=== PATIENT | female | born 1955 | race African-American/Black ===

== ENCOUNTER 2016-12-05 20:55 | Emergency (ER) | payer BC ==
--- NOTE | 2016-12-05 22:33 | RADIOLOGY REPORT (SQ) ---
EXAM DESCRIPTION: CHEST PA/LAT COMPLETED DATE/TIME: 12/05/2016 10:07 pm REASON FOR STUDY: sob COMPARISON: May 2012 EXAM PARAMETERS: NUMBER OF VIEWS: two views TECHNIQUE: Digital Frontal and Lateral radiographic views of the chest acquired. RADIATION DOSE: NA LIMITATIONS: none FINDINGS: LUNGS AND PLEURA: There are somewhat ill-defined patchy airspace densities predominately i n the right lung which could represent pulmonary edema or pneumonic infiltrates. There is some minim al blunting of the costophrenic angles which could represent tiny pleural effusions. MEDIASTINUM AND HILAR STRUCTURES: No masses or contour abnormalities. HEART AND VASCULAR STRUCTURES: Cardiac silhouette is mildly enlarged. There is pulmonary vascular co ngestion. BONES: No acute findings. HARDWARE: None in the chest. OTHER: No other significant finding. IMPRESSION: Cardiomegaly with pulmonary vascular congestion. There are somewhat ill-defined patchy airspace densities predominately in the right lung which could represent pneumonic infiltrates or pul monary edema. Other findings as noted above. TECHNICAL DOCUMENTATION: JOB ID: [id number] [employer]- All Rights Reserved
--- NOTE | 2016-12-05 23:50 | RADIOLOGY REPORT (SQ) ---
EXAM DESCRIPTION: NM LUNG VENT/PERF SCAN COMPLETED DATE/TIME: 12/05/2016 11:38 pm REASON FOR STUDY: SOB, elevated d-dimer, creatinine 3.5 COMPARISON: None. RADIONUCLIDE AND DOSE: 5.24 millicuries TC-99m MAA Intravenous 32.3 millicuries TC-99m DTPA Inhaled aerosol TECHNIQUE: Eight views of the lungs acquired post ventilation of DTPA aerosol. Eight matching views of the lungs acquired following injection of MAA. LIMITATIONS: None. FINDINGS: VENTILATION: Symmetric and homogeneous distribution of DTPA aerosol during ventilatory pha se. No significant areas of photopenia. PERFUSION: Perfusion images with normal homogenous activity and no wedge-shaped or segmental defects. No ventilation-perfusion mismatches. OTHER: No other significant finding. IMPRESSION: NORMAL VENTILATION-PERFUSION LUNG SCAN. NEGATIVE FOR PULMONARY EMBOLI. TECHNICAL DOCUMENTATION: JOB ID: [id number] [employer]- All Rights Reserved
[2016-12-05] MEDS ORDERED: FUROSEMIDE INJ/PF 40 MG/4 ML SDV IV ONE (23:59)
--- NOTE | 2016-12-06 00:37 | ER Document Report ---
ED Respiratory Problem - General Chief Complaint: Abnormal Lab Results Stated Complaint: WELL CHECK Time Seen by Provider: 12/05/16 21:53 Notes: The patient is a 61-year-old female, past medical history hypertension, CKD, CHF , presents after she had outpatient labs completed yesterday by her primary care physician, Dr. Nicholas De La Cruz, and her d-dimer was elevated. She was sent to the ER for further evaluation and treatment. Patient has had mild shortness of breath and chest congestion over the past 2-3 days with lower extremity swelling. She is taking her 20 mg Lasix as prescribed. She also tried an albuterol treatment with mild relief of her symptoms. She denies chest pain, cough, fevers, nausea, vomiting, back pain, abdominal pain or calf pain. TRAVEL OUTSIDE OF THE [place] IN LAST 30 DAYS: No - Related Data Allergies/Adverse Reactions: No Known Allergies Allergy (Verified 12/05/16 21:20) Past Medical History - General Information source: Patient - Social History Smoking Status: Never Smoker Family History: Reviewed & Not Pertinent - Past Medical History Cardiac Medical History: Reports: Hx Hypertension Pulmonary Medical History: Denies: Hx Tuberculosis Endocrine Medical History: Reports: Hx Diabetes Mellitus Type 2 Renal/ Medical History: Denies: Hx Peritoneal Dialysis Psychiatric Medical History: Denies: Hx Depression Past Surgical History: Reports: Hx Section - X3, Hx Cholecystectomy, Hx Orthopedic Surgery - Ankle surgery. Denies: Hx Pacemaker - Immunizations Hx Diphtheria, Pertussis, Tetanus Vaccination: No Review of Systems - Review of Systems Notes: REVIEW OF SYSTEMS: CONSTITUTIONAL: -fevers, -chills EENT: -eye pain, -difficulty swallowing, -nasal congestion CARDIOVASCULAR:-chest pain, -syncope, +peripheral edema RESPIRATORY: -cough, +SOB GASTROINTESTINAL: -abdominal pain, -nausea, -vomiting, -diarrhea GENITOURINARY: -dysuria, -hematuria MUSCULOSKELETAL: -back pain, -neck pain SKIN: -rash or skin lesions. HEMATOLOGIC: -easy bruising or bleeding. LYMPHATIC: -swollen, enlarged glands. NEUROLOGICAL: -altered mental status or loss of consciousness, -headache, - neurologic symptoms PSYCHIATRIC: -anxiety, -depression. ALL OTHER SYSTEMS REVIEWED AND NEGATIVE. Physical Exam - Notes Notes: PHYSICAL EXAMINATION: GENERAL: Well-appearing, well-nourished and in no acute distress. HEAD: Atraumatic, normocephalic. EYES: Pupils equal round and reactive to light, extraocular movements intact, sclera anicteric, conjunctiva are normal. ENT: nares patent, oropharynx clear without exudates. Moist mucous membranes. NECK: Normal range of motion, supple without lymphadenopathy LUNGS: Diffuse rales. No respiratory distress. HEART: Regular rate and rhythm without murmurs ABDOMEN: Soft, nontender, normoactive bowel sounds. No guarding, no rebound. No masses appreciated. EXTREMITIES: 2+ pitting edema in legs up to knees, normal range of motion. No cyanosis. NEUROLOGICAL: Cranial nerves grossly intact. Normal speech, normal gait. Normal sensory and motor exams. PSYCH: Normal mood, normal affect. SKIN: Warm, Dry, normal turgor, no rashes or lesions noted. Course - Re-evaluation Re-evalutation: Labs reviewed from earlier in the day. Unremarkable other than elevated d- dimer. No other acute abnormalities. Chest x-ray shows mild pulmonary edema. She is not in any respiratory distress. VQ scan does not show any evidence of PE. After IV Lasix, pt urinated a large amount. Offered patient admission, but she feels much better and would like to go home. She has an appointment with her PMD, Dr. De La Cruz, in 7 hours. Told her to discuss her elevated blood pressures in her PMD's office. Given strict return precautions and she understands. - Laboratory Laboratory results interpreted by me: 12/06/16 00:21 NT-Pro-B Natriuret Pep 9360 H - Diagnostic Test Radiology reviewed: Image reviewed, Reports reviewed Radiology results interpreted by me: CXR: pulmonary edema V/Q scan: No evidence of PE. Discharge - Discharge Clinical Impression: Pulmonary edema Qualifiers: Chronicity: acute Qualified Code(s): J81.0 - Acute pulmonary edema Condition: Good Disposition: HOME, SELF-CARE Additional Instructions: Your V/Q scan does not show any evidence of blood clots in your lungs. You have some fluid on your lungs and you were given IV Lasix. You did not want to be admitted tonight because you have an appointment with Dr. De La Cruz in 8 hours. Your blood pressure was also elevated in the emergency room, which improved after IV Lasix. Have this rechecked tomorrow to see if you need any adjustments of your blood pressure medications. SHORTNESS OF BREATH OR DYSPNEA: You were evaluated for shortness of breath, or dyspnea. Dyspnea has many causes, and some are more serious than others. Sometimes it's impossible to diagnose the cause of dyspnea with the tests that are available on an emergency basis. Based on our evaluation today, you do not need hospitalization now. We found no evidence of pneumonia, collapsed lung, blood clots in the lung, tumors , or heart failure. Causes of non-specific dyspnea can include asthma or bronchospasm, hyperventilation, emotional distress, heart disease, emphysema, fibrosis of the lung, and stiffness of the chest wall. In healthy individuals with a single episode, it's sometimes reasonable to do nothing but wait to see if the problem occurs again. Additional tests used to evaluate dyspnea can include cardiac stress testing, echocardiography, pulmonary function testing, CAT scan of the chest, bronchoscopy or pulmonary biopsy. Return if shortness of breath persists or worsens, or if you develop chest pain, fever, cough, confusion, or fainting. FOLLOW-UP CARE: If you have been referred to a physician for follow-up care, call the physician s office for an appointment as you were instructed or within the next two days. If you experience worsening or a significant change in your symptoms, notify the physician immediately or return to the Emergency Department at any time for re-evaluation. Referrals: NICHOLAS DE LA CRUZ MD [Primary Care Provider] - Follow up as needed
[2016-12-06 01:14] LABS: TROPONIN I < 0.012 ng/mL
[2016-12-06 06:58] VITALS: BP 174/90
--- NOTE | 2016-12-06 08:13 | EKG REPORT ---
SEVERITY:- ABNORMAL ECG - SINUS RHYTHM LVH WITH SECONDARY REPOLARIZATION ABNORMALITY : Confirmed by: Santosh Arredondo MD 06-Dec-2016 08:13:15
== END 2016-12-06 03:00 | disposition home or self-care (01) ==
LOC: ER 20:55
DX: J81.0 Acute pulmonary edema (principal); I13.0 Hypertensive heart and chronic kidney disease with heart failure and stage 1 through stage 4 chronic kidney disease, or unspecified chronic kidney disease; E11.22 Type 2 diabetes mellitus with diabetic chronic kidney disease; N18.9 Chronic kidney disease, unspecified; I50.9 Heart failure, unspecified; Z90.49 Acquired absence of other specified parts of digestive tract
CPT/HCPCS: 93005; 99284; 96374; 36415; 84484; 83880; 71020; 78582; 93010; A9540; A9567; J1940; Q9969; 80053; 85025; 85379

== ENCOUNTER → 2016-12-05 | Outpatient (CLI) | payer BC ==
[2016-12-05 13:36] LABS: HEMATOCRIT 36.6 % (36.0-47.0); HEMOGLOBIN 11.7 g/dL (12.0-15.5); HGB HCT DIFFERENCE -1.5; MEAN CORPUSCULAR HEMOGLOBIN 28.2 pg (27.0-33.4); MEAN CORPUSCULAR HGB CONC 31.9 g/dL (32.0-36.0); MEAN CORPUSCULAR VOLUME 88 fl (80-97); RED BLOOD COUNT 4.13 10^6/uL (3.72-5.28); RED CELL DISTRIBUTION WIDTH 15.5 % (11.5-14.0); WHITE BLOOD COUNT 12.4 10^3/uL (4.0-10.5)
--- NOTE | 2016-12-05 13:57 | RADIOLOGY REPORT (SQ) ---
EXAM DESCRIPTION: CHEST PA/LATERAL COMPLETED DATE/TIME: 12/05/2016 1:14 pm REASON FOR STUDY: WHEEZING COMPARISON: 06/19/2012 EXAM PARAMETERS: NUMBER OF VIEWS: two views TECHNIQUE: Digital Frontal and Lateral radiographic views of the chest acquired. RADIATION DOSE: NA LIMITATIONS: none FINDINGS: LUNGS AND PLEURA: There is no focal consolidation. Interstitial markings are mildly promi nent. MEDIASTINUM AND HILAR STRUCTURES: No masses or contour abnormalities. HEART AND VASCULAR STRUCTURES: Heart is enlarged with central vascular congestion. BONES: No acute findings. HARDWARE: None in the chest. OTHER: No other significant finding. IMPRESSION: Cardiomegaly mild vascular congestion. TECHNICAL DOCUMENTATION: JOB ID: [id number] [employer]- All Rights Reserved
[2016-12-05 13:58] LABS: ALANINE AMINOTRANSFERASE 33 U/L (9-52); ALBUMIN 3.2 g/dL (3.5-5.0); ALKALINE PHOSPHATASE 163 U/L (38-126); ANION GAP 15 (5-19); ASPARTATE AMINO TRANSFERASE 19 U/L (14-36); BILIRUBIN,DIRECT 0.5 mg/dL (0.0-0.4); BILIRUBIN,TOTAL 0.6 mg/dL (0.2-1.3); BLOOD UREA NITROGEN 40 mg/dL (7-20); CALCIUM 8.8 mg/dL (8.4-10.2); CARBON DIOXIDE 21 mmol/L (22-30); CHLORIDE 105 mmol/L (98-107); CREATININE RESULT 3.69 mg/dL (0.52-1.25); GLUCOSE 348 mg/dL (75-110); POTASSIUM 4.3 mmol/L (3.6-5.0); SODIUM 140.5 mmol/L (137-145); TOTAL PROTEIN 6.3 g/dL (6.3-8.2)
[2016-12-05 13:59] LABS: ANISOCYTOSIS 1+; BASOPHILS % (MANUAL) 0 % (0-2); EOSINOPHILS % (MANUAL) 0 % (0-6); LYMPHOCYTES % (MANUAL) 5 % (13-45); OVALOCYTES SLIGHT; POIKILOCYTOSIS SLIGHT; POLYCHROMASIA SLIGHT; TOTAL CELLS COUNTED 100
== END ==
LOC: OD 12:47
PROVIDERS: ATTEND Physician Assistant
DX: R06.2 Wheezing (principal); R05 Cough
CPT/HCPCS: 36415; 71020; 80053; 83880; 85025; 85379

== ENCOUNTER 2017-05-30 12:47 | Inpatient (IN) | payer BC ==
[2017-05-30] MEDS ORDERED: CLONIDINE HCL 0.2 MG TABLET PO ONE (13:57)
--- NOTE | 2017-05-30 13:58 | ER Document Report ---
ED Medical Screen (RME) - General Chief Complaint: High Blood Pressure Stated Complaint: SHORTNESS OF BREATH Time Seen by Provider: 05/30/17 13:56 Notes: Patient states that she has been out of her clonidine for over 1 week. She also states she has shortness of breath especially with exertion. She denies any chest pain. TRAVEL OUTSIDE OF THE [place] IN LAST 30 DAYS: No - Related Data Allergies/Adverse Reactions: No Known Allergies Allergy (Verified 05/30/17 12:48) Past Medical History - Past Medical History Cardiac Medical History: Reports: Hx Hypertension Pulmonary Medical History: Denies: Hx Tuberculosis Endocrine Medical History: Reports: Hx Diabetes Mellitus Type 2 Renal/ Medical History: Denies: Hx Peritoneal Dialysis Psychiatric Medical History: Denies: Hx Depression Past Surgical History: Reports: Hx Section - X3, Hx Cholecystectomy, Hx Orthopedic Surgery - Ankle surgery. Denies: Hx Pacemaker - Immunizations Hx Diphtheria, Pertussis, Tetanus Vaccination: No Physical Exam - Vital signs Vitals: Temp Pulse Resp BP Pulse Ox 97.9 F 102 H 19 243/132 H 95 05/30/17 12:59 05/30/17 12:59 05/30/17 12:59 05/30/17 12:59 05/30/17 12:59 Course - Vital Signs Vital signs: Temp Pulse Resp BP Pulse Ox 97.9 F 102 H 19 243/132 H 95 05/30/17 12:59 05/30/17 12:59 05/30/17 12:59 05/30/17 12:59 05/30/17 12:59
--- NOTE | 2017-05-30 14:42 | RADIOLOGY REPORT (SQ) ---
EXAM DESCRIPTION: CHEST PA/LAT COMPLETED DATE/TIME: 05/30/2017 2:20 pm REASON FOR STUDY: sob/cough COMPARISON: November 2010 EXAM PARAMETERS: NUMBER OF VIEWS: two views TECHNIQUE: Digital Frontal and Lateral radiographic views of the chest acquired. RADIATION DOSE: NA LIMITATIONS: none FINDINGS: LUNGS AND PLEURA: A moderate size left and small right pleural effusions are identified. There is some associated airspace consolidation in the left mid lung field most consistent with atele ctatic changes. Patchy airspace densities are identified especially in the right lung which could re present patchy pneumonic infiltrates or pulmonary edema. MEDIASTINUM AND HILAR STRUCTURES: No masses or contour abnormalities. HEART AND VASCULAR STRUCTURES: Cardiac silhouette remains enlarged. There is pulmonary vascular alysia estion. BONES: No acute findings. HARDWARE: None in the chest. OTHER: No other significant finding. IMPRESSION: Congestive failure pattern as noted above. I cannot exclude superimposed pneumonic infi ltrates. Other findings as noted above. TECHNICAL DOCUMENTATION: JOB ID: [id number] [employer]- All Rights Reserved
[2017-05-30] MEDS ORDERED: NITROGLYCERIN 2% OINTMENT 1 GM PACKET TP ONE (15:24)
[2017-05-30] MEDS ORDERED: ASPIRIN 325 MG TABLET PO ONE (15:24)
[2017-05-30 15:48] LABS: HEMOGLOBIN 11.1 g/dL (12.0-15.5); MEAN CORPUSCULAR HGB CONC 32.6 g/dL (32.0-36.0); MEAN CORPUSCULAR VOLUME 92 fl (80-97); PLATELET COUNT 219 10^3/uL (150-450); RED CELL DISTRIBUTION WIDTH 17.2 % (11.5-14.0); WHITE BLOOD COUNT 17.8 10^3/uL (4.0-10.5)
[2017-05-30 15:53] LABS: ALANINE AMINOTRANSFERASE 29 U/L (9-52); ALBUMIN 3.1 g/dL (3.5-5.0); ALKALINE PHOSPHATASE 285 U/L (38-126); ANION GAP 13 (5-19); ASPARTATE AMINO TRANSFERASE 17 U/L (14-36); BILIRUBIN,DIRECT 0.3 mg/dL (0.0-0.4); BILIRUBIN,TOTAL 0.4 mg/dL (0.2-1.3); BLOOD UREA NITROGEN 55 mg/dL (7-20); CALCIUM 7.9 mg/dL (8.4-10.2); CARBON DIOXIDE 22 mmol/L (22-30); CHLORIDE 106 mmol/L (98-107); GLUCOSE 201 mg/dL (75-110); POTASSIUM 3.2 mmol/L (3.6-5.0); SODIUM 141.4 mmol/L (137-145); TOTAL PROTEIN 5.6 g/dL (6.3-8.2)
--- NOTE | 2017-05-30 15:57 | ER Document Report ---
ED General - General Chief Complaint: High Blood Pressure Stated Complaint: SHORTNESS OF BREATH Time Seen by Provider: 05/30/17 13:56 Notes: 31-year-old lady with hypertension off her meds for a week presents with shortness of breath gradually increasing for a week, constant non-positional. She has no chest pain or pressure. She has no edema. She has no focal neurologic signs or symptoms. Noted to be quite hypertensive at triage. TRAVEL OUTSIDE OF THE [place] IN LAST 30 DAYS: No - Related Data Allergies/Adverse Reactions: No Known Allergies Allergy (Verified 05/30/17 12:48) Past Medical History - Social History Smoking Status: Never Smoker Chew tobacco use (# tins/day): No Frequency of alcohol use: None Drug Abuse: None Family History: Reviewed & Not Pertinent Patient has suicidal ideation: No Patient has homicidal ideation: No - Past Medical History Cardiac Medical History: Reports: Hx Hypertension Pulmonary Medical History: Denies: Hx Tuberculosis Endocrine Medical History: Reports: Hx Diabetes Mellitus Type 2 Renal/ Medical History: Denies: Hx Peritoneal Dialysis Psychiatric Medical History: Denies: Hx Depression Past Surgical History: Reports: Hx Section - X3, Hx Cholecystectomy, Hx Orthopedic Surgery - Ankle surgery. Denies: Hx Pacemaker - Immunizations Hx Diphtheria, Pertussis, Tetanus Vaccination: No Review of Systems - Review of Systems Notes: REVIEW OF SYSTEMS GEN: Denies fever, chills, weight loss ENT: Denies sore throat, nasal discharge, ear pain EYES: Denies blurry vision, eye pain, discharge CV: Denies chest pain, palpitations, edema RESP: D soreness of breath GI: Denies abdominal pain, nausea, vomiting, diarrhea MSK: Denies joint pain/swelling, edema, SKIN: Denies rash, skin lesions LYMPH: Denies swollen glands/lymph nodes NEURO: Denies headache, focal weakness or numbness, dizziness PSYCH: Denies depression, suicidal or homicidal ideation PHYSICAL EXAMINATION General: No acute distress, well-nourished Head: Atraumatic, normocephalic ENT: Mouth normal, oropharynx moist, no exudates or tonsillar enlargement Eyes: Conjunctiva normal, pupils equal, lids normal Neck: No JVD, supple, no guarding CVS: Normal rate, regular rhythm, no murmurs Resp: No resp distress, equal and normal breath sounds bilaterally GI: Nondistended, soft, no tenderness to palpation, no rebound or guarding Ext: No deformities, no edema, normal range of motion in upper and lower ext Back: No CVA or midline TTP Skin: No rash, warm Lymphatic: No lymphadeopathy noted Neuro: Awake, alert. Face symmetric. GCS 15. No pronator drift. Physical Exam - Vital signs Vitals: Temp Pulse Resp BP Pulse Ox 97.9 F 102 H 19 243/132 H 95 05/30/17 12:59 05/30/17 12:59 05/30/17 12:59 05/30/17 12:59 05/30/17 12:59 Course - Re-evaluation Re-evalutation: 05/30/17 16:06 61-year-old lady with hypertension and elevated creatinine presents with shortness of breath for a few weeks. She has pronounced leg edema and extremely high blood pressure. She has no chest pain at this time. Differential includes hypertensive emergency malignant hypertension, less likely stroke or dissection given lack of chest pain or neurologic symptoms. Will Place Nitropaste for now, check labs and an EKG and chest x-ray, and reassess. Patient was reassessed at 4 PM. Her pressure has only come down to 240 systolic on Nitropaste. Her creatinine has gone from 3-8. She is hypokalemic today. I will withhold on repleting that given her poor renal function. Her ECG shows heart failure. That said her respiratory status is stable. EKG has not been done so we will do this. I will start a nicardipine drip, contact Dr. Alfredo, and get the patient admitted. 05/30/17 19:07 His blood pressure is decreased on the nicardipine drip. I spent up to 30 minutes on the phone with the nursing supervisor machining, charge nurse, Dr. Alfredo, Dr. Wong, and the cloud systems administrator on-call working out a disposition for this patient. Initially she was accepted by Dr. Burden at [facility] but I was then notified that because of inclement weather all transfers out of the [place] emergency department had been canceled. Dr. Wong was reticent to accept this patient because he is not contingents supervisor because of hospital policy is not able to provide coverage. I then spoke with hospitalist Dr. Salter. I then spoke with the nursing supervisor machining. Dr. Wong agreed to accept the patient is a consult and provide coverage if the hospital administration would speak with him. I then spoke with Dr. Alfredo who agreed to admit the patient to the ICU. - Vital Signs Vital signs: Temp Pulse Resp BP Pulse Ox 97.9 F 102 H 21 H 167/79 H 92 05/30/17 12:59 05/30/17 12:59 05/30/17 19:01 05/30/17 19:01 05/30/17 19:01 - Laboratory Result Diagrams: 05/30/17 15:05 05/30/17 15:05 Laboratory results interpreted by me: 05/30/17 05/30/17 05/30/17 15:05 15:05 15:05 WBC 17.8 H RBC 3.70 L Hgb 11.1 L Hct 34.0 L RDW 17.2 H Seg Neuts % (Manual) 92 H Lymphocytes % (Manual) 5 L Monocytes % (Manual) 2 L Abs Neuts (Manual) 16.4 H Potassium 3.2 L BUN 55 H Creatinine 8.26 H Est GFR ( Amer) 6 L Est GFR (Non-Af Amer) 5 L Glucose 201 H Calcium 7.9 L Alkaline Phosphatase 285 H NT-Pro-B Natriuret Pep 16276 H Total Protein 5.6 L Albumin 3.1 L - EKG Interpretation by Me EKG shows normal: Sinus rhythm Rhythm: NSR When compared to previous EKG there are: No significant change - No ST or T- wave changes Critical Care Note - Critical Care Note Total time excluding time spent on procedures (mins): 75 Comments: The above patient is critically ill. Not including procedures, but including direct re-evaluations, speaking with patient and/or consultants, interpreting results, and documenting, I spent the total amount of minute listed listed above on critical care time Discharge - Discharge Clinical Impression: Malignant hypertension, Hypertensive emergency Condition: Critical Disposition: ADMITTED INPATIENT Admitting Provider: Juni Unit Admitted: ICU Referrals: DEVAN ALFREDO MD [Primary Care Provider] - Follow up as needed
[2017-05-30 16:04] LABS: TROPONIN I 0.025 ng/mL
[2017-05-30 16:06] LABS: ABSOLUTE LYMPHOCYTES# (MANUAL) 0.9 10^3/uL (0.5-4.7); ABSOLUTE MONOCYTES # (MANUAL) 0.4 10^3/uL (0.1-1.4); ABSOLUTE NEUTROPHILS# (MANUAL) 16.4 10^3/uL (1.7-8.2); BASOPHILS % (MANUAL) 1 % (0-2); EOSINOPHILS % (MANUAL) 0 % (0-6); LYMPHOCYTES % (MANUAL) 5 % (13-45); MONOCYTES % (MANUAL) 2 % (3-13); SEGMENTED NEUTROPHILS % (MAN) 92 % (42-78); TOTAL CELLS COUNTED 100
[2017-05-30 16:08] LABS: ANISOCYTOSIS 1+; POLYCHROMASIA SLIGHT
[2017-05-30 16:09] LABS: PLATELET COMMENT ADEQUATE; PLATELET LARGE PRESENT
[2017-05-30] MEDS: NICARDIPINE HCL RTU, ISO-OS 20 MG/200 ML RTUINJ IV PRN ×2 (16:44→19:18)
--- NOTE | 2017-05-30 19:09 | EKG REPORT ---
SEVERITY:- ABNORMAL ECG - SINUS RHYTHM ATRIAL PREMATURE COMPLEX LVH WITH SECONDARY REPOLARIZATION ABNORMALITY BORDERLINE PROLONGED QT INTERVAL : Confirmed by: Hui Castellano 30-May-2017 19:08:24
--- NOTE | 2017-05-30 19:09 | EKG REPORT ---
SEVERITY:- ABNORMAL ECG - SINUS TACHYCARDIA ATRIAL PREMATURE COMPLEX PROBABLE LVH WITH SECONDARY REPOL ABNRM BORDERLINE PROLONGED QT INTERVAL : Confirmed by: Hui Castellano 30-May-2017 19:08:52
[2017-05-30] MEDS ORDERED: DEXTROSE 40% GEL 15 GM TUBE PO PRN ×2 (19:37)
[2017-05-30] MEDS ORDERED: DEXTROSE 50%-WATER 25 GM/50 ML DISP.SYRIN IV PRN ×2 (19:37)
[2017-05-30] MEDS ORDERED: GLUCAGON,HUMAN RECOMB 1 MG INJ IM PRN (19:37)
--- NOTE | 2017-05-30 19:53 | PDOC H&P ---
History of Present Illness Admission Date/PCP: 05/30/17 18:57 DEVAN DE LA CRUZ MD Patient complains of: Shortness of the breathAnd uncontrolled hypertension's History of Present Illness: BEA QUINONES is a 61 year old female This is a 61-year-old females with the history of the chronic kidney disease stage III to stage IV history of the hypertension's history of the type 2 diabetes mellitus with very uncontrolledAnd a history of congestive heart failure with the very noncompliance for a long timeNot taking the medication as prescribed not following in the office in the subspecialty as directed and not watching the dietCame to the office today with the complaint of shortness of the breath and patient's blood pressure was 220/120 . Patient's denied any chest pain denied any headache denied any other symptoms except the mild short of breath Patient's last creatinine was 3.69 patient used to see a Dr. Wong in the past but very noncompliance patient was discharged by Dr. Wong and patient's referred to the nephrology but never went to see And today's at this point patient's directed to the emergency departments because possible heart failure with the renal failure and uncontrolled hypertension's In the emergency department patient's creatinine was 8.5 and patient's white count was 17 and patient's chest x-ray suggesting congestive heart failure with possible underlying consolidations Very extensive discussed with the ER physician initially tried to transfer the patient because no nephrologic or is available in patients probably need a potential dialysis very soon and here physicians tried to call the [facility] accepted the transfer but unable to transfer due to the weather conditions ER physicians call back and back and forth call from the nephrology Dr. Wong who is a not director cloud transformation officially for the ER but because of the best interest of the patient in hospital does not have any coverage agreed to see the patient and evaluate the patient and at this point admit the patient in the ICU as per discussed with him and start the drip and keep the blood pressures 160 range Patient otherwise currently stable denied any chest pain denied any headache denied any weakness Past Medical History Cardiac Medical History: Reports: Congestive Heart Failure, Hypertension Pulmonary Medical History: Denies: Tuberculosis Endocrine Medical History: Reports: Diabetes Mellitus Type 2 Renal/ Medical History: Reports: Chronic Kidney Disease Psychiatric Medical History: Denies: Depression Past Surgical History Past Surgical History: Reports: Section - X3, Cholecystectomy, Orthopedic Surgery - Ankle surgery Denies: Pacemaker Social History Smoking Status: Never Smoker Frequency of Alcohol Use: None Hx Recreational Drug Use: No Hx Prescription Drug Abuse: No Family History Family History: Reviewed & Not Pertinent Parental Family History Reviewed: Yes Children Family History Reviewed: Yes Sibling(s) Family History Reviewed.: Yes Medication/Allergy Allergies/Adverse Reactions: No Known Allergies Allergy (Verified 05/30/17 12:48) Review of Systems Constitutional: ABSENT: chills, fever(s), headache(s), weight gain, weight loss Eyes: ABSENT: visual disturbances Ears: ABSENT: hearing changes Cardiovascular: PRESENT: dyspnea on exertion. ABSENT: chest pain, edema, orthropnea, palpitations Respiratory: ABSENT: cough, hemoptysis Gastrointestinal: ABSENT: abdominal pain, constipation, diarrhea, hematemesis, hematochezia, nausea, vomiting Genitourinary: ABSENT: dysuria, hematuria Musculoskeletal: ABSENT: joint swelling Integumentary: ABSENT: rash, wounds Neurological: ABSENT: abnormal gait, abnormal speech, confusion, dizziness, focal weakness, syncope Psychiatric: ABSENT: anxiety, depression, homidical ideation, suicidal ideation Endocrine: ABSENT: cold intolerance, heat intolerance, menstrual abnormalities, polydipsia, polyuria Hematologic/Lymphatic: ABSENT: easy bleeding, easy bruising, lymphadenopathy Physical Exam Vital Signs: Temp Pulse Resp BP Pulse Ox 97.9 F 102 H 24 H 166/83 H 92 05/30/17 12:59 05/30/17 12:59 05/30/17 19:26 05/30/17 19:26 05/30/17 19:26 General appearance: PRESENT: no acute distress, well-developed, well-nourished Head exam: PRESENT: atraumatic, normocephalic Eye exam: PRESENT: conjunctiva pink, EOMI, PERRLA. ABSENT: scleral icterus Ear exam: PRESENT: normal external ear exam Mouth exam: PRESENT: moist, tongue midline Neck exam: PRESENT: full ROM. ABSENT: carotid bruit, JVD, lymphadenopathy, thyromegaly Respiratory exam: PRESENT: decreased breath sounds Cardiovascular exam: PRESENT: RRR. ABSENT: diastolic murmur, rubs, systolic murmur Pulses: PRESENT: normal dorsalis pedis pul, +2 pedal pulses bilateral Vascular exam: PRESENT: normal capillary refill GI/Abdominal exam: PRESENT: normal bowel sounds, soft. ABSENT: distended, guarding, mass, organolmegaly, rebound, tenderness Rectal exam: PRESENT: deferred Extremities exam: ABSENT: full ROM, left AKA, right AKA, left BKA, right BKA, calf tenderness, joint swelling, pedal edema, tenderness, other Musculoskeletal exam: PRESENT: ambulatory Neurological exam: PRESENT: alert, awake, oriented to person, oriented to place , oriented to time, oriented to situation, CN II-XII grossly intact. ABSENT: motor sensory deficit Psychiatric exam: PRESENT: appropriate affect, normal mood. ABSENT: homicidal ideation, suicidal ideation Skin exam: PRESENT: dry, intact, warm. ABSENT: cyanosis, rash Results Impressions: Chest X-Ray 05/30/17 13:57 IMPRESSION: Congestive failure pattern as noted above. I cannot exclude superimposed pneumonic infiltrates. Other findings as noted above. Assessment & Plan - Diagnosis (1) Hypertensive emergency Is this a current diagnosis for this admission?: Yes Plan: Admit the patient in ICU start the patient on a Cardene drip in the ER keep her systolic blood pressures 160 range and slowly restart the clonidine and then restart the other p.o. medications Patients out of the medications per week and most likely this is a rebound effect of the clonidine (2) Acute renal failure Qualifiers: Acute renal failure type: unspecified Qualified Code(s): N17.9 - Acute kidney failure, unspecified Is this a current diagnosis for this admission?: Yes Plan: Patient's last creatinine was 3.6 now 8.5 most likely due to the noncompliance with uncontrolled hypertension uncontrolled diabetes as per discussed with the Dr. Wong and he will see the patient in ICU and possible need of dialysisIs not getting improvement Replace the potassium (3) Acute congestive heart failure Qualifiers: Congestive heart failure type: combined Qualified Code(s): I50.41 - Acute combined systolic (congestive) and diastolic (congestive) heart failure Is this a current diagnosis for this admission?: Yes Plan: We will get the echocardiogram start the patient on IV Lasix and also concerned the cardiology (4) Type 2 diabetes mellitus Qualifiers: Diabetes mellitus complication status: with kidney complications Diabetes mellitus complication detail: with nephropathy Diabetes mellitus [facility] insulin use: with [facility] use Qualified Code(s): E11.21 - Type 2 diabetes mellitus with diabetic nephropathy; Z79.4 - longterm (current) use of insulin; Z79.4 - longterm (current) use of insulin; Z79.4 - longterm (current) use of insulin; Z79.4 - addresser (current) use of insulin Is this a current diagnosis for this admission?: Yes Plan: Will put on a sliding scale and continues to insulin (5) Leukocytosis Qualifiers: Leukocytosis type: unspecified Qualified Code(s): D72.829 - Elevated white blood cell count, unspecified Is this a current diagnosis for this admission?: Yes Plan: Will get the blood cultureAnd possible underlying pneumoniaAnd get the urine cultureAnd start the patient on empirical IV antibiotic (6) Pneumonia Qualifiers: Pneumonia type: due to unspecified organism Laterality: unspecified laterality Lung location: unspecified part of lung Qualified Code(s): J18.9 - Pneumonia, unspecified organism Is this a current diagnosis for this admission?: Yes Plan: Start the patient on IV antibiotic (7) Noncompliance Is this a current diagnosis for this admission?: Yes Plan: Very extensive discussions with the patient about the noncompliance of the medication the diet patient understand very well today and the patient's willing to try more aggressive follow-up in the medications Patient have a son who next with the patient to make her decisions about the patient's - Time Time Spent: 50 to 70 Minutes Critical Time spent with patient: 25-34 minutes Medications reviewed and adjusted accordingly: Yes Anticipated discharge: Home Within: Other - Inpatient Certification Medical Necessity: Significant Comorbidiites Make Outpatient Treatment Too Risky , Need For Continuous Telemetry Monitoring Post Hospital Care: D/C Banking Consultant Documentation - Plan Summary Plan Summary: Admit the patient in ICU start the patient on a Cardene drip and to keep her systolic blood pressure is 160 range and slowly bring it down consult the nephrology and cardiology Patient is in critical conditions with the uncontrolled blood pressures of the failures patient understand very well with this all complications with the noncompliance of the medication and the diet
[2017-05-30] MEDS ORDERED: POTASSIUM CHLORIDE 10 MEQ TABLET.SA PO ONE ×2 (19:54→23:14)
[2017-05-30] MEDS ORDERED: FUROSEMIDE INJ/PF 20 MG/2 ML SDV IV SCH (22:00)
[2017-05-30] MEDS ORDERED: INFLUENZA ADLT QUAD (36MOS+) 2017-18 VAC 0.5 ML SYR IM PRN (22:22)
[2017-05-30] MEDS ORDERED: CEFEPIME 1 GM/D5W RTU 1 GM/50 ML RTUPB IV ONE (23:19)
[2017-05-30] MEDS: FUROSEMIDE INJ/PF 20 MG/2 ML SDV IV SCH (23:21)
[2017-05-30] MEDS: CLONIDINE HCL 0.2 MG TABLET PO SCH (23:23)
[2017-05-30] MEDS: HEPARIN SOD (PORCINE) 5,000 UNIT/ML 1 ML SYRINGE SUBCUT SCH (23:24)
[2017-05-30] MEDS: INSULIN LISPRO 100 UNIT/ML 3 ML VIAL SUBCUT PRN (23:25)
[2017-05-30 23:26] LABS: CREATINE KINASE MB 7.41 ng/mL (<4.55); TROPONIN I 0.02 ng/mL
[2017-05-31] MEDS: CEFEPIME 1 GM/D5W RTU 1 GM/50 ML RTUPB IV SCH ×2 (00:38→22:18)
[2017-05-31 05:42] LABS: HEMATOCRIT 33.4 % (36.0-47.0); HEMOGLOBIN 10.8 g/dL (12.0-15.5); MEAN CORPUSCULAR HEMOGLOBIN 29.5 pg (27.0-33.4); MEAN CORPUSCULAR HGB CONC 32.3 g/dL (32.0-36.0); MEAN CORPUSCULAR VOLUME 91 fl (80-97); PLATELET COUNT 232 10^3/uL (150-450); RED BLOOD COUNT 3.66 10^6/uL (3.72-5.28); RED CELL DISTRIBUTION WIDTH 17.4 % (11.5-14.0); WHITE BLOOD COUNT 22.5 10^3/uL (4.0-10.5)
[2017-05-31] MEDS: HEPARIN SOD (PORCINE) 5,000 UNIT/ML 1 ML SYRINGE SUBCUT SCH ×3 (06:00→20:34)
[2017-05-31 06:02] LABS: ALANINE AMINOTRANSFERASE 29 U/L (9-52); ALBUMIN 2.7 g/dL (3.5-5.0); ALKALINE PHOSPHATASE 288 U/L (38-126); ANION GAP 11 (5-19); ASPARTATE AMINO TRANSFERASE 16 U/L (14-36); BILIRUBIN,DIRECT 0.3 mg/dL (0.0-0.4); BILIRUBIN,TOTAL 0.5 mg/dL (0.2-1.3); BLOOD UREA NITROGEN 53 mg/dL (7-20); CALCIUM 7.8 mg/dL (8.4-10.2); CARBON DIOXIDE 22 mmol/L (22-30); CHLORIDE 108 mmol/L (98-107); CREATINE KINASE 320 U/L (30-135); GLUCOSE 138 mg/dL (75-110); MAGNESIUM 2.1 mg/dL (1.6-2.3); POTASSIUM 3.4 mmol/L (3.6-5.0); SODIUM 141.2 mmol/L (137-145); TOTAL PROTEIN 5.3 g/dL (6.3-8.2)
[2017-05-31 06:05] LABS: ABSOLUTE LYMPHOCYTES# (MANUAL) 1.4 10^3/uL (0.5-4.7); ABSOLUTE MONOCYTES # (MANUAL) 0.2 10^3/uL (0.1-1.4); ABSOLUTE NEUTROPHILS# (MANUAL) 20.9 10^3/uL (1.7-8.2); BASOPHILS % (MANUAL) 0 % (0-2); EOSINOPHILS % (MANUAL) 0 % (0-6); LYMPHOCYTES % (MANUAL) 5 % (13-45); MONOCYTES % (MANUAL) 1 % (3-13); SEGMENTED NEUTROPHILS % (MAN) 93 % (42-78); TOTAL CELLS COUNTED 100
[2017-05-31 06:06] LABS: ANISOCYTOSIS 1+; PLATELET COMMENT ADEQUATE; TOXIC GRANULATION 1+; TOXIC VACUOLATION PRESENT
[2017-05-31] MEDS: LANSOPRAZOLE 15 MG TAB.RAP.DR PO SCH ×2 (06:07→16:15)
[2017-05-31] MEDS: CLONIDINE HCL 0.2 MG TABLET PO SCH ×3 (06:07→20:32)
[2017-05-31] MEDS: FUROSEMIDE INJ/PF 20 MG/2 ML SDV IV SCH ×3 (06:08→20:33)
[2017-05-31 06:12] LABS: CREATINE KINASE MB 7.47 ng/mL (<4.55); TROPONIN I 0.026 ng/mL
[2017-05-31] MEDS ORDERED: ALBUTEROL SULFATE HFA (90 MCG/PUFF) 8 GM MDI (1 MDI/ER DISP) IH PRN (07:43)
[2017-05-31] MEDS ORDERED: ALBUTEROL SULFATE 0.083% NEB 2.5 MG/3 ML AMPUL NEB PRN (07:43)
[2017-05-31] MEDS ORDERED: ALBUTEROL SULFATE HFA (90 MCG/PUFF) 200 PUFF/8.5 GM MDI IH PRN (07:53)
--- NOTE | 2017-05-31 09:21 | RADIOLOGY REPORT (SQ) ---
EXAM DESCRIPTION: CT CHEST WITHOUT COMPLETED DATE/TIME: 05/31/2017 9:03 am REASON FOR STUDY: renal faiulre sepsis/penmonia COMPARISON: Chest x-ray dated 05/30/2017 TECHNIQUE: CT scan performed of the chest without intravenous contrast. Images reviewed with lung, soft tissue and bone windows. Reconstructed coronal and sagittal MPR images reviewed. All images st ored on PACS. All CT scanners at this facility use dose modulation, iterative reconstruction, and/or weight based d osing when appropriate to reduce radiation dose to as low as reasonably achievable (ALARA). [facility]: Dose Right [facility]: CareDose [facility]: Dose Right [facility]: Teradose 4D [facility]: [employer] RADIATION DOSE: CT Rad equipment meets quality standard of care and radiation dose reduction techniq ues were employed. CTDIvol: 21.1 mGy. DLP: 1985 mGy-cm. mGy. LIMITATIONS: No technical limitations. FINDINGS: LUNGS AND PLEURA: Moderate size bilateral pleural effusions are identified with associated airspace consolidation in the lung bases most consistent with atelectatic changes although I cannot exclude pneumonic consolidations. HILAR AND MEDIASTINAL STRUCTURES: No identified masses or abnormal nodes. No obvious aneurysm. HEART AND VASCULAR STRUCTURES: No aneurysm. There is some mild thickening of the pericardium suggest ing a small pericardial effusion. UPPER ABDOMEN: See results under abdominal CT scan THYROID AND OTHER SOFT TISSUES: No masses. No adenopathy. BONES: A slightly exaggerated thoracic kyphosis is identified with degenerative changes in the thorac ic spine HARDWARE: None in the chest. OTHER: No other significant findings. IMPRESSION: Moderate size bilateral pleural effusions are identified with some associated airspace c onsolidation in the lung bases most consistent with atelectatic changes although I cannot exclude pne umonic consolidations. There is some mild thickening of the pericardium suggesting a small pericardi al effusion. Other findings as noted above TECHNICAL DOCUMENTATION: JOB ID: [id number] Quality ID # [id number]: Final reports with documentation of one or more dose reduction techniques (e.g., Au tomated exposure control, adjustment of the mA and/or kV according to patient size, use of iterative reconstruction technique) 2010 [employer]- All Rights Reserved
[2017-05-31] MEDS: CARVEDILOL 12.5 MG TABLET PO SCH ×2 (09:22→20:31)
[2017-05-31] MEDS: ATORVASTATIN CALCIUM 20 MG TABLET PO SCH (09:23)
[2017-05-31] MEDS: AMLODIPINE BESYLATE 5 MG TABLET PO SCH (09:23)
[2017-05-31] MEDS: NICARDIPINE HCL RTU, ISO-OS 20 MG/200 ML RTUINJ IV PRN ×2 (09:24→10:57)
--- NOTE | 2017-05-31 09:27 | RADIOLOGY REPORT (SQ) ---
EXAM DESCRIPTION: CT ABD/PELVIS NO ORAL OR IV COMPLETED DATE/TIME: 05/31/2017 9:00 am REASON FOR STUDY: renal faiulre sepsis COMPARISON: None. TECHNIQUE: CT scan of the abdomen and pelvis performed without intravenous or oral contrast. Images reviewed with lung, soft tissue, and bone windows. Reconstructed coronal and sagittal MPR images revi ewed. All images stored on PACS. All CT scanners at this facility use dose modulation, iterative reconstruction, and/or weight based d osing when appropriate to reduce radiation dose to as low as reasonably achievable (ALARA). [facility]: Dose Right [facility]: CareDose [facility]: Dose Right [facility]: Teradose 4D [facility]: [employer] RADIATION DOSE: mGy. LIMITATIONS: None. FINDINGS: LOWER CHEST: See results under chest CT scan NON-CONTRASTED LIVER, SPLEEN, ADRENALS: Evaluation limited by lack of IV contrast. No identified sign ificant masses. PANCREAS: No masses. No peripancreatic inflammatory changes. GALLBLADDER: Status post cholecystectomy RIGHT KIDNEY AND URETER: No suspicious masses. Assessment limited by lack of IV contrast. No signif icant calcifications. No hydronephrosis or hydroureter. LEFT KIDNEY AND URETER: No suspicious masses. Assessment limited by lack of IV contrast. No signifi cant calcifications. No hydronephrosis or hydroureter. AORTA AND RETROPERITONEUM: No aneurysm. No retroperitoneal masses or adenopathy. BOWEL AND PERITONEAL CAVITY: No obvious masses or inflammatory changes. No free fluid. APPENDIX: Normal. PELVIS, BLADDER, AND ABDOMINAL WALL:There is some prominence of the uterus suggesting uterine fibroid s. No free fluid. Solorzano catheter is identified in the bladder. BONES: No significant findings. OTHER: No other significant finding. IMPRESSION: NO SIGNIFICANT OR ACUTE PROCESS IN THE ABDOMEN OR PELVIS. COMMENT: Quality ID # [id number]: Final reports with documentation of one or more dose reduction techniques (e.g., Automated exposure control, adjustment of the mA and/or kV according to patient size, use of iterative reconstruction technique) TECHNICAL DOCUMENTATION: JOB ID: [id number] [employer]- All Rights Reserved
[2017-05-31] MEDS ORDERED: LEVOFLOXACIN 250 MG TABLET PO SCH (10:00)
[2017-05-31] MEDS: LEVOFLOXACIN 250 MG TABLET PO SCH (10:07)
--- NOTE | 2017-05-31 11:05 | PDOC PROGRESS REPORT ---
Subjective Progress Note for:: 05/31/17 Subjective:: pt is currently doing fair She is denied any chest pain denied any shortness of the breath Symptoms much better than compared to yesterday Still a Cardene drip 6 ptblood pressure is currently stable Patient's denied any headache Reason For Visit: HYPERTENSIVE URGENCY/ACUTE RENAL FAILURE Physical Exam Vital Signs: Temp Pulse Resp BP Pulse Ox 97.5 F 104 H 20 154/94 H 100 05/31/17 10:40 05/31/17 10:00 05/31/17 10:40 05/31/17 10:40 05/31/17 10:40 Intake & Output 05/30/17 05/31/17 06/01/17 06:59 06:59 06:59 Intake Total 2117 150 Output Total 400 200 Balance 1717 -50 Weight 110.6 kg General appearance: PRESENT: no acute distress, well-developed, well-nourished Head exam: PRESENT: atraumatic, normocephalic Eye exam: PRESENT: conjunctiva pink, EOMI, PERRLA. ABSENT: scleral icterus Ear exam: PRESENT: normal external ear exam Mouth exam: PRESENT: moist, tongue midline Neck exam: PRESENT: full ROM. ABSENT: carotid bruit, JVD, lymphadenopathy, thyromegaly Respiratory exam: PRESENT: clear to auscultation adamaris Cardiovascular exam: PRESENT: RRR. ABSENT: diastolic murmur, rubs, systolic murmur Pulses: PRESENT: normal dorsalis pedis pul, +2 pedal pulses bilateral Vascular exam: PRESENT: normal capillary refill GI/Abdominal exam: PRESENT: normal bowel sounds, soft. ABSENT: distended, guarding, mass, organolmegaly, rebound, tenderness Rectal exam: PRESENT: deferred Extremities exam: ABSENT: full ROM, left AKA, right AKA, left BKA, right BKA, calf tenderness, joint swelling, pedal edema, tenderness, other Neurological exam: PRESENT: alert, awake, oriented to person, oriented to place , oriented to time, oriented to situation, CN II-XII grossly intact. ABSENT: motor sensory deficit Psychiatric exam: PRESENT: appropriate affect, normal mood. ABSENT: homicidal ideation, suicidal ideation Skin exam: PRESENT: dry, intact, warm. ABSENT: cyanosis, rash Results Laboratory Results: 05/31/17 05:15 05/31/17 05:15 05/31/17 05/31/17 05/31/17 05:15 05:15 05:15 WBC 22.5 H RBC 3.66 L Hgb 10.8 L Hct 33.4 L MCV 91 MCH 29.5 MCHC 32.3 RDW 17.4 H Plt Count 232 Seg Neutrophils % Not Reportable Lymphocytes % Not Reportable Monocytes % Not Reportable Eosinophils % Not Reportable Basophils % Not Reportable Absolute Neutrophils Not Reportable Absolute Lymphocytes Not Reportable Absolute Monocytes Not Reportable Absolute Eosinophils Not Reportable Absolute Basophils Not Reportable Sodium 141.2 Potassium 3.4 L Chloride 108 H Carbon Dioxide 22 Anion Gap 11 BUN 53 H Creatinine 8.09 H Est GFR ( Amer) 6 L Est GFR (Non-Af Amer) 5 L Glucose 138 H Calcium 7.8 L Magnesium 2.1 Total Bilirubin 0.5 AST 16 ALT 29 Alkaline Phosphatase 288 H Total Protein 5.3 L Albumin 2.7 L PTH Intact 572.3 H 05/30/17 05/30/17 05/31/17 22:50 22:50 05:15 Creatine Kinase 370 H CK-MB (CK-2) 7.41 H 7.47 H Troponin I 0.020 0.026 NT-Pro-B Natriuret Pep 55457 H 05/31/17 05:15 Creatine Kinase 320 H CK-MB (CK-2) Troponin I NT-Pro-B Natriuret Pep Impressions: Chest X-Ray 05/30/17 13:57 IMPRESSION: Congestive failure pattern as noted above. I cannot exclude superimposed pneumonic infiltrates. Other findings as noted above. Abdomen/Pelvis CT 05/31/17 00:00 IMPRESSION: NO SIGNIFICANT OR ACUTE PROCESS IN THE ABDOMEN OR PELVIS. Chest CT 05/31/17 00:00 IMPRESSION: Moderate size bilateral pleural effusions are identified with some associated airspace consolidation in the lung bases most consistent with atelectatic changes although I cannot exclude pneumonic consolidations. There is some mild thickening of the pericardium suggesting a small pericardial effusion. Other findings as noted above Assessment & Plan - Diagnosis (1) Hypertensive emergency Is this a current diagnosis for this admission?: Yes Plan: Currently all improving (2) Acute renal failure Qualifiers: Acute renal failure type: unspecified Qualified Code(s): N17.9 - Acute kidney failure, unspecified Is this a current diagnosis for this admission?: Yes Plan: Follow with nephrology (3) Acute congestive heart failure Qualifiers: Congestive heart failure type: combined Qualified Code(s): I50.41 - Acute combined systolic (congestive) and diastolic (congestive) heart failure Is this a current diagnosis for this admission?: Yes Plan: schde echocardiogram continues IV Lasix (4) Type 2 diabetes mellitus Qualifiers: Diabetes mellitus complication status: with kidney complications Diabetes mellitus complication detail: with nephropathy Diabetes mellitus snf insulin use: with snf use Qualified Code(s): E11.21 - Type 2 diabetes mellitus with diabetic nephropathy; Z79.4 - prison (current) use of insulin; Z79.4 - moth exterminator (current) use of insulin; Z79.4 - moth exterminator (current) use of insulin; Z79.4 - moth exterminator (current) use of insulin Is this a current diagnosis for this admission?: Yes Plan: Will put on a sliding scale and continues to insulin (5) Leukocytosis Qualifiers: Leukocytosis type: unspecified Qualified Code(s): D72.829 - Elevated white blood cell count, unspecified Is this a current diagnosis for this admission?: Yes Plan: Possible pneumonia on the CT scan continues to IV Levaquin and cefepime (6) Pneumonia Qualifiers: Pneumonia type: due to unspecified organism Laterality: unspecified laterality Lung location: unspecified part of lung Qualified Code(s): J18.9 - Pneumonia, unspecified organism Is this a current diagnosis for this admission?: Yes Plan: current medication as above (7) Noncompliance Is this a current diagnosis for this admission?: Yes Plan: Very extensive discussions with the patient about the noncompliance of the medication the diet patient understand very well today and the patient's willing to try more aggressive follow-up in the medications Patient have a son who next with the patient to make her decisions about the patient's - Time Time Spent with patient: 15-24 minutes Medications reviewed and adjusted accordingly: Yes Anticipated discharge: Other Within: Other - Inpatient Certification Medical Necessity: Need Close Monitoring Due to Risk of Patient Decompensation, Need for IV Antibiotics Post Hospital Care: D/C Senior Network Administrator Documentation - Plan Summary Plan Summary: Very extensive discussions with the patient's current conditions with the patient and network security consultant continues to current medications some nebulizer treatments IV antibiotic
[2017-05-31] MEDS: INSULIN LISPRO 100 UNIT/ML 3 ML VIAL SUBCUT PRN ×2 (11:32→20:34)
[2017-05-31 11:43] LABS: PHOSPHORUS 6.7 mg/dL (2.5-4.5)
[2017-05-31 11:58] LABS: CREATINE KINASE MB 6.85 ng/mL (<4.55); TROPONIN I 0.026 ng/mL
[2017-05-31] MEDS ORDERED: ACETYLCYSTEINE 10% NEB 400 MG/4 ML VIAL NEB ONE (12:30)
--- NOTE | 2017-05-31 13:13 | PDOC CONSULTATION ---
Consultation Consult Date: 05/31/17 Consult reason:: Acute congestive heart failure in the setting of reaching ESRD and evaluation towards initiation of hemodialysis History of Present Illness Admission Date/PCP: 05/30/17 18:57 DEVAN DE LA CRUZ MD History of Present Illness: BEA QUINONES is a 61 year old female This is a 61-year-old females with the history of the chronic kidney disease stage IV, long-standing and poorly controlled hypertension , uncontrolled type 2 diabetes mellitus, history of congestive heart failure and noncompliance with diet, medications and physician visits was admitted with congestive heart failure and having attained ESRD with a creatinine of 8. She was seen 2 - 3 years early in my office and then stopped her visits at which point her creatinine was around 3-4. She has had a history of multiple admissions in the past for hypertensive urgency in the setting of noncompliance with her medications. This time again she says she has not been taking her medications for the last 1-2 weeks because she apparently ran out of it. She has noticed progressive edema of her legs along with progressive dyspnea on exertion culminating in shortness of breath on rest as well as orthopnea. Patient denied any chest pain, nausea vomiting, abdominal pains or leg pains. Evaluations in the ER revealed patient was in congestive heart failure with hypertensive urgency. She is now in the ICU on a Cardene drip with a blood pressure more stable. She feels better than when she came in yesterday. She is comfortable and she is having her lunch at the moment as I see her. Admits to the fact she has been very noncompliant with her diet and medications. Blood sugars also obviously not controlled. Diabetes is apparently 3-4 years old only and she has some mild neuropathy but no apparent evidences of retinopathy. Past Medical History Cardiac Medical History: Reports: Hypertension-primary Pulmonary Medical History: Denies: Tuberculosis Endocrine Medical History: Reports: Diabetes Mellitus Type 2 Renal/ Medical History: Reports: Chronic Kidney Disease Stage IV Psychiatric Medical History: Denies: Depression Past Surgical History Past Surgical History: Reports: Section - X3, Cholecystectomy, Orthopedic Surgery - Ankle surgery Denies: Pacemaker Social History Smoking Status: Never Smoker Frequency of Alcohol Use: None Hx Recreational Drug Use: No Hx Prescription Drug Abuse: No Family History Parental Family History Reviewed: Yes - Negative for ESRD Children Family History Reviewed: Yes - Three sons who apparently healthy. Sibling(s) Family History Reviewed.: Yes Medication/Allergy Home Medications: Albuterol Sulfate [Proair HFA] 2 puff IH Q4HP PRN 05/30/17 Albuterol Sulfate [Ventolin 0.083% Neb 2.5 mg/3 ml Ampul] 1 vial NEB TIDP PRN Atorvastatin Calcium [Lipitor 20 mg Tablet] 20 mg PO DAILY 05/30/17 Carvedilol [Coreg 25 mg Tablet] 25 mg PO Q12 05/30/17 Clonidine HCl [Catapres 0.3 mg Tablet] 0.3 mg PO Q8 05/30/17 Doxazosin Mesylate [Cardura 1 Mg Tablet] 1 mg PO Q12 05/30/17 Furosemide [Lasix 20 mg Tablet] 20 mg PO DAILY 05/30/17 Hydralazine HCl [Apresoline 50 mg Tablet] 100 mg PO Q8 05/30/17 Insulin Glargine,Hum.rec.anlog [Lantus] 15 unit SQ QHS 05/30/17 Insulin Lispro [Humalog Insulin 100 Unit/1 ml 3 ml Vial] 6 unit SUBCUT MEALS 08/12 Valsartan [Diovan 160 mg Tablet] 160 mg PO Q12 05/30/17 Allergies/Adverse Reactions: No Known Allergies Allergy (Verified 05/30/17 12:48) Review of Systems Constitutional: PRESENT: fatigue, weakness. ABSENT: fever(s), headache(s), night sweats Nose, Mouth, and Throat: ABSENT: mouth pain, sore throat Cardiovascular: PRESENT: dyspnea on exertion, edema, orthropnea. ABSENT: chest pain, palpitations Respiratory: PRESENT: dyspnea. ABSENT: cough, hemoptysis Gastrointestinal: ABSENT: abdominal pain, bloating, coffee ground emesis, constipation, diarrhea, heartburn, hematemesis, hematochezia, nausea, vomiting Integumentary: ABSENT: erythema, lesions, pruritus, rash Neurological: ABSENT: abnormal movements, abnormal speech, confusion, convulsions, focal weakness Endocrine: ABSENT: cold intolerance, polydipsia Hematologic/Lymphatic: ABSENT: easy bleeding, easy bruising, lymphadenopathy Physical Exam Vital Signs: Temp Pulse Resp BP Pulse Ox 97.9 F 79 21 H 129/72 H 100 05/31/17 12:10 05/31/17 12:00 05/31/17 12:10 05/31/17 12:10 05/31/17 12:10 Intake & Output 05/30/17 05/31/17 06/01/17 06:59 06:59 06:59 Intake Total 2117 150 Output Total 400 245 Balance 1717 -95 Weight 110.6 kg General appearance: PRESENT: mild distress Eye exam: PRESENT: conjunctiva pink, EOMI, PERRLA Ear exam: PRESENT: normal external ear exam Mouth exam: ABSENT: moist, neck supple Neck exam: ABSENT: lymphadenopathy, meningismus, tenderness, thyromegaly, tracheal deviation Respiratory exam: PRESENT: clear to auscultation adamaris, crackles, symmetrical, tachypnea Cardiovascular exam: PRESENT: +S1, +S2 GI/Abdominal exam: PRESENT: normal bowel sounds, soft. ABSENT: organomegaly, tenderness Extremities exam: PRESENT: pedal edema, +2 edema. ABSENT: calf tenderness, clubbing, full ROM Neurological exam: PRESENT: alert, awake, oriented to person, oriented to place , oriented to time Psychiatric exam: PRESENT: anxious Skin exam: ABSENT: cyanosis, erythema, mottled Results Laboratory Results: 05/31/17 05:15 05/31/17 05:15 05/31/17 05/31/17 05/31/17 05:15 05:15 05:15 WBC 22.5 H RBC 3.66 L Hgb 10.8 L Hct 33.4 L MCV 91 MCH 29.5 MCHC 32.3 RDW 17.4 H Plt Count 232 Seg Neutrophils % Not Reportable Lymphocytes % Not Reportable Monocytes % Not Reportable Eosinophils % Not Reportable Basophils % Not Reportable Absolute Neutrophils Not Reportable Absolute Lymphocytes Not Reportable Absolute Monocytes Not Reportable Absolute Eosinophils Not Reportable Absolute Basophils Not Reportable Sodium 141.2 Potassium 3.4 L Chloride 108 H Carbon Dioxide 22 Anion Gap 11 BUN 53 H Creatinine 8.09 H Est GFR ( Amer) 6 L Est GFR (Non-Af Amer) 5 L Glucose 138 H Calcium 7.8 L Phosphorus Magnesium 2.1 Total Bilirubin 0.5 AST 16 ALT 29 Alkaline Phosphatase 288 H Total Protein 5.3 L Albumin 2.7 L PTH Intact 572.3 H 05/31/17 11:11 WBC RBC Hgb Hct MCV MCH MCHC RDW Plt Count Seg Neutrophils % Lymphocytes % Monocytes % Eosinophils % Basophils % Absolute Neutrophils Absolute Lymphocytes Absolute Monocytes Absolute Eosinophils Absolute Basophils Sodium Potassium Chloride Carbon Dioxide Anion Gap BUN Creatinine Est GFR ( Amer) Est GFR (Non-Af Amer) Glucose Calcium Phosphorus 6.7 H Magnesium Total Bilirubin AST ALT Alkaline Phosphatase Total Protein Albumin PTH Intact 05/30/17 05/30/17 05/31/17 22:50 22:50 05:15 Creatine Kinase 370 H CK-MB (CK-2) 7.41 H 7.47 H Troponin I 0.020 0.026 NT-Pro-B Natriuret Pep 50706 H 05/31/17 05/31/17 05/31/17 05:15 11:11 11:11 Creatine Kinase 320 H 290 H CK-MB (CK-2) 6.85 H Troponin I 0.026 NT-Pro-B Natriuret Pep Impressions: Chest X-Ray 05/30/17 13:57 IMPRESSION: Congestive failure pattern as noted above. I cannot exclude superimposed pneumonic infiltrates. Other findings as noted above. Abdomen/Pelvis CT 05/31/17 00:00 IMPRESSION: NO SIGNIFICANT OR ACUTE PROCESS IN THE ABDOMEN OR PELVIS. Chest CT 05/31/17 00:00 IMPRESSION: Moderate size bilateral pleural effusions are identified with some associated airspace consolidation in the lung bases most consistent with atelectatic changes although I cannot exclude pneumonic consolidations. There is some mild thickening of the pericardium suggesting a small pericardial effusion. Other findings as noted above Assessment & Plan - Diagnosis (1) ESRD (end stage renal disease) Plan: Patient has features suggesting that she has reached end-stage renal disease manifesting now as heart failure. Electrolytes are stable and she is not acidotic. She seems to be responding some to IV Lasix and there is no acute indication for hemodialysis at this given moment but she needs to be started on it prior to her discharge. We discussed both kinds of modalities and has opted for starting peritoneal dialysis. I have gone through the procedure at length including complications, risks benefits and she is willing to proceed. I therefore discussed with Dr. Wan who will see if we can get a PD catheter in her tomorrow. case planner to please coordinate transfer to outpatient dialysis with [facility]. Has good family support as her son lives with her at home. (2) Renal osteodystrophy Plan: Start on appropriate medications and monitor. (3) Acute congestive heart failure Qualifiers: Congestive heart failure type: combined Qualified Code(s): I50.41 - Acute combined systolic (congestive) and diastolic (congestive) heart failure Is this a current diagnosis for this admission?: Yes Plan: She has responded to conservative management and will continue on the same lines including IV diuresis. Do not see the need to initiate urgent dialysis to extricate fluids at the given moment. However if I have a PD catheter that I can start on a fast start PD on the weekend and that makes me feel better as we do not have options to start urgent hemodialysis on the weekends here in this hospital. She will need cardiology to work her heart failure to rule out other etiologies as well (4) Acute renal failure Qualifiers: Acute renal failure type: unspecified Qualified Code(s): N17.9 - Acute kidney failure, unspecified Is this a current diagnosis for this admission?: Yes Plan: She has acute on chronic kidney disease. She is now manifesting with congestive heart failure. She has unfortunately been noncompliant with her medications and diet and physician follow-ups and therefore let her hypertension dictate her disease progression now involving multiple organs (5) Hypertensive emergency Is this a current diagnosis for this admission?: Yes Plan: Is responding to IV Cardene which can be converted to p.o. medications. Discussions were done with Dr. De La Cruz. (6) Leukocytosis Qualifiers: Leukocytosis type: unspecified Qualified Code(s): D72.829 - Elevated white blood cell count, unspecified Is this a current diagnosis for this admission?: Yes Plan: Unsure of any focus of infection. Query stress related. Monitor. Currently on antibiotics. Doses renally appropriate. (7) Noncompliance Is this a current diagnosis for this admission?: Yes Plan: Unfortunate. Went through this aspect for the future especially once she gets on dialysis and the consequences. (8) Type 2 diabetes mellitus Qualifiers: Diabetes mellitus complication status: with kidney complications Diabetes mellitus complication detail: with nephropathy Diabetes mellitus termite exterminator insulin use: with shelter use Qualified Code(s): E11.21 - Type 2 diabetes mellitus with diabetic nephropathy; Z79.4 - USP (current) use of insulin; Z79.4 - extermination inspector (current) use of insulin; Z79.4 - USP (current) use of insulin; Z79.4 - extermination inspector (current) use of insulin Is this a current diagnosis for this admission?: Yes Plan: Advised on the need for tight control.
[2017-05-31] MEDS: IPRATROPIUM/ALBUTEROL 0.5-2.5 MG/3 ML AMPUL NEB PRN ×2 (13:54→19:49)
[2017-05-31] MEDS: CALCIUM ACETATE 667 MG CAPSULE PO SCH (16:14)
--- NOTE | 2017-05-31 17:12 | PDOC CONSULTATION ---
Consultation Consult Date: 05/31/17 Attending physician:: ROSI ALCALA Consult reason:: For dialysis access, possibly peritoneal dialysis catheter insertion. History of Present Illness Admission Date/PCP: 05/30/17 18:57 DEVAN DE LA CRUZ MD Patient complains of: Shortness of breath. History of Present Illness: Admitted with shortness of breath and general decompensation as well as hypertension Past Medical History Cardiac Medical History: Reports: Congestive Heart Failure, Hypertension Pulmonary Medical History: Denies: Tuberculosis Endocrine Medical History: Reports: Diabetes Mellitus Type 2 Renal/ Medical History: Reports: Chronic Kidney Disease Psychiatric Medical History: Denies: Depression Past Surgical History Past Surgical History: Reports: Section - X3, Cholecystectomy, Orthopedic Surgery - Ankle surgery Denies: Pacemaker Social History Smoking Status: Never Smoker Frequency of Alcohol Use: None Hx Recreational Drug Use: No Hx Prescription Drug Abuse: No Family History Family History: Reviewed & Not Pertinent Parental Family History Reviewed: No Children Family History Reviewed: No Sibling(s) Family History Reviewed.: No Medication/Allergy Home Medications: Albuterol Sulfate [Proair HFA] 2 puff IH Q4HP PRN 05/30/17 Albuterol Sulfate [Ventolin 0.083% Neb 2.5 mg/3 ml Ampul] 1 vial NEB TIDP PRN Atorvastatin Calcium [Lipitor 20 mg Tablet] 20 mg PO DAILY 05/30/17 Carvedilol [Coreg 25 mg Tablet] 25 mg PO Q12 05/30/17 Clonidine HCl [Catapres 0.3 mg Tablet] 0.3 mg PO Q8 05/30/17 Doxazosin Mesylate [Cardura 1 Mg Tablet] 1 mg PO Q12 05/30/17 Furosemide [Lasix 20 mg Tablet] 20 mg PO DAILY 05/30/17 Hydralazine HCl [Apresoline 50 mg Tablet] 100 mg PO Q8 05/30/17 Insulin Glargine,Hum.rec.anlog [Lantus] 15 unit SQ QHS 05/30/17 Insulin Lispro [Humalog Insulin 100 Unit/1 ml 3 ml Vial] 6 unit SUBCUT MEALS 08/12 Valsartan [Diovan 160 mg Tablet] 160 mg PO Q12 05/30/17 Allergies/Adverse Reactions: No Known Allergies Allergy (Verified 05/30/17 12:48) Review of Systems Respiratory: PRESENT: dyspnea - Improved since admission. Physical Exam Vital Signs: Temp Pulse Resp BP Pulse Ox 97.7 F 75 27 H 138/79 H 97 05/31/17 14:10 05/31/17 14:00 05/31/17 14:10 05/31/17 14:10 05/31/17 14:10 Intake & Output 05/30/17 05/31/17 06/01/17 06:59 06:59 06:59 Intake Total 2117 150 Output Total 400 345 Balance 1717 -195 Weight 110.6 kg Additional comments: Constitutional: Well-developed well-nourished -Citizen Of [place] lady, morbidly obese body habitus. No apparent acute distress. Eyes: Mucous membranes pink and moist, pupils equal and reactive to light. Conjunctiva normal. Cornea normal. ENT: Hearing grossly normal. External pinna normal to inspection. Teeth intact. Tongue normal to inspection. Respiratory: Normal respiratory effort. Skin: Normal to inspection. No ulcers, normal turgor. Abdomen: Soft, nontender. Liver and spleen are not palpably enlarged. Large pannus noted, no intertriginous irritation noted. No hernia noted. Surgical scars present. Psychiatric: Judgment, memory, insight seem normal. Mood is pleasant and appropriate. Extremities: Upper extremities show normal range of movement. Pulses present noted to the radial arteries. Capillary refill normal. No cyanosis noted. No muscle wasting noted. . Results Laboratory Results: 05/31/17 05:15 05/31/17 05:15 05/31/17 05/31/17 05/31/17 05:15 05:15 05:15 WBC 22.5 H RBC 3.66 L Hgb 10.8 L Hct 33.4 L MCV 91 MCH 29.5 MCHC 32.3 RDW 17.4 H Plt Count 232 Seg Neutrophils % Not Reportable Lymphocytes % Not Reportable Monocytes % Not Reportable Eosinophils % Not Reportable Basophils % Not Reportable Absolute Neutrophils Not Reportable Absolute Lymphocytes Not Reportable Absolute Monocytes Not Reportable Absolute Eosinophils Not Reportable Absolute Basophils Not Reportable Sodium 141.2 Potassium 3.4 L Chloride 108 H Carbon Dioxide 22 Anion Gap 11 BUN 53 H Creatinine 8.09 H Est GFR ( Amer) 6 L Est GFR (Non-Af Amer) 5 L Glucose 138 H Calcium 7.8 L Phosphorus Magnesium 2.1 Total Bilirubin 0.5 AST 16 ALT 29 Alkaline Phosphatase 288 H Total Protein 5.3 L Albumin 2.7 L PTH Intact 572.3 H 05/31/17 11:11 WBC RBC Hgb Hct MCV MCH MCHC RDW Plt Count Seg Neutrophils % Lymphocytes % Monocytes % Eosinophils % Basophils % Absolute Neutrophils Absolute Lymphocytes Absolute Monocytes Absolute Eosinophils Absolute Basophils Sodium Potassium Chloride Carbon Dioxide Anion Gap BUN Creatinine Est GFR ( Amer) Est GFR (Non-Af Amer) Glucose Calcium Phosphorus 6.7 H Magnesium Total Bilirubin AST ALT Alkaline Phosphatase Total Protein Albumin PTH Intact 05/30/17 05/30/17 05/31/17 22:50 22:50 05:15 Creatine Kinase 370 H CK-MB (CK-2) 7.41 H 7.47 H Troponin I 0.020 0.026 NT-Pro-B Natriuret Pep 31689 H 05/31/17 05/31/17 05/31/17 05:15 11:11 11:11 Creatine Kinase 320 H 290 H CK-MB (CK-2) 6.85 H Troponin I 0.026 NT-Pro-B Natriuret Pep Impressions: Chest X-Ray 05/30/17 13:57 IMPRESSION: Congestive failure pattern as noted above. I cannot exclude superimposed pneumonic infiltrates. Other findings as noted above. Abdomen/Pelvis CT 05/31/17 00:00 IMPRESSION: NO SIGNIFICANT OR ACUTE PROCESS IN THE ABDOMEN OR PELVIS. Chest CT 05/31/17 00:00 IMPRESSION: Moderate size bilateral pleural effusions are identified with some associated airspace consolidation in the lung bases most consistent with atelectatic changes although I cannot exclude pneumonic consolidations. There is some mild thickening of the pericardium suggesting a small pericardial effusion. Other findings as noted above Assessment & Plan - Diagnosis (1) ESRD (end stage renal disease) Is this a current diagnosis for this admission?: Yes Plan: In this patient with renal failure who looks to be requiring dialysis in the very near future, access is well indicated. I have discussed with her the pros and cons of peritoneal dialysis versus versus a temporary hemodialysis catheter. Concerns centered around her leukocytosis, possible pneumonia. I will discuss this further with Dr. Wong. In the meanwhile we will go ahead and try to arrange for insertion of a peritoneal dialysis catheter on the laparoscopy tomorrow using general anesthesia, estimating about an hour. Procedure, its risks, benefits, expected outcome and alternatives were discussed with the patient. He is generally agreeable and has her questions answered. Alternative would be insertion of a temporary hemodialysis catheter at bedside, searching for a more elective time for PD insertion. (2) Hypertensive emergency Is this a current diagnosis for this admission?: Yes (3) Leukocytosis Qualifiers: Leukocytosis type: unspecified Qualified Code(s): D72.829 - Elevated white blood cell count, unspecified Is this a current diagnosis for this admission?: Yes (4) Type 2 diabetes mellitus Qualifiers: Diabetes mellitus complication status: with kidney complications Diabetes mellitus complication detail: with nephropathy Diabetes mellitus termite treater helper insulin use: with termite treater helper use Qualified Code(s): E11.21 - Type 2 diabetes mellitus with diabetic nephropathy; Z79.4 - extermination supervisor (current) use of insulin; Z79.4 - senior living (current) use of insulin; Z79.4 - senior living (current) use of insulin; Z79.4 - extermination supervisor (current) use of insulin Is this a current diagnosis for this admission?: Yes
[2017-05-31] MEDS: ACETYLCYSTEINE 10% NEB 400 MG/4 ML VIAL NEB SCH (19:49)
[2017-05-31] MEDS: HYDRALAZINE HCL INJ/PF 20 MG/1 ML SDV IV PRN (22:45)
[2017-05-31] MEDS ORDERED: HYDRALAZINE HCL INJ/PF 20 MG/1 ML SDV ONE (22:51)
[2017-06-01 04:31] LABS: HEMATOCRIT 30.7 % (36.0-47.0); HEMOGLOBIN 9.7 g/dL (12.0-15.5); MEAN CORPUSCULAR HEMOGLOBIN 28.7 pg (27.0-33.4); MEAN CORPUSCULAR HGB CONC 31.5 g/dL (32.0-36.0); MEAN CORPUSCULAR VOLUME 91 fl (80-97); PLATELET COUNT 225 10^3/uL (150-450); RED BLOOD COUNT 3.37 10^6/uL (3.72-5.28); RED CELL DISTRIBUTION WIDTH 17.4 % (11.5-14.0); WHITE BLOOD COUNT 22.8 10^3/uL (4.0-10.5)
[2017-06-01 04:51] LABS: ABSOLUTE LYMPHOCYTES# (MANUAL) 0.5 10^3/uL (0.5-4.7); ABSOLUTE MONOCYTES # (MANUAL) 0.9 10^3/uL (0.1-1.4); ABSOLUTE NEUTROPHILS# (MANUAL) 21.4 10^3/uL (1.7-8.2); BASOPHILS % (MANUAL) 0 % (0-2); EOSINOPHILS % (MANUAL) 0 % (0-6); LYMPHOCYTES % (MANUAL) 2 % (13-45); MONOCYTES % (MANUAL) 4 % (3-13); SEGMENTED NEUTROPHILS % (MAN) 94 % (42-78); TOTAL CELLS COUNTED 100
[2017-06-01 04:55] LABS: ANISOCYTOSIS 1+; OVALOCYTES SLIGHT; PLATELET COMMENT ADEQUATE; POIKILOCYTOSIS SLIGHT; POLYCHROMASIA SLIGHT; TOXIC GRANULATION 1+; TOXIC VACUOLATION PRESENT
[2017-06-01 05:02] LABS: ALANINE AMINOTRANSFERASE 24 U/L (9-52); ALBUMIN 2.7 g/dL (3.5-5.0); ALKALINE PHOSPHATASE 298 U/L (38-126); ANION GAP 12 (5-19); ASPARTATE AMINO TRANSFERASE 40 U/L (14-36); BILIRUBIN,DIRECT 0.4 mg/dL (0.0-0.4); BILIRUBIN,TOTAL 0.4 mg/dL (0.2-1.3); BLOOD UREA NITROGEN 58 mg/dL (7-20); CALCIUM 7.8 mg/dL (8.4-10.2); CARBON DIOXIDE 21 mmol/L (22-30); CHLORIDE 106 mmol/L (98-107); GLUCOSE 179 mg/dL (75-110); POTASSIUM 3.3 mmol/L (3.6-5.0); SODIUM 138.6 mmol/L (137-145); TOTAL PROTEIN 5.4 g/dL (6.3-8.2)
[2017-06-01] MEDS: LANSOPRAZOLE 15 MG TAB.RAP.DR PO SCH ×2 (06:26→17:29)
[2017-06-01] MEDS: CLONIDINE HCL 0.2 MG TABLET PO SCH ×3 (06:26→22:01)
[2017-06-01] MEDS: FUROSEMIDE INJ/PF 20 MG/2 ML SDV IV SCH ×3 (06:28→22:01)
[2017-06-01] MEDS: HEPARIN SOD (PORCINE) 5,000 UNIT/ML 1 ML SYRINGE SUBCUT SCH ×3 (06:29→22:03)
[2017-06-01] MEDS: ACETYLCYSTEINE 10% NEB 400 MG/4 ML VIAL NEB SCH ×2 (08:02→19:28)
[2017-06-01] MEDS ORDERED: LIDOCAINE 0.5% INJ-PF (5 MG/ML) 50 ML SDV ONE (08:19)
[2017-06-01 09:43] LABS: MAGNESIUM 2.1 mg/dL (1.6-2.3); PHOSPHORUS 6.1 mg/dL (2.5-4.5)
--- NOTE | 2017-06-01 10:33 | PDOC PROGRESS REPORT ---
Subjective Progress Note for:: 06/01/17 Subjective:: Patient is currently doing fair She has denied any chest pain denied any shortness of the breath No fever Patient is scheduled for femoral cath for the dialysis Patient's son was on the bedside discussed with the patient's son and the patient regarding the patient's current conditions Reason For Visit: HYPERTENSIVE URGENCY/ACUTE RENAL FAILURE Physical Exam Vital Signs: Temp Pulse Resp BP Pulse Ox 98.4 F 79 23 H 165/85 H 100 06/01/17 07:56 06/01/17 08:00 06/01/17 07:56 06/01/17 07:56 06/01/17 07:56 Intake & Output 05/31/17 06/01/17 06/02/17 06:59 06:59 06:59 Intake Total 2117 644 Output Total 400 1515 100 Balance 1717 -871 -100 Weight 110.6 kg 110.4 kg General appearance: PRESENT: no acute distress, well-developed, well-nourished Head exam: PRESENT: atraumatic, normocephalic Eye exam: PRESENT: conjunctiva pink, EOMI, PERRLA. ABSENT: scleral icterus Ear exam: PRESENT: normal external ear exam Mouth exam: PRESENT: moist, tongue midline Neck exam: PRESENT: full ROM. ABSENT: carotid bruit, JVD, lymphadenopathy, thyromegaly Respiratory exam: PRESENT: clear to auscultation adamaris Cardiovascular exam: PRESENT: RRR. ABSENT: diastolic murmur, rubs, systolic murmur Pulses: PRESENT: normal dorsalis pedis pul, +2 pedal pulses bilateral Vascular exam: PRESENT: normal capillary refill GI/Abdominal exam: PRESENT: normal bowel sounds, soft. ABSENT: distended, guarding, mass, organolmegaly, rebound, tenderness Rectal exam: PRESENT: deferred Extremities exam: ABSENT: pedal edema Neurological exam: PRESENT: alert, awake, oriented to person, oriented to place , oriented to time, oriented to situation, CN II-XII grossly intact. ABSENT: motor sensory deficit Psychiatric exam: PRESENT: appropriate affect, normal mood. ABSENT: homicidal ideation, suicidal ideation Skin exam: PRESENT: dry, intact, warm. ABSENT: cyanosis, rash Results Laboratory Results: 06/01/17 03:52 06/01/17 03:52 05/31/17 06/01/17 06/01/17 11:11 03:52 03:52 WBC 22.8 H RBC 3.37 L Hgb 9.7 L Hct 30.7 L MCV 91 MCH 28.7 MCHC 31.5 L RDW 17.4 H Plt Count 225 Seg Neutrophils % Not Reportable Lymphocytes % Not Reportable Monocytes % Not Reportable Eosinophils % Not Reportable Basophils % Not Reportable Absolute Neutrophils Not Reportable Absolute Lymphocytes Not Reportable Absolute Monocytes Not Reportable Absolute Eosinophils Not Reportable Absolute Basophils Not Reportable Sodium 138.6 Potassium 3.3 L Chloride 106 Carbon Dioxide 21 L Anion Gap 12 BUN 58 H Creatinine 8.42 H Est GFR ( Amer) 6 L Est GFR (Non-Af Amer) 5 L Glucose 179 H Calcium 7.8 L Phosphorus 6.7 H Magnesium Total Bilirubin 0.4 AST 40 H ALT 24 Alkaline Phosphatase 298 H Total Protein 5.4 L Albumin 2.7 L 06/01/17 03:52 WBC RBC Hgb Hct MCV MCH MCHC RDW Plt Count Seg Neutrophils % Lymphocytes % Monocytes % Eosinophils % Basophils % Absolute Neutrophils Absolute Lymphocytes Absolute Monocytes Absolute Eosinophils Absolute Basophils Sodium Potassium Chloride Carbon Dioxide Anion Gap BUN Creatinine Est GFR ( Amer) Est GFR (Non-Af Amer) Glucose Calcium Phosphorus 6.1 H Magnesium 2.1 Total Bilirubin AST ALT Alkaline Phosphatase Total Protein Albumin 05/30/17 22:47 Clean Catch Midstream Urine Culture - Final Viridans Streptococcus 05/30/17 05/30/17 05/31/17 22:50 22:50 05:15 Creatine Kinase 370 H CK-MB (CK-2) 7.41 H 7.47 H Troponin I 0.020 0.026 NT-Pro-B Natriuret Pep 13172 H 05/31/17 05/31/17 05/31/17 05:15 11:11 11:11 Creatine Kinase 320 H 290 H CK-MB (CK-2) 6.85 H Troponin I 0.026 NT-Pro-B Natriuret Pep 06/01/17 03:52 Creatine Kinase CK-MB (CK-2) Troponin I NT-Pro-B Natriuret Pep 95704 H Impressions: Chest X-Ray 05/30/17 13:57 IMPRESSION: Congestive failure pattern as noted above. I cannot exclude superimposed pneumonic infiltrates. Other findings as noted above. Abdomen/Pelvis CT 05/31/17 00:00 IMPRESSION: NO SIGNIFICANT OR ACUTE PROCESS IN THE ABDOMEN OR PELVIS. Chest CT 05/31/17 00:00 IMPRESSION: Moderate size bilateral pleural effusions are identified with some associated airspace consolidation in the lung bases most consistent with atelectatic changes although I cannot exclude pneumonic consolidations. There is some mild thickening of the pericardium suggesting a small pericardial effusion. Other findings as noted above Assessment & Plan - Diagnosis (1) Hypertensive emergency Is this a current diagnosis for this admission?: Yes Plan: Currently stable (2) Acute renal failure Qualifiers: Acute renal failure type: unspecified Qualified Code(s): N17.9 - Acute kidney failure, unspecified Is this a current diagnosis for this admission?: Yes Plan: Possible going for the dialysis per nephrology (3) Acute congestive heart failure Qualifiers: Congestive heart failure type: combined Qualified Code(s): I50.41 - Acute combined systolic (congestive) and diastolic (congestive) heart failure Is this a current diagnosis for this admission?: Yes Plan: Patient's already have echo done this morning we will repeat the magnesium's and replace the potassiums at the 12-lead EKG and waiting for the cardiology consult (4) Type 2 diabetes mellitus Qualifiers: Diabetes mellitus complication status: with kidney complications Diabetes mellitus complication detail: with nephropathy Diabetes mellitus penitentiary insulin use: with penitentiary use Qualified Code(s): E11.21 - Type 2 diabetes mellitus with diabetic nephropathy; Z79.4 - terminal manager (current) use of insulin; Z79.4 - terminal manager (current) use of insulin; Z79.4 - terminal manager (current) use of insulin; Z79.4 - terminal manager (current) use of insulin Is this a current diagnosis for this admission?: Yes Plan: Will put on a sliding scale and continues to insulin (5) Leukocytosis Qualifiers: Leukocytosis type: unspecified Qualified Code(s): D72.829 - Elevated white blood cell count, unspecified Is this a current diagnosis for this admission?: Yes Plan: Possible underlying pneumonia with the urine consistence with the some viridance streptococcus may be considered to start the vancomycin's were discussed with the nephrology (6) Pneumonia Qualifiers: Pneumonia type: due to unspecified organism Laterality: unspecified laterality Lung location: unspecified part of lung Qualified Code(s): J18.9 - Pneumonia, unspecified organism Is this a current diagnosis for this admission?: Yes Plan: current medication as above (7) Noncompliance Is this a current diagnosis for this admission?: Yes Plan: Very extensive discussions with the patient about the noncompliance of the medication the diet patient understand very well today and the patient's willing to try more aggressive follow-up in the medications Patient have a son who next with the patient to make her decisions about the patient's - Time Time Spent with patient: 15-24 minutes Medications reviewed and adjusted accordingly: Yes Anticipated discharge: Home Within: Other - Inpatient Certification Medical Necessity: Need Close Monitoring Due to Risk of Patient Decompensation, Need for IV Antibiotics Post Hospital Care: D/C Eyelet Row Marker Documentation - Plan Summary Plan Summary: Very extensive discussions with the patient's and her son on the bedside with the patient's multiple comorbidity due to the all this noncompliance for the long time with uncontrolled diabetes uncontrolled hypertension's
[2017-06-01] MEDS: CALCIUM ACETATE 667 MG CAPSULE PO SCH ×3 (11:15→17:29)
[2017-06-01] MEDS: CALCITRIOL 0.25 MCG CAPSULE PO SCH (11:15)
[2017-06-01] MEDS: ATORVASTATIN CALCIUM 20 MG TABLET PO SCH (11:16)
[2017-06-01] MEDS: CARVEDILOL 12.5 MG TABLET PO SCH ×2 (11:16→22:00)
[2017-06-01] MEDS: AMLODIPINE BESYLATE 5 MG TABLET PO SCH (11:17)
--- NOTE | 2017-06-01 11:18 | Operative Report ---
Operative Report DATE OF SURGERY: 06/01/17 PREOPERATIVE DIAGNOSIS: 1. End-stage renal disease requiring hemodialysis. 2. Hypertensive emergency. 3. Leukocytosis. 4. Morbid obesity. 5. Diabetes mellitus type 2. POSTOPERATIVE DIAGNOSIS: 1. End-stage renal disease requiring hemodialysis. Post insertion of temporary hemodialysis catheter. 2. Hypertensive emergency. 3. Leukocytosis. 4. Morbid obesity. 5. Diabetes mellitus type 2. OPERATION: 1. Ultrasound evaluation of the right femoral vein. 2. Insertion of temporary hemodialysis catheter via right femoral vein under ultrasound real- time guidance. SURGEON: ROSI MANRIQUEZ CONSTRUCTION FRAMER: None ANESTHESIA: Local TISSUE REMOVED OR ALTERED: Not applicable. COMPLICATIONS: None. ESTIMATED BLOOD LOSS: 5 mL. INTRAOPERATIVE FINDINGS: Of a deeply sided femoral system. Safe access into the right femoral vein was accomplished using ultrasound guidance. Satisfactory and safe access. Easy egress of blood and ingress of heparinized solution through all 3 ports. PROCEDURE: After obtaining informed consent, the patient was positioned supine at bedside. The[ left groin] and adjacent areas were prepared with chlorhexidine and draped out with sterile linen. After the universal timeout the procedure commenced. A steriley sheathed ultrasound probe was used to evaluate the [right femoral vein]. Local anesthesia was infiltrated adjacent to the probe. Access into the left femoral was accomplished using a micropuncture needle followed, by micropuncture wire and then with a micropuncture catheter. This was followed by introduction of a 0.035 guidewire, the skin opening was enlarged slightly, serially larger dilators were now placed followed by introduction of a triaysis catheter. All of these transitions were smooth. Each lumen was aspirated of blood and irrigated with heparinized solution. The catheter was now sutured to the skin using 3-0 nylon. A Bio A patch was now applied, followed by sterile dressings. Caps were placed on the end of the each of the lumens. The procedure concluded. Copies dictated operative report to Dr. Rosi Wan MD.
[2017-06-01] MEDS ORDERED: POTASSI CL 20 MEQ/50 ML RIDER 20 MEQ/50 ML RTUPB IV ONE (15:19)
[2017-06-01] MEDS ORDERED: NORMAL SALINE 1000 ML 1,000 ML IV PRN (15:23)
--- NOTE | 2017-06-01 15:30 | PDOC PROGRESS REPORT ---
Subjective Progress Note for:: 06/01/17 Reason For Visit: Patient seen on dialysis today. She did have a right femoral catheter temporary placed this morning by Dr. Wan. Plan is to place a PD catheter on Sunday. Meanwhile she is undergoing dialysis without any issues. Dialysis procedure was explained at length including complications. Breathing is some better but is still short of breath. She denies any history of chest pain, fever, chills or riders. Physical Exam Vital Signs: Temp Pulse Resp BP Pulse Ox 99.0 F 89 26 H 166/83 H 99 06/01/17 15:00 06/01/17 12:00 06/01/17 15:00 06/01/17 14:41 06/01/17 15:00 Intake & Output 05/31/17 06/01/17 06/02/17 06:59 06:59 06:59 Intake Total 2117 644 Output Total 400 1515 500 Balance 7887 -281 -500 Weight 110.6 kg 110.4 kg General appearance: PRESENT: mild distress Respiratory exam: PRESENT: clear to auscultation adamaris, crackles. ABSENT: rhonchi Cardiovascular exam: PRESENT: +S1, +S2 GI/Abdominal exam: PRESENT: normal bowel sounds, soft. ABSENT: organomegaly, tenderness Extremities exam: PRESENT: +1 edema Neurological exam: PRESENT: alert, awake, oriented to person, oriented to place Psychiatric exam: PRESENT: anxious Skin exam: ABSENT: cyanosis, mottled Results Laboratory Results: 06/01/17 03:52 06/01/17 03:52 06/01/17 06/01/17 06/01/17 03:52 03:52 03:52 WBC 22.8 H RBC 3.37 L Hgb 9.7 L Hct 30.7 L MCV 91 MCH 28.7 MCHC 31.5 L RDW 17.4 H Plt Count 225 Seg Neutrophils % Not Reportable Lymphocytes % Not Reportable Monocytes % Not Reportable Eosinophils % Not Reportable Basophils % Not Reportable Absolute Neutrophils Not Reportable Absolute Lymphocytes Not Reportable Absolute Monocytes Not Reportable Absolute Eosinophils Not Reportable Absolute Basophils Not Reportable Sodium 138.6 Potassium 3.3 L Chloride 106 Carbon Dioxide 21 L Anion Gap 12 BUN 58 H Creatinine 8.42 H Est GFR ( Amer) 6 L Est GFR (Non-Af Amer) 5 L Glucose 179 H Lactic Acid Calcium 7.8 L Phosphorus 6.1 H Magnesium 2.1 Total Bilirubin 0.4 AST 40 H ALT 24 Alkaline Phosphatase 298 H Total Protein 5.4 L Albumin 2.7 L 06/01/17 11:48 WBC RBC Hgb Hct MCV MCH MCHC RDW Plt Count Seg Neutrophils % Lymphocytes % Monocytes % Eosinophils % Basophils % Absolute Neutrophils Absolute Lymphocytes Absolute Monocytes Absolute Eosinophils Absolute Basophils Sodium Potassium Chloride Carbon Dioxide Anion Gap BUN Creatinine Est GFR ( Amer) Est GFR (Non-Af Amer) Glucose Lactic Acid 0.9 Calcium Phosphorus Magnesium Total Bilirubin AST ALT Alkaline Phosphatase Total Protein Albumin 05/30/17 22:47 Clean Catch Midstream Urine Culture - Final Viridans Streptococcus 05/30/17 05/30/17 05/31/17 22:50 22:50 05:15 Creatine Kinase 370 H CK-MB (CK-2) 7.41 H 7.47 H Troponin I 0.020 0.026 NT-Pro-B Natriuret Pep 02470 H 05/31/17 05/31/17 05/31/17 05:15 11:11 11:11 Creatine Kinase 320 H 290 H CK-MB (CK-2) 6.85 H Troponin I 0.026 NT-Pro-B Natriuret Pep 06/01/17 03:52 Creatine Kinase CK-MB (CK-2) Troponin I NT-Pro-B Natriuret Pep 43016 H Impressions: Chest X-Ray 05/30/17 13:57 IMPRESSION: Congestive failure pattern as noted above. I cannot exclude superimposed pneumonic infiltrates. Other findings as noted above. Abdomen/Pelvis CT 05/31/17 00:00 IMPRESSION: NO SIGNIFICANT OR ACUTE PROCESS IN THE ABDOMEN OR PELVIS. Chest CT 05/31/17 00:00 IMPRESSION: Moderate size bilateral pleural effusions are identified with some associated airspace consolidation in the lung bases most consistent with atelectatic changes although I cannot exclude pneumonic consolidations. There is some mild thickening of the pericardium suggesting a small pericardial effusion. Other findings as noted above Assessment & Plan - Diagnosis (1) ESRD (end stage renal disease) Is this a current diagnosis for this admission?: Yes Plan: She is undergoing dialysis currently which is being supervised to ensure safe and smooth procedure. Vital signs are stable. Antihypertensives have been held to help with extraction of fluid. We will put on a 3K bath 2.5 calcium. Plan to remove 1.5-2 L as tolerated. Post dialysis potassium to be checked and discussed with Marce the treating nurse. Replacements have been ordered for now as the potassium is 3.3. Get hepatitis labs done. Discussed about doing a PPD with the treating nurse and to be read in 48 hours. Plan is to convert her to peritoneal dialysis next week and discharge her. (2) Renal osteodystrophy Plan: She has been begun on appropriate medications. Monitor. (3) Acute congestive heart failure Qualifiers: Congestive heart failure type: combined Qualified Code(s): I50.41 - Acute combined systolic (congestive) and diastolic (congestive) heart failure Is this a current diagnosis for this admission?: Yes Plan: Still decompensated. See response to ultrafiltration on hemodialysis. (4) Acute renal failure Qualifiers: Acute renal failure type: unspecified Qualified Code(s): N17.9 - Acute kidney failure, unspecified Is this a current diagnosis for this admission?: Yes Plan: She has acute on chronic kidney disease. She is now manifesting with congestive heart failure. She has unfortunately been noncompliant with her medications and diet and physician follow-ups. She has no reach ESRD and is now being initiated on hemodialysis. (5) Hypertensive emergency Is this a current diagnosis for this admission?: Yes Plan: Currently under better control. She is off the Cardene drip. Discussed medications with Dr. Alfredo earlier today. (6) Leukocytosis Qualifiers: Leukocytosis type: unspecified Qualified Code(s): D72.829 - Elevated white blood cell count, unspecified Is this a current diagnosis for this admission?: Yes Plan: No obvious signs of infection. Monitor. Currently on antibiotics. Cultures negative so far. She has a non-significant strep viridans which is probably contaminant in the urine. (7) Noncompliance Is this a current diagnosis for this admission?: Yes (8) Type 2 diabetes mellitus Qualifiers: Diabetes mellitus complication status: with kidney complications Diabetes mellitus complication detail: with nephropathy Diabetes mellitus watermelon inspector insulin use: with watermelon inspector use Qualified Code(s): E11.21 - Type 2 diabetes mellitus with diabetic nephropathy; Z79.4 - termite technician (current) use of insulin; Z79.4 - termite technician (current) use of insulin; Z79.4 - skilled nursing (current) use of insulin; Z79.4 - skilled nursing (current) use of insulin Is this a current diagnosis for this admission?: Yes
[2017-06-01] MEDS ORDERED: TUBERCULIN,PURIF.PROT.DERIV. 5 TU/0.1 ML TEST 1 ML VIAL ID ONE (16:00)
--- NOTE | 2017-06-01 16:06 | XCELERA REPORT ---
[address] [address] Transthoracic Echocardiogram Report Name: BEA QUINONES Age: 61 yrs Gender: Female : 1955 Patient Status: Inpatient Patient Location: ICU^605^A Study Date: 06/01/2017 10:43 AM Height: 61 in Weight: 247 lb BSA: 2.1 m2 Procedure: A two-dimensional transthoracic echocardiogram with color flow and Doppler was performed. Study Quality: Fair. Reason For Study: CHF History: CHF. Ordering Physician: DEVAN DE LA CRUZ Performed By: Liya Teixeira Interpretation Summary The left ventricle is normal in size. There is moderate to severe concentric left ventricular hypertrophy. LV EF is > than 60% Left ventricular systolic function is normal. Doppler measurements suggest impaired left ventricular relaxation, which is associated with grade I/IV or mild diastolic dysfunction The left ventricular wall motion is normal. There is no thrombus. There is no ventricular septal defect visualized. The right ventricle is normal in size and function. The right atrium is normal. The left atrium is mildly dilated. The interatrial septum is intact with no evidence for an atrial septal defect. There is no evidence of mitral valve prolapse. There is no mitral valve stenosis. There is a mild amount of mitral regurgitation There is no aortic valve stenosis There is no LVOT obstruction. No aortic regurgitation is present. There is no tricuspid stenosis. There is a trace to mild amount of tricuspid regurgitation There is mild pulmonary hypertension by echo RVSP is 43 mm of Hg , with RA mean of 5. There is no pulmonic valvular stenosis. There is no pulmonic valvular regurgitation. The aortic root is normal size. Minimal pericardial effusion behind the RA. There are no echocardiographic or Doppler indications for cardiac tamponade Moderate size left pleural effusion. Small right pleural effusion. MMode/2D Measurements & Calculations RVDd: 2.8 cm LVIDd: 4.6 cm FS: 30.9 % Ao root diam: 3.0 cm IVSd: 1.8 cm LVIDs: 3.1 cm EDV(Teich): 95.0 ml LVPWd: 1.7 cm ESV(Teich): 39.4 ml Ao root area: 7.0 cm2 EF(Teich): 58.6 % LA dimension: 4.4 cm Doppler Measurements & Calculations MV E max ruby: MV P1/2t max ruby: Ao V2 max: LV V1 max P.7 cm/sec 98.2 cm/sec 155.4 cm/sec 7.5 mmHg MV A max ruby: MV P1/2t: 51.6 msec Ao max PG: LV V1 max: 114.5 cm/sec 9.7 mmHg 137.0 cm/sec MV E/A: 0.85 MVA(P1/2t): 4.3 cm2 MV dec slope: 557.9 cm/sec2 MV dec time: 0.18 sec PA V2 max: TR max ruby: 99.2 cm/sec 306.8 cm/sec PA max P.9 mmHgTR max P.6 mmHg Left Ventricle The left ventricle is normal in size. There is moderate to severe concentric left ventricular hypertrophy. LV EF is > than 60%. Left ventricular systolic function is normal. Doppler measurements suggest impaired left ventricular relaxation, which is associated with grade I/IV or mild diastolic dysfunction. The left ventricular wall motion is normal. There is no thrombus. There is no ventricular septal defect visualized. Right Ventricle The right ventricle is normal in size and function. Atria The right atrium is normal. The left atrium is mildly dilated. The interatrial septum is intact with no evidence for an atrial septal defect. Mitral Valve There is no evidence of mitral valve prolapse. There is no vegetation seen on the mitral valve. There is no mitral valve stenosis. There is a mild amount of mitral regurgitation. Aortic Valve There is no aortic valvular vegetation. There is no aortic valve stenosis. There is no LVOT obstruction. No aortic regurgitation is present. Tricuspid Valve There is no tricuspid stenosis. There is a trace to mild amount of tricuspid regurgitation. There is mild pulmonary hypertension by echo. RVSP is 43 mm of Hg , with RA mean of 5. Pulmonic Valve There is no pulmonic valvular stenosis. There is no pulmonic valvular regurgitation. Great Vessels The aortic root is normal size. Effusions Minimal pericardial effusion behind the RA. There are no echocardiographic or Doppler indications for cardiac tamponade. Moderate size left pleural effusion. Small right pleural effusion. : DEVAN DE LA CRUZ > Stephanie Art
[2017-06-01] MEDS ORDERED: HEPARIN SOD (PORCINE) 1,000 UNIT/ML 10 ML VIAL IV PRN ×2 (16:31→16:45)
[2017-06-01] MEDS: HYDRALAZINE HCL INJ/PF 20 MG/1 ML SDV IV PRN (20:55)
[2017-06-01 21:10] LABS: ANION GAP 9 (5-19); CALCIUM 8.1 mg/dL (8.4-10.2); CARBON DIOXIDE 25 mmol/L (22-30); CHLORIDE 104 mmol/L (98-107); GLUCOSE 134 mg/dL (75-110); POTASSIUM 3.3 mmol/L (3.6-5.0); SODIUM 138.2 mmol/L (137-145)
[2017-06-01 21:27] LABS: BLOOD UREA NITROGEN 34 mg/dL (7-20)
[2017-06-01] MEDS: CEFEPIME 1 GM/D5W RTU 1 GM/50 ML RTUPB IV SCH (22:06)
[2017-06-01] MEDS: POTASSIUM CHLORIDE 20 MEQ/50 ML RTU IV SCH ×2 (22:44→23:34)
[2017-06-02] MEDS: CLONIDINE HCL 0.2 MG TABLET PO SCH ×3 (05:30→22:54)
[2017-06-02] MEDS: FUROSEMIDE INJ/PF 20 MG/2 ML SDV IV SCH ×3 (05:31→22:55)
[2017-06-02] MEDS: LANSOPRAZOLE 15 MG TAB.RAP.DR PO SCH ×2 (05:31→18:17)
[2017-06-02] MEDS: HEPARIN SOD (PORCINE) 5,000 UNIT/ML 1 ML SYRINGE SUBCUT SCH ×3 (05:32→22:55)
[2017-06-02 05:44] LABS: HEMATOCRIT 29.2 % (36.0-47.0); HEMOGLOBIN 9.5 g/dL (12.0-15.5); MEAN CORPUSCULAR HEMOGLOBIN 29.7 pg (27.0-33.4); MEAN CORPUSCULAR HGB CONC 32.5 g/dL (32.0-36.0); MEAN CORPUSCULAR VOLUME 92 fl (80-97); RED BLOOD COUNT 3.19 10^6/uL (3.72-5.28); RED CELL DISTRIBUTION WIDTH 17.1 % (11.5-14.0); WHITE BLOOD COUNT 24.2 10^3/uL (4.0-10.5)
[2017-06-02 05:58] LABS: ALANINE AMINOTRANSFERASE 30 U/L (9-52); ALBUMIN 2.4 g/dL (3.5-5.0); ALKALINE PHOSPHATASE 290 U/L (38-126); ANION GAP 10 (5-19); ASPARTATE AMINO TRANSFERASE 15 U/L (14-36); BILIRUBIN,DIRECT 0.3 mg/dL (0.0-0.4); BILIRUBIN,TOTAL 0.5 mg/dL (0.2-1.3); BLOOD UREA NITROGEN 36 mg/dL (7-20); CALCIUM 8.2 mg/dL (8.4-10.2); CARBON DIOXIDE 24 mmol/L (22-30); CHLORIDE 105 mmol/L (98-107); GLUCOSE 170 mg/dL (75-110); POTASSIUM 3.8 mmol/L (3.6-5.0); SODIUM 138.8 mmol/L (137-145); TOTAL PROTEIN 4.7 g/dL (6.3-8.2)
[2017-06-02 05:59] LABS: PLATELET COUNT 228 10^3/uL (150-450)
[2017-06-02 06:01] LABS: ABSOLUTE MONOCYTES # (MANUAL) 1.2 10^3/uL (0.1-1.4); BASOPHILS % (MANUAL) 0 % (0-2); EOSINOPHILS % (MANUAL) 0 % (0-6); LYMPHOCYTES % (MANUAL) 3 % (13-45); MONOCYTES % (MANUAL) 5 % (3-13); SEGMENTED NEUTROPHILS % (MAN) 91 % (42-78); TOTAL CELLS COUNTED 100
[2017-06-02 06:02] LABS: ANISOCYTOSIS 1+; POIKILOCYTOSIS 1+
[2017-06-02 06:03] LABS: OVALOCYTES 1+; PLATELET CLUMPS PRESENT; PLATELET COMMENT ADEQUATE; POLYCHROMASIA SLIGHT; TEAR DROP CELLS 1+
[2017-06-02] MEDS: IPRATROPIUM/ALBUTEROL 0.5-2.5 MG/3 ML AMPUL NEB PRN (08:21)
[2017-06-02] MEDS: ACETYLCYSTEINE 10% NEB 400 MG/4 ML VIAL NEB SCH ×2 (08:24→20:03)
[2017-06-02] MEDS: CALCIUM ACETATE 667 MG CAPSULE PO SCH ×3 (08:45→18:18)
[2017-06-02] MEDS: INSULIN LISPRO 100 UNIT/ML 3 ML VIAL SUBCUT PRN (08:45)
[2017-06-02] MEDS: ATORVASTATIN CALCIUM 20 MG TABLET PO SCH (10:00)
[2017-06-02] MEDS: CALCITRIOL 0.25 MCG CAPSULE PO SCH (10:01)
[2017-06-02] MEDS: LEVOFLOXACIN 250 MG TABLET PO SCH (10:01)
[2017-06-02] MEDS: AMLODIPINE BESYLATE 5 MG TABLET PO SCH (10:01)
[2017-06-02] MEDS: CARVEDILOL 12.5 MG TABLET PO SCH ×2 (10:02→22:54)
--- NOTE | 2017-06-02 10:37 | PDOC PROGRESS REPORT ---
Subjective Progress Note for:: 06/02/17 Subjective:: Patient is currently doing fair underwent further dialysis Patient's denied any chest pain denied any shortness of the breath Since denied any fever Reason For Visit: HYPERTENSIVE URGENCY/ACUTE RENAL FAILURE Physical Exam Vital Signs: Temp Pulse Resp BP Pulse Ox 99.3 F 89 27 H 186/92 H 100 06/02/17 10:00 06/02/17 10:00 06/02/17 10:00 06/02/17 10:00 06/02/17 10:00 Intake & Output 06/01/17 06/02/17 06/03/17 06:59 06:59 06:59 Intake Total 644 543 Output Total 6655 2865 85 Balance -871 -2322 -85 Weight 110.4 kg 110.8 kg General appearance: PRESENT: no acute distress, well-developed, well-nourished Head exam: PRESENT: atraumatic, normocephalic Eye exam: PRESENT: conjunctiva pink, EOMI, PERRLA. ABSENT: scleral icterus Ear exam: PRESENT: normal external ear exam Mouth exam: PRESENT: moist, tongue midline Neck exam: PRESENT: full ROM. ABSENT: carotid bruit, JVD, lymphadenopathy, thyromegaly Respiratory exam: PRESENT: clear to auscultation adamaris Cardiovascular exam: PRESENT: RRR. ABSENT: diastolic murmur, rubs, systolic murmur Pulses: PRESENT: normal dorsalis pedis pul, +2 pedal pulses bilateral Vascular exam: PRESENT: normal capillary refill GI/Abdominal exam: PRESENT: normal bowel sounds, soft. ABSENT: distended, guarding, mass, organolmegaly, rebound, tenderness Rectal exam: PRESENT: deferred Extremities exam: ABSENT: pedal edema Neurological exam: PRESENT: alert, awake, oriented to person, oriented to place , oriented to time, oriented to situation, CN II-XII grossly intact. ABSENT: motor sensory deficit Psychiatric exam: PRESENT: appropriate affect, normal mood. ABSENT: homicidal ideation, suicidal ideation Skin exam: PRESENT: dry, intact, warm. ABSENT: cyanosis, rash Results Laboratory Results: 06/02/17 05:25 06/02/17 05:25 06/01/17 06/01/17 06/02/17 11:48 20:34 05:25 WBC 24.2 H RBC 3.19 L Hgb 9.5 L Hct 29.2 L MCV 92 MCH 29.7 MCHC 32.5 RDW 17.1 H Plt Count 228 Seg Neutrophils % Not Reportable Lymphocytes % Not Reportable Monocytes % Not Reportable Eosinophils % Not Reportable Basophils % Not Reportable Absolute Neutrophils Not Reportable Absolute Lymphocytes Not Reportable Absolute Monocytes Not Reportable Absolute Eosinophils Not Reportable Absolute Basophils Not Reportable Sodium 138.2 Potassium 3.3 L Chloride 104 Carbon Dioxide 25 Anion Gap 9 BUN 34 H D Creatinine 5.71 H Est GFR ( Amer) 9 L Est GFR (Non-Af Amer) 7 L Glucose 134 H Lactic Acid 0.9 Calcium 8.1 L Total Bilirubin AST ALT Alkaline Phosphatase Total Protein Albumin 06/02/17 05:25 WBC RBC Hgb Hct MCV MCH MCHC RDW Plt Count Seg Neutrophils % Lymphocytes % Monocytes % Eosinophils % Basophils % Absolute Neutrophils Absolute Lymphocytes Absolute Monocytes Absolute Eosinophils Absolute Basophils Sodium 138.8 Potassium 3.8 Chloride 105 Carbon Dioxide 24 Anion Gap 10 BUN 36 H Creatinine 6.04 H Est GFR ( Amer) 9 L Est GFR (Non-Af Amer) 7 L Glucose 170 H Lactic Acid Calcium 8.2 L Total Bilirubin 0.5 AST 15 ALT 30 Alkaline Phosphatase 290 H Total Protein 4.7 L Albumin 2.4 L 05/30/17 22:47 Clean Catch Midstream Urine Culture - Final Viridans Streptococcus 05/30/17 05/30/17 05/31/17 22:50 22:50 05:15 Creatine Kinase 370 H CK-MB (CK-2) 7.41 H 7.47 H Troponin I 0.020 0.026 NT-Pro-B Natriuret Pep 94751 H 05/31/17 05/31/17 05/31/17 05:15 11:11 11:11 Creatine Kinase 320 H 290 H CK-MB (CK-2) 6.85 H Troponin I 0.026 NT-Pro-B Natriuret Pep 06/01/17 06/02/17 03:52 05:25 Creatine Kinase CK-MB (CK-2) Troponin I NT-Pro-B Natriuret Pep 80010 H 96558 H Impressions: Chest X-Ray 05/30/17 13:57 IMPRESSION: Congestive failure pattern as noted above. I cannot exclude superimposed pneumonic infiltrates. Other findings as noted above. Abdomen/Pelvis CT 05/31/17 00:00 IMPRESSION: NO SIGNIFICANT OR ACUTE PROCESS IN THE ABDOMEN OR PELVIS. Chest CT 05/31/17 00:00 IMPRESSION: Moderate size bilateral pleural effusions are identified with some associated airspace consolidation in the lung bases most consistent with atelectatic changes although I cannot exclude pneumonic consolidations. There is some mild thickening of the pericardium suggesting a small pericardial effusion. Other findings as noted above Assessment & Plan - Diagnosis (1) Hypertensive emergency Is this a current diagnosis for this admission?: Yes Plan: Is the clonidine 0.3 mg p.o. q. 8 (2) Acute renal failure Qualifiers: Acute renal failure type: unspecified Qualified Code(s): N17.9 - Acute kidney failure, unspecified Is this a current diagnosis for this admission?: Yes Plan: On hemodialysis per nephrology (3) Acute congestive heart failure Qualifiers: Congestive heart failure type: combined Qualified Code(s): I50.41 - Acute combined systolic (congestive) and diastolic (congestive) heart failure Is this a current diagnosis for this admission?: Yes Plan: Patient's echocardiogram is currently stable (4) Type 2 diabetes mellitus Qualifiers: Diabetes mellitus complication status: with kidney complications Diabetes mellitus complication detail: with nephropathy Diabetes mellitus [facility] insulin use: with tank terminal gauger use Qualified Code(s): E11.21 - Type 2 diabetes mellitus with diabetic nephropathy; Z79.4 - [facility] (current) use of insulin; Z79.4 - intermediate project manager (current) use of insulin; Z79.4 - [facility] (current) use of insulin; Z79.4 - [facility] (current) use of insulin Is this a current diagnosis for this admission?: Yes Plan: Will put on a sliding scale and continues to insulin (5) Leukocytosis Qualifiers: Leukocytosis type: unspecified Qualified Code(s): D72.829 - Elevated white blood cell count, unspecified Is this a current diagnosis for this admission?: Yes Plan: Unclear etiology continues to IV antibiotic (6) Pneumonia Qualifiers: Pneumonia type: due to unspecified organism Laterality: unspecified laterality Lung location: unspecified part of lung Qualified Code(s): J18.9 - Pneumonia, unspecified organism Is this a current diagnosis for this admission?: Yes Plan: current medication as above (7) Noncompliance Is this a current diagnosis for this admission?: Yes Plan: Very extensive discussions with the patient about the noncompliance of the medication the diet patient understand very well today and the patient's willing to try more aggressive follow-up in the medications Patient have a son who next with the patient to make her decisions about the patient's - Time Time Spent with patient: 15-24 minutes Medications reviewed and adjusted accordingly: Yes Anticipated discharge: Other Within: Other - Inpatient Certification Medical Necessity: Need Close Monitoring Due to Risk of Patient Decompensation Post Hospital Care: D/C Income Tax Manager Documentation - Plan Summary Plan Summary: Continues to current medications discussed with the son on the bedside regarding the patient's current conditions
--- NOTE | 2017-06-02 11:33 | RADIOLOGY REPORT (SQ) ---
EXAM DESCRIPTION: CHEST SINGLE VIEW COMPLETED DATE/TIME: 06/02/2017 11:15 am REASON FOR STUDY: pnemonia COMPARISON: 05/30/2017 EXAM PARAMETERS: NUMBER OF VIEWS: One view. TECHNIQUE: Single frontal radiographic view of the chest acquired. RADIATION DOSE: NA LIMITATIONS: None. FINDINGS: LUNGS AND PLEURA: Stable left greater than right lower lobe airspace disease with pleural effusions. No new opacities. MEDIASTINUM AND HILAR STRUCTURES: No masses. Contour normal. HEART AND VASCULAR STRUCTURES: Stable. BONES: No acute findings. HARDWARE: None in the chest. OTHER: No other significant finding. IMPRESSION: STABLE APPEARANCE OF THE CHEST WITH LEFT GREATER THAN RIGHT AIRSPACE DISEASE AND PLEURAL EFFUSIONS. TECHNICAL DOCUMENTATION: JOB ID: [id number] [employer]- All Rights Reserved
[2017-06-02] MEDS: HYDRALAZINE HCL INJ/PF 20 MG/1 ML SDV IV PRN ×2 (14:24→18:23)
--- NOTE | 2017-06-02 14:38 | CONSULTATION REPORT E ---
Consultation Report NAME: BEA QUINONES : 1955 AGE: 61Y DATE: 05/31/2017 605 A TO: KENNETH QUEZADA M.D. FROM: DEVAN DE LA CRUZ M.D. Requesting Physician REASON FOR CONSULTATION: Acute congestive heart failure in the setting of reaching end stage renal disease. END OF DICTATION DICTATING PHYSICIAN: KENNETH QUEZADA M.D. [id number] Y#: [id number] ID: [id number] JOB#: [id number] ACCT: [id number] cc:KENNETH QUEZADA M.D. >
--- NOTE | 2017-06-02 14:47 | CONSULTATION REPORT E ---
Consultation Report NAME: BEA QUINONES : 1955 AGE: 61Y DATE: 05/31/2017 ROOM: 605 A TO: KENNETH QUEZADA M.D. FROM: DEVAN DE LA CRUZ M.D. Requesting Physician REASON FOR CONSULTATION: Patient with acute congestive heart failure in the setting of reaching end-stage renal disease. HISTORY OF PRESENT ILLNESS: The patient is a 61-year-old Afro-Maldivian female with a history of chronic disease which was stage 4, now has progressed to stage 5, which is end-stage renal disease with a creatinine of 8. She also has a history of poorly-controlled hypertension and uncontrolled type 2 diabetes mellitus. The patient informed me she has been having progressive increased dyspnea on exertion to rest dyspnea and also orthopnea but no PND. She also has been having leg edema. She denies any chest pain. She did have some palpitations but did not have any dizziness or syncopal episodes or near syncope. Evaluation in the ER revealed that the patient was in congestive heart failure. The reason the patient had this problem since the last one week was that she ran out of her medication. She has been very noncompliant with her medication, diet, and physician's office visits. She is now in the ICU. Her blood pressure was very high, and she was placed on a Cardene drip, which has been stopped now. The patient's diabetes is also not under good control, and she has mild neuropathy, but no apparent evidence of retinopathy. PAST MEDICAL HISTORY: 1. Positive for history of hypertension, which is poorly controlled. 2. Diabetes mellitus type 2, with poorly controlled blood sugars. 3. Chronic kidney disease, stage 4. She has no history of COPD or sleep apnea. She has no history of asthma. PAST SURGICAL HISTORY: 1. section x3. 2. Cholecystectomy. 3. Orthopedic surgery in the form of ankle surgery. SOCIAL HISTORY: She has never smoked. There is no history of ETOH abuse. She has no history of recreational drug use. She has no history of prescription drug abuse. FAMILY HISTORY: Negative for end-stage renal disease. Positive for hypertension. ADVANCED DIRECTIVES: SHE IS A FULL CODE. Her friend is her surrogate healthcare decision maker. ALLERGIES: She has no known allergies. MEDICATIONS: 1. Tylenol 650 mg p.o. q. 4 hours p.r.n. 2. Mucomyst 400 mg nebulizer respiratory therapy x1. 3. Acetylcysteine 40 mg nebulizer treatment b.i.d. 4. Albuterol sulfate / Ventolin 2.5 mg nebulizer treatment t.i.d. p.r.n. 5. She is also on albuterol sulfate (ProAir HFA) 2 puffs inhalation q. 4 hours p.r.n. 6. She is also on ipratropium / albuterol sulfate 3 mL nebulizer treatment q. 6 hours p.r.n. 7. Amlodipine 5 mg p.o. daily, which has been held on the basis of was on a Cardene drip, which has been stopped. 8. Calcitrol 0.25 mcg p.o. daily. 9. Phos-Lo 1334 mg p.o. meals. 10. Coreg 25 mg p.o. q. 12 hours. 11. Clonidine 0.2 mg p.o. q. 8 hours. 12. She is on hypoglycemic precautions with glucose 40% gel, 15 grams and 30 grams respectively p.o. p.r.n. 13. She is also on hypoglycemic precautions with dextrose 50%, 25 grams IV and 12.5 grams IV respectively p.r.n. hypoglycemia. 14. She will get Fluvax 0.5 mL intramuscularly on the day of discharge. 15. She is on furosemide injection 30 mg IV q. 8 hours. 16. Glucagon 1 mg IM p.r.n. 17. Heparin 5000 units subcutaneously q. 8 hours. 18. She is on hydralazine 20 mg IV x1, and she is also on hydralazine 10 mg IV q. 4 hours p.r.n. 19. She is on Accu-Chek's a.c. t.i.d. and at bedtime with sliding-scale regular insulin coverage. 20. She was on Cardene drip, which has been discontinued now. 21. Cefepime 1 gram 50 mL IV at bedtime. 22. Lansoprazole (Prevacid) 15 mg p.o. b.i.d. 23. Levaquin 25 mg p.o. every 48 hours. REVIEW OF SYSTEMS: CONSTITUTIONAL: She complains of fatigue and weakness but does not have any fevers, headaches, or night sweats. EYES: No history of amblyopia or diplopia. No history of amaurosis fugax. EARS: No history of hearing loss. No history of tinnitus. No history of recurrent ear infections. NOSE: No history of hay fever. No history of nosebleeds. No history of nasal polyps. MOUTH: No ulcers in the mouth. No bleeding from gums. THROAT: There is no recurrent sore throats. There is no odynophagia or dysphagia. SKIN: There are no skin rashes. No petechiae. No ecchymosis. There is no pruritus. There is no psoriasis. There is no skin cancer. No lesions of the skin. NECK: Denies any swelling in the neck. There is no goiter. No neck pain. RESPIRATORY: She has dyspnea. She denies any cough or hemoptysis. There is no history of pulmonary embolism. She has no history of asthma. No history of symptoms suggestive of sleep apnea. No pleuritic chest pain. CARDIAC: Dyspnea on exertion and most likely secondary to volume overload, chronic systolic heart failure, and also LV diastolic heart failure. She has edema and orthopnea. She has dyspnea on exertion, which progressed to rest shortness of breath. She denies any chest pain. She complained of palpitations. There is no history of syncope. GASTROINTESTINAL: She denies any abdominal pain. No fatty food intolerance. No history of jaundice. No history of cirrhosis. No history of GI bleed. MUSCULOSKELETAL: She denies any collagen vascular disease or arthritis. ENDOCRINE: She denies any cold intolerance or polydipsia or polyuria. She has poorly-controlled diabetes mellitus. NEUROLOGICAL: No history of TIA or CVA. No history of severe headaches or migraines. No history of gait imbalance. PSYCHIATRIC: No history of anxiety or depression. No history of suicidal or homicidal ideation. VASCULAR: No history of calf or buttock claudication. No history of DVT. HEMATOLOGIC: No history of anemia in spite of her chronic kidney disease. No bleeding dyscrasias. No clotting problems. PHYSICAL EXAMINATION: GENERAL: The patient is morbidly obese but at present, in some mild respiratory distress. VITAL SIGNS: She is afebrile with a temperature of 97.7 degrees Fahrenheit. Pulse is 81 beats per minute. Respiration is 24. O2 sat is 100% on 2 L nasal cannula. Her blood pressure is 173/86. On examination, the patient is afebrile with a temperature of 97.5. Pulse is 83 beats per minute. Blood pressure is 166/85. Respirations are 22. O2 sat is 100% on 2 L nasal cannula. HEAD: Atraumatic, normocephalic. EYES: Pupils are equal, round, and regular, reactive to light and accommodation. Extraocular movements are normal. There is no conjunctival pallor. There is no scleral icterus. EARS: Tympanic membranes are intact. External auditory canals are clear. NOSE: The nares are patent. There is no inflammation of the nasal mucous membrane. There are no polyps in the nose. MOUTH: The mucous membranes of the mouth and tongue are moist. There are no ulcers or mouth sores. THROAT: There is no redness of the oropharynx. There are no exudates. SKIN: There are no skin rashes. There are no petechiae or ecchymosis. There are no skin lesions. NECK: Supple. There is JVD present. Carotids are equal. There is no bruit. There is no lymphadenopathy. There is no goiter. LUNGS: Left more than right, absent breath sounds with dullness at the bases, and above that she has bibasilar rales of both CHF and dry crackles of pneumonia. EXTREMITIES: She has 2+ edema. Her peripheral pulses are diminished. Femorals are diminished with no bruits. There is no DVT or cellulitis. There is no cyanosis or clubbing. There is no calf tenderness. ABDOMEN: Soft, nontender. There is no hepatosplenomegaly. Bowel sounds are well heard. There are no tender areas or masses. CENTRAL NERVOUS SYSTEM: The patient is conscious, awake, alert, oriented x3, with no focal deficits. PSYCHIATRIC: The patient's judgement and insight are intact. Her affect is normal. DIAGNOSTIC STUDIES: A chest x-ray on 05/30/2017 showed congestive heart failure pattern , cannot exclude superimposed pneumonia infiltration. Abdomen/Pelvis CT: No significant or acute processes of the abdomen or pelvis. Chest CT without contrast: Moderate-sized bilateral pleural effusions are identified with some associated air-space consolidation in the lung basis, most consistent with atelectasis changes, though I cannot exclude pneumonic consolidations. There is mild pitting of the ____, suggesting small pericardial effusions. Other findings are as noted above. The patient's intake has been 2170 mL, output is 400 mL. The patient's white count is 22,500, hemoglobin is 10.8, hematocrit is 33.4, platelet count is 232,000. The patient's sodium is 141.2, potassium is 3.4, chloride is 108, CO2 is 22. The patient's BUN is 53, creatinine is 8.09, GFR is 6 mL/min, which is end-stage renal disease. Calcium is 7.8, magnesium is 2.1. Albumin is 2.7. Her total protein is 5.3. The patient's alk phos in the liver function tests is elevated at 288. The rest of the liver is normal. Her troponin-I are negative x2, but a CPK is elevated at 370 and 320, and her CPK-MB is 7.41 and 7.47. Her NT-ProBNP is 67,600. Note that the patient had an echo in 2013 which showed normal LV ejection fraction of 60% with no wall-motion abnormality, mild LV diastolic dysfunction, mild MR; no MS or MVP. Her LV ejection fraction was 60% with mild left ventricular diastolic dysfunction. She also had moderate LVH. Trace TR; unable to calculate right ventricular systolic pressure due to insufficient TR jet. No aortic stenosis or aortic regurgitation. IMPRESSION: 1. End-stage renal disease. The plan is as outlined by Dr. Amaury Wong. The patient will be given a trial of peritoneal dialysis to see if that improves her situation. 2. Renal osteodystrophy. 3. Acute congestive heart failure which is combined systolic heart failure due to volume overload and diastolic heart failure, but we need to get an echocardiogram to see if the patient's LV ejection fraction has decreased. 4. Acute on chronic kidney disease; now she has reached end-stage renal disease. This is most likely the effect of uncontrolled hypertension and poorly-controlled diabetes mellitus in a patient with chronic kidney disease. 5. Hypertensive emergency. Now the patient's blood pressure is still not well controlled, but systolic blood pressure is in the 170s. Need to increase her clonidine. 6. Leukocytosis. 7. Noncompliance. 8. Pneumonia with pleural effusions. 9. Type 2 diabetes mellitus with long-term use of insulin and diabetes mellitus with diabetic nephropathy. I agree with the present treatment. Once the patient gets a little more stable, we will get the patient to have an echocardiogram to see what the baseline LV ejection fraction is. Would recommend continuing IV Lasix and the cardiac medications. We need to increase her blood pressure medication, but I will leave that to the neurosurgical physician assistant. Continue Levaquin and continue on other current medications. Would later get an echocardiogram, as mentioned earlier. Note, 40 minutes spent on this patient. The patient was seen at 5:50 p.m., but more than 50% of the time spent on the patient, with more than 50% spent on direct care of the patient. Her medications have been reviewed and discussed with other caregiving providers on the case. Medical decision making is of high complexity. Will follow with you. DICTATING PHYSICIAN: KENNETH QUEZADA M.D. [id number] DEJAN#: [id number] ID: [id number] JOB#: [id number] ACCT: [id number] cc:KENNETH QUEZADA M.D. >
[2017-06-02] MEDS: CEFEPIME 1 GM/D5W RTU 1 GM/50 ML RTUPB IV SCH (22:57)
[2017-06-03] MEDS: ACETAMINOPHEN 325 MG TABLET PO PRN (00:06)
[2017-06-03] MEDS: HYDRALAZINE HCL INJ/PF 20 MG/1 ML SDV IV PRN ×2 (04:07→08:58)
[2017-06-03] MEDS: CLONIDINE HCL 0.2 MG TABLET PO SCH ×3 (06:10→23:00)
[2017-06-03] MEDS: FUROSEMIDE INJ/PF 20 MG/2 ML SDV IV SCH ×3 (06:10→23:00)
[2017-06-03] MEDS: HEPARIN SOD (PORCINE) 5,000 UNIT/ML 1 ML SYRINGE SUBCUT SCH ×3 (06:10→23:00)
[2017-06-03] MEDS: LANSOPRAZOLE 15 MG TAB.RAP.DR PO SCH ×2 (06:10→18:16)
[2017-06-03 06:55] LABS: HEMOGLOBIN 9.3 g/dL (12.0-15.5); MEAN CORPUSCULAR HEMOGLOBIN 29.6 pg (27.0-33.4); MEAN CORPUSCULAR HGB CONC 32.2 g/dL (32.0-36.0); MEAN CORPUSCULAR VOLUME 92 fl (80-97); PLATELET COUNT 246 10^3/uL (150-450); RED BLOOD COUNT 3.16 10^6/uL (3.72-5.28); RED CELL DISTRIBUTION WIDTH 17.5 % (11.5-14.0); WHITE BLOOD COUNT 23.7 10^3/uL (4.0-10.5)
[2017-06-03 07:14] LABS: ANION GAP 11 (5-19); BLOOD UREA NITROGEN 41 mg/dL (7-20); CALCIUM 8.8 mg/dL (8.4-10.2); CARBON DIOXIDE 23 mmol/L (22-30); CHLORIDE 103 mmol/L (98-107); GLUCOSE 149 mg/dL (75-110); POTASSIUM 3.6 mmol/L (3.6-5.0)
[2017-06-03 07:15] LABS: ABSOLUTE LYMPHOCYTES# (MANUAL) 0.7 10^3/uL (0.5-4.7); ABSOLUTE MONOCYTES # (MANUAL) 0.7 10^3/uL (0.1-1.4); ABSOLUTE NEUTROPHILS# (MANUAL) 22.3 10^3/uL (1.7-8.2); BAND NEUTROPHILS % (MANUAL) 1 % (3-5); BASOPHILS % (MANUAL) 0 % (0-2); EOSINOPHILS % (MANUAL) 0 % (0-6); LYMPHOCYTES % (MANUAL) 3 % (13-45); MONOCYTES % (MANUAL) 3 % (3-13); NUCLEATED RED BLOOD CELLS 1 /100 WBC (0); SEGMENTED NEUTROPHILS % (MAN) 93 % (42-78); TOTAL CELLS COUNTED 100
[2017-06-03 07:17] LABS: TOXIC GRANULATION 2+; TOXIC VACUOLATION PRESENT
[2017-06-03 07:18] LABS: ANISOCYTOSIS 1+; PLATELET COMMENT ADEQUATE; PLATELET LARGE PRESENT; SCHISTOCYTES 1+
[2017-06-03 07:38] LABS: HEPATITS B SURFACE ANTIGEN Negative (Negative)
[2017-06-03 08:15] LABS: HEPATITIS B CORE AB TOT Negative (Negative); HEPATITIS B SURFACE AB QUANT <3.1 mIU/mL (Immunity>9.9)
[2017-06-03] MEDS: CALCIUM ACETATE 667 MG CAPSULE PO SCH ×3 (08:58→16:08)
[2017-06-03] MEDS: ACETYLCYSTEINE 10% NEB 400 MG/4 ML VIAL NEB SCH ×2 (09:01→20:23)
[2017-06-03] MEDS: CARVEDILOL 12.5 MG TABLET PO SCH (10:51)
[2017-06-03] MEDS: ATORVASTATIN CALCIUM 20 MG TABLET PO SCH (10:52)
[2017-06-03] MEDS: AMLODIPINE BESYLATE 5 MG TABLET PO SCH (10:52)
[2017-06-03] MEDS: CALCITRIOL 0.25 MCG CAPSULE PO SCH (10:52)
[2017-06-03] MEDS ORDERED: HYDRALAZINE HCL 50 MG TABLET ONE ×2 (14:09→22:44)
[2017-06-03] MEDS ORDERED: METOPROLOL TARTRATE 25 MG TABLET ONE (18:14)
[2017-06-03] MEDS ORDERED: HYDRALAZINE HCL 50 MG TABLET PO ONE (22:45)
[2017-06-03] MEDS: CEFEPIME 1 GM/D5W RTU 1 GM/50 ML RTUPB IV SCH (23:01)
--- NOTE | 2017-06-03 23:58 | PROGRESS NOTE E ---
Progress Note NAME: BEA QUINONES : 1955 AGE: 61Y DATE: 06/03/2017 ROOM: 303 SUBJECTIVE: The patient states last night she had some difficulty. She was anxious and also had some breathing difficulties. Note that the patient has symptoms suggestive of obstructive sleep apnea which is confirmed by the son. The patient has not had a sleep study. Her blood pressure still is not well controlled. She still has orthopnea with no PND. Leg edema is much improved. She will be getting hemodialysis tomorrow and also peritoneal dialysis will be placed on her. At present, she denies any shortness of breath or wheezing. There is no PND. There are no anginal symptoms. There are no palpitations. There is no arrhythmia seen on the monitor. There is no dizziness, syncope or near syncope. There are no symptoms of TIA or CVA. OBJECTIVE: GENERAL: On examination, the patient is morbidly obese but well groomed, at present, in no acute respiratory distress or any other distress, looks slightly anxious. VITAL SIGNS: She is afebrile with a temperature of 98.2 degrees Fahrenheit, her pulse is 84 beats per minute, blood pressure still is not well controlled at 164/68, respirations are 20 per minute, O2 sats are 100% on 2 L nasal cannula. HEENT: Head is atraumatic, normocephalic. Eyes: Pupils are equal, round, regular, reactive to light and accommodation. There is no conjunctival pallor. There is no scleral icterus. External ocular movements are normal. Ears: Tympanic membranes are intact. Nose: Nares are patent. Throat: There is no exudate in the throat. There is no redness of the throat. SKIN: There is no petechiae or ecchymosis. There are no skin rashes or skin lesions. NECK: Supple. Still she has mild JVD present. Carotids are equal. There is no bruit. There is no goiter. There is no lymphadenopathy. Trachea central. LUNGS: There is left more than right absent breath sounds with dullness at the bases which is a little decreased compared to yesterday and she has basilar rales of both CHF and dry crackles of pneumonia. EXTREMITIES: She has 1+ edema bilaterally. Her peripheral pulses are diminished. Femorals are diminished without any bruits. There is no DVT or cellulitis. There is no cyanosis or clubbing. There is no calf tenderness. ABDOMEN: Soft, obese, nontender. There is no hepatosplenomegaly. Bowel sounds are well heard. There are no tender areas. There is a temporary dialysis catheter in the right groin. CENTRAL NERVOUS SYSTEM: The patient is conscious, awake, alert, oriented x3 with no focal deficit. PSYCHIATRIC: The patient's judgment and insight are intact. Her affect is slightly anxious. LABORATORY DATA: The patient's white count is still elevated at 23.7 thousand; her hemoglobin is 9.3; hematocrit is 29%; platelet count is 246,000. The patient's BUN is 41, creatinine is 6.61, GFR is 8 mL/min which is improved from 6. The patient's calcium is 8.8, potassium is 3.6, sodium is 137, CO2 is 3.3. IMPRESSION: 1. END STAGE RENAL DISEASE. The patient will be getting dialysis. She has a temporary dialysis catheter in the right groin from which she will receive her dialysis tomorrow and subsequently, a peritoneal dialysis catheter will be placed and the patient will be switched to dialysis. 2. RENAL OSTEODYSTROPHY. 3. ACUTE CONGESTIVE HEART FAILURE WHICH IS COMBINED SYSTOLIC HEART FAILURE DUE TO VOLUME OVERLOAD DUE TO HER END STAGE RENAL DISEASE AND DIASTOLIC HEART FAILURE. Patient's echocardiogram shows a normal left ventricular ejection fraction of 60% but there is mild LV diastolic dysfunction. There is no significant pulmonary hypertension. Hence, we will need to continue dialysis since most of this would be secondary to the patient's volume retention which can be alleviated by her continued dialysis and also compliance with medication. 4. ACUTE ON CHRONIC KIDNEY DISEASE. The patient now is end stage renal disease on dialysis. 5. HYPERTENSION. Although not an emergency, still not well controlled. Would recommend stopping the patient's Coreg and putting the patient on Toprol XL 25 mg p.o. q. 12 hours and hydralazine 50 mg p.o. q. 8 hours since she does receive hydralazine 10 mg IV every 4 hours. Will continue the patient's clonidine at present and increase it as needed. 6. PNEUMONIA WITH PLEURAL EFFUSIONS. 7. LEUKOCYTOSIS SECONDARY TO PNEUMONIA. 8. NONCOMPLIANCE. 9. TYPE 2 DIABETES MELLITUS WITH LONG-TERM USE OF INSULIN AND DIABETES MELLITUS WITH DIABETIC NEPHROPATHY. 10. PATIENT HAS OBESITY AND HAS SYMPTOMS OF SNORING AND ALSO STOPPING BREATHING IN HER SLEEP PER HER SON. Hence, although the patient has not had a sleep study, she does have symptoms highly suggestive of obstructive sleep apnea. Until the patient can have a sleep study as an outpatient, would recommend that the patient have an empirical CPAP placed on her during the night. RECOMMENDATION: Continue the patient's Lasix. Continue antibiotics and the medication changes as mentioned earlier. Later, would recommend that the patient have an IV Lexiscan Cardiolite stress test as an outpatient. Also, I would arrange for her to have an outpatient sleep study done. TIME SPENT: Forty minutes spent on this patient with more than 50% of the time spent on direct patient care. Her medications have been reviewed and medications changes. Discussed with Dr. Alfredo who is the attending physician on the patient. We will follow with you. Medical decision making is of high complexity. CODE STATUS: The patient is a FULL CODE. Her son is the surrogate healthcare decision maker. DICTATING PHYSICIAN: KENNETH QUEZADA M.D. [id number] DEJAN#: [id number] ID: [id number] JOB#: [id number] ACCT: [id number] cc: >
[2017-06-04] MEDS: CLONIDINE HCL 0.2 MG TABLET PO SCH ×3 (04:38→23:24)
[2017-06-04] MEDS: HYDRALAZINE HCL 50 MG TABLET PO SCH ×3 (04:38→23:24)
[2017-06-04] MEDS: LANSOPRAZOLE 15 MG TAB.RAP.DR PO SCH ×2 (04:38→17:17)
[2017-06-04 05:16] LABS: HEMATOCRIT 28.3 % (36.0-47.0); HEMOGLOBIN 9.1 g/dL (12.0-15.5); MEAN CORPUSCULAR HEMOGLOBIN 29.8 pg (27.0-33.4); MEAN CORPUSCULAR HGB CONC 32.1 g/dL (32.0-36.0); MEAN CORPUSCULAR VOLUME 93 fl (80-97); PLATELET COUNT 202 10^3/uL (150-450); RED BLOOD COUNT 3.05 10^6/uL (3.72-5.28); RED CELL DISTRIBUTION WIDTH 17.2 % (11.5-14.0); WHITE BLOOD COUNT 17.1 10^3/uL (4.0-10.5)
[2017-06-04] MEDS: HEPARIN SOD (PORCINE) 5,000 UNIT/ML 1 ML SYRINGE SUBCUT SCH ×3 (05:38→23:24)
[2017-06-04] MEDS: FUROSEMIDE INJ/PF 20 MG/2 ML SDV IV SCH ×3 (05:38→23:25)
[2017-06-04 05:42] LABS: ANION GAP 11 (5-19); BLOOD UREA NITROGEN 47 mg/dL (7-20); CALCIUM 8.1 mg/dL (8.4-10.2); CARBON DIOXIDE 25 mmol/L (22-30); CHLORIDE 100 mmol/L (98-107); GLUCOSE 147 mg/dL (75-110); POTASSIUM 3.6 mmol/L (3.6-5.0); SODIUM 136.3 mmol/L (137-145)
[2017-06-04] MEDS ORDERED: BUPIVACAINE HCL 0.25 % INJ/PF (2.5 MG/1 ML) 30 ML VIAL ONE (07:26)
[2017-06-04] MEDS ORDERED: LIDOCAINE 0.5% INJ-PF (5 MG/ML) 50 ML SDV ONE ×2 (07:27→14:22)
[2017-06-04] MEDS ORDERED: BACITRACIN INJ 50,000 UNIT VIAL ONE ×3 (07:27→14:22)
--- NOTE | 2017-06-04 07:54 | PROGRESS NOTE E ---
Progress Note NAME: BEA QUINONES : 1955 AGE: 61Y DATE: 06/03/2017 ROOM: 303 SUBJECTIVE: The patient is apparently doing fair. The patient is still a little bit short of breath but other than that, no chest pains, no fever. The patient otherwise denied any other symptoms. The patient is scheduled for dialysis tomorrow. The patient's blood pressure is still elevated. Discussed with Dr. Wong and Dr. Tate and started the patient on hydralazine. OBJECTIVE: VITAL SIGNS: Blood pressure 170-180 systolic and diastolic is 90-100, respirations were 18, O2 saturation is 95% on room air. GENERAL: The patient is alert, awake and oriented x3. HEENT: Head is normocephalic. PERRLA. LUNGS: No wheezes, no rales. HEART: S1,S2 present. ABDOMEN: Soft. Bowel sounds present. LOWER EXTREMITIES: No edema. NEUROLOGIC: No focal weakness seen. ASSESSMENT: 1. ACUTE RENAL FAILURE ON CHRONIC KIDNEY DISEASE. 2. SEVERE LEUKOCYTOSIS. 3. POSSIBLE PNEUMONIA. 4. CONGESTIVE HEART FAILURE. 5. HYPERTENSION, UNCONTROLLED. 6. TYPE-2 DIABETES MELLITUS. 7. HYPERLIPIDEMIA. 8. POSSIBLE SLEEP APNEA. PLAN: At this point will add the hydralazine [address] Tate discontinued the Coreg and started the patient on Lopressor. Discussed with Dr. Wong, to continue the clonidine 0.3 mg. The patient is scheduled for dialysis tomorrow. Reviewed the records in the past. There are always elevated blood pressures at night. The patient may have underlying sleep apnea. Will try empirically a CPAP machine and see if that maybe helps the patient. Otherwise, the patient is currently hemodynamically stable. Discussed with the son regarding the patient's current condition *------* consultants. DICTATING PHYSICIAN: DEVAN DE LA CRUZ M.D. [id number] PHY#: [id number] ID: [id number] JOB#: [id number] ACCT: [id number] cc: >
[2017-06-04] MEDS: ACETYLCYSTEINE 10% NEB 400 MG/4 ML VIAL NEB SCH ×2 (08:02→21:41)
[2017-06-04 09:37] LABS: HEPATITIS C QUANTITATION HCV Not Detected IU/mL (.)
[2017-06-04] MEDS: METOPROLOL TARTRATE 25 MG TABLET PO SCH ×2 (09:40→23:24)
[2017-06-04] MEDS: HYDRALAZINE HCL INJ/PF 20 MG/1 ML SDV IV PRN ×2 (09:41→16:08)
[2017-06-04] MEDS: AMLODIPINE BESYLATE 5 MG TABLET PO SCH (09:41)
[2017-06-04] MEDS: ATORVASTATIN CALCIUM 20 MG TABLET PO SCH (09:41)
[2017-06-04] MEDS: CALCITRIOL 0.25 MCG CAPSULE PO SCH (09:41)
[2017-06-04] MEDS: LEVOFLOXACIN 250 MG TABLET PO SCH (09:41)
--- NOTE | 2017-06-04 10:07 | PDOC PROGRESS REPORT ---
Subjective Progress Note for:: 06/04/17 Subjective:: Patient is currently doing fairDenied any chest pain denied any shortness of the breathPatient blood pressure is also coming down and patient started using the CPAP machine last night's which patients feel better Patient is scheduled for the PermCath and scheduled for the hemodialysis today Reason For Visit: HTN EMERGENCY Patient is currently doing well Physical Exam Vital Signs: Temp Pulse Resp BP Pulse Ox 98.5 F 81 25 H 172/83 H 100 06/04/17 07:46 06/04/17 07:46 06/04/17 08:19 06/04/17 07:46 06/04/17 08:19 Intake & Output 06/03/17 06/04/17 06/05/17 06:59 06:59 06:59 Intake Total 120 594 Output Total 435 120 Balance -315 474 Weight 109.6 kg 105.8 kg General appearance: PRESENT: no acute distress, well-developed, well-nourished Head exam: PRESENT: atraumatic, normocephalic Eye exam: PRESENT: conjunctiva pink, EOMI, PERRLA. ABSENT: scleral icterus Ear exam: PRESENT: normal external ear exam Mouth exam: PRESENT: moist, tongue midline Neck exam: PRESENT: full ROM. ABSENT: carotid bruit, JVD, lymphadenopathy, thyromegaly Respiratory exam: PRESENT: clear to auscultation adamaris Cardiovascular exam: PRESENT: RRR. ABSENT: diastolic murmur, rubs, systolic murmur Pulses: PRESENT: normal dorsalis pedis pul, +2 pedal pulses bilateral Vascular exam: PRESENT: normal capillary refill GI/Abdominal exam: PRESENT: normal bowel sounds, soft. ABSENT: distended, guarding, mass, organolmegaly, rebound, tenderness Rectal exam: PRESENT: deferred Neurological exam: PRESENT: alert, awake, oriented to person, oriented to place , oriented to time, oriented to situation, CN II-XII grossly intact. ABSENT: motor sensory deficit Psychiatric exam: PRESENT: appropriate affect, normal mood. ABSENT: homicidal ideation, suicidal ideation Skin exam: PRESENT: dry, intact, warm. ABSENT: cyanosis, rash Results Laboratory Results: 06/04/17 04:14 06/04/17 04:14 06/04/17 06/04/17 04:14 04:14 WBC 17.1 H RBC 3.05 L Hgb 9.1 L Hct 28.3 L MCV 93 MCH 29.8 MCHC 32.1 RDW 17.2 H Plt Count 202 Sodium 136.3 L Potassium 3.6 Chloride 100 Carbon Dioxide 25 Anion Gap 11 BUN 47 H Creatinine 7.24 H Est GFR ( Amer) 7 L Est GFR (Non-Af Amer) 6 L Glucose 147 H Calcium 8.1 L 05/30/17 05/30/17 05/31/17 22:50 22:50 05:15 Creatine Kinase 370 H CK-MB (CK-2) 7.41 H 7.47 H Troponin I 0.020 0.026 NT-Pro-B Natriuret Pep 27927 H 05/31/17 05/31/17 05/31/17 05:15 11:11 11:11 Creatine Kinase 320 H 290 H CK-MB (CK-2) 6.85 H Troponin I 0.026 NT-Pro-B Natriuret Pep 06/01/17 06/02/17 03:52 05:25 Creatine Kinase CK-MB (CK-2) Troponin I NT-Pro-B Natriuret Pep 85070 H 77949 H Impressions: Abdomen/Pelvis CT 05/31/17 00:00 IMPRESSION: NO SIGNIFICANT OR ACUTE PROCESS IN THE ABDOMEN OR PELVIS. Chest CT 05/31/17 00:00 IMPRESSION: Moderate size bilateral pleural effusions are identified with some associated airspace consolidation in the lung bases most consistent with atelectatic changes although I cannot exclude pneumonic consolidations. There is some mild thickening of the pericardium suggesting a small pericardial effusion. Other findings as noted above Chest X-Ray 06/02/17 00:00 IMPRESSION: STABLE APPEARANCE OF THE CHEST WITH LEFT GREATER THAN RIGHT AIRSPACE DISEASE AND PLEURAL EFFUSIONS. Assessment & Plan - Diagnosis (1) Hypertensive emergency Is this a current diagnosis for this admission?: Yes Plan: Patient's blood pressure is coming downThis the current medications and I think is a sleep apnea patients need a sleep study as outpatient which also fluctuate the blood pressure at nighttime (2) Acute renal failure Qualifiers: Acute renal failure type: unspecified Qualified Code(s): N17.9 - Acute kidney failure, unspecified Is this a current diagnosis for this admission?: Yes Plan: Patient is currently on hemodialysis (3) Acute congestive heart failure Qualifiers: Congestive heart failure type: combined Qualified Code(s): I50.41 - Acute combined systolic (congestive) and diastolic (congestive) heart failure Is this a current diagnosis for this admission?: Yes Plan: Patient's echocardiogram is currently stable (4) Type 2 diabetes mellitus Qualifiers: Diabetes mellitus complication status: with kidney complications Diabetes mellitus complication detail: with nephropathy Diabetes mellitus moth exterminator insulin use: with moth exterminator use Qualified Code(s): E11.21 - Type 2 diabetes mellitus with diabetic nephropathy; Z79.4 - buttermaker helper (current) use of insulin; Z79.4 - buttermaker helper (current) use of insulin; Z79.4 - buttermaker helper (current) use of insulin; Z79.4 - nursing home (current) use of insulin Is this a current diagnosis for this admission?: Yes Plan: Will put on a sliding scale and continues to insulin (5) Leukocytosis Qualifiers: Leukocytosis type: unspecified Qualified Code(s): D72.829 - Elevated white blood cell count, unspecified Is this a current diagnosis for this admission?: Yes Plan: Unclear etiology continues to IV antibiotic (6) Pneumonia Qualifiers: Pneumonia type: due to unspecified organism Laterality: unspecified laterality Lung location: unspecified part of lung Qualified Code(s): J18.9 - Pneumonia, unspecified organism Is this a current diagnosis for this admission?: Yes Plan: current medication as above (7) Noncompliance Is this a current diagnosis for this admission?: Yes Plan: Very extensive discussions with the patient about the noncompliance of the medication the diet patient understand very well today and the patient's willing to try more aggressive follow-up in the medications Patient have a son who next with the patient to make her decisions about the patient's - Time Time Spent with patient: 15-24 minutes Medications reviewed and adjusted accordingly: Yes Anticipated discharge: Home Within: Other - Inpatient Certification Medical Necessity: Need Close Monitoring Due to Risk of Patient Decompensation, Need for IV Antibiotics Post Hospital Care: D/C Steam Shovel Runner Documentation - Plan Summary Plan Summary: Continues to hemodialysis discussed with the patient and the family in the room and discussed with the retail sales consultant
[2017-06-04] MEDS ORDERED: FENTANYL CITRATE INJ/PF 100 MCG/2 ML AMPUL ONE (13:46)
[2017-06-04] MEDS ORDERED: MIDAZOLAM 2 MG/2 ML INJ ONE (13:46)
--- NOTE | 2017-06-04 16:04 | Operative Report ---
Operative Report DATE OF SURGERY: 06/04/17 PREOPERATIVE DIAGNOSIS: 1. End-stage renal disease requiring hemodialysis. 2. Hypertensive emergency. 3. Leukocytosis. 4. Morbid obesity. 5. Diabetes mellitus type 2. POSTOPERATIVE DIAGNOSIS: 1. End-stage renal disease requiring hemodialysis. Post insertion of temporary hemodialysis catheter. 2. Hypertensive emergency. 3. Leukocytosis. 4. Morbid obesity. 5. Diabetes mellitus type 2. OPERATION: 1. Ultrasound evaluation of the right internal jugular vein. 2. Insertion of permanent hemodialysis catheter via right internal jugular vein under ultrasound real-time guidance. 3. Angiogram and interpretation. SURGEON: ROSI MANRIQUEZ NON LICENSED OPERATOR: None ANESTHESIA: Moderate Sedation TISSUE REMOVED OR ALTERED: Not applicable. COMPLICATIONS: None. ESTIMATED BLOOD LOSS: 5 mL. INTRAOPERATIVE FINDINGS: Of a satisfactory right internal jugular system. Safe access into the right internal jugular vein was accomplished using ultrasound guidance. Satisfactory and safe access. Easy egress of blood and ingress of heparinized solution through both ports. Satisfactory flow of contrast through the right atrium, ventricle and pulmonary outflow tract. Hard copy documentation done. PROCEDURE: After obtaining informed consent, the patient was taken to the [Weft Straightener] and positioned supine. The [right neck] and chest were prepared with chlorhexidine and draped out with sterile linen. After the " universal timeout", in which it was verified that the patient continued to receive antibiotic, the procedure commenced. A steriley sheathed ultrasound probe was used to evaluate the [ right internal jugular] vein. Local anesthesia was infiltrated adjacent to the probe. Access into the [right internal jugular] vein was obtained using a micropuncture needle, followed by micropuncture wire and then a micropuncture catheter. This was followed by introduction of a 0.035 guidewire the tip of which was placed down into the inferior vena cava . A 23 cm long permacatheter was now positioned over the chest and an exit site marked and locally anesthetized ,the catheter was placed between the 2 incisions. Proximally, the catheter was now positioned using a peel-away sheath, after dilation. Easy ingress of heparinized solution and egress of blood obtained through both ports. A completion angiogram was done by injecting contrast. The findings were as dictated. The neck incision was now closed using interrupted 3-0 PDS to the subcutaneous tissues, the catheter was anchored at the exit site using 3- 0 PDS. A Biopatch device was now placed adjacent to the catheter. Dressings were applied and the procedure concluded. Copies of the dictated operative report for Dr. Rosi Wan MD.concluded. Copies of the dictated operative report for Dr. Rosi Wan MD.
[2017-06-04] MEDS ORDERED: HEPARIN SOD (PORCINE) 1,000 UNIT/ML 10 ML VIAL IV ONE (22:00)
[2017-06-04] MEDS: ACETAMINOPHEN 325 MG TABLET PO PRN (23:23)
[2017-06-04] MEDS: CEFEPIME 1 GM/D5W RTU 1 GM/50 ML RTUPB IV SCH (23:24)
[2017-06-05] MEDS: CLONIDINE HCL 0.2 MG TABLET PO SCH ×3 (05:03→21:28)
[2017-06-05] MEDS: FUROSEMIDE INJ/PF 20 MG/2 ML SDV IV SCH (05:03)
[2017-06-05] MEDS: HYDRALAZINE HCL 50 MG TABLET PO SCH ×3 (05:03→21:28)
[2017-06-05] MEDS: HEPARIN SOD (PORCINE) 5,000 UNIT/ML 1 ML SYRINGE SUBCUT SCH ×3 (05:03→21:28)
[2017-06-05] MEDS: LANSOPRAZOLE 15 MG TAB.RAP.DR PO SCH ×2 (05:03→16:34)
[2017-06-05 05:11] LABS: ABSOLUTE LYMPHOCYTES (AUTO) 0.8 10^3/uL (0.5-4.7); ABSOLUTE MONOCYTES (AUTO) 1.2 10^3/uL (0.1-1.4); ABSOLUTE NEUT (AUTO) 11.8 10^3/uL (1.7-8.2); BASOPHILS % (AUTO) 0.2 % (0-2); EOSINOPHILS % (AUTO) 0.4 % (0-6); HEMATOCRIT 28.4 % (36.0-47.0); HEMOGLOBIN 9.3 g/dL (12.0-15.5); LYMPHOCYTES % (AUTO) 6.1 % (13-45); MEAN CORPUSCULAR HEMOGLOBIN 30.1 pg (27.0-33.4); MEAN CORPUSCULAR HGB CONC 32.6 g/dL (32.0-36.0); MEAN CORPUSCULAR VOLUME 92 fl (80-97); MONOCYTES % (AUTO) 8.6 % (3-13); PLATELET COUNT 225 10^3/uL (150-450); RED BLOOD COUNT 3.08 10^6/uL (3.72-5.28); RED CELL DISTRIBUTION WIDTH 16.6 % (11.5-14.0); SEGMENTED NEUTROPHILS % (AUTO) 84.7 % (42-78); TOTAL CELLS COUNTED % (AUTO) 100 %
[2017-06-05 05:36] LABS: ANION GAP 9 (5-19); BLOOD UREA NITROGEN 33 mg/dL (7-20); CARBON DIOXIDE 28 mmol/L (22-30); CHLORIDE 100 mmol/L (98-107); GLUCOSE 143 mg/dL (75-110); PHOSPHORUS 4.3 mg/dL (2.5-4.5); POTASSIUM 3.4 mmol/L (3.6-5.0); SODIUM 136.7 mmol/L (137-145)
[2017-06-05] MEDS: ACETYLCYSTEINE 10% NEB 400 MG/4 ML VIAL NEB SCH (08:10)
[2017-06-05] MEDS ORDERED: FUROSEMIDE 20 MG TABLET PO SCH (08:30)
--- NOTE | 2017-06-05 08:52 | RADIOLOGY REPORT (SQ) ---
EXAM DESCRIPTION: TUNNELED CENTRAL LINE COMPLETED DATE/TIME: 06/04/2017 4:37 pm REASON FOR STUDY: NEED FOR VASCULAR ACCESS COMPARISON: AP chest 06/02/2017 FLUOROSCOPY TIME: 0.4 minutes 9 series of digital images saved to PACS. TECHNIQUE: Intra-operative images acquired during surgical procedure to evaluate progress. NUMBER OF IMAGES: 9 series of digital images LIMITATIONS: None. FINDINGS: Intra procedural imaging and fluoro during placement of a right-sided central venous dialy sis catheter with the tip in the right atrium IMPRESSION: Intra procedural imaging and fluoro COMMENT: Quality ID [id number]: Final reports for procedures using fluoroscopy that document radiation exp osure indices, or exposure time and number of fluorographic images (if radiation exposure indices are not available) Please consult full operative report of the attending physician for description of the procedure. TECHNICAL DOCUMENTATION: JOB ID: [id number] [employer]- All Rights Reserved
[2017-06-05] MEDS: INSULIN LISPRO 100 UNIT/ML 3 ML VIAL SUBCUT PRN ×3 (09:06→18:42)
[2017-06-05] MEDS: AMLODIPINE BESYLATE 5 MG TABLET PO SCH (09:08)
[2017-06-05] MEDS: METOPROLOL TARTRATE 25 MG TABLET PO SCH ×2 (09:10→21:28)
[2017-06-05] MEDS: ATORVASTATIN CALCIUM 20 MG TABLET PO SCH (09:10)
[2017-06-05] MEDS: CALCITRIOL 0.25 MCG CAPSULE PO SCH (09:10)
[2017-06-05] MEDS: FUROSEMIDE 20 MG TABLET PO SCH ×2 (09:29→17:14)
[2017-06-05] MEDS ORDERED: POTASSIUM CHLORIDE 20 MEQ/15 ML UDCUP PO ONE (09:30)
[2017-06-05] MEDS ORDERED: POTASSIUM CHLORIDE 10 MEQ TABLET.SA PO ONE (10:00)
--- NOTE | 2017-06-05 10:37 | RADIOLOGY REPORT (SQ) ---
EXAM DESCRIPTION: CHEST PA/LAT COMPLETED DATE/TIME: 06/05/2017 9:35 am REASON FOR STUDY: sob/chf COMPARISON: CT chest 05/31/2017 Chest films 05/30/2017, 06/02/2017 EXAM PARAMETERS: NUMBER OF VIEWS: two views TECHNIQUE: Digital Frontal and Lateral radiographic views of the chest acquired. RADIATION DOSE: NA LIMITATIONS: none FINDINGS: LUNGS AND PLEURA: There is trace right pleural fluid stable compared to previous studies. Minimal right basilar airspace disease likely atelectasis. No right-sided pneumothorax. On the left side, a small stable pleural effusion is present with left lower lobe collapse and consol idation with air bronchograms, pneumonia versus atelectasis. No left-sided pneumothorax. MEDIASTINUM AND HILAR STRUCTURES: No masses or contour abnormalities. HEART AND VASCULAR STRUCTURES: Moderate cardiomegaly. BONES: No acute findings. HARDWARE: Right jugular central venous dialysis catheter tip in the right atrium OTHER: No other significant finding. IMPRESSION: No change in bilateral pleural effusions and bilateral lower lobe airspace disease left greater than right Right jugular central venous dialysis catheter tip in the right atrium. No pneumothorax TECHNICAL DOCUMENTATION: JOB ID: [id number] [employer]- All Rights Reserved
--- NOTE | 2017-06-05 11:17 | PDOC PROGRESS REPORT ---
Subjective Progress Note for:: 06/05/17 Subjective:: Patient seems to be doing better with gradual improvement. Pt is denying any chest arm or neck discomfort. Patient denying any PND, orthopnea. Patient denied any sustained palpitations, dizziness, syncope, near syncope. Patient denying any fever chills. Patient denying any other significant discomfort. Patient is maintaining sinus rhythm. Review of systems: Rest review of systems negative. Medications: Medications have been reviewed. Reason For Visit: HTN EMERGENCY Physical Exam Vital Signs: Temp Pulse Resp BP Pulse Ox 99.0 F 82 18 168/83 H 91 L 06/05/17 08:07 06/05/17 08:07 06/05/17 08:07 06/05/17 08:07 06/05/17 08:07 Intake & Output 06/04/17 06/05/17 06/06/17 06:59 06:59 06:59 Intake Total 594 103 Output Total 120 5120 Balance 474 -5017 Weight 105.8 kg 103.3 kg Exam: GENERAL: well-nourished and in no acute distress. Alert and oriented x3 HEAD: Atraumatic, normocephalic. EYES: Pupils equal round and reactive to light, extraocular movements intact, sclera anicteric, conjunctiva are normal. ENT: TMs normal, nares patent, oropharynx clear without exudates. Moist mucous membranes. No oral ulcerations or bleeding gums noted NECK: supple without lymphadenopathy. Trachea is central. No cervical or axillary lymphadenopathy noted. Carotids are 2+, JVD WNL LUNGS: Respiration seems nonlabored, no significant accessory muscle action noted. Breath sounds clear to auscultation bilaterally and equal noted. No wheezes rales or rhonchi noted. No significant dullness noted on percussion. CHEST: Palpation of the chest wall shows no significant chest wall tenderness. No other significant abnormalities noted. 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 ABDOMEN: Soft, no significant tenderness appreciated, normoactive bowel sounds. No guarding, no rebound. No rigidity noted . No masses appreciated. EXTREMITIES: Pedal pulses are 1-2+, no calf tenderness noted. No clubbing or cyanosis.trace to 1+ pedal edema noted NEUROLOGICAL: Focused neurological exam showed no significant neurologic deficit. Normal speech, no focal weakness appreciated. PSYCH: Normal mood, normal affect. Judgment and insight within normal limits. SKIN: No significant ecchymosis, rash, ulcerations or signs of pruritus noted. MUSCULOSKELETAL EXAM: No significant joint swelling noted. Results Laboratory Results: 06/05/17 04:00 06/05/17 04:00 06/05/17 06/05/17 04:00 04:00 WBC 14.0 H RBC 3.08 L Hgb 9.3 L Hct 28.4 L MCV 92 MCH 30.1 MCHC 32.6 RDW 16.6 H Plt Count 225 Seg Neutrophils % 84.7 H Lymphocytes % 6.1 L Monocytes % 8.6 Eosinophils % 0.4 Basophils % 0.2 Absolute Neutrophils 11.8 H Absolute Lymphocytes 0.8 Absolute Monocytes 1.2 Absolute Eosinophils 0.0 Absolute Basophils 0.0 Sodium 136.7 L Potassium 3.4 L Chloride 100 Carbon Dioxide 28 Anion Gap 9 BUN 33 H Creatinine 5.81 H Est GFR ( Amer) 9 L Est GFR (Non-Af Amer) 7 L Glucose 143 H Calcium 8.0 L Phosphorus 4.3 05/30/17 22:50 Blood Blood Culture - Final NO GROWTH IN 5 DAYS 05/30/17 20:40 Blood Blood Culture - Final NO GROWTH IN 5 DAYS 05/30/17 05/30/17 05/31/17 22:50 22:50 05:15 Creatine Kinase 370 H CK-MB (CK-2) 7.41 H 7.47 H Troponin I 0.020 0.026 NT-Pro-B Natriuret Pep 26709 H 05/31/17 05/31/17 05/31/17 05:15 11:11 11:11 Creatine Kinase 320 H 290 H CK-MB (CK-2) 6.85 H Troponin I 0.026 NT-Pro-B Natriuret Pep 06/01/17 06/02/17 03:52 05:25 Creatine Kinase CK-MB (CK-2) Troponin I NT-Pro-B Natriuret Pep 12847 H 80876 H EKG Comments: Showed sinus rhythm without any sustained tacky or bradycardia arrhythmias. Impressions: Abdomen/Pelvis CT 05/31/17 00:00 IMPRESSION: NO SIGNIFICANT OR ACUTE PROCESS IN THE ABDOMEN OR PELVIS. Chest CT 05/31/17 00:00 IMPRESSION: Moderate size bilateral pleural effusions are identified with some associated airspace consolidation in the lung bases most consistent with atelectatic changes although I cannot exclude pneumonic consolidations. There is some mild thickening of the pericardium suggesting a small pericardial effusion. Other findings as noted above Central Venous Line 06/04/17 00:00 IMPRESSION: Intra procedural imaging and fluoro Chest X-Ray 06/05/17 00:00 IMPRESSION: No change in bilateral pleural effusions and bilateral lower lobe airspace disease left greater than right Right jugular central venous dialysis catheter tip in the right atrium. No pneumothorax Assessment & Plan - Diagnosis (1) Hypertensive emergency Is this a current diagnosis for this admission?: Yes (2) Acute congestive heart failure Qualifiers: Congestive heart failure type: combined Qualified Code(s): I50.41 - Acute combined systolic (congestive) and diastolic (congestive) heart failure Is this a current diagnosis for this admission?: Yes (3) Sleep apnea syndrome Qualifiers: Sleep apnea type: unspecified type Qualified Code(s): G47.30 - Sleep apnea , unspecified Is this a current diagnosis for this admission?: Yes (4) ESRD (end stage renal disease) Is this a current diagnosis for this admission?: Yes (5) Type 2 diabetes mellitus Qualifiers: Diabetes mellitus complication status: with kidney complications Diabetes mellitus complication detail: with nephropathy Diabetes mellitus keno terminal operator insulin use: with keno terminal operator use Qualified Code(s): E11.21 - Type 2 diabetes mellitus with diabetic nephropathy; Z79.4 - keno terminal operator (current) use of insulin; Z79.4 - keno terminal operator (current) use of insulin; Z79.4 - keno terminal operator (current) use of insulin; Z79.4 - skilled nursing (current) use of insulin Is this a current diagnosis for this admission?: Yes (6) Obesity Qualifiers: Obesity type: unspecified obesity type Obesity classification: unspecified obesity classification Serious obesity comorbidity presence: with serious comorbidity Qualified Code(s): E66.9 - Obesity, unspecified Is this a current diagnosis for this admission?: Yes - Notes Notes: Patient will benefit from good control of blood pressure. Patient advised in weight loss. Patient will be scheduled for a sleep study JOLANTA. Discussed association of sleep apnea with chronic kidney disease, hypertension, congestive heart failure and improvement in such conditions with proper treatment of sleep apnea. Hypertensive emergency: Patient blood pressure coming under better control but still has intermittent high blood pressure reading. Patient is having fluid removed on dialysis. Hopefully this will bring her blood pressure under better control. Will leave management of hypertension to nephrology in setting of end- stage renal disease and patient being on dialysis. Acute congestive heart failure: Most likely precipitated by volume overload in setting of diastolic dysfunction and severe hypertension and also chronic kidney disease. Sleep apnea syndrome: This is strongly suspected. Patient will benefit from expeditious scheduling of sleep study and treatment with positive pressure ventilation. End-stage renal disease: Patient being actively managed by food service clerk and did already supposed to undergo dialysis with some fluid removal. Patient claims that she might go for chronic peritoneal dialysis. Diabetes: Patient being expertly managed by epic analyst and blood pressure under reasonable control. Obesity patient has been advised in weight loss. - Time Time with patient: Greater than 35 minutes Medications reviewed and adjusted accordingly: Yes
[2017-06-05] MEDS: ACETAMINOPHEN 325 MG TABLET PO PRN (12:15)
--- NOTE | 2017-06-05 12:46 | PDOC PROGRESS REPORT ---
Subjective Progress Note for:: 06/05/17 Subjective:: Patient is currently doing well She underwent further dialysis and remove the more than 4.5 L Patient's denied any chest pain denied any shortness of the breath No fever Nurses noted that patient have a some menstrual. Which patient is currently postmenopausal Reason For Visit: HTN EMERGENCY Physical Exam Vital Signs: Temp Pulse Resp BP Pulse Ox 98.2 F 79 18 163/88 H 95 06/05/17 11:30 06/05/17 11:30 06/05/17 11:30 06/05/17 11:30 06/05/17 11:30 Intake & Output 06/04/17 06/05/17 06/06/17 06:59 06:59 06:59 Intake Total 594 103 Output Total 120 5120 Balance 474 -5017 Weight 105.8 kg 103.3 kg General appearance: PRESENT: no acute distress, well-developed, well-nourished Head exam: PRESENT: atraumatic, normocephalic Eye exam: PRESENT: conjunctiva pink, EOMI, PERRLA. ABSENT: scleral icterus Ear exam: PRESENT: normal external ear exam Mouth exam: PRESENT: moist, tongue midline Neck exam: PRESENT: full ROM. ABSENT: carotid bruit, JVD, lymphadenopathy, thyromegaly Respiratory exam: PRESENT: clear to auscultation adamaris Cardiovascular exam: PRESENT: RRR. ABSENT: diastolic murmur, rubs, systolic murmur Pulses: PRESENT: normal dorsalis pedis pul, +2 pedal pulses bilateral Vascular exam: PRESENT: normal capillary refill GI/Abdominal exam: PRESENT: normal bowel sounds, soft. ABSENT: distended, guarding, mass, organolmegaly, rebound, tenderness Rectal exam: PRESENT: deferred Extremities exam: ABSENT: pedal edema Neurological exam: PRESENT: alert, awake, oriented to person, oriented to place , oriented to time, oriented to situation, CN II-XII grossly intact. ABSENT: motor sensory deficit Psychiatric exam: PRESENT: appropriate affect, normal mood. ABSENT: homicidal ideation, suicidal ideation Skin exam: PRESENT: dry, intact, warm. ABSENT: cyanosis, rash Results Laboratory Results: 06/05/17 04:00 06/05/17 04:00 06/05/17 06/05/17 04:00 04:00 WBC 14.0 H RBC 3.08 L Hgb 9.3 L Hct 28.4 L MCV 92 MCH 30.1 MCHC 32.6 RDW 16.6 H Plt Count 225 Seg Neutrophils % 84.7 H Lymphocytes % 6.1 L Monocytes % 8.6 Eosinophils % 0.4 Basophils % 0.2 Absolute Neutrophils 11.8 H Absolute Lymphocytes 0.8 Absolute Monocytes 1.2 Absolute Eosinophils 0.0 Absolute Basophils 0.0 Sodium 136.7 L Potassium 3.4 L Chloride 100 Carbon Dioxide 28 Anion Gap 9 BUN 33 H Creatinine 5.81 H Est GFR ( Amer) 9 L Est GFR (Non-Af Amer) 7 L Glucose 143 H Calcium 8.0 L Phosphorus 4.3 05/30/17 22:50 Blood Blood Culture - Final NO GROWTH IN 5 DAYS 05/30/17 20:40 Blood Blood Culture - Final NO GROWTH IN 5 DAYS 05/30/17 05/30/17 05/31/17 22:50 22:50 05:15 Creatine Kinase 370 H CK-MB (CK-2) 7.41 H 7.47 H Troponin I 0.020 0.026 NT-Pro-B Natriuret Pep 69911 H 05/31/17 05/31/17 05/31/17 05:15 11:11 11:11 Creatine Kinase 320 H 290 H CK-MB (CK-2) 6.85 H Troponin I 0.026 NT-Pro-B Natriuret Pep 06/01/17 06/02/17 03:52 05:25 Creatine Kinase CK-MB (CK-2) Troponin I NT-Pro-B Natriuret Pep 14478 H 60810 H Impressions: Abdomen/Pelvis CT 05/31/17 00:00 IMPRESSION: NO SIGNIFICANT OR ACUTE PROCESS IN THE ABDOMEN OR PELVIS. Chest CT 05/31/17 00:00 IMPRESSION: Moderate size bilateral pleural effusions are identified with some associated airspace consolidation in the lung bases most consistent with atelectatic changes although I cannot exclude pneumonic consolidations. There is some mild thickening of the pericardium suggesting a small pericardial effusion. Other findings as noted above Central Venous Line 06/04/17 00:00 IMPRESSION: Intra procedural imaging and fluoro Chest X-Ray 06/05/17 00:00 IMPRESSION: No change in bilateral pleural effusions and bilateral lower lobe airspace disease left greater than right Right jugular central venous dialysis catheter tip in the right atrium. No pneumothorax Assessment & Plan - Diagnosis (1) Hypertensive emergency Is this a current diagnosis for this admission?: Yes Plan: Currently all resolving increase the hydralazine 75 mg p.o. q. 8 (2) Acute renal failure Qualifiers: Acute renal failure type: unspecified Qualified Code(s): N17.9 - Acute kidney failure, unspecified Is this a current diagnosis for this admission?: Yes Plan: Currently on hemodialysis (3) Acute congestive heart failure Qualifiers: Congestive heart failure type: combined Qualified Code(s): I50.41 - Acute combined systolic (congestive) and diastolic (congestive) heart failure Is this a current diagnosis for this admission?: Yes Plan: Patient's echocardiogram is currently stable (4) Type 2 diabetes mellitus Qualifiers: Diabetes mellitus complication status: with kidney complications Diabetes mellitus complication detail: with nephropathy Diabetes mellitus half-way insulin use: with fuel verification technician use Qualified Code(s): E11.21 - Type 2 diabetes mellitus with diabetic nephropathy; Z79.4 - handbag designer (current) use of insulin; Z79.4 - handbag designer (current) use of insulin; Z79.4 - intermediate (current) use of insulin; Z79.4 - handbag designer (current) use of insulin Is this a current diagnosis for this admission?: Yes Plan: Start the patient on Lantus 6-8 units (5) Leukocytosis Qualifiers: Leukocytosis type: unspecified Qualified Code(s): D72.829 - Elevated white blood cell count, unspecified Is this a current diagnosis for this admission?: Yes Plan: Currently all resolving (6) Pneumonia Qualifiers: Pneumonia type: due to unspecified organism Laterality: unspecified laterality Lung location: unspecified part of lung Qualified Code(s): J18.9 - Pneumonia, unspecified organism Is this a current diagnosis for this admission?: Yes Plan: Continues to Levaquin 250 mg daily for 10 days on the discharge (7) Noncompliance Is this a current diagnosis for this admission?: Yes Plan: Very extensive discussions with the patient about the noncompliance of the medication the diet patient understand very well today and the patient's willing to try more aggressive follow-up in the medications Patient have a son who next with the patient to make her decisions about the patient's (8) Postmenopausal vaginal bleeding Is this a current diagnosis for this admission?: Yes Plan: Consult the [facility] for further evaluations - Time Time Spent with patient: 15-24 minutes Medications reviewed and adjusted accordingly: Yes Anticipated discharge: Home Within: Other - Inpatient Certification Medical Necessity: Need Close Monitoring Due to Risk of Patient Decompensation, Need for IV Antibiotics Post Hospital Care: D/C Records Supervisor Documentation - Plan Summary Plan Summary: Continues to current medications
--- NOTE | 2017-06-05 15:37 | PDOC PROGRESS REPORT ---
Subjective Progress Note for:: 06/05/17 Subjective:: Patient was laying comfortably in the chair next to her bed. She denied shortness of breath or chest pain. Her only concern was how dialysis was going to work at the outpatient facility. Reason For Visit: HTN EMERGENCY Physical Exam Vital Signs: Temp Pulse Resp BP Pulse Ox 98.2 F 83 18 163/88 H 95 06/05/17 11:30 06/05/17 14:00 06/05/17 11:30 06/05/17 11:30 06/05/17 11:30 Intake & Output 06/04/17 06/05/17 06/06/17 06:59 06:59 06:59 Intake Total 594 103 Output Total 120 5120 Balance 474 -7267 Weight 105.8 kg 103.3 kg General appearance: PRESENT: no acute distress, well-developed, well-nourished Mouth exam: PRESENT: moist, tongue midline Neck exam: PRESENT: full ROM. ABSENT: JVD Respiratory exam: PRESENT: clear to auscultation adamaris. ABSENT: accessory muscle use, chest wall tenderness, crackles, rales, rhonchi Cardiovascular exam: PRESENT: RRR, +S1, +S2 GI/Abdominal exam: PRESENT: normal bowel sounds, soft. ABSENT: organomegaly, tenderness Extremities exam: PRESENT: +1 edema. ABSENT: tenderness Musculoskeletal exam: PRESENT: normal inspection. ABSENT: tenderness Neurological exam: PRESENT: alert, awake, oriented to person, oriented to place , oriented to time, oriented to situation Psychiatric exam: PRESENT: appropriate affect, normal mood Skin exam: PRESENT: dry, intact, warm Results Laboratory Results: 06/05/17 04:00 06/05/17 04:00 06/05/17 06/05/17 04:00 04:00 WBC 14.0 H RBC 3.08 L Hgb 9.3 L Hct 28.4 L MCV 92 MCH 30.1 MCHC 32.6 RDW 16.6 H Plt Count 225 Seg Neutrophils % 84.7 H Lymphocytes % 6.1 L Monocytes % 8.6 Eosinophils % 0.4 Basophils % 0.2 Absolute Neutrophils 11.8 H Absolute Lymphocytes 0.8 Absolute Monocytes 1.2 Absolute Eosinophils 0.0 Absolute Basophils 0.0 Sodium 136.7 L Potassium 3.4 L Chloride 100 Carbon Dioxide 28 Anion Gap 9 BUN 33 H Creatinine 5.81 H Est GFR ( Amer) 9 L Est GFR (Non-Af Amer) 7 L Glucose 143 H Calcium 8.0 L Phosphorus 4.3 05/30/17 22:50 Blood Blood Culture - Final NO GROWTH IN 5 DAYS 05/30/17 20:40 Blood Blood Culture - Final NO GROWTH IN 5 DAYS 05/30/17 05/30/17 05/31/17 22:50 22:50 05:15 Creatine Kinase 370 H CK-MB (CK-2) 7.41 H 7.47 H Troponin I 0.020 0.026 NT-Pro-B Natriuret Pep 65452 H 05/31/17 05/31/17 05/31/17 05:15 11:11 11:11 Creatine Kinase 320 H 290 H CK-MB (CK-2) 6.85 H Troponin I 0.026 NT-Pro-B Natriuret Pep 06/01/17 06/02/17 03:52 05:25 Creatine Kinase CK-MB (CK-2) Troponin I NT-Pro-B Natriuret Pep 31742 H 51405 H Impressions: Abdomen/Pelvis CT 05/31/17 00:00 IMPRESSION: NO SIGNIFICANT OR ACUTE PROCESS IN THE ABDOMEN OR PELVIS. Chest CT 05/31/17 00:00 IMPRESSION: Moderate size bilateral pleural effusions are identified with some associated airspace consolidation in the lung bases most consistent with atelectatic changes although I cannot exclude pneumonic consolidations. There is some mild thickening of the pericardium suggesting a small pericardial effusion. Other findings as noted above Central Venous Line 06/04/17 00:00 IMPRESSION: Intra procedural imaging and fluoro Chest X-Ray 06/05/17 00:00 IMPRESSION: No change in bilateral pleural effusions and bilateral lower lobe airspace disease left greater than right Right jugular central venous dialysis catheter tip in the right atrium. No pneumothorax Assessment & Plan - Diagnosis (1) Hypokalemia Plan: Received potassium supplements today, will look to run her on a 3k bath and will adjust diet accordingly as outpatient. (2) ESRD (end stage renal disease) Is this a current diagnosis for this admission?: Yes Plan: Patient is ready for discharge from nephrologies stand point. She will continue dialysis as outpatient. (3) Acute congestive heart failure Qualifiers: Congestive heart failure type: combined Qualified Code(s): I50.41 - Acute combined systolic (congestive) and diastolic (congestive) heart failure Is this a current diagnosis for this admission?: Yes Plan: improved, will need more dialysis to help pull the rest of the fluid off. Currently stable for discharge and to continue dialysis outpatient. (4) Hypertension Plan: slightly elevated will adjust accordingly as outpatient. Blood pressure should keep coming down as fluid is removed. (5) Acute renal failure Qualifiers: Acute renal failure type: unspecified Qualified Code(s): N17.9 - Acute kidney failure, unspecified Is this a current diagnosis for this admission?: Yes Plan: on dialysis (6) Renal osteodystrophy Plan: on calcitriol, will draw new PTH at outpatient dialysis (7) Type 2 diabetes mellitus Qualifiers: Diabetes mellitus complication status: with kidney complications Diabetes mellitus complication detail: with nephropathy Diabetes mellitus long term care pharmacist insulin use: with long term care pharmacist use Qualified Code(s): E11.21 - Type 2 diabetes mellitus with diabetic nephropathy; Z79.4 - shelter (current) use of insulin; Z79.4 - shelter (current) use of insulin; Z79.4 - ferry terminal agent (current) use of insulin; Z79.4 - ferry terminal agent (current) use of insulin Is this a current diagnosis for this admission?: Yes Plan: varying, discussed proper diet (8) Obesity Qualifiers: Obesity type: unspecified obesity type Obesity classification: unspecified obesity classification Serious obesity comorbidity presence: with serious comorbidity Qualified Code(s): E66.9 - Obesity, unspecified Is this a current diagnosis for this admission?: Yes
[2017-06-05] MEDS ORDERED: INSULIN LISPRO 100 UNIT/ML 3 ML VIAL SUBCUT SCH (16:00)
[2017-06-05] MEDS: CEFEPIME 1 GM/D5W RTU 1 GM/50 ML RTUPB IV SCH (21:28)
[2017-06-05] MEDS ORDERED: INSULIN GLARGINE,HUM.REC.ANLOG 300 UNIT/3 ML INSULN.PEN SUBCUT SCH (22:00)
[2017-06-06 05:08] LABS: ABSOLUTE BASOPHILS # (AUTO) 0.1 10^3/uL (0.0-0.2); ABSOLUTE EOSINOPHILS # (AUTO) 0.2 10^3/uL (0.0-0.6); ABSOLUTE LYMPHOCYTES (AUTO) 1.3 10^3/uL (0.5-4.7); ABSOLUTE MONOCYTES (AUTO) 1.2 10^3/uL (0.1-1.4); ABSOLUTE NEUT (AUTO) 12.7 10^3/uL (1.7-8.2); BASOPHILS % (AUTO) 0.5 % (0-2); EOSINOPHILS % (AUTO) 1.1 % (0-6); HEMATOCRIT 32.2 % (36.0-47.0); HEMOGLOBIN 10.4 g/dL (12.0-15.5); LYMPHOCYTES % (AUTO) 8.7 % (13-45); MEAN CORPUSCULAR HEMOGLOBIN 29.8 pg (27.0-33.4); MEAN CORPUSCULAR HGB CONC 32.2 g/dL (32.0-36.0); MEAN CORPUSCULAR VOLUME 93 fl (80-97); PLATELET COUNT 257 10^3/uL (150-450); RED BLOOD COUNT 3.48 10^6/uL (3.72-5.28); RED CELL DISTRIBUTION WIDTH 16.4 % (11.5-14.0); SEGMENTED NEUTROPHILS % (AUTO) 81.7 % (42-78); TOTAL CELLS COUNTED % (AUTO) 100 %; WHITE BLOOD COUNT 15.5 10^3/uL (4.0-10.5)
[2017-06-06] MEDS: LANSOPRAZOLE 15 MG TAB.RAP.DR PO SCH ×2 (05:23→18:14)
[2017-06-06] MEDS: CLONIDINE HCL 0.2 MG TABLET PO SCH ×2 (05:23→18:12)
[2017-06-06] MEDS: HYDRALAZINE HCL 50 MG TABLET PO SCH ×2 (05:23→18:13)
[2017-06-06] MEDS: HEPARIN SOD (PORCINE) 5,000 UNIT/ML 1 ML SYRINGE SUBCUT SCH ×2 (05:23→18:14)
[2017-06-06 05:24] LABS: ANION GAP 8 (5-19); BLOOD UREA NITROGEN 39 mg/dL (7-20); CALCIUM 8.9 mg/dL (8.4-10.2); CARBON DIOXIDE 29 mmol/L (22-30); CHLORIDE 100 mmol/L (98-107); GLUCOSE 130 mg/dL (75-110); POTASSIUM 3.9 mmol/L (3.6-5.0); SODIUM 136.7 mmol/L (137-145)
[2017-06-06] MEDS: FUROSEMIDE 20 MG TABLET PO SCH ×2 (09:03→18:14)
[2017-06-06] MEDS: CALCITRIOL 0.25 MCG CAPSULE PO SCH (09:03)
[2017-06-06] MEDS: LEVOFLOXACIN 250 MG TABLET PO SCH (09:03)
[2017-06-06] MEDS: ATORVASTATIN CALCIUM 20 MG TABLET PO SCH (09:03)
[2017-06-06] MEDS: AMLODIPINE BESYLATE 5 MG TABLET PO SCH (09:03)
[2017-06-06] MEDS: METOPROLOL TARTRATE 25 MG TABLET PO SCH (09:03)
--- NOTE | 2017-06-06 09:21 | PDOC DISCHARGE SUMMARY ---
General - Admit/Disc Date/PCP Admission Date/Primary Care Provider: 05/30/17 18:57 DEVAN DE LA CRUZ MD Discharge Date: 06/06/17 - Discharge Diagnosis (1) Hypertensive emergency Is this a current diagnosis for this admission?: Yes Summary: Currently all improving and resolved (2) Acute renal failure Is this a current diagnosis for this admission?: Yes Summary: Currently on hemodialysis (3) Acute congestive heart failure Is this a current diagnosis for this admission?: Yes Summary: Continues on hemodialysis on the Lasix and follow-up outpatients cardiology for a stress test (4) Type 2 diabetes mellitus Is this a current diagnosis for this admission?: Yes Summary: Hu the Lantus and sliding scale and readjust the medications on an outpatient (5) Leukocytosis Is this a current diagnosis for this admission?: Yes Summary: Unclear etiology continues to Levaquin's to 50 mg daily for 10 days with a questionable pneumonia in the lung versus any current upper mouth infections Dr. Wong is going to repeat the CBC in the dialysis and if is a persistent elevated need of further evaluations (6) Pneumonia Is this a current diagnosis for this admission?: Yes Summary: Medically patient does not have any symptoms of the chest x-ray consistent with the some infiltrate versus atelectasis will continues the Levaquin Repeat the chest x-ray in 10 days after the finished antibiotic (7) Noncompliance Is this a current diagnosis for this admission?: Yes Summary: Very extensive discussions with the patient and the family about patient's noncompliance myself and Dr. Wong in the room and the patient's try to become more compliance now (8) Postmenopausal vaginal bleeding Is this a current diagnosis for this admission?: Yes Summary: Patient have an outpatient appointment to see the DESIZING MACHINE OPERATOR HEAD END - Additional Information Resuscitation Status: Full Code Discharge Diet: Cardiac, Diabetic Discharge Activity: Activity As Tolerated, Balance Activity w/Rest, Weigh Daily Prescriptions: Amlodipine Besylate [Norvasc 5 mg Tablet] 5 mg PO DAILY #30 tablet Calcitriol [Rocaltrol 0.25 mcg Capsule] 0.25 mcg PO DAILY #30 capsule Clonidine HCl [Catapres 0.2 mg Tablet] 0.3 mg PO Q8 #90 tablet Furosemide [Lasix 20 mg Tablet] 20 mg PO TID #90 tablet Hydralazine HCl [Apresoline 50 mg Tablet] 75 mg PO Q8 #90 tablet Ipratropium/Albuterol Sulfate [Duoneb 3 ml Ampul] 3 ml NEB [id number] PRN #120 vial.neb PRN Reason: Levofloxacin [Levaquin 250 mg Tablet] 250 mg PO Q2DAYS #10 tablet Metoprolol Tartrate [Lopressor 25 mg Tablet] 25 mg PO Q12 #60 tablet Home Medications: Albuterol Sulfate [Proair HFA] 2 puff IH Q4HP PRN 05/30/17 Albuterol Sulfate [Ventolin 0.083% Neb 2.5 mg/3 ml Ampul] 1 vial NEB TIDP PRN Atorvastatin Calcium [Lipitor 20 mg Tablet] 20 mg PO DAILY 05/30/17 Insulin Lispro [Humalog Insulin (Lispro) 100 unit/mL] 6 unit SUBCUT MEALS Amlodipine Besylate [Norvasc 5 mg Tablet] 5 mg PO DAILY #30 tablet 06/05/17 Calcitriol [Rocaltrol 0.25 mcg Capsule] 0.25 mcg PO DAILY #30 capsule 06/05/17 Clonidine HCl [Catapres 0.2 mg Tablet] 0.3 mg PO Q8 #90 tablet 06/05/17 Furosemide [Lasix 20 mg Tablet] 20 mg PO TID #90 tablet 06/05/17 Hydralazine HCl [Apresoline 50 mg Tablet] 75 mg PO Q8 #90 tablet 06/05/17 Insulin Glargine,Hum.rec.anlog [Lantus] 12 unit SQ QHS #0 06/05/17 Ipratropium/Albuterol Sulfate [Duoneb 3 ml Ampul] 3 ml NEB RTQ6HP PRN #120 vial.neb 06/05/17 Levofloxacin [Levaquin 250 mg Tablet] 250 mg PO Q2DAYS #10 tablet 06/05/17 Metoprolol Tartrate [Lopressor 25 mg Tablet] 25 mg PO Q12 #60 tablet 06/05/17 History of Present Illness History of Present Illness: BEA QUINONES is a 61 year old female This is a 61-year-old females with the history of the chronic kidney disease stage III to stage IV history of the hypertension's history of the type 2 diabetes mellitus with very uncontrolledAnd a history of congestive heart failure with the very noncompliance for a long timeNot taking the medication as prescribed not following in the office in the subspecialty as directed and not watching the dietCame to the office today with the complaint of shortness of the breath and patient's blood pressure was 220/120 . Patient's denied any chest pain denied any headache denied any other symptoms except the mild short of breath Patient's last creatinine was 3.69 patient used to see a Dr. Wong in the past but very noncompliance patient was discharged by Dr. Wong and patient's referred to the nephrology but never went to see And today's at this point patient's directed to the emergency departments because possible heart failure with the renal failure and uncontrolled hypertension's In the emergency department patient's creatinine was 8.5 and patient's white count was 17 and patient's chest x-ray suggesting congestive heart failure with possible underlying consolidations Very extensive discussed with the ER physician initially tried to transfer the patient because no nephrologic or is available in patients probably need a potential dialysis very soon and here physicians tried to call the [facility] accepted the transfer but unable to transfer due to the weather conditions ER physicians call back and back and forth call from the nephrology Dr. Wong who is a not personal computer network engineer officially for the ER but because of the best interest of the patient in hospital does not have any coverage agreed to see the patient and evaluate the patient and at this point admit the patient in the ICU as per discussed with him and start the drip and keep the blood pressures 160 range Patient otherwise currently stable denied any chest pain denied any headache denied any weakness Hospital Course Hospital Course: This is a 61-year-old females with a super noncompliance came to the office with a blood pressure was 220/110 with the some shortness of the breath and patient send to the emergency departmentsWith the patient's found acute renal failure and chronic kidney disease due to the uncontrolled hypertension uncontrolled diabetes to the noncompliance Patient and admitting in the ICU start the patient on a Cardene drip Patient seen by Dr. Wong and the patient underwent for the hemodialysis Patient also seen by cardiology and suggest the follow outpatient stress test and a sleep study Recent echocardiogram suggested diastolic dysfunctions and mild systolic dysfunction's due to the most likely overload due to the acute renal failure Patient have persistent leukocytosis with questionable pneumonia with all the other cultures negative patient was treated with IV antibiotics Patients remain afebrile Patients walk with the physical therapy and patient's other medical problem was all stable Patient's very express to go homes and that patients evaluated by me and Dr. Wong in the room and patients pretty much all stable Since going to hemodialysis today and going to hemodialysis tomorrow and outpatient This also have a some vaginal bleeding was seen by the DESIZING MACHINE OPERATOR HEAD END suggest a follow outpatients for further evaluation and possible biopsy Patient's outpatient sleep study and stress test Physical Exam Vital Signs: Temp Pulse Resp BP Pulse Ox 98.7 F 81 16 171/83 H 96 06/06/17 08:16 06/06/17 08:16 06/06/17 08:16 06/06/17 08:16 06/06/17 08:16 Intake & Output 06/05/17 06/06/17 06/07/17 06:59 06:59 06:59 Intake Total 103 1862 Output Total 5120 525 Balance -5017 1337 Weight 103.3 kg 229.4 kg General appearance: PRESENT: no acute distress, well-developed, well-nourished Head exam: PRESENT: atraumatic, normocephalic Eye exam: PRESENT: conjunctiva pink, EOMI, PERRLA. ABSENT: scleral icterus Ear exam: PRESENT: normal external ear exam Mouth exam: PRESENT: moist, tongue midline Neck exam: PRESENT: full ROM. ABSENT: carotid bruit, JVD, lymphadenopathy, thyromegaly Respiratory exam: PRESENT: clear to auscultation adamaris Cardiovascular exam: PRESENT: RRR. ABSENT: diastolic murmur, rubs, systolic murmur Pulses: PRESENT: normal dorsalis pedis pul, +2 pedal pulses bilateral Vascular exam: PRESENT: normal capillary refill GI/Abdominal exam: PRESENT: normal bowel sounds, soft. ABSENT: distended, guarding, mass, organolmegaly, rebound, tenderness Rectal exam: PRESENT: deferred Extremities exam: PRESENT: pedal edema Musculoskeletal exam: PRESENT: ambulatory Neurological exam: PRESENT: alert, awake, oriented to person, oriented to place , oriented to time, oriented to situation, CN II-XII grossly intact. ABSENT: motor sensory deficit Psychiatric exam: PRESENT: appropriate affect, normal mood. ABSENT: homicidal ideation, suicidal ideation Skin exam: PRESENT: dry, intact, warm. ABSENT: cyanosis, rash Results Laboratory Results: 06/06/17 04:12 06/06/17 04:12 06/06/17 06/06/17 04:12 04:12 WBC 15.5 H RBC 3.48 L Hgb 10.4 L Hct 32.2 L MCV 93 MCH 29.8 MCHC 32.2 RDW 16.4 H Plt Count 257 Seg Neutrophils % 81.7 H Lymphocytes % 8.7 L Monocytes % 8.0 Eosinophils % 1.1 Basophils % 0.5 Absolute Neutrophils 12.7 H Absolute Lymphocytes 1.3 Absolute Monocytes 1.2 Absolute Eosinophils 0.2 Absolute Basophils 0.1 Sodium 136.7 L Potassium 3.9 Chloride 100 Carbon Dioxide 29 Anion Gap 8 BUN 39 H Creatinine 6.52 H Est GFR ( Amer) 8 L Est GFR (Non-Af Amer) 6 L Glucose 130 H Calcium 8.9 05/30/17 05/30/17 05/31/17 22:50 22:50 05:15 Creatine Kinase 370 H CK-MB (CK-2) 7.41 H 7.47 H Troponin I 0.020 0.026 NT-Pro-B Natriuret Pep [id number] H 05/31/17 05/31/17 05/31/17 05:15 11:11 11:11 Creatine Kinase 320 H 290 H CK-MB (CK-2) 6.85 H Troponin I 0.026 NT-Pro-B Natriuret Pep 06/01/17 06/02/17 03:52 05:25 Creatine Kinase CK-MB (CK-2) Troponin I NT-Pro-B Natriuret Pep 72814 H 53690 H Impressions: Abdomen/Pelvis CT 05/31/17 00:00 IMPRESSION: NO SIGNIFICANT OR ACUTE PROCESS IN THE ABDOMEN OR PELVIS. Chest CT 05/31/17 00:00 IMPRESSION: Moderate size bilateral pleural effusions are identified with some associated airspace consolidation in the lung bases most consistent with atelectatic changes although I cannot exclude pneumonic consolidations. There is some mild thickening of the pericardium suggesting a small pericardial effusion. Other findings as noted above Central Venous Line 06/04/17 00:00 IMPRESSION: Intra procedural imaging and fluoro Chest X-Ray 06/05/17 00:00 IMPRESSION: No change in bilateral pleural effusions and bilateral lower lobe airspace disease left greater than right Right jugular central venous dialysis catheter tip in the right atrium. No pneumothorax Plan Time Spent: Greater than 30 Minutes - Patient's discharge home with the stable conditions Follow-up outpatient sleep study and a stress test Follow-up outpatients hemodialysis Patients have persistent leukocytosis currently put on the Levaquin 250 daily for 10 days repeat the chest x-ray in 1 week and if his persistent elevated leukocytosis need to further evaluations for the retoucher photoengraving Patients arrange the home health and physical therapy at home Discussed with the patient and the son regarding the patient's current conditions and discussed with the all the solution consultant
[2017-06-06] MEDS: INSULIN LISPRO 100 UNIT/ML 3 ML VIAL SUBCUT PRN (12:29)
[2017-06-06] MEDS ORDERED: HEPARIN SOD (PORCINE) 1,000 UNIT/ML 10 ML VIAL IV PRN (16:07)
--- NOTE | 2017-06-06 16:19 | PDOC PROGRESS REPORT ---
Subjective Progress Note for:: 06/06/17 Reason For Visit: Patient seen on Dialysis today. She is feeling better. Denies any dyspnea with minimal exertion, chest pains, fever or chills.No issues with her IJ permacath. No issues on Dialysis . Has plenty edema. She mentions of bad tooth but no obvious pains. No more vaginal bleeding. Physical Exam Vital Signs: Temp Pulse Resp BP Pulse Ox 98.1 F 70 18 171/80 H 98 06/06/17 11:27 06/06/17 14:00 06/06/17 11:27 06/06/17 11:27 06/06/17 11:27 Intake & Output 06/05/17 06/06/17 06/07/17 06:59 06:59 06:59 Intake Total 103 1862 600 Output Total 5120 525 Balance -5017 1337 600 Weight 103.3 kg 229.4 kg 104.2 kg General appearance: PRESENT: no acute distress Respiratory exam: PRESENT: clear to auscultation adamaris, decreased breath sounds, symmetrical. ABSENT: crackles Cardiovascular exam: PRESENT: RRR, +S1, +S2 GI/Abdominal exam: PRESENT: normal bowel sounds, soft. ABSENT: organomegaly, tenderness Extremities exam: PRESENT: +2 edema Neurological exam: PRESENT: alert, awake, oriented to person, oriented to place Psychiatric exam: PRESENT: anxious Skin exam: ABSENT: erythema, mottled, petechiae, rash Results Laboratory Results: 06/06/17 04:12 06/06/17 04:12 06/06/17 06/06/17 04:12 04:12 WBC 15.5 H RBC 3.48 L Hgb 10.4 L Hct 32.2 L MCV 93 MCH 29.8 MCHC 32.2 RDW 16.4 H Plt Count 257 Seg Neutrophils % 81.7 H Lymphocytes % 8.7 L Monocytes % 8.0 Eosinophils % 1.1 Basophils % 0.5 Absolute Neutrophils 12.7 H Absolute Lymphocytes 1.3 Absolute Monocytes 1.2 Absolute Eosinophils 0.2 Absolute Basophils 0.1 Sodium 136.7 L Potassium 3.9 Chloride 100 Carbon Dioxide 29 Anion Gap 8 BUN 39 H Creatinine 6.52 H Est GFR ( Amer) 8 L Est GFR (Non-Af Amer) 6 L Glucose 130 H Calcium 8.9 05/30/17 05/30/17 05/31/17 22:50 22:50 05:15 Creatine Kinase 370 H CK-MB (CK-2) 7.41 H 7.47 H Troponin I 0.020 0.026 NT-Pro-B Natriuret Pep 15893 H 05/31/17 05/31/17 05/31/17 05:15 11:11 11:11 Creatine Kinase 320 H 290 H CK-MB (CK-2) 6.85 H Troponin I 0.026 NT-Pro-B Natriuret Pep 06/01/17 06/02/17 03:52 05:25 Creatine Kinase CK-MB (CK-2) Troponin I NT-Pro-B Natriuret Pep 45335 H 94993 H Impressions: Abdomen/Pelvis CT 05/31/17 00:00 IMPRESSION: NO SIGNIFICANT OR ACUTE PROCESS IN THE ABDOMEN OR PELVIS. Chest CT 05/31/17 00:00 IMPRESSION: Moderate size bilateral pleural effusions are identified with some associated airspace consolidation in the lung bases most consistent with atelectatic changes although I cannot exclude pneumonic consolidations. There is some mild thickening of the pericardium suggesting a small pericardial effusion. Other findings as noted above Central Venous Line 06/04/17 00:00 IMPRESSION: Intra procedural imaging and fluoro Chest X-Ray 06/05/17 00:00 IMPRESSION: No change in bilateral pleural effusions and bilateral lower lobe airspace disease left greater than right Right jugular central venous dialysis catheter tip in the right atrium. No pneumothorax Assessment & Plan - Diagnosis (1) ESRD (end stage renal disease) Is this a current diagnosis for this admission?: Yes Plan: She is undergoing dialysis currently which is being supervised to ensure safe and smooth procedure. Vital signs are stable. Antihypertensives have been held to help with extraction of fluid. We will put on a 3K bath 2.5 calcium. Plan to remove 5 L as tolerated. Id discharged today then next Dialysis will be tomorrow givne her large edema. Plan is to convert her to peritoneal dialysis post discharge . (2) Renal osteodystrophy Plan: She has been begun on appropriate medications. Monitor. (3) Acute congestive heart failure Qualifiers: Congestive heart failure type: combined Qualified Code(s): I50.41 - Acute combined systolic (congestive) and diastolic (congestive) heart failure Is this a current diagnosis for this admission?: Yes Plan: Presently compensated. See response to ultrafiltration on hemodialysis. (4) Acute renal failure Qualifiers: Acute renal failure type: unspecified Qualified Code(s): N17.9 - Acute kidney failure, unspecified Is this a current diagnosis for this admission?: Yes Plan: She has acute on chronic kidney disease. She is now manifesting with congestive heart failure. She has unfortunately been noncompliant with her medications and diet and physician follow-ups. She has no reach ESRD and is now on hemodialysis. (5) Hypertensive emergency Is this a current diagnosis for this admission?: Yes Plan: Currently under better control. Continue on current po medications and see response to HD. Later needs Sleep study. (6) Leukocytosis Qualifiers: Leukocytosis type: unspecified Qualified Code(s): D72.829 - Elevated white blood cell count, unspecified Is this a current diagnosis for this admission?: Yes Plan: Unknown etiology. Improving slowly. No obvious signs of infection. Monitor. Currently on antibiotics. Cultures negative so far. D/w Dr Mariano of having her send to Dentist to look at teeth. I will order CBC on HD as DR mariano is out of country for 2 weeks. Also discussed with patient if any new symptoms or change in her present condition, she should report to the ER. (7) Noncompliance Is this a current diagnosis for this admission?: Yes Plan: Unfortunate. Went through this aspect for the future especially now on dialysis and the consequences. (8) Type 2 diabetes mellitus Qualifiers: Diabetes mellitus complication status: with kidney complications Diabetes mellitus complication detail: with nephropathy Diabetes mellitus long term care social worker insulin use: with [facility] use Qualified Code(s): E11.21 - Type 2 diabetes mellitus with diabetic nephropathy; Z79.4 - long term care social worker (current) use of insulin; Z79.4 - penitentiary (current) use of insulin; Z79.4 - long term care social worker (current) use of insulin; Z79.4 - penitentiary (current) use of insulin Is this a current diagnosis for this admission?: Yes
[2017-06-06 19:31] VITALS: BP 174/92
--- NOTE | 2017-06-06 19:51 | PDOC PROGRESS REPORT ---
Subjective Progress Note for:: 06/06/17 Subjective:: Patient seems to be doing better with gradual improvement. Pt is denying any chest arm or neck discomfort. Patient denying any PND, orthopnea. Patient denied any sustained palpitations, dizziness, syncope, near syncope. Patient denying any fever chills. Patient denying any other significant discomfort. Patient is maintaining sinus rhythm. Review of systems: Rest review of systems negative. Medications: Medications have been reviewed. Reason For Visit: HTN EMERGENCY Physical Exam Vital Signs: Temp Pulse Resp BP Pulse Ox 98.1 F 70 18 139/82 H 98 06/06/17 18:07 06/06/17 18:07 06/06/17 18:07 06/06/17 18:07 06/06/17 18:07 Intake & Output 06/05/17 06/06/17 06/07/17 06:59 06:59 06:59 Intake Total 103 1862 850 Output Total 5120 525 Balance -5017 1337 850 Weight 103.3 kg 229.4 kg 104.2 kg Exam: GENERAL: well-nourished and in no acute distress. Alert and oriented x3 HEAD: Atraumatic, normocephalic. EYES: Pupils equal round and reactive to light, extraocular movements intact, sclera anicteric, conjunctiva are normal. ENT: TMs normal, nares patent, oropharynx clear without exudates. Moist mucous membranes. No oral ulcerations or bleeding gums noted NECK: supple without lymphadenopathy. Trachea is central. No cervical or axillary lymphadenopathy noted. Carotids are 2+, JVD WNL LUNGS: Respiration seems nonlabored, no significant accessory muscle action noted. Breath sounds clear to auscultation bilaterally and equal noted. No wheezes rales or rhonchi noted. No significant dullness noted on percussion. CHEST: Palpation of the chest wall shows no significant chest wall tenderness. No other significant abnormalities noted. Hemodialysis catheter noted on right side chest. HEART: [place] TRANSVERSE ABDOMINAL MUSCLE NURSE, No PSH, 1/6 DONYA aortic area, 1/6 conde systolic murmur mitral area, no rubs, no gallops. ABDOMEN: Soft, no significant tenderness appreciated, normoactive bowel sounds. No guarding, no rebound. No rigidity noted . No masses appreciated. EXTREMITIES: Pedal pulses are 1-2+, no calf tenderness noted. No clubbing or cyanosis.1+ pedal edema noted NEUROLOGICAL: Focused neurological exam showed no significant neurologic deficit. Normal speech, no focal weakness appreciated. PSYCH: Normal mood, normal affect. Judgment and insight within normal limits. SKIN: No significant ecchymosis, rash, ulcerations or signs of pruritus noted. MUSCULOSKELETAL EXAM: No significant joint swelling noted. Results Laboratory Results: 06/06/17 04:12 06/06/17 04:12 06/06/17 06/06/17 04:12 04:12 WBC 15.5 H RBC 3.48 L Hgb 10.4 L Hct 32.2 L MCV 93 MCH 29.8 MCHC 32.2 RDW 16.4 H Plt Count 257 Seg Neutrophils % 81.7 H Lymphocytes % 8.7 L Monocytes % 8.0 Eosinophils % 1.1 Basophils % 0.5 Absolute Neutrophils 12.7 H Absolute Lymphocytes 1.3 Absolute Monocytes 1.2 Absolute Eosinophils 0.2 Absolute Basophils 0.1 Sodium 136.7 L Potassium 3.9 Chloride 100 Carbon Dioxide 29 Anion Gap 8 BUN 39 H Creatinine 6.52 H Est GFR ( Amer) 8 L Est GFR (Non-Af Amer) 6 L Glucose 130 H Calcium 8.9 05/30/17 05/30/17 05/31/17 22:50 22:50 05:15 Creatine Kinase 370 H CK-MB (CK-2) 7.41 H 7.47 H Troponin I 0.020 0.026 NT-Pro-B Natriuret Pep 81608 H 05/31/17 05/31/17 05/31/17 05:15 11:11 11:11 Creatine Kinase 320 H 290 H CK-MB (CK-2) 6.85 H Troponin I 0.026 NT-Pro-B Natriuret Pep 06/01/17 06/02/17 03:52 05:25 Creatine Kinase CK-MB (CK-2) Troponin I NT-Pro-B Natriuret Pep 02244 H 58299 H Impressions: Abdomen/Pelvis CT 05/31/17 00:00 IMPRESSION: NO SIGNIFICANT OR ACUTE PROCESS IN THE ABDOMEN OR PELVIS. Chest CT 05/31/17 00:00 IMPRESSION: Moderate size bilateral pleural effusions are identified with some associated airspace consolidation in the lung bases most consistent with atelectatic changes although I cannot exclude pneumonic consolidations. There is some mild thickening of the pericardium suggesting a small pericardial effusion. Other findings as noted above Central Venous Line 06/04/17 00:00 IMPRESSION: Intra procedural imaging and fluoro Chest X-Ray 06/05/17 00:00 IMPRESSION: No change in bilateral pleural effusions and bilateral lower lobe airspace disease left greater than right Right jugular central venous dialysis catheter tip in the right atrium. No pneumothorax Assessment & Plan - Diagnosis (1) Hypertensive emergency Is this a current diagnosis for this admission?: Yes (2) Acute congestive heart failure Qualifiers: Congestive heart failure type: combined Qualified Code(s): I50.41 - Acute combined systolic (congestive) and diastolic (congestive) heart failure Is this a current diagnosis for this admission?: Yes (3) Sleep apnea syndrome Qualifiers: Sleep apnea type: unspecified type Qualified Code(s): G47.30 - Sleep apnea , unspecified Is this a current diagnosis for this admission?: Yes (4) ESRD (end stage renal disease) Is this a current diagnosis for this admission?: Yes (5) Type 2 diabetes mellitus Qualifiers: Diabetes mellitus complication status: with kidney complications Diabetes mellitus complication detail: with nephropathy Diabetes mellitus longterm insulin use: with longterm use Qualified Code(s): E11.21 - Type 2 diabetes mellitus with diabetic nephropathy; Z79.4 - halfway (current) use of insulin; Z79.4 - halfway (current) use of insulin; Z79.4 - halfway (current) use of insulin; Z79.4 - watermaster (current) use of insulin Is this a current diagnosis for this admission?: Yes (6) Obesity Qualifiers: Obesity type: unspecified obesity type Obesity classification: unspecified obesity classification Serious obesity comorbidity presence: with serious comorbidity Qualified Code(s): E66.9 - Obesity, unspecified Is this a current diagnosis for this admission?: Yes - Notes Notes: Hypertensive emergency: Patient blood pressure coming under better control but still has intermittent high blood pressure reading. Patient to have some more fluid removed on dialysis. Hopefully this will bring her blood pressure under better control. Will leave management of hypertension to nephrology in setting of end-stage renal disease and patient being on dialysis. Acute congestive heart failure: Most likely precipitated by volume overload in setting of diastolic dysfunction and severe hypertension and also chronic kidney disease. Sleep apnea syndrome: This is strongly suspected. Patient will benefit from expeditious scheduling of sleep study and treatment with positive pressure ventilation. End-stage renal disease: Patient being actively managed by project lead and did already supposed to undergo dialysis with some fluid removal. Diabetes: Patient being expertly managed by floor waxer and blood pressure under reasonable control. Obesity patient has been advised in weight loss. - Time Time with patient: Greater than 35 minutes Medications reviewed and adjusted accordingly: Yes
--- NOTE | 2017-06-09 20:59 | PROGRESS NOTE E ---
Progress Note NAME: BEA QUINONES : 1955 AGE: 61Y DATE: 06/01/2017 ROOM: 303 SUBJECTIVE: The patient states that she feels slightly better. She had a temporary dialysis catheter placed in her right femoral vein by Dr. Wan. She underwent hemodialysis. She is off the Cardene drip, she is feeling better, but her blood pressure is still slightly up. Her shortness of breath is much improved, but still continues to have some degree of shortness of breath. There is no chest pain or discomfort. There is no PND. Her leg edema is slightly better, but still there is 1+ edema bilaterally. She does have orthopnea. There are no palpitations or arrhythmia seen. There are no anginal symptoms. There are no TIA or CVA symptoms. Note that the patient is off the Cardene drip, and she has been started on p.o. medications for her blood pressure, but still her blood pressure is not very well controlled. Need to increase the medications as tolerated. The plan is that on Sunday she will get a peritoneal dialysis catheter and will have peritoneal dialysis. OBJECTIVE: GENERAL: On examination, the patient is morbidly obese, at present in some mild respiratory distress without any auxiliary muscles of respiration use. She is well groomed. VITAL SIGNS: Her temperature is 99 degrees Fahrenheit. Pulse is 84 beats per minute. Blood pressure 166/83. Her respirations are 24/min. O2 sats are 100% on 2 L nasal cannula. HEAD: Atraumatic, normocephalic. EYES: Pupils are equal, round, regular, reactive to light and accommodation. There is no conjunctival pallor. There is no scleral icterus. Extraocular movements are normal. ENT: Tympanic membranes are intact. Nares are patent. There is no exudates of the throat. There is no redness of the oropharynx. Mucous membranes of the mouth are moist. Tongue is moist. There are no ulcers. SKIN: There are no petechiae or ecchymosis. There are no skin rashes or skin lesions. NECK: Supple. There is still some mild JVD present. Carotids are equal. There is no bruit. There is no lymphadenopathy. There is no goiter. Trachea is central. LUNGS: There are left more than right absent breath sounds, which is slightly less than yesterday, and these areas have dullness. There are a few dry crackles of pneumonia and a few fine bibasilar rales of CHF just about the area of dullness. ABDOMEN: Soft, obese, nontender. There is no hepatosplenomegaly. Bowel sounds are well heard. There are no tender areas or masses. EXTREMITIES: She has 1+ edema bilaterally still. Her peripheral pulses are diminished. Femorals are diminished without any bruits. There is no DVT or cellulitis. There is no cyanosis or clubbing. Leg pulses are diminished. There is no calf tenderness. CENTRAL NERVOUS SYSTEM: The patient is conscious, awake, alert, oriented x3, with no focal deficits. PSYCHIATRIC: The patient's judgement and insight are intact. Her affect is slightly anxious, but the patient does not appear to be agitated. INTAKE/OUTPUT: Note that the patient's 24-hour intake 644 mL, output is 1015 mL. RECOMMENDATIONS: Continue diuretics. Continue amlodipine at 5 mg p.o. daily, increase as tolerated. Also, the patient is on clonidine 0.2 mg p.o. q. 8 hours. Also, the patient is on hydralazine 50 mg p.o. q. 8 hours, increase as tolerated. CARDIAC STUDIES: Note that the patient had an echocardiogram which showed that the left ventricle is of normal size. There is moderate to severe left ventricular hypertrophy with LV ejection fraction of greater than 60%. Left ventricular systolic function is normal. Doppler measurements suggested *------* which is associated with grade 1/4 or mild diastolic dysfunction. The left ventricular wall motion is normal. There is no thrombus. There is no ventricular septal defect *------*. The right ventricle is normal in size and function. The right atrium is normal. The left atrium is mildly dilated. The interatrial septum is intact. There is no evidence of mitral valve prolapse. There is no mitral valve stenosis. There is a mild amount of mitral regurgitation. There is no aortic valve stenosis. There is no aortic regurgitation. There is no tricuspid stenosis. There is a trace to mild amount of tricuspid regurgitation. There is mild pulmonary hypertension by echo. The right ventricular systolic pressure is 43 mmHg with a right atrial mean of 5. There is minimal pericardial effusion behind the right atrium. There is a moderate-sized left pleural effusion and a small right pleural effusion. There is no Doppler evidence or echo evidence of tamponade of the pericardial effusion, which is very minimal. LABORATORY STUDIES: The patient's white count is 22,800, hemoglobin is 9.7, hematocrit is 30.7, platelet count is 245,000. The patient's sodium is 138.2, potassium is 3.3, chloride is 104, CO2 is 25. The patient's BUN is 34, creatinine is 5.71, GFR is reduced at 9 mL, which has come up from 8. The glucose is 134. Calcium is 8.1. IMPRESSION: 1. END-STAGE RENAL DISEASE. The patient did have a temporarily hemodialysis today. She will be transitioned to peritoneal dialysis later on. 2. RENAL OSTEODYSTROPHY. 3. ACUTE CONGESTIVE HEART FAILURE WHICH IS SECONDARY TO VOLUME OVERLOAD, SINCE THE PATIENT'S LV SYSTOLIC FUNCTION IS NORMAL. ALSO, THERE IS AN ELEMENT OF ACUTE ON CHRONIC DIASTOLIC HEART FAILURE, AND SECONDARY TO PATIENT'S MODERATE TO SEVERE LVH. The echo findings have been discussed with the patient. Will talk to the son tomorrow about the echo findings. 4. ACUTE ON CHRONIC KIDNEY DISEASE. PATIENT NOW WITH END-STAGE RENAL DISEASE, ON DIALYSIS. 5. HYPERTENSION, STILL NOT WELL CONTROLLED. 6. PNEUMONIA WITH PLEURAL EFFUSIONS. 7. LEUKOCYTOSIS SECONDARY TO PNEUMONIA. 8. HYPOKALEMIA. Will recommend replacing the patient's potassium. 9. NONCOMPLIANCE. 10. DIABETES MELLITUS TYPE 2 WITH LONG-TERM USE OF INSULIN AND DIABETES MELLITUS WITH DIABETIC NEPHROPATHY / RENAL DISEASE. 11. MODERATE OBESITY. Will ask the patient if she has symptoms suggestive of sleep apnea. The patient is not very sure. Will discuss with her son. DISPOSITION: NOTE THAT THE PATIENT IS A FULL CODE. Her son is the surrogate healthcare decision maker. Note, 35 minutes spent on the patient, more than 50% of time spent in direct patient care. Her medications have been reviewed, and discussed with other physicians the plan of care. Medical decision making is of high complexity. Later, once the patient's renal and heart failure and blood pressure are controlled, would recommend that the patient as an outpatient have a sleep study to assess for obstructive sleep apnea and also IV Lexiscan Cardiolite stress test to make sure that the patient does not have any underlying coronary artery disease, since the patient has multiple risk factors for coronary artery disease, namely patient's age, hypertension, and diabetes mellitus, question lipid status. Will follow with you. DICTATING PHYSICIAN: KENNETH QUEZADA M.D. [id number] PHY#: [id number] ID: [id number] JOB#: [id number] ACCT: [id number] cc: >
--- NOTE | 2017-06-09 21:23 | PROGRESS NOTE E ---
Progress Note NAME: BEA QUINONES : 1955 AGE: 61Y DATE: 06/02/2017 ROOM: 303 SUBJECTIVE: The patient feels much better. She is less short of breath but still does have some orthopnea. She has chronic orthopnea. Her leg edema is much better, and there is only mild leg edema. She denies any chest pain or discomfort. There is no auxiliary muscle of respiration use. There is no PND. There is no arrhythmia seen on the monitor. There are no palpitations. The shortness of breath is much improved, but still has minimal shortness of breath on moving in the bed. There is no dizziness, syncope, or near syncope. There are no symptoms of TIA or CVA. The patient will be getting dialysis on Sunday. On Sunday she will also be getting a peritoneal dialysis catheter placed. OBJECTIVE: GENERAL: On examination, the patient is morbidly obese but well groomed, at present in no acute respiratory distress. There is no auxiliary muscle of respiration use. VITAL SIGNS: Temperature is 99 degrees Fahrenheit. Pulse is 90 beats per minute. Blood pressure is still not well controlled at 185/92. Respirations are 25 per min. O2 sats are 100% on 2 L nasal cannula. HEAD: Atraumatic, normocephalic. EYES: Pupils are equal, round, regular, reactive to light and accommodation. Extraocular movements are normal. There is no conjunctival pallor. There is no scleral icterus. ENT: Negative. NECK: Supple. There is no JVD. Carotids are equal. There is no bruit. There is no lymphadenopathy. There is no goiter. SKIN: There are no petechiae or ecchymosis. There are no skin rashes or skin lesions. LUNGS: There is a small area of dullness in the right base which is much more decreased compared to yesterday, and the left lung shows a few dry crackles of pneumonia, and she has basilar rales of mild CHF. HEART: S1 and S2 are heard. There is no S3 gallop. There is no S4 gallop. There is a systolic murmur at the left sternal border and apex. There is no rub. ABDOMEN: Soft, obese, nontender. There is no hepatosplenomegaly. Bowel sounds are well heard. There are no tender areas or masses. EXTREMITIES: Femorals are diminished. There are no femoral bruits. Leg pulses are diminished. She has mild pedal edema bilaterally. There is no cyanosis or clubbing. There is no DVT or cellulitis. CENTRAL NERVOUS SYSTEM: The patient is conscious, awake, alert, oriented x3, with no focal deficits. PSYCHIATRIC: The patient's judgement and insight are intact. Her affect is slightly anxious. INTAKE/OUTPUT: The patient's 24-hour intake has been 543 mL, output is 2865 mL. LABORATORY DATA: The patient's sodium is 138.8, potassium 3.8, chloride is 105, CO2 is 24. The patient's BUN is 36, creatinine is 6.04, GFR is 9 mL/min, which is stage 5, end-stage renal disease. Blood sugar is 170. LFTs are normal, except for her elevated alk phos of 290. The patient's white count is 24,200, hemoglobin is 9.5, hematocrit is 29.2, platelet count is 228,000. IMPRESSION: 1. END-STAGE RENAL DISEASE. The patient is on dialysis. Will get a peritoneal dialysis catheter on Sunday. She has a temporary dialysis catheter in her right groin. 2. RENAL OSTEODYSTROPHY. 3. ACUTE CONGESTIVE HEART FAILURE, IMPROVING. THIS IS SECONDARY TO VOLUME OVERLOAD DUE TO HER END-STAGE RENAL DISEASE, AND ALSO DIASTOLIC DYSFUNCTION, WHICH IS ACUTE ON CHRONIC DIASTOLIC HEART FAILURE, AND ALSO SECONDARY TO LEFT VENTRICULAR HYPERTROPHY. NOTE THAT THE PATIENT'S SYSTOLIC FUNCTION IS NORMAL. 4. ACUTE ON CHRONIC KIDNEY DISEASE. AT PRESENT, THE PATIENT HAS REACHED END-STAGE RENAL DISEASE. 5. HYPERTENSION, STILL NOT VERY WELL CONTROLLED. Will recommend stopping patient's Coreg and placing the patient on Toprol XL 25 mg p.o. q. 12 hours and increase as tolerated. Will also increase the patient's hydralazine to 50 mg q. 6 hours. Continue the patient's Lasix 20 mg IV push q. 8 hours. Once the patient with dialysis gets to an optimum dry weight, I am sure that the patient's blood pressure will come down. But I am also recommending increasing the patient's amlodipine to 5 mg p.o. q. 12 hours. 6. PNEUMONIA. NOTE, THE PNEUMONIA HAS PLEURAL EFFUSIONS WHICH ARE GETTING MUCH LESS. Continue antibiotics for her pneumonia. 7. LEUKOCYTOSIS SECONDARY TO PNEUMONIA. 8. HISTORY OF NONCOMPLIANCE. 9. DIABETES MELLITUS TYPE 2 WITH LONG-TERM INSULIN USE AND DIABETES MELLITUS WITH END-STAGE RENAL DISEASE / DIABETIC RENAL DISEASE. 10. MORBID OBESITY. Would recommend that the patient had an outpatient sleep study done. RECOMMENDATIONS: As mentioned earlier, continue Lasix, continue antibiotics, continue other medications as mentioned earlier. Note, 30 minutes spent on this patient, more than 50% of the time spent on direct patient care. Discussed the case with the other providers on the case, including the attending physician, Dr. Alfredo. Her medications have been reviewed, and medication adjustment suggestions are being made. Note, medical decision making is still of high complexity. Will follow with you. DICTATING PHYSICIAN: KENNETH QUEZADA M.D. [id number] DEJAN#: [id number] ID: [id number] JOB#: [id number] ACCT: [id number] cc: >
--- NOTE | 2017-06-09 21:48 | PROGRESS NOTE E ---
Progress Note NAME: BEA QUINONES : 1955 AGE: 61Y DATE: 06/04/2017 ROOM: 303 SUBJECTIVE: Note that the patient states that she wore a CPAP last night and feels much refreshed this morning. She denies any chest pain or discomfort. She still has some orthopnea but no PND. There is no leg edema. The patient denies any shortness of breath. There is no auxiliary muscles of respiration use. There is no arrhythmia seen on the monitor. Her pedal edema is much improved. There are no anginal symptoms. There are no TIA or CVA symptoms. OBJECTIVE: GENERAL: On examination, the patient is morbidly obese, in no acute distress. In fact, she is cheerful. There are no auxiliary muscles of respiration in use. VITAL SIGNS: The patient's temperature is 98.8 degrees Fahrenheit. Pulse is 83 beats per minute. Blood pressure is much improved at 156/72. Her respirations are 18/min. O2 sats are 100% on 2 L nasal cannula. HEAD: Atraumatic, normocephalic. EYES: Pupils are equal, round, regular, reactive to light and accommodation. Extraocular movements are normal. There is no conjunctival pallor. There is no scleral icterus. EARS: Tympanic membranes are intact. NOSE: Nares are patent. THROAT: There are no exudates of the throat. There is no redness of the throat. MOUTH: Mucous membranes of the mouth are moist. Tongue is moist. There are no ulcers. SKIN: There are no petechiae or ecchymosis. There are no skin rashes or skin lesions. NECK: Supple. There is no JVD. Carotids are equal. There is no bruit. There is no goiter. There is no lymphadenopathy. Trachea is central. LUNGS: There is left more than right absent breath sounds, which is a small area, with a few dry crackles. There is also dullness at the bases, left more than right. There are also some dry crackles of pneumonia, which is much improved compared to yesterday. HEART: S1 and S2 are heard. There is no S4 gallop. There is no S3 gallop. There is a systolic murmur in the left sternal border and the apex. There is no rub. ABDOMEN: Soft, nontender, obese. There is no hepatosplenomegaly. Bowel sounds are well heard. There are no tender areas or masses. EXTREMITIES: Femorals are diminished. There are no femoral bruits. Leg pulses are diminished. There is trace to mild pedal edema bilaterally. There is no DVT or cellulitis. There is no cyanosis or clubbing. There is no calf tenderness. CENTRAL NERVOUS SYSTEM: The patient is conscious, awake, alert, oriented x3, with no focal deficit. PSYCHIATRIC: The patient's judgement and insight are intact and affect is normal. INTAKE/OUTPUT: The patient's 24-hour intake has been 594 mL, output is 120 mL. LABORATORY DATA: The patient's white count is 17,000, hemoglobin is 9.1, hematocrit is 20.2, the patient's platelet count is 202,000. The patient's sodium is 136.3, potassium is 3.6, chloride is 100, CO2 is 25. The patient's BUN is 47, creatinine is 7.24, GFR is reduced at 7. Blood sugar is 147. Calcium is 8.1. IMPRESSION: 1. END-STAGE RENAL DISEASE. NOTE, THE RENAL FUNCTION SEEMS TO BE WORSENING. THE PATIENT WILL BE HAVING A PERITONEAL DIALYSIS PLACED TODAY AND SUBSEQUENTLY WILL HAVE PERITONEAL DIALYSIS. 2. RENAL OSTEODYSTROPHY. 3. ACUTE CONGESTIVE HEART FAILURE, WHICH IS COMBINED SYSTOLIC AND DIASTOLIC HEART FAILURE. STILL PATIENT IS IN VOLUME OVERLOAD AND NEEDS SOME MORE DIALYSIS. THE PATIENT'S HEART FAILURE IS SECONDARY TO ACUTE ON CHRONIC DIASTOLIC HEART FAILURE, MODERATE TO SEVERE LEFT VENTRICULAR HYPERTROPHY, AND ALSO VOLUME OVERLOAD SECONDARY TO RENAL FAILURE. 4. ACUTE ON CHRONIC KIDNEY DISEASE, PATIENT END-STAGE RENAL DISEASE ON DIALYSIS. NOTE THAT THE GFR IS FURTHER REDUCED. 5. HYPERTENSION. BLOOD PRESSURE NOT OPTIMALLY CONTROLLED BUT MUCH IMPROVED. 6. PNEUMONIA WITH PLEURAL EFFUSION. Patient on antibiotics. Patient denies any cough or sputum production. 7. LEUKOCYTOSIS SECONDARY TO PNEUMONIA. THIS IS COMING DOWN, ALTHOUGH IT IS STILL ABOVE NORMAL LIMITS. 8. NONCOMPLIANCE. 9. DIABETES MELLITUS TYPE 2 WITH LONG-TERM INSULIN USE AND CHRONIC KIDNEY DISEASE WHICH IS END-STAGE RENAL DISEASE. 10. MORBID OBESITY. 11. SYMPTOMS SUGGESTIVE OF SLEEP APNEA, IMPROVED. PATIENT'S SYMPTOMS IMPROVED WITH EMPIRIC CPAP THERAPY. RECOMMENDATIONS: Continue the patient on Lasix. Continue antibiotics. Continue dialysis. The patient will be getting a peritoneal dialysis catheter today. As mentioned earlier, later as an outpatient the patient should have an IV Lexiscan Cardiolite stress test, once the blood pressure is controlled and the heart failure is controlled. Also would recommend that the patient have a sleep study as an outpatient for exact CPAP settings. *------* will follow the patient in the morning. DICTATING PHYSICIAN: KENNETH QUEZADA M.D. [id number] PHY#: [id number] ID: [id number] JOB#: [id number] ACCT: [id number] cc: >
== END 2017-06-06 20:50 | disposition home or self-care (01) | DRG 673 ==
LOC: ER 12:47 → EH 18:57 → ICU 21:49 → 3N 06-02 20:10
PROVIDERS: ADMIT Family Medicine; ATTEND Family Medicine
PROC: 06HM33Z Insertion of Infusion Device into Right Femoral Vein, Percutaneous Approach (ICD-10-PCS; 2017-06-01)
PROC: B54BZZA Ultrasonography of Right Lower Extremity Veins, Guidance (ICD-10-PCS; 2017-06-01)
PROC: 5A1D70Z Performance of Urinary Filtration, Intermittent, Less than 6 Hours Per Day (ICD-10-PCS; 2017-06-01)
PROC: 0JH63WZ Insertion of Totally Implantable Vascular Access Device into Chest Subcutaneous Tissue and Fascia, Percutaneous Approach (ICD-10-PCS; principal; 2017-06-04)
PROC: 06H033Z Insertion of Infusion Device into Inferior Vena Cava, Percutaneous Approach (ICD-10-PCS; 2017-06-04)
PROC: B549ZZA Ultrasonography of Inferior Vena Cava, Guidance (ICD-10-PCS; 2017-06-04)
PROC: 5A1D70Z Performance of Urinary Filtration, Intermittent, Less than 6 Hours Per Day (ICD-10-PCS; 2017-06-04)
PROC: 5A1D70Z Performance of Urinary Filtration, Intermittent, Less than 6 Hours Per Day (ICD-10-PCS; 2017-06-06)
DX: N17.9 Acute kidney failure, unspecified (principal); I50.41 Acute combined systolic (congestive) and diastolic (congestive) heart failure; J18.9 Pneumonia, unspecified organism; I13.2 Hypertensive heart and chronic kidney disease with heart failure and with stage 5 chronic kidney disease, or end stage renal disease; I16.1 Hypertensive emergency; Z68.41 Body mass index [BMI] 40.0-44.9, adult; N18.6 End stage renal disease; N18.4 Chronic kidney disease, stage 4 (severe); Z99.2 Dependence on renal dialysis; E66.01 Morbid (severe) obesity due to excess calories; E11.65 Type 2 diabetes mellitus with hyperglycemia; N25.0 Renal osteodystrophy; D72.829 Elevated white blood cell count, unspecified; E11.22 Type 2 diabetes mellitus with diabetic chronic kidney disease; E11.21 Type 2 diabetes mellitus with diabetic nephropathy; G47.30 Sleep apnea, unspecified; N95.0 Postmenopausal bleeding; Z91.19 Patient's noncompliance with other medical treatment and regimen; Z79.4 Long term (current) use of insulin; Z90.49 Acquired absence of other specified parts of digestive tract; E87.6 Hypokalemia
CPT/HCPCS: 36415; 36558; 71045; 71046; 71250; 74176; 76937; 77001; 80048; 80053; 82550; 82553; 82962; 83036; 83605; 83735; 83880; 83970; 84100; 84484; 85025; 85027; 86317; 86704; 87040; 87086; 87340; 87522; 93005; 93010; 93306; 94640; 94660; 96365; 96366; 99291; 99292; C1713; C1752; C1769; J0360; J0692; J1642; J1644; J1815; J1940; J2250; J3010; J3480; J3490; J7620; Q9967

== ENCOUNTER → 2018-07-25 | Outpatient (CLI) | payer BC, MEDICARE ==
--- NOTE | 2018-07-26 08:23 | XCELERA REPORT ---
[address] [address] Lower Extremity Arterial Evaluation Name: BEA QUINONES Age: 62 yrs Gender: Female : 1955 Patient Status: Outpatient Patient Location: [facility] Study Date: 07/25/2018 10:18 AM Procedure: A color flow and duplex scan of the lower extremity arteries was performed bilaterally with velocity and waveform anaylsis. Reason For Study: ULCER Ordering Physician: ROSI WAN Performed By: Hector Freire Measurements and Calculations Right Left EMERGENCY RESPONSE COORDINATOR PSV 119.4 129.6 cm/sec Prox PFA PSV -91.5 -75.5 cm/sec Prox SFA PSV 106.9 111.9 cm/sec Mid SFA PSV -96.2 -90.8 cm/sec Dist SFA PSV -68.4 -111.4cm/sec Prox Pop A PSV 64.0 68.0 cm/sec Prox MAMIE PSV 51.3 cm/sec Dist MAMIE PSV 83.0 58.5 cm/sec Dist CUSTOMER ADVOCACY MANAGER PSV 62.1 76.8 cm/sec Vicente Pedis PSV 24.6 -30.1 cm/sec Right Side Arterial Evaluation Normal velocity and triphasic waveforms noted from the Common Femoral artery to the Popliteal artery . Biphasic with normal velocity in the infrageniculate vessels. Monophasic with low velocity in the Dorsalis Pedis. Ankle Brachial index not obtained. Left Side Arterial Evaluation Normal velocity and triphasic waveforms noted from the Common Femoral artery to the Popliteal artery . Biphasic with normal velocity in the infrageniculate vessels. Monophasic with low velocity in the Dorsalis Pedis. Ankle Brachial index not obtained. Interpretation Summary Moderate hemodynamically significant lesions in the bilateral lower extremities, on duplex imaging, at rest. Disease evident at the infrageniculate level. : ROSI WAN > Rosi Wan
== END ==
LOC: SP 09:56
PROVIDERS: ATTEND Surgery
DX: L97.523 Non-pressure chronic ulcer of other part of left foot with necrosis of muscle (principal)
CPT/HCPCS: 93925

== ENCOUNTER → 2018-09-27 | Outpatient (CLI) | payer BC, MEDICARE ==
--- NOTE | 2018-09-27 10:15 | RADIOLOGY REPORT (SQ) ---
EXAM DESCRIPTION: CHEST PA/LATERAL COMPLETED DATE/TIME: 09/27/2018 10:04 am REASON FOR STUDY: PNEUMOTHORAX, UNSPECIFIED COMPARISON: 06/05/2017 EXAM PARAMETERS: NUMBER OF VIEWS: two views TECHNIQUE: Digital Frontal and Lateral radiographic views of the chest acquired. RADIATION DOSE: NA LIMITATIONS: none FINDINGS: LUNGS AND PLEURA: No opacities, masses or pneumothorax. No pleural effusion. MEDIASTINUM AND HILAR STRUCTURES: No masses or contour abnormalities. HEART AND VASCULAR STRUCTURES: Heart normal size. No evidence for failure. BONES: No acute findings. HARDWARE: None in the chest. OTHER: No other significant finding. IMPRESSION: NO SIGNIFICANT RADIOGRAPHIC FINDING IN THE CHEST. TECHNICAL DOCUMENTATION: JOB ID: [id number] [employer]- All Rights Reserved Reading location - IP/workstation name: [email or web address]
--- NOTE | 2018-09-27 10:17 | RADIOLOGY REPORT (SQ) ---
EXAM DESCRIPTION: FOOT LEFT COMPLETE COMPLETED DATE/TIME: 09/27/2018 10:04 am REASON FOR STUDY: NON-PRS CHRONIC ULCER OTH PRT LEFT FOOT W FAT LAYER EXPOSED L97.522 NON-PRS CHRON IC ULCER OTH PRT LEFT FOOT W FAT LAYER E11.621 TYPE 2 DIABETES MELLITUS WITH FOOT ULCER J93.9 PNEU MOTHORAX, UNSPECIFIED COMPARISON: None. NUMBER OF VIEWS: Three views. TECHNIQUE: AP, lateral and oblique radiographic images acquired of the left foot. LIMITATIONS: None. FINDINGS: MINERALIZATION: Osteopenia. BONES: No acute fracture or dislocation. No worrisome bone lesions. No conventional radiographic ev idence of osteomyelitis. JOINTS: No effusions. SOFT TISSUES: No soft tissue swelling. No foreign body. OTHER: No other significant finding. IMPRESSION: Osteopenia. Degenerative changes. No conventional radiographic evidence of osteomyelit is. TECHNICAL DOCUMENTATION: JOB ID: [id number] [employer]- All Rights Reserved Reading location - IP/workstation name: [email or web address]
[2018-09-27 10:32] LABS: ABSOLUTE EOSINOPHILS # (AUTO) 0.2 10^3/uL (0.0-0.6); ABSOLUTE LYMPHOCYTES (AUTO) 1.3 10^3/uL (0.5-4.7); ABSOLUTE MONOCYTES (AUTO) 0.6 10^3/uL (0.1-1.4); ABSOLUTE NEUT (AUTO) 8.3 10^3/uL (1.7-8.2); BASOPHILS % (AUTO) 0.3 % (0-2); EOSINOPHILS % (AUTO) 1.6 % (0-6); HEMATOCRIT 36.2 % (36.0-47.0); LYMPHOCYTES % (AUTO) 12.4 % (13-45); MEAN CORPUSCULAR HEMOGLOBIN 33.2 pg (27.0-33.4); MEAN CORPUSCULAR VOLUME 101 fl (80-97); MONOCYTES % (AUTO) 5.9 % (3-13); PLATELET COUNT 271 10^3/uL (150-450); RED CELL DISTRIBUTION WIDTH 14.3 % (11.5-14.0); SEGMENTED NEUTROPHILS % (AUTO) 79.8 % (42-78); TOTAL CELLS COUNTED % (AUTO) 100 %; WHITE BLOOD COUNT 10.3 10^3/uL (4.0-10.5)
[2018-09-27 10:50] LABS: ALANINE AMINOTRANSFERASE 21 U/L (9-52); ALBUMIN 3.8 g/dL (3.5-5.0); ALKALINE PHOSPHATASE 161 U/L (38-126); ASPARTATE AMINO TRANSFERASE 16 U/L (14-36); BILIRUBIN,DIRECT 0.4 mg/dL (0.0-0.4); BILIRUBIN,TOTAL 0.4 mg/dL (0.2-1.3); BLOOD UREA NITROGEN 52 mg/dL (7-20); C-REACTIVE PROTEIN 32.2 mg/L (<10.0); CALCIUM 8.7 mg/dL (8.4-10.2); GLUCOSE 239 mg/dL (75-110); POTASSIUM 5.1 mmol/L (3.6-5.0); TOTAL PROTEIN 6.8 g/dL (6.3-8.2)
[2018-09-27 10:53] LABS: CARBON DIOXIDE 26 mmol/L (22-30); CHLORIDE 93 mmol/L (98-107)
[2018-09-27 11:09] LABS: ANION GAP 21 (5-19)
[2018-09-27 11:15] LABS: ERYTHROCYTE SEDIMENTATION RATE 61 mm/hr (0-30)
== END ==
LOC: WC 09:12
PROVIDERS: ATTEND Nurse Practitioner Family
DX: E11.621 Type 2 diabetes mellitus with foot ulcer (principal); L97.522 Non-pressure chronic ulcer of other part of left foot with fat layer exposed; J93.9 Pneumothorax, unspecified
CPT/HCPCS: 36415; 71046; 80053; 83036; 85025; 85652; 86140

== ENCOUNTER 2018-10-29 13:17 | Day surgery (SDC) | payer BC, MEDICARE ==
[2018-10-29] MEDS ORDERED: FENTANYL CITRATE INJ/PF 100 MCG/2 ML AMPUL ONE (13:50)
[2018-10-29] MEDS ORDERED: BUPIVACAINE HCL 0.25 % INJ/PF (2.5 MG/1 ML) 30 ML VIAL ONE (13:51)
[2018-10-29] MEDS ORDERED: ONDANSETRON HCL INJ/PF 4 MG/2 ML SDV ONE (13:51)
[2018-10-29] MEDS ORDERED: MIDAZOLAM 2 MG/2 ML INJ ONE (13:51)
[2018-10-29] MEDS ORDERED: PROPOFOL INJ 200 MG/20 ML VIAL IV ONE (13:51)
[2018-10-29] MEDS ORDERED: LIDOCAINE 0.5% INJ-PF (5 MG/ML) 50 ML SDV ONE (13:51)
[2018-10-29 13:56] LABS: HEMATOCRIT 31.3 % (36.0-47.0); HEMOGLOBIN 10.6 g/dL (12.0-15.5); MEAN CORPUSCULAR HGB CONC 33.9 g/dL (32.0-36.0); MEAN CORPUSCULAR VOLUME 97 fl (80-97); PLATELET COUNT 300 10^3/uL (150-450); RED BLOOD COUNT 3.22 10^6/uL (3.72-5.28); WHITE BLOOD COUNT 9.9 10^3/uL (4.0-10.5)
--- NOTE | 2018-10-29 14:14 | PDOC H&P ---
General Chief Complaint: Necrosis and gangrene left great toe. - Diagnosis (2) ESRD (end stage renal disease) Is this a Current Diagnosis?: Yes (3) Hypertension Is this a Current Diagnosis?: Yes (4) Obesity Is this a Current Diagnosis?: Yes (5) Sleep apnea syndrome Is this a Current Diagnosis?: Yes (6) Type 2 diabetes mellitus Is this a Current Diagnosis?: Yes - Current Medications/Allergies Home Medications: Insulin Lispro [Humalog Insulin (Lispro) 100 unit/mL] 6 unit SUBCUT MEALS 05/30/17 Allergies/Adverse Reactions: No Known Allergies Allergy (Verified 05/30/17 12:48) Past Medical History Cardiac Medical History: Reports: Congestive Heart Failure, Hypertension Pulmonary Medical History: Denies: Tuberculosis Endocrine Medical History: Reports: Diabetes Mellitus Type 2 Psychiatric Medical History: Denies: Depression Past Surgical History Past Surgical History: Reports: Section - X3, Cholecystectomy, Orthopedic Surgery - Ankle surgery Denies: Pacemaker Family History Family History: Reviewed & Not Pertinent Parental Family History Reviewed: No Children Family History Reviewed: No Sibling(s) Family History Reviewed.: No Social History Smoking Status: Unknown if Ever Smoked Frequency of Alcohol Use: None Hx Recreational Drug Use: No Hx Prescription Drug Abuse: No Physical Exam Additional comments: Constitutional: Well-developed well-nourished -Cymro lady, obese body habitus. No apparent acute distress. Eyes: Mucous membranes pink and moist, pupils equal and reactive to light. Conjunctiva normal. Cornea normal. ENT: Hearing grossly normal. External pinna normal to inspection. Teeth mostly a 26 intact. Tongue normal to inspection. Cardiac: Heart sounds normal. Respiratory: Normal respiratory effort. Psychiatric: Judgment, memory, insight seem normal. Mood is pleasant and appropriate. Extremities: Upper extremities show normal range of movement. Pulses present noted to the radial arteries. Capillary refill normal. No cyanosis noted. No muscle wasting noted. AV fistula in place. Lower extremities show normal range of movement, except for left great toe and adjacent area.. Pulses not noted at the dorsalis pedis artery. Capillary refill normal. No cyanosis noted. No muscle wasting noted. Dry necrosis and gangrene of the left great toe. Adjacent forefoot seems grossly. . 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 Pia has had arteriogram and angioplasty with Dr. Jose Antonio Eaton, the necrotic left toe is now optimal for removal. I have explained and discussed this at length with the patient and her sons who are very concerned about her care. They understand that amputation is likely to succeed but is not a guarantee. That if the toe amputation feels that she may end up losing the entire leg. I have explained this in terms of her vascularity and showed them diagrams. I feel they have a good understanding and the wish to proceed. They understand that optimal healing will require continuing HBO during the healing process without missing days if at all possible. It may require additional angiogram if healing is not a problem. The questions and concerns addressed and I believe they have a good understanding of what lies ahead.
[2018-10-29 14:23] LABS: BLOOD UREA NITROGEN 67 mg/dL (7-20); CALCIUM 8.2 mg/dL (8.4-10.2); GLUCOSE 195 mg/dL (75-110); POTASSIUM 5.5 mmol/L (3.6-5.0)
[2018-10-29 14:29] LABS: CARBON DIOXIDE 20 mmol/L (22-30); CHLORIDE 97 mmol/L (98-107); SODIUM 138.7 mmol/L (137-145)
[2018-10-29] MEDS ORDERED: AMPICILLIN SODIUM/SULBACTAM NA 3 GM in NORMAL SALINE 100 ML IV ONE (14:30)
[2018-10-29 14:31] LABS: ANION GAP 22 (5-19)
[2018-10-29] MEDS ORDERED: ONDANSETRON HCL INJ/PF 4 MG/2 ML SDV IV PRN (15:34)
[2018-10-29] MEDS ORDERED: FENTANYL CITRATE INJ/PF 100 MCG/2 ML AMPUL IV PRN (15:34)
[2018-10-29] MEDS ORDERED: EPHEDRINE SULFATE INJ 50 MG/1 ML AMPULE ONE (15:47)
--- NOTE | 2018-10-29 16:18 | Operative Report ---
Operative Report DATE OF SURGERY: 10/29/18 PREOPERATIVE DIAGNOSIS: #1 Necrosis and gangrene left great toe. #2 peripheral arterial disease. 3. Diabetes mellitus type 2. 4. Obesity. 5. End-stage renal disease on hemodialysis. #6 sleep apnea. 7. Hypertension. POSTOPERATIVE DIAGNOSIS: #1 Necrosis and gangrene left great toe. #2 peripheral arterial disease. 3. Diabetes mellitus type 2. 4. Obesity. 5. End-stage renal disease on hemodialysis. #6 sleep apnea. 7. Hypertension. OPERATION: Amputation of left great toe. SURGEON: ROSI MANRIQUEZ QUALITY LIAISON: None. ANESTHESIA: Spinal TISSUE REMOVED OR ALTERED: Left great toe and adjacent tissues. COMPLICATIONS: None. ESTIMATED BLOOD LOSS: 10 mL. INTRAOPERATIVE FINDINGS: Of dry necrosis in the left great toe. Amputation done at the high metatarsal level for bone. Tissue with any questionable viability included in the specimen. The bone was extremely soft and spongy and a portion sent for culture. This is worrisome for severe osteoporosis or possibly even osteomyelitis. The tissues remaining seem viable with blood flow noted in the lateral digital great toe artery. The amputation was done so as to excise any nonviable tissue. This included the sesamoid bone, cartilage and the relevant tendons. PROCEDURE: The left lower extremity was prepared with Betadine from the leg down to and including the foot, draped out with sterile linen. After the universal timeout, in which it was verified that the patient continued to get IV antibiotic and it was the left great toe that was to be removed, the procedure commenced. A marking pen was used to sketch a relatively short anterior and a long posterior flap. The incision was now made circumferentially at the base of the left great toe. Sharp, scalpel dissection proceeded right down to the base of the proximal phalanx. This was now transected with a bone cutter and the necrotic toe passed off the field. Immediate instruments and gloves were changed. The incision was not extended medially for about 2 cm and the edges trimmed. D issection proceeded right down to the metatarsal. Periosteal elevators were now used to elevate periosteum circumferentially on the first metatarsal for several centimeters. The bone at this level was not transected using a soft. It was appreciated that even at this level the bone was unusually soft although it does not seem infected. The sesamoid bone and overlying cartilage was now excised sharply. The tendons were put on tension and excise so that only viable tissue appeared in the wound. The edges were inspected inspected and trimmed accordingly. The wound was not closed with a few approximating sutures of vertical mattress sutures of 3-0 PDS. Precise skin edges closure was now done using interrupted 4-0 Monocryl. A portion of Acticoat was now placed on the wound and held in place with Steri- Strips over benzoin. Sterile gauze was placed between the remaining toes and the foot wrapped in 2 layers of Kerlix. The procedure was now concluded. Copies dictated operative report to Dr. Rosi Wan MD.
[2018-10-29] MEDS ORDERED: MORPHINE SULFATE 10 MG/ML INJ IV PRN (16:40)
--- NOTE | 2018-10-29 19:00 | EKG REPORT ---
SEVERITY:- ABNORMAL ECG - SINUS RHYTHM PROBABLE LEFT VENTRICULAR HYPERTROPHY : Confirmed by: Santosh Arredondo MD 29-Oct-2018 18:59:59
[2018-10-29] MEDS: OXYCODONE-ACETAMINOPHEN 5-325 MG TABLET PO PRN (20:40)
[2018-10-29] MEDS: CLONIDINE HCL 0.2 MG TABLET PO SCH (21:23)
[2018-10-29] MEDS: HYDRALAZINE HCL 50 MG TABLET PO SCH (21:23)
[2018-10-29] MEDS ORDERED: INSULIN GLARGINE,HUM.REC.ANLOG 1,000 UNIT/10 ML VIAL SUBCUT SCH (22:00)
[2018-10-29] MEDS ORDERED: METOPROLOL TARTRATE 25 MG TABLET PO SCH (22:00)
[2018-10-30] MEDS: OXYCODONE-ACETAMINOPHEN 5-325 MG TABLET PO PRN (01:23)
[2018-10-30] MEDS: HYDRALAZINE HCL 50 MG TABLET PO SCH (05:20)
[2018-10-30] MEDS: CLONIDINE HCL 0.2 MG TABLET PO SCH (05:20)
[2018-10-30] MEDS ORDERED: INSULIN LISPRO 100 UNIT/ML 3 ML VIAL SUBCUT SCH (08:00)
[2018-10-30 09:32] VITALS: BP 120/61
[2018-10-30] MEDS ORDERED: FUROSEMIDE 20 MG TABLET PO SCH (10:00)
--- NOTE | 2018-10-30 13:58 | Discharge Summary ---
Discharge Summary (SDC) - Discharge Final Diagnosis: #1 necrosis and gangrene of the left great toe. 2. Peripheral arterial disease. 3. End-stage renal disease on hemodialysis #4 obesity. 5. Sleep apnea syndrome. 6. Diabetes mellitus type 2. 7. Hypertension Date of Surgery: 10/29/18 Discharge Date: 10/30/18 Condition: Fair Forms: Discharge POC-Adult Treatment or Instructions: Discharge home [after recovery per ASU criteria]. Diet , [renal],as tolerated, when fully awake advance as tolerated. Activities within moderation encouraged. Ambulation in surgical shoes using a walker. Follow up in wound clinic, daily starting today for hyperbaric oxygen and for wound care Sunday of this week. Call for appointment. Leave wounds [covered], [keep clean and dry, until office visit in 1 week]. Meds per med rec. Percocet. Augmentin. Hold of on school/work [until evaluation in office]. May shower [in 48 hrs], [try to keep operated area as dry as possible]. Referrals: WOUND CARE [Outside] - 10/31/18 (wound care follow up appt. already scheduled and wound care clinic has spoken to patient.) Discharge Diet: Other (Comments) - Diabetic, renal. Respiratory Treatments at Home: Deep Breathing/Coughing Discharge Activity: Activity As Tolerated, Balance Activity w/Rest, No tub bath Report the Following to Your Physician Immediately: Shortness of Breath, Fever over 101 Degrees, Unusual Bleeding, Increased Soreness, Drainage-Yellow, Drainage-Sharma, Drainage-Green, Drainage-Foul Smelling
== END 2018-10-30 09:28 | disposition home or self-care (01) ==
LOC: OROUT 13:17 → 5 17:47 → OROUT 10-30 09:28
PROVIDERS: ATTEND Surgery
DX: M86.172 Other acute osteomyelitis, left ankle and foot (principal); E11.22 Type 2 diabetes mellitus with diabetic chronic kidney disease; I50.9 Heart failure, unspecified; I13.2 Hypertensive heart and chronic kidney disease with heart failure and with stage 5 chronic kidney disease, or end stage renal disease; N18.6 End stage renal disease; I73.9 Peripheral vascular disease, unspecified; E66.9 Obesity, unspecified; G47.30 Sleep apnea, unspecified; Z68.41 Body mass index [BMI] 40.0-44.9, adult; Z99.2 Dependence on renal dialysis; Z79.4 Long term (current) use of insulin
CPT/HCPCS: 36415; 87070; 87205; 82962; 85027; 87075; 87077; 80048; 87186; 88304 ×2; 88311; 93005; 93010; 01480; 28810; J2250; J1815; J3490 ×2; J3010; J0295; J2270; J2405; J7050; J2704; 1480

== ENCOUNTER → 2018-11-21 | Outpatient (CLI) | payer BC, MEDICARE ==
[2018-11-21 13:22] LABS: HEMATOCRIT 30.9 % (36.0-47.0); MEAN CORPUSCULAR HEMOGLOBIN 31.9 pg (27.0-33.4); MEAN CORPUSCULAR HGB CONC 32.4 g/dL (32.0-36.0); MEAN CORPUSCULAR VOLUME 98 fl (80-97); PLATELET COUNT 293 10^3/uL (150-450); RED BLOOD COUNT 3.14 10^6/uL (3.72-5.28); RED CELL DISTRIBUTION WIDTH 14.2 % (11.5-14.0); WHITE BLOOD COUNT 12.4 10^3/uL (4.0-10.5)
[2018-11-21 13:44] LABS: ALANINE AMINOTRANSFERASE 24 U/L (9-52); ALBUMIN 3.7 g/dL (3.5-5.0); ALKALINE PHOSPHATASE 135 U/L (38-126); ASPARTATE AMINO TRANSFERASE 14 U/L (14-36); BILIRUBIN,DIRECT 0.4 mg/dL (0.0-0.4); BILIRUBIN,TOTAL 0.4 mg/dL (0.2-1.3); BLOOD UREA NITROGEN 67 mg/dL (7-20); C-REACTIVE PROTEIN 32.2 mg/L (<10.0); GLUCOSE 204 mg/dL (75-110); POTASSIUM 5.3 mmol/L (3.6-5.0); TOTAL PROTEIN 6.6 g/dL (6.3-8.2)
[2018-11-21 13:47] LABS: CARBON DIOXIDE 22 mmol/L (22-30); CHLORIDE 96 mmol/L (98-107); SODIUM 137.7 mmol/L (137-145)
[2018-11-21 13:49] LABS: ANION GAP 20 (5-19)
[2018-11-21 13:56] LABS: ABSOLUTE MONOCYTES # (MANUAL) 0.4 10^3/uL (0.1-1.4); BASOPHILS % (MANUAL) 0 % (0-2); EOSINOPHILS % (MANUAL) 0 % (0-6); LYMPHOCYTES % (MANUAL) 8 % (13-45); MONOCYTES % (MANUAL) 3 % (3-13); SEGMENTED NEUTROPHILS % (MAN) 89 % (42-78); TOTAL CELLS COUNTED 100
[2018-11-21 13:58] LABS: ANISOCYTOSIS SLIGHT; PLATELET COMMENT ADEQUATE; POLYCHROMASIA SLIGHT
[2018-11-21 14:00] LABS: ERYTHROCYTE SEDIMENTATION RATE 72 mm/hr (0-30)
--- NOTE | 2018-11-21 15:26 | RADIOLOGY REPORT (SQ) ---
EXAM DESCRIPTION: FOOT BILATERAL 3 VIEWS COMPLETED DATE/TIME: 11/21/2018 1:22 pm REASON FOR STUDY: BILATERAL ULCERS L97.519 NON-PRS CHRONIC ULCER OTH PRT RIGHT FOOT W UNSP AZIZA E11 .621 TYPE 2 DIABETES MELLITUS WITH FOOT ULCER L97.529 NON-PRESSURE CHRONIC ULCER OTH PRT LEFT FOOT W UNSP COMPARISON: 09/27/2018 left foot three views Bilateral lower extremity arterial Doppler 07/25/2018 NUMBER OF VIEWS: Three views. TECHNIQUE: AP, lateral and oblique radiographic images acquired of the right and left foot. LIMITATIONS: None. FINDINGS: RIGHT FOOT MINERALIZATION: Osteopenic BONES: No acute fracture or dislocation. No worrisome bone lesions. JOINTS: No effusions. SOFT TISSUES: No soft tissue swelling. No foreign body. There is radiopaque ointment ulcer over the distal tip right great toe. No adjacent demineralization of the distal phalanx right great toe worrisome for osteomyelitis. OTHER: Prominent dorsal and plantar calcaneal spurs LEFT FOOT: MINERALIZATION: Osteopenic BONES: Post amputation of the left great toe at the mid 3rd left 1st metatarsal. Periosteal new bone at the osteotomy site likely from healing JOINTS: No effusions. SOFT TISSUES: No soft tissue swelling. No foreign body. OTHER: Prominent dorsal and plantar calcaneal spurs IMPRESSION: Right great toe soft tissue ulcer over the distal tip of the toe. No underlying distal phalanx bony changes to suggest osteomyelitis Post left great toe transmetatarsal amputation with evidence of healing at the osteotomy site. TECHNICAL DOCUMENTATION: JOB ID: [id number] [email or web address] All Rights Reserved Reading location - IP/workstation name: [email or web address]
== END ==
LOC: OD 12:47
PROVIDERS: ATTEND Preventive Medicine Undersea and Hyperbaric Medicine
DX: L97.519 Non-pressure chronic ulcer of other part of right foot with unspecified severity (principal); E11.621 Type 2 diabetes mellitus with foot ulcer; L97.529 Non-pressure chronic ulcer of other part of left foot with unspecified severity
CPT/HCPCS: 36415; 80053; 83036; 85025; 85652; 86140

== ENCOUNTER → 2019-01-02 | Outpatient (CLI) | payer BC, MEDICARE ==
--- NOTE | 2019-01-02 17:20 | RADIOLOGY REPORT (SQ) ---
EXAM DESCRIPTION: FOOT RIGHT COMPLETE COMPLETED DATE/TIME: 01/02/2019 5:09 pm REASON FOR STUDY: CHRONIC ULCER ON RIGHT FOOT L97.519 NON-PRS CHRONIC ULCER OTH PRT RIGHT FOOT W UN SP AZIZA E11.621 TYPE 2 DIABETES MELLITUS WITH FOOT ULCER COMPARISON: Right foot films 11/21/2018 NUMBER OF VIEWS: Three views. TECHNIQUE: AP, lateral and oblique radiographic images acquired of the right foot. LIMITATIONS: None. FINDINGS: MINERALIZATION: Osteopenic BONES: Probable osteomyelitis 4th toe distal phalanx. Overlying skin ulcer is present with radiopaqu e ointment. Ulcer appears to extend down to the bone. JOINTS: No malalignment SOFT TISSUES: Diffuse forefoot soft tissue swelling. Arterial vascular calcifications OTHER: Prominent plantar and dorsal calcaneal spurs IMPRESSION: Probable osteomyelitis 4th toe distal phalanx TECHNICAL DOCUMENTATION: JOB ID: [id number] [email or web address]- All Rights Reserved Reading location - IP/workstation name: [email or web address]
[2019-01-02 17:36] LABS: ABSOLUTE EOSINOPHILS # (AUTO) 0.2 10^3/uL (0.0-0.6); ABSOLUTE LYMPHOCYTES (AUTO) 1.3 10^3/uL (0.5-4.7); ABSOLUTE MONOCYTES (AUTO) 0.8 10^3/uL (0.1-1.4); ABSOLUTE NEUT (AUTO) 7.4 10^3/uL (1.7-8.2); BASOPHILS % (AUTO) 0.5 % (0-2); HEMATOCRIT 33.1 % (36.0-47.0); HEMOGLOBIN 10.8 g/dL (12.0-15.5); LYMPHOCYTES % (AUTO) 13.7 % (13-45); MEAN CORPUSCULAR HEMOGLOBIN 32.6 pg (27.0-33.4); MEAN CORPUSCULAR HGB CONC 32.8 g/dL (32.0-36.0); MEAN CORPUSCULAR VOLUME 100 fl (80-97); MONOCYTES % (AUTO) 7.9 % (3-13); PLATELET COUNT 283 10^3/uL (150-450); RED BLOOD COUNT 3.32 10^6/uL (3.72-5.28); SEGMENTED NEUTROPHILS % (AUTO) 75.9 % (42-78); TOTAL CELLS COUNTED % (AUTO) 100 %; WHITE BLOOD COUNT 9.7 10^3/uL (4.0-10.5)
[2019-01-02 18:02] LABS: ALBUMIN 3.9 g/dL (3.5-5.0); ALKALINE PHOSPHATASE 147 U/L (38-126); ANION GAP 14 (5-19); ASPARTATE AMINO TRANSFERASE 18 U/L (14-36); BILIRUBIN,DIRECT 0.4 mg/dL (0.0-0.4); BILIRUBIN,TOTAL 0.4 mg/dL (0.2-1.3); BLOOD UREA NITROGEN 26 mg/dL (7-20); C-REACTIVE PROTEIN 21.3 mg/L (<10.0); CALCIUM 9.3 mg/dL (8.4-10.2); CARBON DIOXIDE 29 mmol/L (22-30); CHLORIDE 93 mmol/L (98-107); GLUCOSE 133 mg/dL (75-110); POTASSIUM 4.6 mmol/L (3.6-5.0); TOTAL PROTEIN 6.8 g/dL (6.3-8.2)
[2019-01-02 18:08] LABS: ERYTHROCYTE SEDIMENTATION RATE 59 mm/hr (0-30)
== END ==
LOC: WC 16:46
PROVIDERS: ATTEND Preventive Medicine Undersea and Hyperbaric Medicine
DX: L97.519 Non-pressure chronic ulcer of other part of right foot with unspecified severity (principal); E11.621 Type 2 diabetes mellitus with foot ulcer
CPT/HCPCS: 36415; 80053; 83036; 85025; 85652; 86140

== ENCOUNTER 2019-01-13 20:29 | Inpatient (IN) | payer BC, MEDICARE ==
[2019-01-13] MEDS ORDERED: OXYCODONE-ACETAMINOPHEN 5-325 MG TABLET PO ONE (22:00)
--- NOTE | 2019-01-13 22:03 | ER Document Report ---
ED Medical Screen (RME) - General Chief Complaint: Wound Infection Stated Complaint: RIGHT FOOT SWELLING Time Seen by Provider: 01/13/19 22:00 Primary Care Provider: DAVE OSBORN DPM [Primary Care Provider] - Follow up as needed Notes: 63-year-old female with chief complaint of worsening swelling, pain, discharge, and bleeding from the fourth toe on the right foot. She states she has been seen by wound care clinic here and Dr. Osborn podiatry, she states that they removed a piece of the toe within the past week (could not give me the day), however over the past 2 days it has significantly worsened. She denies fever. She does have diabetes and she has had bypass graft for peripheral vascular disease in both legs reportedly. TRAVEL OUTSIDE OF THE [place] IN LAST 30 DAYS: No - Related Data Allergies/Adverse Reactions: gabapentin Allergy (Verified 10/29/18 18:58) Past Medical History - Past Medical History Cardiac Medical History: Reports: Hx Congestive Heart Failure, Hx Hypertension Denies: Hx Coronary Artery Disease, Hx Heart Attack Pulmonary Medical History: Denies: Hx Asthma, Hx Bronchitis, Hx COPD, Hx Pneumonia, Hx Tuberculosis Neurological Medical History: Denies: Hx Cerebrovascular Accident, Hx Seizures Endocrine Medical History: Reports: Hx Diabetes Mellitus Type 2 Renal/ Medical History: Denies: Hx Peritoneal Dialysis Musculoskeltal Medical History: Denies Hx Arthritis Psychiatric Medical History: Denies: Hx Depression Past Surgical History: Reports: Hx Section - X3, Hx Cholecystectomy, Hx Orthopedic Surgery - Ankle surgery. Denies: Hx Pacemaker - Immunizations Hx Diphtheria, Pertussis, Tetanus Vaccination: No History of Influenza Vaccine for 02/2017 - 07/2017 Season: No Physical Exam - Vital signs Vitals: Temp Pulse Resp BP Pulse Ox 98.9 F 63 24 H 161/87 H 100 01/13/19 21:12 01/13/19 21:12 01/13/19 21:12 01/13/19 21:12 01/13/19 21:12 - Extremities General lower extremity: Other - Right foot with discolored discharge from the remaining piece of the right fourth toe, there is some bleeding as well, there is some surrounding soft tissue swelling. Course - Re-evaluation Re-evalutation: I have greeted and performed a rapid initial assessment of this patient. A comprehensive ED assessment and evaluation of the patient, analysis of test results and completion of the medical decision making process will be conducted by additional ED providers. - Vital Signs Vital signs: Temp Pulse Resp BP Pulse Ox 98.9 F 63 24 H 161/87 H 100 01/13/19 21:12 01/13/19 21:12 01/13/19 21:12 01/13/19 21:12 01/13/19 21:12 Doctor's Discharge - Discharge Referrals: DAVE OSBORN DPM [Primary Care Provider] - Follow up as needed
--- NOTE | 2019-01-13 23:05 | RADIOLOGY REPORT (SQ) ---
EXAM DESCRIPTION: Right foot RadLex: XR FOOT 3 OR MORE VIEWS Views: 3 CLINICAL HISTORY: 63 years Female, ? gas in the foot, infection COMPARISON: 11/21/2018. Report from 01/02/2019 was reviewed, although the images are not available for direct comparison. FINDINGS: Extensive vascular calcifications are again noted. There is an ulcerated wound of the 4th digit, with absence of the distal phalanx of the majority of the middle phalanx. Nonspecific soft tissue edema is noted, especially over the dorsum of the foot. However, there are no foci of soft tissue air. No hyperdense foreign bodies. No lytic bone changes or acute periosteal reaction. IMPRESSION: 1. Nonspecific diffuse soft tissue edema. No soft tissue air 2. Partial amputation of 4th toe. 3. No radiographic evidence for osteomyelitis.
[2019-01-14 00:13] LABS: HEMATOCRIT 32.4 % (36.0-47.0); HEMOGLOBIN 10.6 g/dL (12.0-15.5); MEAN CORPUSCULAR HEMOGLOBIN 31.9 pg (27.0-33.4); MEAN CORPUSCULAR HGB CONC 32.7 g/dL (32.0-36.0); MEAN CORPUSCULAR VOLUME 98 fl (80-97); PLATELET COUNT 405 10^3/uL (150-450); RED BLOOD COUNT 3.32 10^6/uL (3.72-5.28); RED CELL DISTRIBUTION WIDTH 14.8 % (11.5-14.0); WHITE BLOOD COUNT 21.9 10^3/uL (4.0-10.5)
[2019-01-14 00:29] LABS: BLOOD UREA NITROGEN 53 mg/dL (7-20); CALCIUM 9.5 mg/dL (8.4-10.2); CARBON DIOXIDE 25 mmol/L (22-30); GLUCOSE 148 mg/dL (75-110); POTASSIUM 4.5 mmol/L (3.6-5.0)
[2019-01-14 00:35] LABS: CHLORIDE 91 mmol/L (98-107)
[2019-01-14 00:36] LABS: ANION GAP 22 (5-19)
[2019-01-14 00:49] LABS: ABSOLUTE LYMPHOCYTES# (MANUAL) 0.9 10^3/uL (0.5-4.7); ABSOLUTE MONOCYTES # (MANUAL) 1.3 10^3/uL (0.1-1.4); BASOPHILS % (MANUAL) 0 % (0-2); EOSINOPHILS % (MANUAL) 0 % (0-6); LYMPHOCYTES % (MANUAL) 3 % (13-45); MONOCYTES % (MANUAL) 6 % (3-13); SEGMENTED NEUTROPHILS % (MAN) 90 % (42-78); TOTAL CELLS COUNTED 100
[2019-01-14 00:52] LABS: ANISOCYTOSIS SLIGHT; OVALOCYTES SLIGHT; PLATELET COMMENT ADEQUATE; POIKILOCYTOSIS 1+; SCHISTOCYTES SLIGHT; TEAR DROP CELLS 1+; TOXIC GRANULATION SLIGHT; TOXIC VACUOLATION PRESENT
[2019-01-14] MEDS ORDERED: PIPERACILLIN/TAZOBACTAM 3.375 GM VIAL IV ONE (02:51)
--- NOTE | 2019-01-14 03:13 | ER Document Report ---
ED General - General Chief Complaint: Wound Infection Stated Complaint: RIGHT FOOT SWELLING Time Seen by Provider: 01/13/19 22:00 Primary Care Provider: DAVE TILLMAN DPM [Primary Care Provider] - Follow up as needed TRAVEL OUTSIDE OF THE [place] IN LAST 30 DAYS: No - HPI Notes: Patient is a 63-year-old female that presents to the emergency department for chief complaint of right foot infection. Patient reports chronic right foot infection that she has been seeing wound management for. She states that dialysis on Sunday she did receive 2 doses of IV antibiotic but does not know what they were. She is not currently on oral antibiotics. She denies any associated fevers. She states the foot has become more painful and red over the last day. She states the pain is worse with any movement or ambulation. She denies relieving factors. Patient did not receive dialysis today as scheduled but did have her last treatment Sunday and denies missing prior to that. Past Medical History: Hypertension, CKD on dialysis, diabetes, CHF, DACIA Past Surgical History: Reviewed in chart Social History: Lives at home. Denies drug alcohol and tobacco use Family History: Reviewed and noncontributory for presenting illness Allergies: Reviewed, see documented allergy list. REVIEW OF SYSTEMS: CONSTITUTIONAL : No fever No chills No diaphoresis No recent illness EENT: No vision changes No congestion No sore throat CARDIOVASCULAR: No chest pain No palpitations RESPIRATORY: No shortness of breath No cough No difficulty breathing GASTROINTESTINAL: No abdominal pain No nausea No vomiting No diarrhea GENITOURINARY: No dysuria No hematuria No difficulty urinating MUSCULOSKELETAL: No back pain Foot pain No arm pain SKIN: Right foot rashes Right foot lesions LYMPHATIC: No swollen, enlarged glands. NEUROLOGICAL: No lightheadedness No headache No weakness No paresthesias PSYCHIATRIC: No anxiety No depression PHYSICAL EXAMINATION: Vital signs reviewed, nursing noted reviewed. GENERAL: Well-appearing, obese and in no acute distress. HEAD: Atraumatic, normocephalic. EYES: Eyes appear normal, extraocular movements intact, sclera anicteric, conjunctiva are normal. ENT: nares patent, oropharynx clear without exudates. Moist mucous membranes. NECK: Normal range of motion, supple without lymphadenopathy LUNGS: Breath sounds clear to auscultation bilaterally and equal. No wheezes rales or rhonchi. HEART: Regular rate and rhythm without murmurs ABDOMEN: Soft, nontender, normoactive bowel sounds. No rebound, guarding, or rigidity. No masses appreciated. EXTREMITIES: +2 bilateral pitting edema. Right second and fourth toe gangrene. The fourth toe is partially degraded with open drainage. Second toe is intact. NEUROLOGICAL: No focal neurological deficits. Moves all extremities spontaneously Motor and sensory grossly intact on exam. PSYCH: Normal mood, normal affect. SKIN: Warm, Dry, normal turgor, right dorsal foot erythema - Related Data Allergies/Adverse Reactions: gabapentin Allergy (Verified 10/29/18 18:58) Past Medical History - Social History Smoking Status: Never Smoker Family History: Reviewed & Not Pertinent Patient has suicidal ideation: No Patient has homicidal ideation: No - Past Medical History Cardiac Medical History: Reports: Hx Congestive Heart Failure, Hx Hypertension Denies: Hx Coronary Artery Disease, Hx Heart Attack Pulmonary Medical History: Denies: Hx Asthma, Hx Bronchitis, Hx COPD, Hx Pneumonia, Hx Tuberculosis Neurological Medical History: Denies: Hx Cerebrovascular Accident, Hx Seizures Endocrine Medical History: Reports: Hx Diabetes Mellitus Type 2 Renal/ Medical History: Denies: Hx Peritoneal Dialysis Musculoskeletal Medical History: Denies Hx Arthritis Psychiatric Medical History: Denies: Hx Depression Past Surgical History: Reports: Hx Section - X3, Hx Cholecystectomy, Hx Orthopedic Surgery - Ankle surgery. Denies: Hx Pacemaker - Immunizations Hx Diphtheria, Pertussis, Tetanus Vaccination: No Physical Exam - Vital signs Vitals: Temp Pulse Resp BP Pulse Ox 98.9 F 65 24 H 161/87 H 100 01/13/19 21:12 01/13/19 21:12 01/13/19 21:12 01/13/19 21:12 01/13/19 21:12 Course - Re-evaluation Re-evalutation: 01/14/19 03:18 Vitals reviewed. Nursing notes reviewed. Patient is alert and mentating appropriately. Her blood pressure is stable. She has a white count of 21.9 and is tachypneic with a respiratory rate of 24 therefore meeting sepsis criteria. Blood cultures and lactic acid have been ordered. Patient has gangrene of her right foot and a dorsal right foot cellulitis which is the source of her infection. X-ray shows no obvious osteomyelitis however her fourth digit is auto-amputating. Patient will be started on IV antibiotics and admitted to the hospital for further wound management. Her care was discussed with Dr. Leon Laboratory 01/14/19 01/14/19 00:00 00:00 WBC 21.9 H RBC 3.32 L Hgb 10.6 L Hct 32.4 L MCV 98 H MCH 31.9 MCHC 32.7 RDW 14.8 H Plt Count 405 Total Counted 100 Seg Neutrophils % Not Reportable Seg Neuts % (Manual) 90 H Lymphocytes % Not Reportable Lymphocytes % (Manual) 3 L Atypical Lymphs % 1 Monocytes % Not Reportable Monocytes % (Manual) 6 Eosinophils % Not Reportable Eosinophils % (Manual) 0 Basophils % Not Reportable Basophils % (Manual) 0 Absolute Neutrophils Not Reportable Abs Neuts (Manual) 19.7 H Absolute Lymphocytes Not Reportable Abs Lymphs (Manual) 0.9 Absolute Monocytes Not Reportable Abs Monocytes (Manual) 1.3 Absolute Eosinophils Not Reportable Absolute Eos (Manual) 0.0 Absolute Basophils Not Reportable Abs Basophils (Manual) 0.0 Toxic Granulation SLIGHT Toxic Vacuolation PRESENT Platelet Comment ADEQUATE Poikilocytosis 1+ Anisocytosis SLIGHT Tear Drop Cells 1+ Ovalocytes SLIGHT Schistocytes SLIGHT Sodium 138.2 Potassium 4.5 Chloride 91 L Carbon Dioxide 25 Anion Gap 22 H BUN 53 H Creatinine 9.98 H Est GFR ( Amer) 5 L Est GFR (Non-Af Amer) 4 L Glucose 148 H Calcium 9.5 Foot X-Ray 01/13/19 22:00 IMPRESSION: 1. Nonspecific diffuse soft tissue edema. No soft tissue air 2. Partial amputation of 4th toe. 3. No radiographic evidence for osteomyelitis. who accepts admission. - Vital Signs Vital signs: Temp Pulse Resp BP Pulse Ox 98.2 F 58 L 24 H 162/71 H 97 01/14/19 00:45 01/14/19 00:45 01/13/19 21:12 01/14/19 00:45 01/14/19 00:45 - Laboratory Result Diagrams: 01/14/19 00:00 01/14/19 00:00 Laboratory results interpreted by me: 01/14/19 01/14/19 00:00 00:00 WBC 21.9 H RBC 3.32 L Hgb 10.6 L Hct 32.4 L MCV 98 H RDW 14.8 H Seg Neuts % (Manual) 90 H Lymphocytes % (Manual) 3 L Abs Neuts (Manual) 19.7 H Chloride 91 L Anion Gap 22 H BUN 53 H Creatinine 9.98 H Est GFR ( Amer) 5 L Est GFR (Non-Af Amer) 4 L Glucose 148 H Discharge - Discharge Clinical Impression: Cellulitis of right foot, Gangrene Sepsis Qualifiers: Sepsis type: sepsis due to unspecified organism Sepsis acute organ dysfunction status: without acute organ dysfunction Qualified Code(s): A41.9 - Sepsis, unspecified organism Condition: Stable Disposition: ADMITTED INPATIENT Admitting Provider: Edward (Hospitalist) Unit Admitted: Telemetry
[2019-01-14] MEDS ORDERED: MORPHINE SULFATE 10 MG/ML INJ IV ONE (04:10)
[2019-01-14] MEDS: VANCOMYCIN HCL INJ 1000 MG VIAL IV ONE ×2 (04:17→04:21)
--- NOTE | 2019-01-14 04:19 | RADIOLOGY REPORT (SQ) ---
EXAM DESCRIPTION: XR CHEST 1 VIEW COMPLETED DATE/TME: 01/14/2019 03:21 CLINICAL HISTORY: 63 years, Female, sepsis COMPARISON: 09/27/2018 chest NUMBER OF VIEWS: 1 TECHNIQUE: Portable chest LIMITATIONS: None. FINDINGS: Cardiomegaly. Osteopenia. Lungs clear. No pneumothorax IMPRESSION: Cardiomegaly. Lungs are clear copyright 2011 [employer]- All Rights Reserved
[2019-01-14] MEDS ORDERED: ONDANSETRON 4 MG TAB.RAPDIS PO PRN (05:13)
[2019-01-14] MEDS ORDERED: ONDANSETRON HCL INJ/PF 4 MG/2 ML SDV IV PRN ×2 (05:13→15:25)
[2019-01-14] MEDS ORDERED: MAG HYDROX/AL HYDROX/SIMETH SUSP 30 ML UDCUP PO PRN (05:13)
[2019-01-14] MEDS ORDERED: GLUCAGON,HUMAN RECOMB 1 MG INJ SUBCUT PRN (05:13)
[2019-01-14] MEDS ORDERED: DEXTROSE 50%-WATER 25 GM/50 ML DISP.SYRIN IV PRN ×4 (05:13→05:22)
[2019-01-14] MEDS ORDERED: DEXTROSE 40% GEL 15 GM TUBE PO PRN ×4 (05:13→05:22)
[2019-01-14] MEDS ORDERED: MAGNESIUM HYDROXIDE SUSP 30 ML UDCUP PO PRN (05:13)
[2019-01-14] MEDS ORDERED: ACETAMINOPHEN 325 MG TABLET PO PRN (05:13)
[2019-01-14] MEDS ORDERED: NORMAL SALINE 1000 ML 1,000 ML IV PRN (05:13)
[2019-01-14] MEDS ORDERED: GLUCAGON,HUMAN RECOMB 1 MG INJ IM PRN (05:22)
[2019-01-14] MEDS ORDERED: VANCOMYCIN HCL 0 MG in DEXTROSE 5%-WATER 250 ML IV NR (05:30)
[2019-01-14] MEDS ORDERED: PIPERACILLIN/TAZOBACTAM 3.375 GM VIAL IV SCH (05:30)
[2019-01-14] MEDS ORDERED: VANCOMYCIN HCL INJ 1000 MG VIAL IV PRN (05:59)
[2019-01-14] MEDS ORDERED: VANCOMYCIN HCL 2,000 MG in DEXTROSE 5%-WATER 500 ML IV ONE (06:00)
--- NOTE | 2019-01-14 07:02 | PDOC H&P ---
History of Present Illness Admission Date/PCP: 01/14/19 03:41 DEVAN DE LA CRUZ MD Patient complains of: Right foot pain and swelling History of Present Illness: BEA QUINONES is a 63 year old -Italian female who presented to the emergency room with acute onset of worsening right foot pain and swelling with blackened discoloration of her second and fourth toes. She denies any fever or chills, nausea or vomiting or abdominal pain. No chest pain with this investigations. No headache or dizziness or blurred vision. Upon presentation to the emergency room, blood pressure was elevated 161/87 with a pulse of 65 respiratory to 24 temperature 98.9 pulse 70% on room air. Labs revealed anemia with hemoglobin of 10.6 hematocrit 32.4 and chloride of 91 with -22 with BUN of 53 and creatinine 9.98 with end-stage renal disease on hemodialysis. She was status post hemodialysis on Sunday. C-reactive protein was 586.6. She had for which x-ray showed no acute cardia pulmonary disease. Her right foot x-ray revealed non-specific diffuse soft tissue edema with no soft tissue air. It showed partial amputation of the right fourth toe with no radiographic evidence for osteomyelitis. The patient was given IV Zosyn and vancomycin as well as IV morphine sulfate and 2 p.o. Percocet. She will be admitted to a medically monitored bed for further evaluation and management. Past Medical History Cardiac Medical History: Reports: Congestive Heart Failure, Hypertension Denies: Coronary Artery Disease, Myocardial Infarction Pulmonary Medical History: Denies: Asthma, Bronchitis, Chronic Obstructive Pulmonary Disease (COPD), Pneumonia, Tuberculosis Neurological Medical History: Denies: Seizures Endocrine Medical History: Reports: Diabetes Mellitus Type 2 Musculoskeltal Medical History: Denies: Arthritis Psychiatric Medical History: Denies: Depression Hematology: Denies: Anemia Past Surgical History Past Surgical History: Reports: Section - X3, Cholecystectomy, Orthopedic Surgery - Ankle surgery Denies: Pacemaker Social History Smoking Status: Never Smoker Frequency of Alcohol Use: None Hx Recreational Drug Use: No Hx Prescription Drug Abuse: No Family History Family History: Reviewed & Not Pertinent Parental Family History Reviewed: Yes Children Family History Reviewed: Yes Sibling(s) Family History Reviewed.: Yes Medication/Allergy Home Medications: Insulin Lispro [Humalog Insulin (Lispro) 100 unit/mL] 6 unit SUBCUT MEALS 05/30/17 Clonidine HCl [Catapres 0.2 mg Tablet] 0.3 mg PO Q8 #90 tablet 06/05/17 Furosemide [Lasix 20 mg Tablet] 20 mg PO TID #90 tablet 06/05/17 Hydralazine HCl [Apresoline 50 mg Tablet] 75 mg PO Q8 #90 tablet 06/05/17 Insulin Glargine,Hum.rec.anlog [Lantus] 12 unit SQ QHS #0 06/05/17 Metoprolol Tartrate [Lopressor 25 mg Tablet] 25 mg PO Q12 #60 tablet 06/05/17 Allergies/Adverse Reactions: gabapentin Allergy (Verified 10/29/18 18:58) Review of Systems Review of Systems: As per history of present illness. All pertinent systems were reviewed above. Constitutional, HEENT, cardiovascular, respiratory, GI, , musculoskeletal, neuro, psychiatric, endocrine, integumentary and hematologic systems were reviewed and are otherwise negative/unremarkable except for positive findings mentioned above in the HPI. Physical Exam Vital Signs: Temp Pulse Resp BP Pulse Ox 98.2 F 58 L 24 H 162/71 H 97 01/14/19 00:45 01/14/19 00:45 01/13/19 21:12 01/14/19 00:45 01/14/19 00:45 Intake & Output 01/12/19 01/13/19 01/14/19 06:59 06:59 06:59 Weight 99.79 kg Exam: Generally: Pleasant elderly -Italian female in no acute distress Vital signs-as listed Head - atraumatic, normocephalic. Pupils - equal, round and reactive to light and accommodation. Extraocular movements are intact. No scleral icterus. Oropharynx - moist mucous membranes and tongue. No pharyngeal erythema or exudate. Neck - supple. No JVD. Carotid pulses 2+ bilaterally. No carotid bruits. No palpable thyromegaly or lymphadenopathy. Cardiovascular - regular rate and rhythm. Normal S1 and S2. No murmurs, gallops or rubs. Lungs - clear to auscultation bilaterally. Abdomen - soft and nontender. Positive bowel sounds. No palpable organomegaly or masses. Extremities/skin- no leg pitting edema. She status post 2 left midfoot amputation with intact stump. Her right foot showed black discoloration of the second and fourth toes with swelling of the third and fifth 2 with purplish discoloration and partial amputation of the fourth toe. Neuro - grossly non-focal. Skin -as above Breast, pelvic and rectal - deferred Results Laboratory Results: 01/14/19 00:00 01/14/19 00:00 01/14/19 01/14/19 01/14/19 00:00 00:00 03:00 WBC 21.9 H RBC 3.32 L Hgb 10.6 L Hct 32.4 L MCV 98 H MCH 31.9 MCHC 32.7 RDW 14.8 H Plt Count 405 Seg Neutrophils % Not Reportable Lymphocytes % Not Reportable Monocytes % Not Reportable Eosinophils % Not Reportable Basophils % Not Reportable Absolute Neutrophils Not Reportable Absolute Lymphocytes Not Reportable Absolute Monocytes Not Reportable Absolute Eosinophils Not Reportable Absolute Basophils Not Reportable Sodium 138.2 Potassium 4.5 Chloride 91 L Carbon Dioxide 25 Anion Gap 22 H BUN 53 H Creatinine 9.98 H Est GFR ( Amer) 5 L Est GFR (Non-Af Amer) 4 L Glucose 148 H Lactic Acid Calcium 9.5 C-Reactive Protein 586.6 H 01/14/19 03:00 WBC RBC Hgb Hct MCV MCH MCHC RDW Plt Count Seg Neutrophils % Lymphocytes % Monocytes % Eosinophils % Basophils % Absolute Neutrophils Absolute Lymphocytes Absolute Monocytes Absolute Eosinophils Absolute Basophils Sodium Potassium Chloride Carbon Dioxide Anion Gap BUN Creatinine Est GFR ( Amer) Est GFR (Non-Af Amer) Glucose Lactic Acid 1.0 Calcium C-Reactive Protein Impressions: Foot X-Ray 01/13/19 22:00 IMPRESSION: 1. Nonspecific diffuse soft tissue edema. No soft tissue air 2. Partial amputation of 4th toe. 3. No radiographic evidence for osteomyelitis. Chest X-Ray 01/14/19 03:21 IMPRESSION: Cardiomegaly. Lungs are clear copyright 2010 [employer]- All Rights Reserved Assessment and Plan - Diagnosis (1) Gangrene of toe of right foot Is this a current diagnosis for this admission?: Yes Plan: Patient will be admitted to a medical monitor bed. She was placed on IV vancomycin and Zosyn. Surgery consultation will be obtained by Dr. Bonilla. MRI of the right foot will be obtained. She will likely need a rotation of the second and fourth toes due to gangrene and sepsis. (2) Cellulitis in diabetic foot Is this a current diagnosis for this admission?: Yes Plan: Management as above. (3) Sepsis Qualifiers: Sepsis type: sepsis due to unspecified organism Sepsis acute organ dysfunction status: without acute organ dysfunction Qualified Code(s): A41.9 - Sepsis, unspecified organism Is this a current diagnosis for this admission?: Yes Plan: Blood cultures will be obtained in follow-up. We will follow her CBC. Antibiotics will be continued with IV vancomycin and Zosyn. This likely secondary to her diabetic foot cellulitis and gangrene. (4) ESRD (end stage renal disease) Is this a current diagnosis for this admission?: Yes Plan: Nephrology consultation will be obtained for follow-up on hemodialysis (5) Hypertension Is this a current diagnosis for this admission?: Yes Plan: We will continue clonidine and hydralazine and placed patient on as needed IV hydralazine (6) DVT prophylaxis Is this a current diagnosis for this admission?: Yes Plan: SCDs. Medical prophylaxis currently held off for potential surgical intervention - Time Time Spent with patient: 35 or more minutes Medications reviewed and adjusted accordingly: Yes Anticipated discharge: Home Within: within 72 hours - Inpatient Certification Based on my medical assessment, after consideration of the patient's comorbidities, presenting symptoms, or acuity I expect that the services needed warrant INPATIENT care.: Yes I certify that my determination is in accordance with my understanding of Medicare's requirements for reasonable and necessary INPATIENT services [42 CFR 412.3e].: Yes Medical Necessity: Need For IV Fluids, Need for Pain Control, Need for IV Antibiotics Post Hospital Care: D/C or Transfer Summary - Plan Summary Plan Summary: The plan of care was discussed in details with the patient. I answered all questions. The patient agreed to proceed with the above-mentioned plan. The patient is presumably full code. This note was created by [employer] software and may contain typo errors that may have not been proofread.
[2019-01-14] MEDS ORDERED: PIPERACILLIN SODIUM/TAZOBACTAM 2.25 GM in NORMAL SALINE 50 ML IV SCH ×2 (08:00→10:00)
[2019-01-14] MEDS: INSULIN LISPRO 100 UNIT/ML 3 ML VIAL SUBCUT SCH ×3 (08:13→17:27)
[2019-01-14] MEDS ORDERED: VANCOMYCIN HCL 1,500 MG in DEXTROSE 5%-WATER 250 ML IV ONE (09:00)
[2019-01-14] MEDS ORDERED: PIPERACILLIN SODIUM/TAZOBACTAM 3.375 GM in NORMAL SALINE 100 ML IV SCH (09:00)
--- NOTE | 2019-01-14 10:33 | PDOC CONSULTATION ---
Consultation Consult Date: 01/14/19 Provider Consulted: ROBERT RUSSELL History of Present Illness Admission Date/PCP: 01/14/19 03:41 DEVAN DE LA CRUZ MD History of Present Illness: BEA QUINONES is a 63-year-old -[place] Citizen lady with history of end-stage renal disease on maintenance hemodialysis on MWF, hypertension, congestive heart failure, and diabetes mellitus type 2 who was admitted because of right foot pain and swelling. She presented in the emergency room with right foot pain, swelling and black discoloration of her second and fourth toes. Patient said that this is been going on for a while. She has had this toe ulcers for months being followed at the wound care clinic. She currently follows up with Dr. Osborn at least once a week. She went to see Dr. Eaton, vascular surgeon in [place] yesterday and she was advised to be admitted to the hospital. Since she was with her son and they only have one car they had to come back here in [place]. About a week ago at the wound clinic she said Dr. Osborn clean her wound and he needed to take part of the bone and was sent for cultures on January 02. Her cultures came out to be positive for heavy dose of staph aureus and so 1 dose of IV antibiotics was given at [facility] last Sunday when she went for dialysis. Currently the patient is crying because of frustration and the fact that Dr. Boone discussed with her about amputation of the toes. She also continues to be in pain. She denies any fever nor chills nor any other complaints. Patient has been on hemodialysis for about a year now. Her last dialysis was Sunday because she missed the Sunday before that. She also missed her appointment for dialysis yesterday because she went to [place] to see Dr. Eaton for the above. Her potassium is 4.5, BUN of 53 and creatinine of 9.98. She is not having shortness of breath and is not clinically fluid overloaded. Her chest x-ray shows clear lungs. In the emergency room the patient was started on IV Zosyn and IV vancomycin. She is also being given pain medication with IV morphine and Percocet. Dr. Boone has evaluated her and the plan today is for her to be brought to the operating room for amputation of the toes. Past Medical History Cardiac Medical History: Reports: Hypertension-primary Endocrine Medical History: Reports: Diabetes Mellitus Type 2 Renal/ Medical History: Reports: End Stage Renal Disease Hematology Medical History: Reports Anemia of Chronic Kidney Disease Past Surgical History Past Surgical History: Reports: Section - X3, Cholecystectomy, Orthopedic Surgery - Ankle surgery; left big toe amputation Social History Information Source: Patient, [facility] Records Smoking Status: Former Smoker Frequency of Alcohol Use: None Hx Recreational Drug Use: No Hx Prescription Drug Abuse: No Family History Family History: No history of any kidney disease. Parental Family History Reviewed: Yes Children Family History Reviewed: Yes Sibling(s) Family History Reviewed.: Yes Medication/Allergy Home Medications: Atorvastatin Calcium [Lipitor 20 mg Tablet] 20 mg PO QHS 01/14/19 Calcium Acetate [Phoslo 667 Mg Capsule] 2,001 mg PO MEALS 01/14/19 Clonidine HCl [Catapres 0.3 mg Tablet] 0.3 mg PO Q8 01/14/19 Clopidogrel Bisulfate [Plavix 75 mg Tablet] 75 mg PO DAILY 01/14/19 Furosemide [Lasix 20 mg Tablet] 20 mg PO TID 01/14/19 Hydralazine HCl [Apresoline 50 mg Tablet] 75 mg PO Q8 01/14/19 Insulin Glargine,Hum.rec.anlog [Lantus Insulin 100 Unit/1 ml 10 ml] 15 unit SUBCUT QHS 01/14/19 Insulin Lispro [Humalog Insulin 100 Unit/1 ml 3 ml Vial] 6 unit SUBCUT PC 01/14/19 Lidocaine/Prilocaine [Emla Cream] 1 applic TP .DIALYSIS 01/14/19 Metoprolol Tartrate [Lopressor 25 mg Tablet] 25 mg PO Q12 01/14/19 Oxycodone HCl/Acetaminophen [Percocet 5-325 mg Tablet] 1 tab PO Q6HP PRN 01/14/19 Allergies/Adverse Reactions: gabapentin Allergy (Verified 10/29/18 18:58) Review of Systems All systems: reviewed and no additional remarkable complaints except as stated Review of Systems: Constitutional: ABSENT: chills, fatigue, fever(s), headache(s), weight gain, weight loss Eyes: ABSENT: visual disturbances Ears: ABSENT: hearing changes Cardiovascular: ABSENT: chest pain, dyspnea on exertion, edema, orthropnea, palpitations Respiratory: ABSENT: cough, dyspnea, hemoptysis Gastrointestinal: ABSENT: abdominal pain, constipation, diarrhea, hematemesis, hematochezia, nausea, vomiting Genitourinary: ABSENT: dysuria, hematuria Musculoskeletal: ABSENT: joint swelling; right foot swelling, pain and black discoloration of her toes Integumentary: ABSENT: rash, wounds Neurological: ABSENT: abnormal gait, abnormal speech, confusion, dizziness, focal weakness, numbness, syncope Psychiatric: ABSENT: anxiety, depression Endocrine: ABSENT: cold intolerance, heat intolerance, polydipsia, polyuria Hematologic/Lymphatic: ABSENT: easy bleeding, easy bruising, lymphadenopathy Physical Exam Vital Signs: Temp Pulse Resp BP Pulse Ox 98.1 F 72 16 126/62 H 99 01/14/19 07:52 01/14/19 07:52 01/14/19 07:52 01/14/19 07:52 01/14/19 07:52 Intake & Output 01/13/19 01/14/19 01/15/19 06:59 06:59 06:59 Weight 105.7 kg 105.7 kg Exam: General appearance: No acute distress, cooperative, well-developed, well- nourished Head exam: PRESENT: atraumatic, normocephalic Eye exam: PRESENT: [employer], EOMI, PERRLA. ABSENT: conjunctival injection, scleral icterus Mouth exam: PRESENT: moist, neck supple, tongue midline Neck exam: PRESENT: full ROM. ABSENT: carotid bruit, JVD, lymphadenopathy, thyromegaly Respiratory exam: PRESENT: clear to auscultation bilaterally. ABSENT: rales, rhonchi, stridor, wheezes Cardiovascular exam: PRESENT: RRR, +S1, +S2. ABSENT: systolic murmur Pulses: PRESENT: normal radial pulses, normal dorsalis pedis pulses GI/Abdominal exam: PRESENT: normal bowel sounds, soft. ABSENT: guarding, mass, tenderness Rectal exam: Deferred Extremities exam: PRESENT: full ROM. Right foot edema with erythema and warmth to touch. The toes have dressing over it. ABSENT: calf tenderness Musculoskeletal: PRESENT: full ROM. ABSENT: deformity Neurological exam: PRESENT: alert, Awake, Oriented to person, Oriented to place, Oriented to time, reflexes normal, CN II-XII grossly intact. ABSENT: motor s ensory deficit Psychiatric exam: PRESENT: Patient is tearful and sad. ABSENT: homicidal ideation, suicidal ideation Skin exam: PRESENT: intact, dry, warm. ABSENT: rash Results Laboratory Results: 01/14/19 00:00 01/14/19 00:00 01/14/19 01/14/19 01/14/19 00:00 00:00 03:00 WBC 21.9 H RBC 3.32 L Hgb 10.6 L Hct 32.4 L MCV 98 H MCH 31.9 MCHC 32.7 RDW 14.8 H Plt Count 405 Seg Neutrophils % Not Reportable Lymphocytes % Not Reportable Monocytes % Not Reportable Eosinophils % Not Reportable Basophils % Not Reportable Absolute Neutrophils Not Reportable Absolute Lymphocytes Not Reportable Absolute Monocytes Not Reportable Absolute Eosinophils Not Reportable Absolute Basophils Not Reportable Sodium 138.2 Potassium 4.5 Chloride 91 L Carbon Dioxide 25 Anion Gap 22 H BUN 53 H Creatinine 9.98 H Est GFR ( Amer) 5 L Est GFR (Non-Af Amer) 4 L Glucose 148 H Lactic Acid Calcium 9.5 C-Reactive Protein 586.6 H 01/14/19 03:00 WBC RBC Hgb Hct MCV MCH MCHC RDW Plt Count Seg Neutrophils % Lymphocytes % Monocytes % Eosinophils % Basophils % Absolute Neutrophils Absolute Lymphocytes Absolute Monocytes Absolute Eosinophils Absolute Basophils Sodium Potassium Chloride Carbon Dioxide Anion Gap BUN Creatinine Est GFR ( Amer) Est GFR (Non-Af Amer) Glucose Lactic Acid 1.0 Calcium C-Reactive Protein Impressions: Foot X-Ray 01/13/19 22:00 IMPRESSION: 1. Nonspecific diffuse soft tissue edema. No soft tissue air 2. Partial amputation of 4th toe. 3. No radiographic evidence for osteomyelitis. Chest X-Ray 01/14/19 03:21 IMPRESSION: Cardiomegaly. Lungs are clear copyright 2011 [employer]- All Rights Reserved Assessment & Plan - Diagnosis (1) Gangrene of toe of right foot Is this a current diagnosis for this admission?: Yes Plan: Plan is for toe amputation by Dr. Boone this afternoon. (2) Cellulitis of right foot Is this a current diagnosis for this admission?: Yes Plan: Patient on IV Zosyn and IV vancomycin per hospitalist service. (3) ESRD (end stage renal disease) Is this a current diagnosis for this admission?: Yes Plan: Patient does not need any urgent hemodialysis treatment today. We will plan for hemodialysis treatment tomorrow. (4) Anemia in chronic kidney disease (CKD) Is this a current diagnosis for this admission?: Yes (5) Hypertension Is this a current diagnosis for this admission?: Yes Plan: Resume all home blood pressure medications. (6) Type 2 diabetes mellitus Qualifiers: Diabetes mellitus long term acute care registered nurse insulin use: with long term acute care registered nurse use Diabetes mellitus complication status: with kidney complications Diabetes mellitus complication detail: with nephropathy Qualified Code(s): E11.21 - Type 2 diabetes mellitus with diabetic nephropathy; Z79.4 - long term acute care registered nurse (current) use of insulin; Z79.4 - long term acute care registered nurse (current) use of insulin; Z79.4 - long term acute care registered nurse (current) use of insulin; Z79.4 - halfway (current) use of insulin Is this a current diagnosis for this admission?: Yes - Notes Notes: Thank you very much for this consultation. We will supervise dialysis while here in the hospital. - Time Time Spent: 50 to 70 Minutes
[2019-01-14] MEDS: OXYCODONE-ACETAMINOPHEN 5-325 MG TABLET PO PRN ×2 (11:05→23:25)
[2019-01-14] MEDS: PIPERACILLIN SODIUM/TAZOBACTAM 2.25 GM in NORMAL SALINE 50 ML IV SCH ×2 (12:27→18:35)
--- NOTE | 2019-01-14 12:34 | PDOC CONSULTATION ---
Consultation Consult Date: 01/14/19 Provider Consulted: SURGICAL SURGICALIST Consult reason:: wet gangrene right foot History of Present Illness Admission Date/PCP: 01/14/19 03:41 DEVAN DE LA CRUZ MD Patient complains of: right foot pain, fevers, chills. History of Present Illness: BEA QUINONES is a 63 year old female seen at the request of the hospitalist service. She has a long history of diabetes and foot wounds. She reports a several day history of increasing amounts of pain, drainage, and dark discoloration of the right foot. The patient reports that her pain has worsened, and she can no longer take it. Patient sees a vascular surgeon in [place], but requests to be treated here. The patient is a diabetic and is status post amputation of the left great toe. She reports foul-smelling drainage from the right foot. She denies chest pain, shortness of breath, headache, nausea, vomiting, abdominal pain, melena, hematochezia, hematemesis, blurry vision, hearing difficulty, orthostasis. She does report fatigue, malaise, fevers, chills, and right foot pain. Past Medical History Cardiac Medical History: Reports: Congestive Heart Failure, Hypertension Denies: Coronary Artery Disease, Myocardial Infarction Pulmonary Medical History: Denies: Asthma, Bronchitis, Chronic Obstructive Pulmonary Disease (COPD), Pneumonia, Tuberculosis Neurological Medical History: Denies: Seizures Endocrine Medical History: Reports: Diabetes Mellitus Type 2 Renal/ Medical History: Reports: End Stage Renal Disease Musculoskeltal Medical History: Denies: Arthritis Psychiatric Medical History: Denies: Depression Hematology: Denies: Anemia Past Surgical History Past Surgical History: Reports: Section - X3, Cholecystectomy, Orthopedic Surgery - Ankle surgery; left big toe amputation Denies: Pacemaker Social History Smoking Status: Former Smoker Frequency of Alcohol Use: None Hx Recreational Drug Use: No Hx Prescription Drug Abuse: No Family History Family History: Reviewed & Not Pertinent Parental Family History Reviewed: Yes Children Family History Reviewed: Yes Sibling(s) Family History Reviewed.: Yes Medication/Allergy Home Medications: Atorvastatin Calcium [Lipitor 20 mg Tablet] 20 mg PO QHS 01/14/19 Calcium Acetate [Phoslo 667 Mg Capsule] 2,001 mg PO MEALS 01/14/19 Clonidine HCl [Catapres 0.3 mg Tablet] 0.3 mg PO Q8 01/14/19 Clopidogrel Bisulfate [Plavix 75 mg Tablet] 75 mg PO DAILY 01/14/19 Furosemide [Lasix 20 mg Tablet] 20 mg PO TID 01/14/19 Hydralazine HCl [Apresoline 50 mg Tablet] 75 mg PO Q8 01/14/19 Insulin Glargine,Hum.rec.anlog [Lantus Insulin 100 Unit/1 ml 10 ml] 15 unit SUBCUT QHS 01/14/19 Insulin Lispro [Humalog Insulin 100 Unit/1 ml 3 ml Vial] 6 unit SUBCUT PC 01/14/19 Lidocaine/Prilocaine [Emla Cream] 1 applic TP .DIALYSIS 01/14/19 Metoprolol Tartrate [Lopressor 25 mg Tablet] 25 mg PO Q12 01/14/19 Oxycodone HCl/Acetaminophen [Percocet 5-325 mg Tablet] 1 tab PO Q6HP PRN 01/14/19 Allergies/Adverse Reactions: gabapentin Allergy (Verified 10/29/18 18:58) Review of Systems Constitutional: PRESENT: chills, fatigue, fever(s). ABSENT: anorexia Eyes: ABSENT: visual disturbances Ears: ABSENT: hearing changes Nose, Mouth, and Throat: ABSENT: sore throat Cardiovascular: ABSENT: chest pain, dyspnea on exertion Respiratory: ABSENT: cough, dyspnea Gastrointestinal: ABSENT: abdominal pain, bloating, heartburn, hematemesis, hematochezia, melena, nausea, vomiting Genitourinary: PRESENT: other - hemodialysis Integumentary: PRESENT: wounds, other - black discoloration of right 2nd, 3rd, 4th, 5th toes. Prurlent drainage. Foul odor. Pain. Neurological: ABSENT: confusion, convulsions, dizziness Psychiatric: PRESENT: anxiety. ABSENT: depression Endocrine: ABSENT: cold intolerance, heat intolerance Hematologic/Lymphatic: ABSENT: easy bleeding, easy bruising Physical Exam Vital Signs: Temp Pulse Resp BP Pulse Ox 98.1 F 72 16 126/62 H 99 01/14/19 07:52 01/14/19 07:52 01/14/19 07:52 01/14/19 07:52 01/14/19 07:52 Intake & Output 01/13/19 01/14/19 01/15/19 06:59 06:59 06:59 Weight 105.7 kg 105.7 kg General appearance: PRESENT: no acute distress, cooperative Head exam: PRESENT: atraumatic, normocephalic Eye exam: PRESENT: EOMI, PERRLA. ABSENT: scleral icterus Mouth exam: PRESENT: moist, neck supple Neck exam: ABSENT: meningismus, tenderness, thyromegaly, tracheal deviation Respiratory exam: PRESENT: clear to auscultation adamaris, unlabored. ABSENT: chest wall tenderness, tachypnea, wheezes Cardiovascular exam: PRESENT: RRR Pulses: PRESENT: normal radial pulses, other - no palpable DP or PT pulses bilaterally. Vascular exam: PRESENT: other - bilateral LE edema present GI/Abdominal exam: PRESENT: soft. ABSENT: distended, guarding, rigid, tenderness Rectal exam: PRESENT: deferred Extremities exam: PRESENT: other - wet gangrene of the right foot involving 2nd, 3rd, 4th, and 5th toes. Neurological exam: PRESENT: alert, awake, oriented to person, oriented to place, oriented to time, oriented to situation, CN II-XII grossly intact Psychiatric exam: PRESENT: anxious. ABSENT: agitated, depressed Focused psych exam: ABSENT: catatonic, delusional Skin exam: PRESENT: erythema - right foot. ABSENT: cyanosis, jaundice Results Laboratory Results: 01/14/19 00:00 01/14/19 00:00 01/14/19 01/14/19 01/14/19 00:00 00:00 03:00 WBC 21.9 H RBC 3.32 L Hgb 10.6 L Hct 32.4 L MCV 98 H MCH 31.9 MCHC 32.7 RDW 14.8 H Plt Count 405 Seg Neutrophils % Not Reportable Lymphocytes % Not Reportable Monocytes % Not Reportable Eosinophils % Not Reportable Basophils % Not Reportable Absolute Neutrophils Not Reportable Absolute Lymphocytes Not Reportable Absolute Monocytes Not Reportable Absolute Eosinophils Not Reportable Absolute Basophils Not Reportable Sodium 138.2 Potassium 4.5 Chloride 91 L Carbon Dioxide 25 Anion Gap 22 H BUN 53 H Creatinine 9.98 H Est GFR ( Amer) 5 L Est GFR (Non-Af Amer) 4 L Glucose 148 H Lactic Acid Calcium 9.5 C-Reactive Protein 586.6 H 01/14/19 03:00 WBC RBC Hgb Hct MCV MCH MCHC RDW Plt Count Seg Neutrophils % Lymphocytes % Monocytes % Eosinophils % Basophils % Absolute Neutrophils Absolute Lymphocytes Absolute Monocytes Absolute Eosinophils Absolute Basophils Sodium Potassium Chloride Carbon Dioxide Anion Gap BUN Creatinine Est GFR ( Amer) Est GFR (Non-Af Amer) Glucose Lactic Acid 1.0 Calcium C-Reactive Protein Impressions: Foot X-Ray 01/13/19 22:00 IMPRESSION: 1. Nonspecific diffuse soft tissue edema. No soft tissue air 2. Partial amputation of 4th toe. 3. No radiographic evidence for osteomyelitis. Chest X-Ray 01/14/19 03:21 IMPRESSION: Cardiomegaly. Lungs are clear copyright 2011 [employer]- All Rights Reserved Assessment & Plan - Diagnosis (1) Diabetic wet gangrene of the foot Is this a current diagnosis for this admission?: Yes (2) Sepsis Qualifiers: Sepsis type: sepsis due to unspecified organism Sepsis acute organ dysfunction status: without acute organ dysfunction Qualified Code(s): A41.9 - Sepsis, unspecified organism Is this a current diagnosis for this admission?: Yes - Plan Summary Plan Summary: This is a 63-year-old diabetic female with wet gangrene of the right foot. She has black discoloration of the second, third, fourth, and fifth toes. She has a large amount of ulceration and purulent drainage of the second and third toes. There is a foul odor emanating from the foot. She has erythema extending up the foot, to the level of the ankle. The patient is exhibiting wet gangrene of the right foot. I have discussed options with the patient. I believe she will require a transmetatarsal amputation. She is excessively nervous about this. She is requesting amputation of only the toes that are absolutely necessary. I have discussed attempting to amputate the second, third, fourth, and fifth toes while leaving the first toe intact. I am unsure if this will be possible. The patient has expressed understanding. Risks/benefits discussed, informed consent obtained, and all questions answered. Plan for operative intervention today.
--- NOTE | 2019-01-14 12:58 | PDOC PROGRESS REPORT ---
Subjective Progress Note for:: 01/14/19 Subjective:: 63 year old -[place] female who presented to the emergency room with acute onset of worsening right foot pain and swelling with blackened discoloration of her second and fourth toes. She denies any fever or chills, nausea or vomiting or abdominal pain. No chest pain with this investigations. No headache or dizziness or blurred vision. Upon presentation to the emergency room, blood pressure was elevated 161/87 with a pulse of 65 respiratory to 24 temperature 98.9 pulse 70% on room air. Labs revealed anemia with hemoglobin of 10.6 hematocrit 32.4 and chloride of 91 with -22 with BUN of 53 and creatinine 9.98 with end-stage renal disease on hemodialy sis. She was status post hemodialysis on Sunday. C-reactive protein was 586.6. She had for which x-ray showed no acute cardia pulmonary disease. Her right foot x-ray revealed non-specific diffuse soft tissue edema with no soft tissue air. It showed partial amputation of the right fourth toe with no radiographic evidence for osteomyelitis. The patient was given IV Zosyn and vancomycin as well as IV morphine sulfate and 2 p.o. Percocet. She will be admitted to a medically monitored bed for further evaluation and management. [id number]-old female with history of end-stage renal disease, diabetes mellitus, hypertension admitted with right foot gangrene. She is going for surgery today. Presently on IV vancomycin and Zosyn and also receiving IV morphine and Percocets. Still complaining of pain. Reason For Visit: RIGHT FOOT DIABETIC CELLULITIS WITH SECOND AND Physical Exam Vital Signs: Temp Pulse Resp BP Pulse Ox 98.1 F 72 16 126/62 H 99 01/14/19 07:52 01/14/19 07:52 01/14/19 07:52 01/14/19 07:52 01/14/19 07:52 Intake & Output 01/13/19 01/14/19 01/15/19 06:59 06:59 06:59 Weight 105.7 kg 105.7 kg General appearance: PRESENT: no acute distress Head exam: PRESENT: atraumatic Eye exam: PRESENT: PERRLA Mouth exam: PRESENT: moist, tongue midline Teeth exam: PRESENT: poor dentation Neck exam: ABSENT: carotid bruit, JVD, lymphadenopathy, thyromegaly Respiratory exam: PRESENT: clear to auscultation adamaris. ABSENT: rales, rhonchi, wheezes Cardiovascular exam: PRESENT: RRR. ABSENT: diastolic murmur, rubs, systolic murmur GI/Abdominal exam: PRESENT: normal bowel sounds, soft. ABSENT: distended, guarding, mass, organolmegaly, rebound, tenderness Rectal exam: PRESENT: deferred Extremities exam: PRESENT: other - Black is discoloration of the toes in the right foot. Neurological exam: PRESENT: alert Psychiatric exam: PRESENT: anxious Skin exam: PRESENT: dry, intact, warm. ABSENT: cyanosis, rash Results Laboratory Results: 01/14/19 00:00 01/14/19 00:00 01/14/19 01/14/19 01/14/19 00:00 00:00 03:00 WBC 21.9 H RBC 3.32 L Hgb 10.6 L Hct 32.4 L MCV 98 H MCH 31.9 MCHC 32.7 RDW 14.8 H Plt Count 405 Seg Neutrophils % Not Reportable Lymphocytes % Not Reportable Monocytes % Not Reportable Eosinophils % Not Reportable Basophils % Not Reportable Absolute Neutrophils Not Reportable Absolute Lymphocytes Not Reportable Absolute Monocytes Not Reportable Absolute Eosinophils Not Reportable Absolute Basophils Not Reportable Sodium 138.2 Potassium 4.5 Chloride 91 L Carbon Dioxide 25 Anion Gap 22 H BUN 53 H Creatinine 9.98 H Est GFR ( Amer) 5 L Est GFR (Non-Af Amer) 4 L Glucose 148 H Lactic Acid Calcium 9.5 C-Reactive Protein 586.6 H 01/14/19 03:00 WBC RBC Hgb Hct MCV MCH MCHC RDW Plt Count Seg Neutrophils % Lymphocytes % Monocytes % Eosinophils % Basophils % Absolute Neutrophils Absolute Lymphocytes Absolute Monocytes Absolute Eosinophils Absolute Basophils Sodium Potassium Chloride Carbon Dioxide Anion Gap BUN Creatinine Est GFR ( Amer) Est GFR (Non-Af Amer) Glucose Lactic Acid 1.0 Calcium C-Reactive Protein Impressions: Foot X-Ray 01/13/19 22:00 IMPRESSION: 1. Nonspecific diffuse soft tissue edema. No soft tissue air 2. Partial amputation of 4th toe. 3. No radiographic evidence for osteomyelitis. Chest X-Ray 01/14/19 03:21 IMPRESSION: Cardiomegaly. Lungs are clear copyright 2011 [employer]- All Rights Reserved Assessment and Plan - Diagnosis (1) Gangrene of toe of right foot Is this a current diagnosis for this admission?: Yes Plan: Patient will be admitted to a medical monitor bed. She was placed on IV vancomycin and Zosyn. Surgery consultation will be obtained by Dr. Bonilla. MRI of the right foot will be obtained. She will likely need a rotation of the second and fourth toes due to gangrene and sepsis. 01/14/2019-patient admitted with gangrene of the right foot. On IV vancomycin and Zosyn surgical consult was done patient is going for possible transmetatarsal amputation of the right foot. PT consult OT consult was requested. Patient is requesting to go to a rehab facility. (2) Sepsis Qualifiers: Sepsis type: sepsis due to unspecified organism Sepsis acute organ dysfunction status: without acute organ dysfunction Qualified Code(s): A41.9 - Sepsis, unspecified organism Is this a current diagnosis for this admission?: Yes Plan: Blood cultures will be obtained in follow-up. We will follow her CBC. Antibiotics will be continued with IV vancomycin and Zosyn. This likely secondary to her diabetic foot cellulitis and gangrene. 01/14/2019-patient admitted with sepsis source is right foot gangrene present and IV vancomycin and IV Zosyn. Cultures are pending. (3) ESRD (end stage renal disease) Is this a current diagnosis for this admission?: Yes Plan: Nephrology consultation will be obtained for follow-up on hemodialysis 01/14/2019-patient has end-stage renal disease goes for dialysis Sunday she missed her dialysis yesterday. Consultation with Dr. Stoll was done. (4) Hypertension Is this a current diagnosis for this admission?: Yes Plan: We will continue clonidine and hydralazine and placed patient on as needed IV hydralazine 01/14/2019-patient blood pressure today is 126/62. With pulse rate of 72. Plan is to continue the present medications. 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 Patient is n.p.o. Latest blood sugar is 181. Plan is to continue the present management. (6) Morbid obesity with BMI of 40.0-44.9, adult Is this a current diagnosis for this admission?: No Plan: 01/14/2019-patient BMI is more than 44 diet exercise weight loss lifestyle modifications are discussed with the patient. Dietary consult was requested. - Time Time Spent with patient: 25-34 minutes Anticipated discharge: Home
[2019-01-14] MEDS ORDERED: BUPIVACAINE HCL 0.25 % INJ/PF (2.5 MG/1 ML) 30 ML VIAL ONE (14:11)
[2019-01-14] MEDS ORDERED: LIDOCAINE 2% INJ-PF (100 MG/5 ML) SYRINGE ONE (14:11)
[2019-01-14] MEDS ORDERED: ONDANSETRON HCL INJ/PF 4 MG/2 ML SDV ONE (14:12)
[2019-01-14] MEDS ORDERED: PROPOFOL INJ 200 MG/20 ML VIAL IV ONE (14:12)
[2019-01-14] MEDS ORDERED: MIDAZOLAM 2 MG/2 ML INJ ONE (14:12)
[2019-01-14] MEDS ORDERED: FENTANYL CITRATE INJ/PF 100 MCG/2 ML AMPUL ONE ×2 (14:12→15:58)
[2019-01-14] MEDS: CLONIDINE HCL 0.2 MG TABLET PO SCH ×2 (14:33→21:28)
[2019-01-14] MEDS: LIDOCAINE 1% INJ-PF (10 MG/ML) 30 ML SDV ONE ×2 (15:17→15:24)
[2019-01-14] MEDS ORDERED: DIPHENHYDRAMINE HCL 50 MG/ML VIAL IV PRN (15:25)
[2019-01-14] MEDS ORDERED: FENTANYL CITRATE INJ/PF 100 MCG/2 ML AMPUL IV PRN ×3 (15:25)
[2019-01-14] MEDS ORDERED: PROMETHAZINE HCL INJ 25 MG/1 ML VIAL IV PRN ×2 (15:25)
[2019-01-14] MEDS ORDERED: MEPERIDINE HCL/PF INJ 25 MG/1 ML DISP.SYRIN IV PRN (15:25)
[2019-01-14] MEDS ORDERED: HYDROMORPHONE HCL INJ/PF 2 MG/ML AMPULE ONE (15:54)
--- NOTE | 2019-01-14 16:07 | Operative Report ---
Nonrecallable Operative Report DATE OF SURGERY: 01/14/19 PREOPERATIVE DIAGNOSIS: Wet gangrene of the right foot POSTOPERATIVE DIAGNOSIS: 1. Wet gangrene of the right foot. 2. Necrotic second, third, fourth, and fifth toes of the right foot. 3. Large abscess extending approximately, to the level of the midfoot. OPERATION: 1. Amputation of the right second, third, fourth, and fifth toes (resected proximal to the metatarsal head). 2. Drainage of large midfoot abs cess. 3. Sharp, excisional debridement of necrotic skin and fatty tissue of the dorsum of the midfoot. SURGEON: BUSTER MO ANESTHESIA: LMAC TISSUE REMOVED OR ALTERED: Second, third, fourth, and fifth toes of the right foot COMPLICATIONS: None apparent ESTIMATED BLOOD LOSS: 20 cc PROCEDURE: Implants: 4 x 4 gauze soaked in Betadine. Procedure in detail: After informed consent was obtained, the patient was brought into the operating room and laid in the supine position. The right foot and ankle were prepped and draped in a normal sterile fashion. 1% lidocaine mixed with quarter percent Marcaine was injected into the foot for local anesthesia. An elliptical incision was created around the base of the toes of the right foot (second, third, fourth, and fifth). Dissection was carried through the subcutaneous tissue using sharp dissection. The toes were then disarticulated from the MTP joint. There was necrotic appearing tissue both dorsally and on the plantar surface. There is a large amount of purulent material emanating from the midfoot. Next, the skin of the midfoot was debrided away, until healthy bleeding edges were identified. The abscess cavity was irrigated and washed. Next, the metatarsal heads were divided using large bone cutters. This was done for the second, third, fourth, and fifth metatarsal heads. Again, all necrotic tissue was debrided away sharply. Once this was completed, hemostasis was achieved using electrocautery. 4 x 4 gauze soaked in Betadine were placed over the open area, and a dressing was fashioned. The procedure was then concluded. All sponge, instrument, and needle counts were correct. Condition: Fair. Please note that this is a threatened foot. The large abscess cavity found in the midfoot is very concerning for continued infection. I am unsure that the foot can be salvaged. We will continue with intravenous antibiotics and reevaluate the foot tomorrow. The patient may ultimately require a below-knee amputation.
[2019-01-15] MEDS: PIPERACILLIN SODIUM/TAZOBACTAM 2.25 GM in NORMAL SALINE 50 ML IV SCH ×3 (02:19→17:23)
[2019-01-15] MEDS: OXYCODONE-ACETAMINOPHEN 5-325 MG TABLET PO PRN ×2 (03:40→18:04)
[2019-01-15] MEDS ORDERED: NORMAL SALINE 1000 ML 1,000 ML IV PRN (05:00)
[2019-01-15 05:51] LABS: BLOOD UREA NITROGEN 62 mg/dL (7-20); CALCIUM 8.4 mg/dL (8.4-10.2); CARBON DIOXIDE 19 mmol/L (22-30); CHLORIDE 97 mmol/L (98-107); GLUCOSE 150 mg/dL (75-110); PHOSPHORUS 6.3 mg/dL (2.5-4.5); POTASSIUM 5.5 mmol/L (3.6-5.0)
[2019-01-15] MEDS: CLONIDINE HCL 0.2 MG TABLET PO SCH ×3 (05:53→21:45)
[2019-01-15 05:54] LABS: HEMATOCRIT 28.7 % (36.0-47.0); HEMOGLOBIN 9.3 g/dL (12.0-15.5); MEAN CORPUSCULAR HEMOGLOBIN 31.7 pg (27.0-33.4); MEAN CORPUSCULAR HGB CONC 32.5 g/dL (32.0-36.0); MEAN CORPUSCULAR VOLUME 97 fl (80-97); PLATELET COUNT 342 10^3/uL (150-450); RED BLOOD COUNT 2.94 10^6/uL (3.72-5.28); RED CELL DISTRIBUTION WIDTH 14.9 % (11.5-14.0); WHITE BLOOD COUNT 18.3 10^3/uL (4.0-10.5)
[2019-01-15 06:01] LABS: ABSOLUTE LYMPHOCYTES# (MANUAL) 0.9 10^3/uL (0.5-4.7); ABSOLUTE MONOCYTES # (MANUAL) 0.9 10^3/uL (0.1-1.4); ANISOCYTOSIS SLIGHT; BASOPHILS % (MANUAL) 0 % (0-2); EOSINOPHILS % (MANUAL) 0 % (0-6); LYMPHOCYTES % (MANUAL) 5 % (13-45); MONOCYTES % (MANUAL) 5 % (3-13); PLATELET COMMENT ADEQUATE; SEGMENTED NEUTROPHILS % (MAN) 90 % (42-78); TOTAL CELLS COUNTED 100
[2019-01-15 06:10] LABS: ANION GAP 20 (5-19)
--- NOTE | 2019-01-15 08:16 | PDOC PROGRESS REPORT ---
Subjective Progress Note for:: 01/15/19 Subjective:: no c/o Reason For Visit: RIGHT FOOT DIABETIC CELLULITIS WITH SECOND AND Physical Exam Vital Signs: Temp Pulse Resp BP Pulse Ox 98.6 F 84 20 162/97 H 92 01/15/19 00:58 01/15/19 00:58 01/15/19 00:58 01/15/19 00:58 01/15/19 00:58 Intake & Output 01/14/19 01/15/19 01/16/19 06:59 06:59 06:59 Intake Total 1330 Output Total 0 Balance 1330 Weight 105.7 kg 108.1 kg General appearance: PRESENT: no acute distress Extremities exam: PRESENT: other - Right foot= surgical wound clean, exposed metatarsal bones, no odor or drainage, no erythema Results Laboratory Results: 01/15/19 04:45 01/15/19 04:45 01/15/19 01/15/19 01/15/19 04:45 04:45 04:45 WBC 18.3 H RBC 2.94 L Hgb 9.3 L Hct 28.7 L MCV 97 MCH 31.7 MCHC 32.5 RDW 14.9 H Plt Count 342 Seg Neutrophils % Not Reportable Lymphocytes % Not Reportable Monocytes % Not Reportable Eosinophils % Not Reportable Basophils % Not Reportable Absolute Neutrophils Not Reportable Absolute Lymphocytes Not Reportable Absolute Monocytes Not Reportable Absolute Eosinophils Not Reportable Absolute Basophils Not Reportable Sodium 135.8 L Potassium 5.5 H Chloride 97 L Carbon Dioxide 19 L Anion Gap 20 H BUN 62 H Creatinine 10.68 H Est GFR ( Amer) 4 L Est GFR (Non-Af Amer) 4 L Glucose 150 H Calcium 8.4 Phosphorus 6.3 H PTH Intact 599.4 H Impressions: Foot X-Ray 01/13/19 22:00 IMPRESSION: 1. Nonspecific diffuse soft tissue edema. No soft tissue air 2. Partial amputation of 4th toe. 3. No radiographic evidence for osteomyelitis. Chest X-Ray 01/14/19 03:21 IMPRESSION: Cardiomegaly. Lungs are clear copyright 2010 [employer]- All Rights Reserved Assessment & Plan - Diagnosis (1) Gangrene of toe of right foot Is this a current diagnosis for this admission?: Yes - Plan Summary Plan Summary: A/ POD#1 after 2 through 5 toes and forefoot amputation VSS WBC 18.5 K= 5.5 P/ Continue IV ABx Continue RLE elevation and strict bedrest BID NS wet-to-dry dressing changes Will examine wound daily possible wound closure in OR in a few days once the local infection is under control and cx results are back
[2019-01-15] MEDS ORDERED: EPOETIN ALFA-EPBX 10,000 UNIT/ML VIAL (RENAL) IV PRN (09:00)
--- NOTE | 2019-01-15 09:05 | PDOC PROGRESS REPORT ---
Subjective Progress Note for:: 01/15/19 Subjective:: I am seeing the patient during dialysis this morning. She underwent a successful amputation of her right second third fourth and fifth toes with drainage of the midfoot abscess and debridement by Dr. Boone yesterday afternoon. Today she did not complain of much pain. She is lying comfortably in bed while on dialysis. So far she is tolerating dialysis without any problems. Reason For Visit: RIGHT FOOT DIABETIC CELLULITIS WITH SECOND AND Physical Exam Vital Signs: Temp Pulse Resp BP Pulse Ox 98.6 F 84 20 162/97 H 92 01/15/19 00:58 01/15/19 00:58 01/15/19 00:58 01/15/19 00:58 01/15/19 00:58 Intake & Output 01/14/19 01/15/19 01/16/19 06:59 06:59 06:59 Intake Total 1330 Output Total 0 Balance 1330 Weight 105.7 kg 108.1 kg Vitals during dialysis: Blood pressure 123/60, heart rate of 69, blood flow rate of 400 mL/min and dialysate flow rate of 800 mL/min. Exam: General appearance: PRESENT: no acute distress, cooperative, well-developed, well-nourished Head exam: PRESENT: atraumatic, normocephalic Eye exam: PRESENT: conjunctiva slightly pale, PERRLA. ABSENT: scleral icterus Neck exam: ABSENT: JVD Respiratory exam: PRESENT: Normal breath sounds. ABSENT: crackles, rales, rhonchi, unlabored, wheezes Cardiovascular exam: PRESENT: Regular rate rhythm -+S1, +S2. ABSENT: diastolic murmur, systolic murmur GI/Abdominal exam: PRESENT: normal bowel sounds, soft. ABSENT: guarding, mass, tenderness Extremities exam: ABSENT: No edema Neurological exam: PRESENT: alert, awake, oriented to person, place and time. Skin exam: PRESENT: dry, warm, Results Laboratory Results: 01/15/19 04:45 01/15/19 04:45 01/15/19 01/15/19 01/15/19 04:45 04:45 04:45 WBC 18.3 H RBC 2.94 L Hgb 9.3 L Hct 28.7 L MCV 97 MCH 31.7 MCHC 32.5 RDW 14.9 H Plt Count 342 Seg Neutrophils % Not Reportable Lymphocytes % Not Reportable Monocytes % Not Reportable Eosinophils % Not Reportable Basophils % Not Reportable Absolute Neutrophils Not Reportable Absolute Lymphocytes Not Reportable Absolute Monocytes Not Reportable Absolute Eosinophils Not Reportable Absolute Basophils Not Reportable Sodium 135.8 L Potassium 5.5 H Chloride 97 L Carbon Dioxide 19 L Anion Gap 20 H BUN 62 H Creatinine 10.68 H Est GFR ( Amer) 4 L Est GFR (Non-Af Amer) 4 L Glucose 150 H Calcium 8.4 Phosphorus 6.3 H PTH Intact 599.4 H Impressions: Foot X-Ray 01/13/19 22:00 IMPRESSION: 1. Nonspecific diffuse soft tissue edema. No soft tissue air 2. Partial amputation of 4th toe. 3. No radiographic evidence for osteomyelitis. Chest X-Ray 01/14/19 03:21 IMPRESSION: Cardiomegaly. Lungs are clear copyright 2011 [employer]- All Rights Reserved Assessment & Plan - Diagnosis (1) Gangrene of toe of right foot Is this a current diagnosis for this admission?: Yes Plan: Status post amputation of the right second, third, fourth and fifth toes, 01/14/[address] Boone. (2) Cellulitis of right foot Is this a current diagnosis for this admission?: Yes Plan: On IV Zosyn and vancomycin. (3) ESRD (end stage renal disease) Is this a current diagnosis for this admission?: Yes Plan: We will do dialysis today for 3 hours, using the patient's AV fistula, with 2 potassium bath, blood flow rate of 400 mL per minute, dialysate flow rate of 800 mL per minute, ultrafiltration 3 L as tolerated, no heparin and Procrit with 10,000 units during dialysis intravenously. Discussed dialysis prescription with her dialysis nurse. Patient will be monitored throughout dialysis treatment. (4) Anemia in chronic kidney disease (CKD) Is this a current diagnosis for this admission?: Yes Plan: Procrit will be given during dialysis as needed. (5) Hyperphosphatemia Is this a current diagnosis for this admission?: Yes Plan: Start calcium acetate. (6) Hypertension Is this a current diagnosis for this admission?: Yes Plan: Well-controlled without medications at this time. (7) Type 2 diabetes mellitus Qualifiers: Diabetes mellitus fci insulin use: with fci use Diabetes mellitus complication status: with kidney complications Diabetes mellitus complication detail: with nephropathy Qualified Code(s): E11.21 - Type 2 diabetes mellitus with diabetic nephropathy; Z79.4 - retirement (current) use of insulin; Z79.4 - moth exterminator (current) use of insulin; Z79.4 - retirement (current) use of insulin; Z79.4 - moth exterminator (current) use of insulin Is this a current diagnosis for this admission?: Yes - Time Time with patient: 15-25 minutes
--- NOTE | 2019-01-15 12:49 | PDOC PROGRESS REPORT ---
Subjective Progress Note for:: 01/15/19 Subjective:: 63 year old -[place] female who presented to the emergency room with acute onset of worsening right foot pain and swelling with blackened discoloration of her second and fourth toes. She denies any fever or chills, nausea or vomiting or abdominal pain. No chest pain with this investigations. No headache or dizziness or blurred vision. Upon presentation to the emergency room, blood pressure was elevated 161/87 with a pulse of 65 respiratory to 24 temperature 98.9 pulse 70% on room air. Labs revealed anemia with hemoglobin of 10.6 hematocrit 32.4 and chloride of 91 with -22 with BUN of 53 and creatinine 9.98 with end-stage renal disease on hemodialy sis. She was status post hemodialysis on Sunday. C-reactive protein was 586.6. She had for which x-ray showed no acute cardia pulmonary disease. Her right foot x-ray revealed non-specific diffuse soft tissue edema with no soft tissue air. It showed partial amputation of the right fourth toe with no radiographic evidence for osteomyelitis. The patient was given IV Zosyn and vancomycin as well as IV morphine sulfate and 2 p.o. Percocet. She will be admitted to a medically monitored bed for further evaluation and management. 01/14/[id number]-gvas-old female with history of end-stage renal disease, diabetes mellitus, hypertension admitted with right foot gangrene. She is going for surgery today. Presently on IV vancomycin and Zosyn and also receiving IV morphine and Percocets. Still complaining of pain. 01/15/2019-patient is admitted with right foot gangrene status post amputation of 2nd-5th toes and a forefoot amputation. I saw her in the dialysis unit this morning she is more comfortable happy smiling. denies Any pain. Reason For Visit: RIGHT FOOT DIABETIC CELLULITIS WITH SECOND AND Physical Exam Vital Signs: Temp Pulse Resp BP Pulse Ox 98.4 F 84 17 143/51 H 94 01/15/19 12:12 01/15/19 12:12 01/15/19 12:12 01/15/19 12:12 01/15/19 12:12 Intake & Output 01/14/19 01/15/19 01/16/19 06:59 06:59 06:59 Intake Total 1330 Output Total 0 Balance 1330 Weight 105.7 kg 108.1 kg General appearance: PRESENT: no acute distress Head exam: PRESENT: atraumatic Eye exam: PRESENT: PERRLA Mouth exam: PRESENT: moist, tongue midline Teeth exam: PRESENT: poor dentation Neck exam: ABSENT: carotid bruit, JVD, lymphadenopathy, thyromegaly Respiratory exam: PRESENT: decreased breath sounds Cardiovascular exam: PRESENT: RRR. ABSENT: diastolic murmur, rubs, systolic murmur GI/Abdominal exam: PRESENT: normal bowel sounds, soft. ABSENT: distended, guarding, mass, organolmegaly, rebound, tenderness Rectal exam: PRESENT: deferred Extremities exam: PRESENT: full ROM, other - Partially amputated right foot.. ABSENT: calf tenderness, clubbing, pedal edema Neurological exam: PRESENT: alert, awake, oriented to person, oriented to place, oriented to time, oriented to situation, CN II-XII grossly intact. ABSENT: motor sensory deficit Psychiatric exam: PRESENT: appropriate affect, normal mood. ABSENT: homicidal ideation, suicidal ideation Results Laboratory Results: 01/15/19 04:45 01/15/19 04:45 01/15/19 01/15/19 01/15/19 04:45 04:45 04:45 WBC 18.3 H RBC 2.94 L Hgb 9.3 L Hct 28.7 L MCV 97 MCH 31.7 MCHC 32.5 RDW 14.9 H Plt Count 342 Seg Neutrophils % Not Reportable Lymphocytes % Not Reportable Monocytes % Not Reportable Eosinophils % Not Reportable Basophils % Not Reportable Absolute Neutrophils Not Reportable Absolute Lymphocytes Not Reportable Absolute Monocytes Not Reportable Absolute Eosinophils Not Reportable Absolute Basophils Not Reportable Sodium 135.8 L Potassium 5.5 H Chloride 97 L Carbon Dioxide 19 L Anion Gap 20 H BUN 62 H Creatinine 10.68 H Est GFR ( Amer) 4 L Est GFR (Non-Af Amer) 4 L Glucose 150 H Calcium 8.4 Phosphorus 6.3 H PTH Intact 599.4 H Impressions: Foot X-Ray 01/13/19 22:00 IMPRESSION: 1. Nonspecific diffuse soft tissue edema. No soft tissue air 2. Partial amputation of 4th toe. 3. No radiographic evidence for osteomyelitis. Chest X-Ray 01/14/19 03:21 IMPRESSION: Cardiomegaly. Lungs are clear copyright 2011 [employer]- All Rights Reserved Assessment and Plan - Diagnosis (1) Gangrene of toe of right foot Is this a current diagnosis for this admission?: Yes Plan: Patient will be admitted to a medical monitor bed. She was placed on IV vanco mycin and Zosyn. Surgery consultation will be obtained by Dr. Bonilla. MRI of the right foot will be obtained. She will likely need a rotation of the second and fourth toes due to gangrene and sepsis. 01/14/2019-patient admitted with gangrene of the right foot. On IV vancomycin and Zosyn surgical consult was done patient is going for possible transmetatarsal amputation of the right foot. PT consult OT consult was requested. Patient is requesting to go to a rehab facility. 01/15/2019-status post surgery postop day 1. Amputation of right foot 2nd-5th toes and forefoot amputation. Patient is doing much better today. wBC count came down. aFebrile. (2) Sepsis Qualifiers: Sepsis type: sepsis due to unspecified organism Sepsis acute organ dysfunction status: without acute organ dysfunction Qualified Code(s): A41.9 - Sepsis, unspecified organism Is this a current diagnosis for this admission?: Yes Plan: Blood cultures will be obtained in follow-up. We will follow her CBC. Antibiotics will be continued with IV vancomycin and Zosyn. This likely secondary to her diabetic foot cellulitis and gangrene. 01/14/2019-patient admitted with sepsis source is right foot gangrene present and IV vancomycin and IV Zosyn. Cultures are pending. 01/15/2019-patient was admitted with sepsis source is the right foot gangrene status post surgery WBC is coming down patient is on vancomycin and Zosyn afebrile. Sepsis is resolving. (3) ESRD (end stage renal disease) Is this a current diagnosis for this admission?: Yes Plan: Nephrology consultation will be obtained for follow-up on hemodialysis 01/14/2019-patient has end-stage renal disease goes for dialysis Sunday she missed her dialysis yesterday. Consultation with Dr. Stoll was done. 01/15/2019-patient has history of end-stage renal disease outpatient schedule is Sunday she had dialysis this morning. Nephrology on board. (4) Hypertension Is this a current diagnosis for this admission?: Yes Plan: We will continue clonidine and hydralazine and placed patient on as needed IV hydralazine 01/14/2019-patient blood pressure today is 126/62. With pulse rate of 72. Plan is to continue the present medications. 01/15/2019-patient blood pressure today is 162/97. With the dialysis and fluid removal hopefully blood pressure will come back to normal range. (5) Type 2 diabetes mellitus Qualifiers: Diabetes mellitus shelter insulin use: with shelter use Diabetes mellitus complication status: with kidney complications Diabetes mellitus complication detail: with nephropathy Qualified Code(s): E11.21 - Type 2 diabetes mellitus with diabetic nephropathy; Z79.4 - snf (current) use of insulin; Z79.4 - terminal superintendent (current) use of insulin; Z79.4 - snf (current) use of insulin; Z79.4 - terminal superintendent (current) use of insulin Is this a current diagnosis for this admission?: Yes Plan: 01/14/2019-patient has history of type 2 diabetes mellitus on insulin sliding every 6 hours. Patient is n.p.o. Latest blood sugar is 181. Plan is to continue the present management. 01/15/2019-patient has history of type 2 diabetes mellitus on insulin sliding scale plan to switch the sliding scale to before meals and at bedtime. Latest blood sugar is 152 stable. (6) Morbid obesity with BMI of 40.0-44.9, adult Is this a current diagnosis for this admission?: No - Time Time Spent with patient: 25-34 minutes Smoking Cessation Education: over 10 minutes - Body Medications reviewed and adjusted accordingly: Yes Anticipated discharge: Home
[2019-01-15] MEDS: INSULIN LISPRO 100 UNIT/ML 3 ML VIAL SUBCUT SCH ×3 (13:29→17:16)
[2019-01-15] MEDS: CALCIUM ACETATE 667 MG CAPSULE PO SCH ×2 (13:36→17:23)
[2019-01-15] MEDS ORDERED: VANCOMYCIN HCL 750 MG in DEXTROSE 5%-WATER 250 ML IV SCH (18:00)
[2019-01-16] MEDS: INSULIN LISPRO 100 UNIT/ML 3 ML VIAL SUBCUT SCH ×5 (01:11→18:11)
[2019-01-16] MEDS: PIPERACILLIN SODIUM/TAZOBACTAM 2.25 GM in NORMAL SALINE 50 ML IV SCH ×3 (01:14→17:39)
[2019-01-16] MEDS: OXYCODONE-ACETAMINOPHEN 5-325 MG TABLET PO PRN ×3 (03:13→17:46)
[2019-01-16 05:59] LABS: ABSOLUTE BASOPHILS # (AUTO) 0.1 10^3/uL (0.0-0.2); ABSOLUTE EOSINOPHILS # (AUTO) 0.2 10^3/uL (0.0-0.6); ABSOLUTE MONOCYTES (AUTO) 0.9 10^3/uL (0.1-1.4); ABSOLUTE NEUT (AUTO) 13.3 10^3/uL (1.7-8.2); BASOPHILS % (AUTO) 0.4 % (0-2); EOSINOPHILS % (AUTO) 1.1 % (0-6); HEMOGLOBIN 9.2 g/dL (12.0-15.5); LYMPHOCYTES % (AUTO) 6.3 % (13-45); MEAN CORPUSCULAR VOLUME 97 fl (80-97); MONOCYTES % (AUTO) 6.1 % (3-13); PLATELET COUNT 339 10^3/uL (150-450); RED BLOOD COUNT 2.89 10^6/uL (3.72-5.28); RED CELL DISTRIBUTION WIDTH 14.9 % (11.5-14.0); SEGMENTED NEUTROPHILS % (AUTO) 86.1 % (42-78); TOTAL CELLS COUNTED % (AUTO) 100 %; WHITE BLOOD COUNT 15.4 10^3/uL (4.0-10.5)
[2019-01-16 06:16] LABS: ANION GAP 14 (5-19); BLOOD UREA NITROGEN 38 mg/dL (7-20); CALCIUM 8.8 mg/dL (8.4-10.2); CARBON DIOXIDE 27 mmol/L (22-30); CHLORIDE 96 mmol/L (98-107); GLUCOSE 191 mg/dL (75-110); POTASSIUM 4.3 mmol/L (3.6-5.0)
[2019-01-16] MEDS: CLONIDINE HCL 0.2 MG TABLET PO SCH ×3 (06:27→22:04)
[2019-01-16] MEDS ORDERED: GLUCAGON,HUMAN RECOMB 1 MG INJ SUBCUT PRN (09:00)
[2019-01-16] MEDS ORDERED: DEXTROSE 50%-WATER 25 GM/50 ML DISP.SYRIN IV PRN ×2 (09:00)
[2019-01-16] MEDS ORDERED: DEXTROSE 40% GEL 15 GM TUBE PO PRN ×2 (09:00)
--- NOTE | 2019-01-16 09:00 | PDOC PROGRESS REPORT ---
Subjective Progress Note for:: 01/16/19 Subjective:: patient tearful and depressed about her right foot Reason For Visit: RIGHT FOOT DIABETIC CELLULITIS WITH SECOND AND Physical Exam Vital Signs: Temp Pulse Resp BP Pulse Ox 98.7 F 70 16 139/54 H 91 L 01/15/19 22:56 01/15/19 22:56 01/15/19 22:56 01/15/19 22:56 01/15/19 22:56 Intake & Output 01/15/19 01/16/19 01/17/19 06:59 06:59 06:59 Intake Total 1330 1075 Output Total 0 2200 Balance 1330 -1125 Weight 108.1 kg 110.1 kg Extremities exam: PRESENT: other - Right foot= exposed mputated metatarsal bone 2-5; granulation present, necrotic dorsal forefoot skin Results Laboratory Results: 01/16/19 05:41 01/16/19 05:41 01/16/19 01/16/19 05:41 05:41 WBC 15.4 H RBC 2.89 L Hgb 9.2 L Hct 28.0 L MCV 97 MCH 32.0 MCHC 33.0 RDW 14.9 H Plt Count 339 Seg Neutrophils % 86.1 H Sodium 137.3 Potassium 4.3 Chloride 96 L Carbon Dioxide 27 Anion Gap 14 BUN 38 H Creatinine 6.95 H Est GFR ( Amer) 7 L Glucose 191 H Calcium 8.8 Impressions: Foot X-Ray 01/13/19 22:00 IMPRESSION: 1. Nonspecific diffuse soft tissue edema. No soft tissue air 2. Partial amputation of 4th toe. 3. No radiographic evidence for osteomyelitis. Chest X-Ray 01/14/19 03:21 IMPRESSION: Cardiomegaly. Lungs are clear copyright 2011 [employer]- All Rights Reserved Assessment & Plan - Diagnosis (1) Gangrene of toe of right foot Is this a current diagnosis for this admission?: Yes - Plan Summary Plan Summary: A/ POD#2 after amputation right 2-5 toes and right forefoot Presence of granulation tissue Exposed bone ends Necrotic right forefoot dorsal skin P/ Debridment right foot today the possibility that the patient might need a BKA has been entertained briefly; however, the patient does not seem to be receptive at this time and wishes to try alternate surgical options before considering the BKA
[2019-01-16] MEDS: CALCIUM ACETATE 667 MG CAPSULE PO SCH ×3 (09:10→17:39)
--- NOTE | 2019-01-16 12:22 | PDOC PROGRESS REPORT ---
Subjective Progress Note for:: 01/16/19 Subjective:: 63 year old -[place] female who presented to the emergency room with acute onset of worsening right foot pain and swelling with blackened discoloration of her second and fourth toes. She denies any fever or chills, nausea or vomiting or abdominal pain. No chest pain with this investigations. No headache or dizziness or blurred vision. Upon presentation to the emergency room, blood pressure was elevated 161/87 with a pulse of 65 respiratory to 24 temperature 98.9 pulse 70% on room air. Labs revealed anemia with hemoglobin of 10.6 hematocrit 32.4 and chloride of 91 with -22 with BUN of 53 and creatinine 9.98 with end-stage renal disease on hemodialy sis. She was status post hemodialysis on Sunday. C-reactive protein was 586.6. She had for which x-ray showed no acute cardia pulmonary disease. Her right foot x-ray revealed non-specific diffuse soft tissue edema with no soft tissue air. It showed partial amputation of the right fourth toe with no radiographic evidence for osteomyelitis. The patient was given IV Zosyn and vancomycin as well as IV morphine sulfate and 2 p.o. Percocet. She will be admitted to a medically monitored bed for further evaluation and management. 01/14/[id number]-jqfm-old female with history of end-stage renal disease, diabetes mellitus, hypertension admitted with right foot gangrene. She is going for surgery today. Presently on IV vancomycin and Zosyn and also receiving IV morphine and Percocets. Still complaining of pain. 01/15/2019-patient is admitted with right foot gangrene status post amputation of 2nd-5th toes and a forefoot amputation. I saw her in the dialysis unit this morning she is more comfortable happy smiling. denies Any pain. 01/16/[id number]-hwml-old female with history of type 2 diabetes mellitus ESRD on hemodialysis admitted with right foot gangrene status post removal of the 2nd-5 th toes and partial amputation of the right foot she is going back for the debridement procedure again today. Reason For Visit: RIGHT FOOT DIABETIC CELLULITIS WITH SECOND AND Physical Exam Vital Signs: Temp Pulse Resp BP Pulse Ox 99.0 F 78 18 156/62 H 92 01/16/19 08:12 01/16/19 08:12 01/16/19 08:12 01/16/19 08:12 01/16/19 08:12 Intake & Output 01/15/19 01/16/19 01/17/19 06:59 06:59 06:59 Intake Total 1330 1075 50 Output Total 0 2200 Balance 1330 -1125 50 Weight 108.1 kg 110.1 kg General appearance: PRESENT: no acute distress Head exam: PRESENT: atraumatic Eye exam: PRESENT: PERRLA Mouth exam: PRESENT: dry mucosa Neck exam: ABSENT: carotid bruit, JVD, lymphadenopathy, thyromegaly Respiratory exam: PRESENT: clear to auscultation adamaris. ABSENT: rales, rhonchi, wheezes Cardiovascular exam: PRESENT: RRR. ABSENT: diastolic murmur, rubs, systolic murmur GI/Abdominal exam: PRESENT: normal bowel sounds, soft. ABSENT: distended, guarding, mass, organolmegaly, rebound, tenderness Rectal exam: PRESENT: deferred Extremities exam: PRESENT: full ROM. ABSENT: calf tenderness, clubbing, pedal edema Neurological exam: PRESENT: alert, awake, oriented to person, oriented to place, oriented to time, oriented to situation, CN II-XII grossly intact. ABSENT: motor sensory deficit Skin exam: PRESENT: dry, intact, warm. ABSENT: cyanosis, rash Results Laboratory Results: 01/16/19 05:41 01/16/19 05:41 01/16/19 01/16/19 05:41 05:41 WBC 15.4 H RBC 2.89 L Hgb 9.2 L Hct 28.0 L MCV 97 MCH 32.0 MCHC 33.0 RDW 14.9 H Plt Count 339 Seg Neutrophils % 86.1 H Sodium 137.3 Potassium 4.3 Chloride 96 L Carbon Dioxide 27 Anion Gap 14 BUN 38 H Creatinine 6.95 H Est GFR ( Amer) 7 L Glucose 191 H Calcium 8.8 01/14/19 05:35 Toe - Right Fourth Gram Stain - Final Impressions: Foot X-Ray 01/13/19 22:00 IMPRESSION: 1. Nonspecific diffuse soft tissue edema. No soft tissue air 2. Partial amputation of 4th toe. 3. No radiographic evidence for osteomyelitis. Chest X-Ray 01/14/19 03:21 IMPRESSION: Cardiomegaly. Lungs are clear copyright 2011 [employer]- All Rights Reserved Assessment and Plan - Diagnosis (1) Gangrene of toe of right foot Is this a current diagnosis for this admission?: Yes Plan: Patient will be admitted to a medical monitor bed. She was placed on IV vancomycin and Zosyn. Surgery consultation will be obtained by Dr. Bonilla. MRI of the right foot will be obtained. She will likely need a rotation of the second and fourth toes due to gangrene and sepsis. 01/14/2019-patient admitted with gangrene of the right foot. On IV vancomycin and Zosyn surgical consult was done patient is going for possible transmetatarsal amputation of the right foot. PT consult OT consult was requested. Patient is requesting to go to a rehab facility. 01/15/2019-status post surgery postop day 1. Amputation of right foot 2nd-5th toes and forefoot amputation. Patient is doing much better today. wBC count came down. aFebrile. 01/16 2019-patient has partial limitation of the right foot with removal of 2nd- 5th toes she is going back to surgery today for debridement. Presently on IV vancomycin and Zosyn plan is to continue the antibiotics. (2) Sepsis Qualifiers: Sepsis type: sepsis due to unspecified organism Sepsis acute organ dysfunction status: without acute organ dysfunction Qualified Code(s): A41.9 - Sepsis, unspecified organism Is this a current diagnosis for this admission?: Yes Plan: Blood cultures will be obtained in follow-up. We will follow her CBC. Antibiotics will be continued with IV vancomycin and Zosyn. This likely s econdary to her diabetic foot cellulitis and gangrene. 01/14/2019-patient admitted with sepsis source is right foot gangrene present and IV vancomycin and IV Zosyn. Cultures are pending. 01/15/2019-patient was admitted with sepsis source is the right foot gangrene status post surgery WBC is coming down patient is on vancomycin and Zosyn afebrile. Sepsis is resolving. 01/16/2019-patient admitted with sepsis most likely secondary to right foot gangrene. Cultures came back positive for staph aureus and gram-negative rods. (3) ESRD (end stage renal disease) Is this a current diagnosis for this admission?: Yes Plan: Nephrology consultation will be obtained for follow-up on hemodialysis 01/14/2019-patient has end-stage renal disease goes for dialysis Sunday she missed her dialysis yesterday. Consultation with Dr. Stoll was done. 01/15/2019-patient has history of end-stage renal disease outpatient schedule is Sunday she had dialysis this morning. Nephrology on board. 01/16/2019-patient has history of end-stage renal disease and she has dialysis yesterday. Most likely she will go for dialysis tomorrow. (4) Hypertension Is this a current diagnosis for this admission?: Yes Plan: We will continue clonidine and hydralazine and placed patient on as needed IV hydralazine 01/14/2019-patient blood pressure today is 126/62. With pulse rate of 72. Plan is to continue the present medications. 01/15/2019-patient blood pressure today is 162/97. With the dialysis and fluid removal hopefully blood pressure will come back to normal range. 01/16/2019-patient blood pressure today is 130/90 stable. Plan is to continue the present management. (5) Type 2 diabetes mellitus Qualifiers: Diabetes mellitus alf insulin use: with alf use Diabetes beulah itus complication status: with kidney complications Diabetes mellitus com plication detail: with nephropathy Qualified Code(s): E11.21 - Type 2 diabetes mellitus with diabetic nephropathy; Z79.4 - correction (current) use of insulin; Z79.4 - correction (current) use of insulin; Z79.4 - correction (current) use of insulin; Z79.4 - terminal system operator (current) use of insulin Is this a current diagnosis for this admission?: Yes Plan: 01/14/2019-patient has history of type 2 diabetes mellitus on insulin sliding every 6 hours. Patient is n.p.o. Latest blood sugar is 181. Plan is to cont inue the present management. 01/15/2019-patient has history of type 2 diabetes mellitus on insulin sliding scale plan to switch the sliding scale to before meals and at bedtime. Latest blood sugar is 152 stable. 01/16/2019-patient has history of type 2 diabetes mellitus on insulin sliding scale latest blood sugar is an 181. on Insulin sliding scale. Plan is to continue the present management. (6) Morbid obesity with BMI of 40.0-44.9, adult Is this a current diagnosis for this admission?: No - Time Time Spent with patient: 25-34 minutes Medications reviewed and adjusted accordingly: Yes Anticipated discharge: SNF
[2019-01-16] MEDS ORDERED: PROPOFOL INJ 200 MG/20 ML VIAL IV ONE (12:34)
[2019-01-16] MEDS ORDERED: MIDAZOLAM 2 MG/2 ML INJ ONE (12:34)
[2019-01-16] MEDS ORDERED: FENTANYL CITRATE INJ/PF 100 MCG/2 ML AMPUL ONE (12:34)
[2019-01-16] MEDS ORDERED: OXYCODONE-ACETAMINOPHEN 5-325 MG TABLET PO PRN ×2 (14:23)
[2019-01-16] MEDS ORDERED: DIPHENHYDRAMINE HCL 50 MG/ML VIAL IV PRN (14:23)
[2019-01-16] MEDS ORDERED: FENTANYL CITRATE INJ/PF 100 MCG/2 ML AMPUL IV PRN ×3 (14:23)
[2019-01-16] MEDS ORDERED: MEPERIDINE HCL/PF INJ 25 MG/1 ML DISP.SYRIN IV PRN (14:23)
[2019-01-16] MEDS ORDERED: ONDANSETRON HCL INJ/PF 4 MG/2 ML SDV IV PRN (14:23)
[2019-01-16] MEDS ORDERED: MORPHINE SULFATE 10 MG/ML INJ IV PRN (14:23)
[2019-01-16] MEDS: FENTANYL CITRATE INJ/PF 100 MCG/2 ML AMPUL ONE ×2 (14:44→14:49)
--- NOTE | 2019-01-16 14:48 | Operative Report ---
Nonrecallable Operative Report DATE OF SURGERY: 01/16/19 PREOPERATIVE DIAGNOSIS: necrosis right foot dorsal skin 8 x 3 cm; s/p transmetatarsal amputaion 2-5 digits POSTOPERATIVE DIAGNOSIS: same OPERATION: full thicknes debridment rigth foot dorsal skin down to fasca approx. 8x3 cm ANESTHESIA: Moderate Sedation TISSUE REMOVED OR ALTERED: necrotic skin COMPLICATIONS: none ESTIMATED BLOOD LOSS: < 5 mL INTRAOPERATIVE FINDINGS: necrotic dorsal foot skin PROCEDURE: see dictation
[2019-01-16] MEDS: HYDROMORPHONE HCL INJ/PF 2 MG/ML AMPULE ONE ×2 (14:51→15:03)
--- NOTE | 2019-01-16 15:45 | OPERATIVE REPORT E ---
Operative Report NAME: BEA QUINONES : 1955 AGE: 63Y DATE OF SURGERY: 01/16/2019 ROOM: [facility] PREOPERATIVE DIAGNOSES: 1. Necrosis of right foot skin. 2. Status post transmetatarsal amputation, second through fifth toes, right foot. POSTOPERATIVE DIAGNOSES: 1. Necrosis of right foot skin. 2. Status post transmetatarsal amputation, second through fifth toes, right foot. OPERATION: Full-thickness debridement down to fascia of skin of the right foot measuring 8 x 3 cm. SURGEON: HILL ELIAS M.D. AUTOMOTIVE METALSMITH: None. ANESTHESIA: IV sedation. ESTIMATED BLOOD LOSS: Minimal. COMPLICATIONS: None. FLUIDS: 100 mL of crystalloid. INDICATION AND FINDINGS: This is a 63-year-old female with diabetes and end-stage renal disease who underwent a transmetatarsal amputation because of infection of right forefoot about 4 days ago with removal of the second through fifth toes and heads of the metatarsal toes second through five. The patient was examined today on rounds and necrosis of the dorsal aspect of the right foot skin was identified. The decision was made to take her to surgery to undergo full-thickness debridement of the necrotic right foot skin. DESCRIPTION OF PROCEDURE: The procedure was done in the operating room. The patient was placed in the supine position. Sedation was provided by the anesthesiologist. The right leg and foot were prepped and draped in the usual fashion. The area of necrosis of the dorsal skin was marked with a surgical marker and sharply excised. The tissue underneath was found to be ischemic and debrided down to fascia using a curette until good bleeding tissue was obtained. Additional edges of necrotic subcutaneous fat were then identified, and they were sharply removed. The area was then irrigated and dried and packed with Betadine-soaked 4 x 4s, dry 4 x 4s, ABDs, Kerlix, and Noel bandages. The patient tolerated the procedure well and was transferred to the recovery room in satisfactory condition. DICTATING PHYSICIAN: HILL ELIAS M.D. [id number] PHY#: [id number] ID: [id number] JOB#: [id number] ACCT: [id number] cc:HILL ELIAS M.D. > [facility]
[2019-01-17] MEDS: INSULIN LISPRO 100 UNIT/ML 3 ML VIAL SUBCUT SCH ×4 (03:27→18:12)
[2019-01-17] MEDS: PIPERACILLIN SODIUM/TAZOBACTAM 2.25 GM in NORMAL SALINE 50 ML IV SCH ×3 (03:31→17:13)
[2019-01-17 04:24] LABS: ANION GAP 14 (5-19); BLOOD UREA NITROGEN 46 mg/dL (7-20); CALCIUM 9.1 mg/dL (8.4-10.2); CARBON DIOXIDE 27 mmol/L (22-30); CHLORIDE 97 mmol/L (98-107); GLUCOSE 161 mg/dL (75-110); POTASSIUM 5.1 mmol/L (3.6-5.0)
[2019-01-17] MEDS ORDERED: EPOETIN ALFA INJ 20000 UNIT/1 ML VIAL (RENAL) IV PRN (05:00)
[2019-01-17] MEDS ORDERED: EPOETIN ALFA-EPBX 10,000 UNIT/ML VIAL (RENAL) IV PRN (05:00)
[2019-01-17] MEDS ORDERED: NORMAL SALINE 1000 ML 1,000 ML IV PRN (05:00)
[2019-01-17] MEDS: OXYCODONE-ACETAMINOPHEN 5-325 MG TABLET PO PRN ×3 (05:28→18:56)
[2019-01-17] MEDS: CLONIDINE HCL 0.2 MG TABLET PO SCH ×3 (05:29→21:31)
[2019-01-17 06:36] LABS: ABSOLUTE BASOPHILS # (AUTO) 0.1 10^3/uL (0.0-0.2); ABSOLUTE EOSINOPHILS # (AUTO) 0.2 10^3/uL (0.0-0.6); ABSOLUTE LYMPHOCYTES (AUTO) 1.1 10^3/uL (0.5-4.7); ABSOLUTE MONOCYTES (AUTO) 1.1 10^3/uL (0.1-1.4); ABSOLUTE NEUT (AUTO) 15.6 10^3/uL (1.7-8.2); BASOPHILS % (AUTO) 0.4 % (0-2); EOSINOPHILS % (AUTO) 1.1 % (0-6); HEMATOCRIT 27.2 % (36.0-47.0); HEMOGLOBIN 8.8 g/dL (12.0-15.5); LYMPHOCYTES % (AUTO) 5.9 % (13-45); MEAN CORPUSCULAR HEMOGLOBIN 31.6 pg (27.0-33.4); MEAN CORPUSCULAR HGB CONC 32.3 g/dL (32.0-36.0); MEAN CORPUSCULAR VOLUME 98 fl (80-97); MONOCYTES % (AUTO) 6.2 % (3-13); PLATELET COUNT 357 10^3/uL (150-450); RED BLOOD COUNT 2.78 10^6/uL (3.72-5.28); RED CELL DISTRIBUTION WIDTH 14.7 % (11.5-14.0); SEGMENTED NEUTROPHILS % (AUTO) 86.4 % (42-78); TOTAL CELLS COUNTED % (AUTO) 100 %
[2019-01-17 06:55] LABS: VANCOMYCIN,TROUGH 30.1 ug/mL (5.0-20.0)
[2019-01-17] MEDS: CALCIUM ACETATE 667 MG CAPSULE PO SCH ×3 (08:24→17:13)
--- NOTE | 2019-01-17 09:14 | PDOC PROGRESS REPORT ---
Subjective Progress Note for:: 01/17/19 Subjective:: I am seeing the patient during dialysis this morning. She is a little bit sleepy due to the pain medication she received. She is tolerating dialysis so far. She does not have any complaints and states that she only has very minimal pain on her right foot when she does not have the pain medication. She underwent another right foot debridement by Dr. Bonilla yesterday. Reason For Visit: RIGHT FOOT DIABETIC CELLULITIS WITH SECOND AND Physical Exam Vital Signs: Temp Pulse Resp BP Pulse Ox 99.0 F 85 18 161/61 H 92 01/16/19 23:18 01/16/19 23:18 01/16/19 23:18 01/16/19 23:18 01/16/19 23:18 Intake & Output 01/16/19 01/17/19 01/18/19 06:59 06:59 06:59 Intake Total 1075 1202 50 Output Total 2200 5 Balance -1125 1197 50 Weight 110.1 kg 106.5 kg Vitals during dialysis: Blood pressure 125/47, heart rate of 68, blood flow rate of 450 mL/min and dialysate flow rate of 800 mL/min. Exam: General appearance: PRESENT: no acute distress, cooperative, well-developed, well-nourished Head exam: PRESENT: atraumatic, normocephalic Eye exam: PRESENT: conjunctiva slightly pale, PERRLA. ABSENT: scleral icterus Neck exam: ABSENT: JVD Respiratory exam: PRESENT: Diminished breath sounds. ABSENT: crackles, rales, rhonchi, unlabored, wheezes Cardiovascular exam: PRESENT: Regular rate rhythm -+S1, +S2. ABSENT: diastolic murmur, systolic murmur GI/Abdominal exam: PRESENT: normal bowel sounds, soft. ABSENT: guarding, mass, tenderness Extremities exam: ABSENT: No edema on lower extremities but she has right arm edema; right foot covered with dressing Neurological exam: PRESENT: alert, awake, oriented to person, place and time. Skin exam: PRESENT: dry, warm, Results Laboratory Results: 01/17/19 06:12 01/17/19 03:19 01/17/19 01/17/19 03:19 06:12 WBC 18.0 H RBC 2.78 L Hgb 8.8 L Hct 27.2 L MCV 98 H MCH 31.6 MCHC 32.3 RDW 14.7 H Plt Count 357 Seg Neutrophils % 86.4 H Sodium 138.1 Potassium 5.1 H Chloride 97 L Carbon Dioxide 27 Anion Gap 14 BUN 46 H Creatinine 8.83 H Est GFR ( Amer) 5 L Glucose 161 H Calcium 9.1 01/14/19 05:35 Toe - Right Fourth Gram Stain - Final 01/14/19 05:35 Toe - Right Fourth Wound Culture - Final Staphylococcus Aureus Enterobacter Cloacae Impressions: Foot X-Ray 01/13/19 22:00 IMPRESSION: 1. Nonspecific diffuse soft tissue edema. No soft tissue air 2. Partial amputation of 4th toe. 3. No radiographic evidence for osteomyelitis. Chest X-Ray 01/14/19 03:21 IMPRESSION: Cardiomegaly. Lungs are clear copyright 2011 [employer] All Rights Reserved Assessment & Plan - Diagnosis (1) Gangrene of toe of right foot Is this a current diagnosis for this admission?: Yes Plan: Status post amputation of the right second, third, fourth and fifth toes, 01/14/[address] Boone. Status post right foot debridement, 01/14/[address] Bonilla. (2) Cellulitis of right foot Is this a current diagnosis for this admission?: Yes Plan: On IV Zosyn and vancomycin. Vancomycin trough is elevated today so the dose should be held today. Pharmacy adjusting the dose. (3) ESRD (end stage renal disease) Is this a current diagnosis for this admission?: Yes Plan: We will do dialysis today for 3 hours, using the patient's AV fistula, with 2 potassium bath, blood flow rate of 450 mL per minute, dialysate flow rate of 800 mL per minute, ultrafiltration 2 to 3 L, no heparin and Procrit with 10,000 units during dialysis intravenously. Dialysis prescription discussed with her dialysis nurse. Patient will be monitored throughout dialysis treatment. (4) Anemia in chronic kidney disease (CKD) Is this a current diagnosis for this admission?: Yes Plan: Procrit will be given during dialysis as needed. (5) Hyperphosphatemia Is this a current diagnosis for this admission?: Yes Plan: On calcium acetate. (6) Hypertension Is this a current diagnosis for this admission?: Yes Plan: Resume home blood pressure medications. (7) Type 2 diabetes mellitus Qualifiers: Diabetes mellitus skilled nursing insulin use: with watermelon inspector use Diabetes mellitus complication status: with kidney complications Diabetes mellitus complication detail: with nephropathy Qualified Code(s): E11.21 - Type 2 diabetes mellitus with diabetic nephropathy; Z79.4 - exterminator helper (current) use of insulin; Z79.4 - [facility] (current) use of insulin; Z79.4 - [facility] (current) use of insulin; Z79.4 - exterminator helper (current) use of insulin Is this a current diagnosis for this admission?: Yes - Time Time with patient: 15-25 minutes
[2019-01-17] MEDS ORDERED: (PENDING PHARMACY ID) (Lidocaine/Prilocaine [Emla Cream] 1 APPLIC) TP SCH (13:00)
--- NOTE | 2019-01-17 13:58 | PDOC PROGRESS REPORT ---
Subjective Progress Note for:: 01/17/19 Subjective:: min pain Reason For Visit: RIGHT FOOT DIABETIC CELLULITIS WITH SECOND AND Physical Exam Vital Signs: Temp Pulse Resp BP Pulse Ox 99.0 F 85 18 161/61 H 92 01/16/19 23:18 01/16/19 23:18 01/16/19 23:18 01/16/19 23:18 01/16/19 23:18 Intake & Output 01/16/19 01/17/19 01/18/19 06:59 06:59 06:59 Intake Total 1075 1202 50 Output Total 2200 5 3600 Balance -1125 1197 -3550 Weight 110.1 kg 106.5 kg General appearance: PRESENT: no acute distress Head exam: PRESENT: normocephalic Eye exam: PRESENT: EOMI Ear exam: PRESENT: normal external ear exam Mouth exam: PRESENT: moist Neck exam: PRESENT: full ROM Respiratory exam: PRESENT: clear to auscultation adamaris Cardiovascular exam: PRESENT: RRR Pulses: PRESENT: normal radial pulses, normal femoral pulses Vascular exam: PRESENT: other - rt popliteal pulse weakly palpable GI/Abdominal exam: PRESENT: firm Rectal exam: PRESENT: deferred Extremities exam: PRESENT: other - right transmetatarsal amputation site, with min bleeding still some plantar flap necrosis dorsum with tendons exposed up to midfoot minimal bleeding Neurological exam: PRESENT: alert Psychiatric exam: PRESENT: appropriate affect Results Laboratory Results: 01/17/19 06:12 01/17/19 03:19 01/17/19 01/17/19 03:19 06:12 WBC 18.0 H RBC 2.78 L Hgb 8.8 L Hct 27.2 L MCV 98 H MCH 31.6 MCHC 32.3 RDW 14.7 H Plt Count 357 Seg Neutrophils % 86.4 H Sodium 138.1 Potassium 5.1 H Chloride 97 L Carbon Dioxide 27 Anion Gap 14 BUN 46 H Creatinine 8.83 H Est GFR ( Amer) 5 L Glucose 161 H Calcium 9.1 01/14/19 05:35 Toe - Right Fourth Gram Stain - Final 01/14/19 05:35 Toe - Right Fourth Wound Culture - Final Staphylococcus Aureus Enterobacter Cloacae Impressions: Foot X-Ray 01/13/19 22:00 IMPRESSION: 1. Nonspecific diffuse soft tissue edema. No soft tissue air 2. Partial amputation of 4th toe. 3. No radiographic evidence for osteomyelitis. Chest X-Ray 01/14/19 03:21 IMPRESSION: Cardiomegaly. Lungs are clear copyright 2011 [employer]- All Rights Reserved Assessment & Plan - Diagnosis (1) Diabetic wet gangrene of the foot Is this a current diagnosis for this admission?: Yes - Plan Summary Plan Summary: long discussion [facility] pt and son have tentatively agreed to rt bka however have questions about a prosthesis and help at home regarding wheelchair and negotiating stairs at home plan I will have nurse arrange prosthesis provider to speak [facility] pt and have asked her to have occupational med and social service to speak with pt
[2019-01-17] MEDS ORDERED: (PENDING PHARMACY ID) (Clonidine Hcl [Catapres 0.3 Mg Tablet] 0.3 MG) PO SCH (14:00)
[2019-01-17] MEDS: FUROSEMIDE 20 MG TABLET PO SCH ×2 (14:14→17:13)
[2019-01-17] MEDS: CLOPIDOGREL BISULFATE 75 MG TABLET PO SCH (14:14)
[2019-01-17] MEDS: HYDRALAZINE HCL 50 MG TABLET PO SCH ×2 (14:14→21:32)
--- NOTE | 2019-01-17 14:29 | PDOC PROGRESS REPORT ---
Subjective Progress Note for:: 01/17/19 Subjective:: 63 year old -[place] female who presented to the emergency room with acute onset of worsening right foot pain and swelling with blackened discoloration of her second and fourth toes. She denies any fever or chills, nausea or vomiting or abdominal pain. No chest pain with this investigations. No headache or dizziness or blurred vision. Upon presentation to the emergency room, blood pressure was elevated 161/87 with a pulse of 65 respiratory to 24 temperature 98.9 pulse 70% on room air. Labs revealed anemia with hemoglobin of 10.6 hematocrit 32.4 and chloride of 91 with -22 with BUN of 53 and creatinine 9.98 with end-stage renal disease on hemodialy sis. She was status post hemodialysis on Sunday. C-reactive protein was 586.6. She had for which x-ray showed no acute cardia pulmonary disease. Her right foot x-ray revealed non-specific diffuse soft tissue edema with no soft tissue air. It showed partial amputation of the right fourth toe with no radiographic evidence for osteomyelitis. The patient was given IV Zosyn and vancomycin as well as IV morphine sulfate and 2 p.o. Percocet. She will be admitted to a medically monitored bed for further evaluation and management. 01/14/[id number]-ctib-old female with history of end-stage renal disease, diabetes mellitus, hypertension admitted with right foot gangrene. She is going for surgery today. Presently on IV vancomycin and Zosyn and also receiving IV morphine and Percocets. Still complaining of pain. 01/15/2019-patient is admitted with right foot gangrene status post amputation of 2nd-5th toes and a forefoot amputation. I saw her in the dialysis unit this morning she is more comfortable happy smiling. denies Any pain. 01/16/[id number]-jdla-old female with history of type 2 diabetes mellitus ESRD on hemodialysis admitted with right foot gangrene status post removal of the 2nd-5 th toes and partial amputation of the right foot she is going back for the debridement procedure again today. 01/17/[id number]-kvcw-old female admitted for right foot gangrenous changes status post surgery. She went for further debridement of the right foot. Patient may need a right BKA. Reason For Visit: RIGHT FOOT DIABETIC CELLULITIS WITH SECOND AND Physical Exam Vital Signs: Temp Pulse Resp BP Pulse Ox 99.0 F 85 18 161/61 H 92 01/16/19 23:18 01/16/19 23:18 01/16/19 23:18 01/16/19 23:18 01/16/19 23:18 Intake & Output 01/16/19 01/17/19 01/18/19 06:59 06:59 06:59 Intake Total 1075 1202 50 Output Total 2200 5 3600 Balance -1125 1197 -3550 Weight 110.1 kg 106.5 kg General appearance: PRESENT: cooperative, mild distress, morbidly obese Head exam: PRESENT: atraumatic, normocephalic Eye exam: PRESENT: PERRLA Teeth exam: PRESENT: poor dentation Neck exam: ABSENT: carotid bruit, JVD, lymphadenopathy, thyromegaly Respiratory exam: PRESENT: decreased breath sounds Cardiovascular exam: PRESENT: RRR. ABSENT: diastolic murmur, rubs, systolic murmur GI/Abdominal exam: PRESENT: normal bowel sounds, soft. ABSENT: distended, guarding, mass, organolmegaly, rebound, tenderness Rectal exam: PRESENT: deferred Extremities exam: PRESENT: full ROM. ABSENT: calf tenderness, clubbing, pedal edema Neurological exam: PRESENT: alert, awake, oriented to person, oriented to place, oriented to time, oriented to situation, CN II-XII grossly intact. ABSENT: motor sensory deficit Psychiatric exam: PRESENT: appropriate affect, normal mood. ABSENT: homicidal ideation, suicidal ideation Results Laboratory Results: 01/17/19 06:12 01/17/19 03:19 01/17/19 01/17/19 03:19 06:12 WBC 18.0 H RBC 2.78 L Hgb 8.8 L Hct 27.2 L MCV 98 H MCH 31.6 MCHC 32.3 RDW 14.7 H Plt Count 357 Seg Neutrophils % 86.4 H Sodium 138.1 Potassium 5.1 H Chloride 97 L Carbon Dioxide 27 Anion Gap 14 BUN 46 H Creatinine 8.83 H Est GFR ( Amer) 5 L Glucose 161 H Calcium 9.1 01/14/19 05:35 Toe - Right Fourth Gram Stain - Final 01/14/19 05:35 Toe - Right Fourth Wound Culture - Final Staphylococcus Aureus Enterobacter Cloacae Impressions: Foot X-Ray 01/13/19 22:00 IMPRESSION: 1. Nonspecific diffuse soft tissue edema. No soft tissue air 2. Partial amputation of 4th toe. 3. No radiographic evidence for osteomyelitis. Chest X-Ray 01/14/19 03:21 IMPRESSION: Cardiomegaly. Lungs are clear copyright 2010 [employer]- All Rights Reserved Assessment and Plan - Diagnosis (1) Gangrene of toe of right foot Is this a current diagnosis for this admission?: Yes Plan: Patient will be admitted to a medical monitor bed. She was placed on IV vancomycin and Zosyn. Surgery consultation will be obtained by Dr. Bonilla. MRI of the right foot will be obtained. She will likely need a rotation of the second and fourth toes due to gangrene and sepsis. 01/14/2019-patient admitted with gangrene of the right foot. On IV vancomycin and Zosyn surgical consult was done patient is going for possible transmetatarsal amputation of the right foot. PT consult OT consult was requested. Patient is requesting to go to a rehab facility. 01/15/2019-status post surgery postop day 1. Amputation of right foot 2nd-5th toes and forefoot amputation. Patient is doing much better today. wBC count came down. aFebrile. 01/16 2019-patient has partial limitation of the right foot with removal of 2nd- 5th toes she is going back to surgery today for debridement. Presently on IV vancomycin and Zosyn plan is to continue the antibiotics. 01/17/2019-as per the surgical team patient may need a right BKA. Plan to involve high school social studies teacher and inventory planner to make arrangements for the prosthesis. To continue IV Zosyn and vancomycin in the meantime. (2) Sepsis Qualifiers: Sepsis type: sepsis due to unspecified organism Sepsis acute organ dysfunction status: without acute organ dysfunction Qualified Code(s): A41.9 - Sepsis, unspecified organism Is this a current diagnosis for this admission?: Yes Plan: Blood cultures will be obtained in follow-up. We will follow her CBC. Antibiotics will be continued with IV vancomycin and Zosyn. This likely secondary to her diabetic foot cellulitis and gangrene. 01/14/2019-patient admitted with sepsis source is right foot gangrene present and IV vancomycin and IV Zosyn. Cultures are pending. 01/15/2019-patient was admitted with sepsis source is the right foot gangrene status post surgery WBC is coming down patient is on vancomycin and Zosyn afebrile. Sepsis is resolving. 01/16/2019-patient admitted with sepsis most likely secondary to right foot gangrene. Cultures came back positive for staph aureus and gram-negative rods. 01/17/2019-wound cultures came back positive for staph aureus and enterococcus. On vancomycin and Zosyn. And is to continue the antibiotics at this moment. (3) ESRD (end stage renal disease) Is this a current diagnosis for this admission?: Yes Plan: Nephrology consultation will be obtained for follow-up on hemodialysis 01/14/2019-patient has end-stage renal disease goes for dialysis Sunday she missed her dialysis yesterday. Consultation with Dr. Stoll was done. 01/15/2019-patient has history of end-stage renal disease outpatient schedule is Sunday she had dialysis this morning. Nephrology on board. 01/16/2019-patient has history of end-stage renal disease and she has dialysis yesterday. Most likely she will go for dialysis tomorrow. 01/17/2019-patient has a history of ESRD on hemodialysis she successfully completed dialysis today. (4) Hypertension Is this a current diagnosis for this admission?: Yes Plan: We will continue clonidine and hydralazine and placed patient on as needed IV hydralazine 01/14/2019-patient blood pressure today is 126/62. With pulse rate of 72. Plan is to continue the present medications. 01/15/2019-patient blood pressure today is 162/97. With the dialysis and fluid removal hopefully blood pressure will come back to normal range. 01/16/2019-patient blood pressure today is 130/90 stable. Plan is to continue the present management. 01/17/2019-patient blood pressure today is 160/60. She is going for dialysis today. Hopefully with the dialysis blood pressure will improve. (5) Type 2 diabetes mellitus Qualifiers: Diabetes mellitus jail insulin use: with intermodal dispatcher use Diabetes mellitus complication status: with kidney complications Diabetes mellitus complication detail: with nephropathy Qualified Code(s): E11.21 - Type 2 diabetes mellitus with diabetic nephropathy; Z79.4 - skilled nursing (current) use of insulin; Z79.4 - skilled nursing (current) use of insulin; Z79.4 - laborer marine terminal (current) use of insulin; Z79.4 - laborer marine terminal (current) use of insulin Is this a current diagnosis for this admission?: Yes Plan: 01/14/2019-patient has history of type 2 diabetes mellitus on insulin sliding every 6 hours. Patient is n.p.o. Latest blood sugar is 181. Plan is to continue the present management. 01/15/2019-patient has history of type 2 diabetes mellitus on insulin sliding scale plan to switch the sliding scale to before meals and at bedtime. Latest blood sugar is 152 stable. 01/16/2019-patient has history of type 2 diabetes mellitus on insulin sliding scale latest blood sugar is an 181. on Insulin sliding scale. Plan is to continue the present management. 01/17/2019-blood sugar is 146. plan is to continue the present management. (6) Morbid obesity with BMI of 40.0-44.9, adult Is this a current diagnosis for this admission?: No - Time Time Spent with patient: 15-24 minutes Medications reviewed and adjusted accordingly: Yes
[2019-01-17] MEDS: VANCOMYCIN HCL 500 MG in DEXTROSE 5%-WATER 100 ML IV SCH (19:42)
[2019-01-17] MEDS: METOPROLOL TARTRATE 25 MG TABLET PO SCH (21:31)
[2019-01-17] MEDS: ATORVASTATIN CALCIUM 20 MG TABLET PO SCH (21:32)
[2019-01-17] MEDS: MORPHINE SULFATE 10 MG/ML INJ IV PRN (21:40)
[2019-01-18] MEDS: INSULIN LISPRO 100 UNIT/ML 3 ML VIAL SUBCUT SCH ×6 (00:30→21:27)
[2019-01-18] MEDS: PIPERACILLIN SODIUM/TAZOBACTAM 2.25 GM in NORMAL SALINE 50 ML IV SCH ×3 (01:25→18:38)
[2019-01-18] MEDS: CLONIDINE HCL 0.2 MG TABLET PO SCH ×3 (06:09→21:26)
[2019-01-18] MEDS: HYDRALAZINE HCL 50 MG TABLET PO SCH ×3 (06:09→21:27)
[2019-01-18] MEDS: MORPHINE SULFATE 10 MG/ML INJ IV PRN ×2 (06:10→21:28)
[2019-01-18] MEDS ORDERED: GLUCAGON,HUMAN RECOMB 1 MG INJ SUBCUT PRN (06:58)
[2019-01-18] MEDS ORDERED: DEXTROSE 50%-WATER 25 GM/50 ML DISP.SYRIN IV PRN ×2 (06:58)
[2019-01-18] MEDS ORDERED: DEXTROSE 40% GEL 15 GM TUBE PO PRN ×2 (06:58)
--- NOTE | 2019-01-18 08:02 | PDOC PROGRESS REPORT ---
Subjective Progress Note for:: 01/18/19 Subjective:: patient tearful and depressed about her right foot Reason For Visit: RIGHT FOOT DIABETIC CELLULITIS WITH SECOND AND Physical Exam Vital Signs: Temp Pulse Resp BP Pulse Ox 98.5 F 73 15 144/64 H 91 L 01/17/19 23:31 01/17/19 23:31 01/17/19 23:31 01/17/19 23:31 01/17/19 23:31 Intake & Output 01/17/19 01/18/19 01/19/19 06:59 06:59 06:59 Intake Total 1202 770 Output Total 5 3600 Balance 1197 -2830 Weight 106.5 kg 107.3 kg General appearance: PRESENT: no acute distress, morbidly obese Respiratory exam: PRESENT: clear to auscultation adamaris Cardiovascular exam: PRESENT: RRR GI/Abdominal exam: PRESENT: soft Extremities exam: PRESENT: other - Right foot= completely exposed forefoot bones and soft tissue to mid foot Results Laboratory Results: 01/17/19 06:12 01/17/19 03:19 01/14/19 05:35 Toe - Right Fourth Gram Stain - Final 01/14/19 05:35 Toe - Right Fourth Wound Culture - Final Staphylococcus Aureus Enterobacter Cloacae Impressions: Foot X-Ray 01/13/19 22:00 IMPRESSION: 1. Nonspecific diffuse soft tissue edema. No soft tissue air 2. Partial amputation of 4th toe. 3. No radiographic evidence for osteomyelitis. Chest X-Ray 01/14/19 03:21 IMPRESSION: Cardiomegaly. Lungs are clear copyright 2011 [employer]- All Rights Reserved Assessment & Plan - Diagnosis (1) Gangrene of toe of right foot Is this a current diagnosis for this admission?: Yes - Plan Summary Plan Summary: A/ S/p Right forefoot 2-5 transmetatarsal amputation and right dorsal foot skin debridment Condition discussed with patient: no realistic chances of either healing or primary closure of such a large wound with exposed bone A BKA has been mentioned to the patient during the past few days. She has been dialyzed yesterday Her K is 5.1 and as per my phone conversation with Dr. Stoll (Nephrology) this will not cause any major issues to the patient P/ Plan right Below knee amputation today Patient understands the procedure, risks, benefits, complications, all discussed with the patient, her questions were answered, and she decided to proceed. Preop EKG NPO Continue current abx regimen
[2019-01-18] MEDS: CALCIUM ACETATE 667 MG CAPSULE PO SCH ×3 (09:07→18:32)
[2019-01-18] MEDS: CLOPIDOGREL BISULFATE 75 MG TABLET PO SCH (09:10)
[2019-01-18] MEDS: FUROSEMIDE 20 MG TABLET PO SCH ×3 (09:17→18:40)
[2019-01-18] MEDS: METOPROLOL TARTRATE 25 MG TABLET PO SCH ×2 (09:17→21:26)
[2019-01-18 09:38] LABS: ALBUMIN 2.8 g/dL (3.5-5.0); ALKALINE PHOSPHATASE 159 U/L (38-126); ANION GAP 13 (5-19); ASPARTATE AMINO TRANSFERASE 10 U/L (14-36); BILIRUBIN,DIRECT 0.5 mg/dL (0.0-0.4); BILIRUBIN,TOTAL 0.5 mg/dL (0.2-1.3); BLOOD UREA NITROGEN 29 mg/dL (7-20); CALCIUM 8.7 mg/dL (8.4-10.2); CARBON DIOXIDE 27 mmol/L (22-30); CHLORIDE 96 mmol/L (98-107); GLUCOSE 213 mg/dL (75-110); POTASSIUM 3.9 mmol/L (3.6-5.0); TOTAL PROTEIN 5.7 g/dL (6.3-8.2)
--- NOTE | 2019-01-18 10:57 | PDOC PROGRESS REPORT ---
Subjective Progress Note for:: 01/18/19 Subjective:: 63 year old -[place] female who presented to the emergency room with acute onset of worsening right foot pain and swelling with blackened discoloration of her second and fourth toes. She denies any fever or chills, nausea or vomiting or abdominal pain. No chest pain with this investigations. No headache or dizziness or blurred vision. Upon presentation to the emergency room, blood pressure was elevated 161/87 with a pulse of 65 respiratory to 24 temperature 98.9 pulse 70% on room air. Labs revealed anemia with hemoglobin of 10.6 hematocrit 32.4 and chloride of 91 with -22 with BUN of 53 and creatinine 9.98 with end-stage renal disease on hemodialy sis. She was status post hemodialysis on Sunday. C-reactive protein was 586.6. She had for which x-ray showed no acute cardia pulmonary disease. Her right foot x-ray revealed non-specific diffuse soft tissue edema with no soft tissue air. It showed partial amputation of the right fourth toe with no radiographic evidence for osteomyelitis. The patient was given IV Zosyn and vancomycin as well as IV morphine sulfate and 2 p.o. Percocet. She will be admitted to a medically monitored bed for further evaluation and management. 01/14/[id number]-vczi-old female with history of end-stage renal disease, diabetes mellitus, hypertension admitted with right foot gangrene. She is going for surgery today. Presently on IV vancomycin and Zosyn and also receiving IV morphine and Percocets. Still complaining of pain. 01/15/2019-patient is admitted with right foot gangrene status post amputation of 2nd-5th toes and a forefoot amputation. I saw her in the dialysis unit this morning she is more comfortable happy smiling. denies Any pain. 01/16/[id number]-guhw-old female with history of type 2 diabetes mellitus ESRD on hemodialysis admitted with right foot gangrene status post removal of the 2nd-5 th toes and partial amputation of the right foot she is going back for the debridement procedure again today. 01/17/[id number]-pcxt-old female admitted for right foot gangrenous changes status post surgery. She went for further debridement of the right foot. Patient may need a right BKA. 01/18/[id number]-lbzl-old female admitted with right foot gangrene she is going for right BKA today. No acute events in the last 24 hours. Afebrile. Reason For Visit: RIGHT FOOT DIABETIC CELLULITIS WITH SECOND AND Physical Exam Vital Signs: Temp Pulse Resp BP Pulse Ox 98.8 F 68 19 144/55 H 93 01/18/19 08:00 01/18/19 08:00 01/18/19 08:00 01/18/19 08:00 01/18/19 08:00 Intake & Output 01/17/19 01/18/19 01/19/19 06:59 06:59 06:59 Intake Total 1202 770 50 Output Total 5 3600 Balance 1197 -2830 50 Weight 106.5 kg 107.3 kg General appearance: PRESENT: no acute distress, cooperative Head exam: PRESENT: atraumatic Eye exam: PRESENT: PERRLA Mouth exam: PRESENT: moist, tongue midline Teeth exam: PRESENT: poor dentation Neck exam: ABSENT: carotid bruit, JVD, lymphadenopathy, thyromegaly Cardiovascular exam: PRESENT: RRR. ABSENT: diastolic murmur, rubs, systolic murmur GI/Abdominal exam: PRESENT: normal bowel sounds, soft. ABSENT: distended, guarding, mass, organolmegaly, rebound, tenderness Extremities exam: PRESENT: other - Right foot wrapped in bandage she is going for a right BKA today. Neurological exam: PRESENT: alert Psychiatric exam: PRESENT: appropriate affect, normal mood. ABSENT: homicidal ideation, suicidal ideation Results Laboratory Results: 01/17/19 06:12 01/18/19 09:12 01/18/19 09:12 Sodium 136.4 L Potassium 3.9 Chloride 96 L Carbon Dioxide 27 Anion Gap 13 BUN 29 H Creatinine 6.74 H Est GFR ( Amer) 7 L Glucose 213 H Calcium 8.7 Magnesium 2.1 Total Bilirubin 0.5 AST 10 L Alkaline Phosphatase 159 H Total Protein 5.7 L Albumin 2.8 L 01/14/19 05:35 Toe - Right Fourth Gram Stain - Final 01/14/19 05:35 Toe - Right Fourth Wound Culture - Final Staphylococcus Aureus Enterobacter Cloacae Impressions: Foot X-Ray 01/13/19 22:00 IMPRESSION: 1. Nonspecific diffuse soft tissue edema. No soft tissue air 2. Partial amputation of 4th toe. 3. No radiographic evidence for osteomyelitis. Chest X-Ray 01/14/19 03:21 IMPRESSION: Cardiomegaly. Lungs are clear copyright 2010 [employer]- All Rights Reserved Assessment and Plan - Diagnosis (1) Gangrene of toe of right foot Is this a current diagnosis for this admission?: Yes Plan: Patient will be admitted to a medical monitor bed. She was placed on IV vancomycin and Zosyn. Surgery consultation will be obtained by Dr. Bonilla. MRI of the right foot will be obtained. She will likely need a rotation of the second and fourth toes due to gangrene and sepsis. 01/14/2019-patient admitted with gangrene of the right foot. On IV vancomycin and Zosyn surgical consult was done patient is going for possible transmetatarsal amputation of the right foot. PT consult OT consult was requested. Patient is requesting to go to a rehab facility. 01/15/2019-status post surgery postop day 1. Amputation of right foot 2nd-5th toes and forefoot amputation. Patient is doing much better today. wBC count came down. aFebrile. 01/16 2019-patient has partial limitation of the right foot with removal of 2nd- 5th toes she is going back to surgery today for debridement. Presently on IV vancomycin and Zosyn plan is to continue the antibiotics. 01/17/2019-as per the surgical team patient may need a right BKA. Plan to involve manager social services and partner integration planner to make arrangements for the prosthesis. To continue IV Zosyn and vancomycin in the meantime. 01/18/2019-patient is going for right BKA today around 3 PM. PT consult rehab consult was requested. (2) Sepsis Qualifiers: Sepsis type: sepsis due to unspecified organism Sepsis acute organ dysfunction status: without acute organ dysfunction Qualified Code(s): A41.9 - Sepsis, unspecified organism Is this a current diagnosis for this admission?: Yes Plan: Blood cultures will be obtained in follow-up. We will follow her CBC. An tibiotics will be continued with IV vancomycin and Zosyn. This likely secondary to her diabetic foot cellulitis and gangrene. 01/14/2019-patient admitted with sepsis source is right foot gangrene present and IV vancomycin and IV Zosyn. Cultures are pending. 01/15/2019-patient was admitted with sepsis source is the right foot gangrene status post surgery WBC is coming down patient is on vancomycin and Zosyn afebrile. Sepsis is resolving. 01/16/2019-patient admitted with sepsis most likely secondary to right foot gangrene. Cultures came back positive for staph aureus and gram-negative rods. 01/17/2019-wound cultures came back positive for staph aureus and enterococcus. On vancomycin and Zosyn. And is to continue the antibiotics at this moment. 01/18/2019-patient is on vancomycin and Zosyn Vanco trough levels are managed by pharmacy. Cultures are positive for staph aureus and enterococcus. Enterococcus. (3) ESRD (end stage renal disease) Is this a current diagnosis for this admission?: Yes Plan: Nephrology consultation will be obtained for follow-up on hemodialysis 01/14/2019-patient has end-stage renal disease goes for dialysis Sunday she missed her dialysis yesterday. Consultation with Dr. Stoll was done. 01/15/2019-patient has history of end-stage renal disease outpatient schedule is Sunday she had dialysis this morning. Nephrology on board. 01/16/2019-patient has history of end-stage renal disease and she has dialysis yesterday. Most likely she will go for dialysis tomorrow. 01/17/2019-patient has a history of ESRD on hemodialysis she successfully completed dialysis today. 01/18/2019-patient has end-stage renal disease secondary to the combination of diabetes mellitus hypertension she had dialysis yesterday. (4) Hypertension Is this a current diagnosis for this admission?: Yes Plan: We will continue clonidine and hydralazine and placed patient on as needed IV hydralazine 01/14/2019-patient blood pressure today is 126/62. With pulse rate of 72. Plan is to continue the present medications. 01/15/2019-patient blood pressure today is 162/97. With the dialysis and fluid removal hopefully blood pressure will come back to normal range. 01/16/2019-patient blood pressure today is 130/90 stable. Plan is to continue the present management. 01/17/2019-patient blood pressure today is 160/60. She is going for dialysis today. Hopefully with the dialysis blood pressure will improve. 01/18/2019-patient blood pressure today is 144/64. Plan is to continue the present management. (5) Type 2 diabetes mellitus Qualifiers: Diabetes mellitus exterminator helper insulin use: with exterminator helper use Diabetes mellitus complication status: with kidney complications Diabetes mellitus complication detail: with nephropathy Qualified Code(s): E11.21 - Type 2 diabetes mellitus with diabetic nephropathy; Z79.4 - MCC (current) use of insulin; Z79.4 - MCC (current) use of insulin; Z79.4 - MCC (current) use of insulin; Z79.4 - watermelon inspector (current) use of insulin Is this a current diagnosis for this admission?: Yes Plan: 01/14/2019-patient has history of type 2 diabetes mellitus on insulin sliding every 6 hours. Patient is n.p.o. Latest blood sugar is 181. Plan is to continue the present management. 01/15/2019-patient has history of type 2 diabetes mellitus on insulin sliding scale plan to switch the sliding scale to before meals and at bedtime. Latest blood sugar is 152 stable. 01/16/2019-patient has history of type 2 diabetes mellitus on insulin sliding scale latest blood sugar is an 181. on Insulin sliding scale. Plan is to continue the present management. 01/17/2019-blood sugar is 146. plan is to continue the present management. 01/18/2019-patient latest blood sugar is 213. Patient is on insulin sliding scale before meals and at bedtime. Plan is to continue the present management. To check for hemoglobin A1c. (6) Morbid obesity with BMI of 40.0-44.9, adult Is this a current diagnosis for this admission?: No - Time Time Spent with patient: 25-34 minutes Medications reviewed and adjusted accordingly: Yes
[2019-01-18] MEDS ORDERED: EPHEDRINE SULFATE INJ 50 MG/1 ML AMPULE ONE (14:33)
[2019-01-18] MEDS ORDERED: FENTANYL CITRATE INJ/PF 100 MCG/2 ML AMPUL ONE ×2 (14:33→16:28)
[2019-01-18] MEDS ORDERED: MIDAZOLAM 2 MG/2 ML INJ ONE (14:33)
[2019-01-18] MEDS ORDERED: PROPOFOL INJ 200 MG/20 ML VIAL IV ONE (14:33)
[2019-01-18] MEDS ORDERED: ONDANSETRON HCL INJ/PF 4 MG/2 ML SDV ONE (14:33)
[2019-01-18] MEDS ORDERED: SUCCINYLCHOLINE CHLORIDE INJ 200 MG/10 ML VIAL ONE (16:06)
[2019-01-18] MEDS ORDERED: MORPHINE SULFATE 10 MG/ML INJ IV PRN ×2 (16:15→17:40)
[2019-01-18] MEDS ORDERED: PROMETHAZINE HCL INJ 25 MG/1 ML VIAL IV PRN ×2 (16:15)
[2019-01-18] MEDS ORDERED: OXYCODONE-ACETAMINOPHEN 5-325 MG TABLET PO PRN ×2 (16:15)
[2019-01-18] MEDS ORDERED: FENTANYL CITRATE INJ/PF 100 MCG/2 ML AMPUL IV PRN ×3 (16:15)
[2019-01-18] MEDS ORDERED: DIPHENHYDRAMINE HCL 50 MG/ML VIAL IV PRN (16:15)
[2019-01-18] MEDS ORDERED: MEPERIDINE HCL/PF INJ 25 MG/1 ML DISP.SYRIN IV PRN (16:15)
[2019-01-18] MEDS ORDERED: ONDANSETRON HCL INJ/PF 4 MG/2 ML SDV IV PRN (16:15)
[2019-01-18] MEDS: MORPHINE SULFATE 10 MG/ML INJ ONE ×5 (17:15→17:40)
--- NOTE | 2019-01-18 17:23 | Operative Report ---
Operative Report DATE OF SURGERY: 01/18/19 PREOPERATIVE DIAGNOSIS: Right forefoot osteomyelitis: Status post right forefoot amputation POSTOPERATIVE DIAGNOSIS: Same OPERATION: Right below-knee amputation SURGEON: HILL ELIAS ANESTHESIA: GA TISSUE REMOVED OR ALTERED: Right leg and foot COMPLICATIONS: None ESTIMATED BLOOD LOSS: 200 mL INTRAOPERATIVE FINDINGS: As preop diagnosis PROCEDURE: The procedure was done in the operating room, the patient was placed in a supine position, general anesthesia was induced by endotracheal intubation. Proximally to the area of interest, French cotton roll was circumferentially applied to the thigh followed by a disposable tourniquet, protected by a 1010 drape. The extremity of interest was prepped and draped in the usual fashion. The extremity was exanguinated with an Esmarch band. The tourniquet was inflated to about 150 mmHg above the systolic blood pressure. The proposed area of skin incision was outlined with a surgical marker so to have a long, floppy posterior myocutaneous flap able to close the surgical wound. An incision was made along the outlined lines of amputation; the incision was deepened through the subcutaneous tissue down to the bone: this was continued circumferentially following the outlined lines. The tibial and fibular bones were exposed proximally with a periosteal elevator and divided as proximally as possible with an oscillating electrical saw. The tibia was divided about 2 fingerbreadths below the tibial tuberosity. The fibula was divided at a similar length. The posterior leg neurovascular complex was identified, the tibial nerve was isolated, clamped, and divided. The proximal nerve stump was double ligated and folded on itself to prevent regrowth and neuroma formation. This was accomplished with a 2-0 silk suture. Likewise, the vessels were identified: both veins and arteries were individually suture ligated in between clamps using a 2-0 silk sutures on a needle. Particular attention was paid to the popliteal artery which was carefully ligated. The distal end of the myocutaneous flap was divided with Bovie. The specimen was removed from the surgical field and sent to pathology. Local smaller vessels were identified and cauterized or suture ligated. The bone stump edges were filed and the stumps were covered with bone wax. The surgical field was then irrigated with normal saline until clear. An 18 ukrainian round Rony drain was placed deep in the surgical field and was allowed to exit through a separate stab wound located laterally in the BKA stump. The Rony drain was secured to the skin with a 2-0 nylon suture. Closure of the BKA was accomplished by anteriorly rotating the posterior myocutaneous flap. This was kept in positions with a few deep inverted figure-of-8 0-Vicryl sutures. The muscle fascia was approximated with interrupted [id number] 0-Vicryl sutures. The subcutaneous tissue were approximated with deep inverted 2-0 Vicryl sutures and the skin was closed with tari. Xeroform gauze was placed on the surgical wound followed by dry dressings and Kerlix roll. A prefabricated, fiberglass, padded splint was applied posteriorly to the distal thigh and to the BKA stump and folded anteriorly; this was kept in position by an Noel bandage. The splint was allowed to cure while the BKA stump was maintained extended. The tourniquet was deflated; the tourniquet time was 68 minutes. The patient tolerated procedure well, was extubated, and was transferred to the recovery room in satisfactory conditions.
[2019-01-18] MEDS ORDERED: METOPROLOL TARTRATE PF/INJ 5 MG/5 ML SDV IV ONE (17:50)
[2019-01-18] MEDS ORDERED: HYDRALAZINE HCL INJ/PF 20 MG/1 ML SDV ONE (17:50)
--- NOTE | 2019-01-18 19:08 | EKG REPORT ---
SEVERITY:- ABNORMAL ECG - SINUS RHYTHM PROBABLE LEFT VENTRICULAR HYPERTROPHY : Confirmed by: Stephanie Art MD 18-Jan-2019 19:07:26
[2019-01-18] MEDS: OXYCODONE-ACETAMINOPHEN 5-325 MG TABLET PO PRN (19:25)
[2019-01-18 20:20] LABS: HEMATOCRIT 31.6 % (36.0-47.0); HEMOGLOBIN 10.3 g/dL (12.0-15.5); MEAN CORPUSCULAR HEMOGLOBIN 31.8 pg (27.0-33.4); MEAN CORPUSCULAR HGB CONC 32.7 g/dL (32.0-36.0); MEAN CORPUSCULAR VOLUME 97 fl (80-97); RED BLOOD COUNT 3.25 10^6/uL (3.72-5.28); RED CELL DISTRIBUTION WIDTH 14.8 % (11.5-14.0)
[2019-01-18 20:50] LABS: ABSOLUTE LYMPHOCYTES# (MANUAL) 1.7 10^3/uL (0.5-4.7); BAND NEUTROPHILS % (MANUAL) 1 % (3-5); BASOPHILS % (MANUAL) 0 % (0-2); EOSINOPHILS % (MANUAL) 0 % (0-6); LYMPHOCYTES % (MANUAL) 6 % (13-45); MONOCYTES % (MANUAL) 4 % (3-13); NUCLEATED RED BLOOD CELLS 1 /100 WBC (0); SEGMENTED NEUTROPHILS % (MAN) 88 % (42-78); TOTAL CELLS COUNTED 100
[2019-01-18 20:51] LABS: ANISOCYTOSIS SLIGHT
[2019-01-18 20:52] LABS: HYPOCHROMASIA SLIGHT
[2019-01-18 20:54] LABS: PLATELET COUNT 517 10^3/uL (150-450); WHITE BLOOD COUNT 29.4 10^3/uL (4.0-10.5)
[2019-01-18 21:02] LABS: PLATELET COMMENT INCREASED
[2019-01-18 21:16] LABS: INTERNATIONAL RATION (INR) 1.24; PROTHROMBIN TIME 15.7 SEC (11.4-15.4)
[2019-01-18 21:17] LABS: PARTIAL THROMBOPLASTIN TIME 37.2 SEC (23.5-35.8)
[2019-01-18] MEDS: ATORVASTATIN CALCIUM 20 MG TABLET PO SCH (21:29)
[2019-01-19] MEDS: OXYCODONE-ACETAMINOPHEN 5-325 MG TABLET PO PRN ×4 (01:19→14:38)
[2019-01-19] MEDS: PIPERACILLIN SODIUM/TAZOBACTAM 2.25 GM in NORMAL SALINE 50 ML IV SCH (02:09)
[2019-01-19] MEDS: MORPHINE SULFATE 10 MG/ML INJ IV PRN ×4 (02:09→22:39)
[2019-01-19] MEDS: HYDRALAZINE HCL 50 MG TABLET PO SCH ×3 (05:09→22:43)
[2019-01-19] MEDS: CLONIDINE HCL 0.2 MG TABLET PO SCH ×3 (05:09→22:38)
[2019-01-19 06:51] LABS: ABSOLUTE BASOPHILS # (AUTO) 0.1 10^3/uL (0.0-0.2); ABSOLUTE EOSINOPHILS # (AUTO) 0.1 10^3/uL (0.0-0.6); ABSOLUTE LYMPHOCYTES (AUTO) 1.1 10^3/uL (0.5-4.7); ABSOLUTE MONOCYTES (AUTO) 1.1 10^3/uL (0.1-1.4); ABSOLUTE NEUT (AUTO) 14.4 10^3/uL (1.7-8.2); BASOPHILS % (AUTO) 0.4 % (0-2); EOSINOPHILS % (AUTO) 0.5 % (0-6); HEMATOCRIT 30.6 % (36.0-47.0); HEMOGLOBIN 10.1 g/dL (12.0-15.5); LYMPHOCYTES % (AUTO) 6.3 % (13-45); MEAN CORPUSCULAR HEMOGLOBIN 31.8 pg (27.0-33.4); MEAN CORPUSCULAR HGB CONC 32.9 g/dL (32.0-36.0); MEAN CORPUSCULAR VOLUME 97 fl (80-97); MONOCYTES % (AUTO) 6.4 % (3-13); PLATELET COUNT 379 10^3/uL (150-450); RED BLOOD COUNT 3.17 10^6/uL (3.72-5.28); SEGMENTED NEUTROPHILS % (AUTO) 86.4 % (42-78); TOTAL CELLS COUNTED % (AUTO) 100 %; WHITE BLOOD COUNT 16.7 10^3/uL (4.0-10.5)
--- NOTE | 2019-01-19 07:00 | PDOC PROGRESS REPORT ---
Subjective Progress Note for:: 01/19/19 Subjective:: Patient complaints of right BKA stump pain Reason For Visit: RIGHT FOOT DIABETIC CELLULITIS WITH SECOND AND Physical Exam Vital Signs: Temp Pulse Resp BP Pulse Ox 99.1 F 84 17 147/71 H 99 01/18/19 23:30 01/18/19 23:30 01/18/19 23:30 01/18/19 23:30 01/18/19 23:30 Intake & Output 01/17/19 01/18/19 01/19/19 06:59 06:59 06:59 Intake Total 2894 513 2839 Output Total 5 3600 240 Balance 1197 -6600 780 Weight 106.5 kg 107.3 kg 110 kg General appearance: PRESENT: no acute distress Extremities exam: PRESENT: other - Right BKA stump = dressings clean, dry, and intact, ENEIDA drain bulb filled with a small amount of bloody fluid Results Laboratory Results: 01/18/19 09:12 01/18/19 01/18/19 09:12 19:45 WBC 29.4 H RBC 3.25 L Hgb 10.3 L Hct 31.6 L MCV 97 MCH 31.8 MCHC 32.7 RDW 14.8 H Plt Count 517 H Seg Neutrophils % Not Reportable Sodium 136.4 L Potassium 3.9 Chloride 96 L Carbon Dioxide 27 Anion Gap 13 BUN 29 H Creatinine 6.74 H Est GFR ( Amer) 7 L Glucose 213 H Calcium 8.7 Magnesium 2.1 Total Bilirubin 0.5 AST 10 L Alkaline Phosphatase 159 H Total Protein 5.7 L Albumin 2.8 L 01/14/19 06:19 Blood Blood Culture - Final NO GROWTH IN 5 DAYS 01/14/19 03:00 Blood Blood Culture - Final NO GROWTH IN 5 DAYS Impressions: Foot X-Ray 01/13/19 22:00 IMPRESSION: 1. Nonspecific diffuse soft tissue edema. No soft tissue air 2. Partial amputation of 4th toe. 3. No radiographic evidence for osteomyelitis. Chest X-Ray 01/14/19 03:21 IMPRESSION: Cardiomegaly. Lungs are clear copyright 2011 [employer]- All Rights Reserved Assessment & Plan - Diagnosis (1) Gangrene of toe of right foot Is this a current diagnosis for this admission?: Yes - Plan Summary Plan Summary: Assessment: Postoperative day #1 after right BKA Patient vital signs are stable Stump site covered with dressings clean, dry, and intact Rony drain output less than 30 mL, bloody Blood work pending today Plan: Patient to remain in bed or up in chair with the right BKA stump elevated Antibiotics can be discontinued in 48 hours BKA stump to be unveiled in 2 days
[2019-01-19] MEDS: HEPARIN SOD (PORCINE) 5,000 UNIT/ML 1 ML VIAL SUBCUT SCH ×3 (08:36→22:40)
[2019-01-19] MEDS: INSULIN LISPRO 100 UNIT/ML 3 ML VIAL SUBCUT SCH ×4 (08:37→22:42)
[2019-01-19] MEDS: CALCIUM ACETATE 667 MG CAPSULE PO SCH ×3 (08:38→17:38)
[2019-01-19] MEDS: CLOPIDOGREL BISULFATE 75 MG TABLET PO SCH (10:37)
[2019-01-19] MEDS: METOPROLOL TARTRATE 25 MG TABLET PO SCH ×2 (10:38→22:38)
[2019-01-19] MEDS: FUROSEMIDE 20 MG TABLET PO SCH ×3 (10:38→17:38)
--- NOTE | 2019-01-19 10:44 | PDOC PROGRESS REPORT ---
Subjective Progress Note for:: 01/19/19 Subjective:: 63 year old -[place] female who presented to the emergency room with acute onset of worsening right foot pain and swelling with blackened discoloration of her second and fourth toes. She denies any fever or chills, nausea or vomiting or abdominal pain. No chest pain with this investigations. No headache or dizziness or blurred vision. Upon presentation to the emergency room, blood pressure was elevated 161/87 with a pulse of 65 respiratory to 24 temperature 98.9 pulse 70% on room air. Labs revealed anemia with hemoglobin of 10.6 hematocrit 32.4 and chloride of 91 with -22 with BUN of 53 and creatinine 9.98 with end-stage renal disease on hemodialy sis. She was status post hemodialysis on Sunday. C-reactive protein was 586.6. She had for which x-ray showed no acute cardia pulmonary disease. Her right foot x-ray revealed non-specific diffuse soft tissue edema with no soft tissue air. It showed partial amputation of the right fourth toe with no radiographic evidence for osteomyelitis. The patient was given IV Zosyn and vancomycin as well as IV morphine sulfate and 2 p.o. Percocet. She will be admitted to a medically monitored bed for further evaluation and management. 01/14/[id number]-clry-old female with history of end-stage renal disease, diabetes mellitus, hypertension admitted with right foot gangrene. She is going for surgery today. Presently on IV vancomycin and Zosyn and also receiving IV morphine and Percocets. Still complaining of pain. 01/15/2019-patient is admitted with right foot gangrene status post amputation of 2nd-5th toes and a forefoot amputation. I saw her in the dialysis unit this morning she is more comfortable happy smiling. denies Any pain. 01/16/[id number]-eqzv-old female with history of type 2 diabetes mellitus ESRD on hemodialysis admitted with right foot gangrene status post removal of the 2nd-5 th toes and partial amputation of the right foot she is going back for the debridement procedure again today. 01/17/[id number]-hobo-old female admitted for right foot gangrenous changes status post surgery. She went for further debridement of the right foot. Patient may need a right BKA. 01/18/[id number]-tdwm-old female admitted with right foot gangrene she is going for right BKA today. No acute events in the last 24 hours. Afebrile. 01/19 [id number]-old female with multiple medical problems including ESRD on hemodialysis admitted with right foot gangrene she went for a right BKA yesterday. Plan is to continue IV antibiotic therapy and she has a surgical drain. She is complaining of extreme pain and receiving IV morphine alternating with Percocets. Reason For Visit: RIGHT FOOT DIABETIC CELLULITIS WITH SECOND AND Physical Exam Vital Signs: Temp Pulse Resp BP Pulse Ox 99.1 F 91 14 152/61 H 95 01/19/19 08:02 01/19/19 08:02 01/19/19 08:02 01/19/19 08:02 01/19/19 08:02 Intake & Output 01/18/19 01/19/19 01/20/19 06:59 06:59 06:59 Intake Total 770 1020 Output Total 3600 240 Balance -2830 780 Weight 107.3 kg 110 kg General appearance: PRESENT: cooperative, obese, severe distress Head exam: PRESENT: atraumatic Eye exam: PRESENT: PERRLA Mouth exam: PRESENT: moist, tongue midline Teeth exam: PRESENT: poor dentation Neck exam: ABSENT: carotid bruit, JVD, lymphadenopathy, thyromegaly Respiratory exam: PRESENT: clear to auscultation adamaris. ABSENT: rales, rhonchi, wheezes Cardiovascular exam: PRESENT: RRR. ABSENT: diastolic murmur, rubs, systolic murmur GI/Abdominal exam: PRESENT: normal bowel sounds, soft. ABSENT: distended, guarding, mass, organolmegaly, rebound, tenderness Rectal exam: PRESENT: deferred Extremities exam: PRESENT: other - rt BKA with surgical drain. Neurological exam: PRESENT: alert, awake, oriented to person, oriented to place, oriented to time, oriented to situation, CN II-XII grossly intact. ABSENT: motor sensory deficit Psychiatric exam: PRESENT: appropriate affect, normal mood. ABSENT: homicidal ideation, suicidal ideation Results Laboratory Results: 01/19/19 05:18 01/18/19 09:12 01/18/19 01/19/19 19:45 05:18 WBC 29.4 H 16.7 H RBC 3.25 L 3.17 L Hgb 10.3 L 10.1 L Hct 31.6 L 30.6 L MCV 97 97 MCH 31.8 31.8 MCHC 32.7 32.9 RDW 14.8 H 15.0 H Plt Count 517 H 379 Seg Neutrophils % Not Reportable 86.4 H 01/14/19 06:19 Blood Blood Culture - Final NO GROWTH IN 5 DAYS 01/14/19 03:00 Blood Blood Culture - Final NO GROWTH IN 5 DAYS Impressions: Foot X-Ray 01/13/19 22:00 IMPRESSION: 1. Nonspecific diffuse soft tissue edema. No soft tissue air 2. Partial amputation of 4th toe. 3. No radiographic evidence for osteomyelitis. Chest X-Ray 01/14/19 03:21 IMPRESSION: Cardiomegaly. Lungs are clear copyright 2010 [employer]- All Rights Reserved Assessment and Plan - Diagnosis (1) Gangrene of toe of right foot Is this a current diagnosis for this admission?: Yes Plan: Patient will be admitted to a medical monitor bed. She was placed on IV vancomycin and Zosyn. Surgery consultation will be obtained by Dr. Bonilla. MRI of the right foot will be obtained. She will likely need a rotation of the second and fourth toes due to gangrene and sepsis. 01/14/2019-patient admitted with gangrene of the right foot. On IV vancomycin and Zosyn surgical consult was done patient is going for possible transmetatarsal amputation of the right foot. PT consult OT consult was requested. Patient is requesting to go to a rehab facility. 01/15/2019-status post surgery postop day 1. Amputation of right foot 2nd-5th toes and forefoot amputation. Patient is doing much better today. wBC count came down. aFebrile. 01/16 2019-patient has partial limitation of the right foot with removal of 2nd- 5th toes she is going back to surgery today for debridement. Presently on IV vancomycin and Zosyn plan is to continue the antibiotics. 01/17/2019-as per the surgical team patient may need a right BKA. Plan to involve social sciences department chair and production control planner to make arrangements for the prosthesis. To continue IV Zosyn and vancomycin in the meantime. 01/18/2019-patient is going for right BKA today around 3 PM. PT consult rehab consult was requested. 01/19/[id number]-spbu-old female admitted with right foot gangrene status post right BKA yesterday she is on vancomycin and Zosyn. PT consult rehab consult requested. She is going for dialysis tomorrow as per schedule. (2) Sepsis Qualifiers: Sepsis type: sepsis due to unspecified organism Sepsis acute organ dysfunc tion status: without acute organ dysfunction Qualified Code(s): A41.9 - Sepsis, unspecified organism Is this a current diagnosis for this admission?: Yes Plan: Blood cultures will be obtained in follow-up. We will follow her CBC. Antibiotics will be continued with IV vancomycin and Zosyn. This likely secondary to her diabetic foot cellulitis and gangrene. 01/14/2019-patient admitted with sepsis source is right foot gangrene present and IV vancomycin and IV Zosyn. Cultures are pending. 01/15/2019-patient was admitted with sepsis source is the right foot gangrene status post surgery WBC is coming down patient is on vancomycin and Zosyn afebrile. Sepsis is resolving. 01/16/2019-patient admitted with sepsis most likely secondary to right foot gangrene. Cultures came back positive for staph aureus and gram-negative rods. 01/17/2019-wound cultures came back positive for staph aureus and enterococcus. On vancomycin and Zosyn. And is to continue the antibiotics at this moment. 01/18/2019-patient is on vancomycin and Zosyn Vanco trough levels are managed by pharmacy. Cultures are positive for staph aureus and enterococcus. Enterococcus. 01/19/2019-patient is presently on IV vancomycin and Zosyn she had a right BKA yesterday. Cultures are positive for staph aureus and enterococcus. Plan is to continue the antibiotics for at least another day. (3) ESRD (end stage renal disease) Is this a current diagnosis for this admission?: Yes Plan: Nephrology consultation will be obtained for follow-up on hemodialysis 01/14/2019-patient has end-stage renal disease goes for dialysis Sunday she missed her dialysis yesterday. Consultation with Dr. Stoll was done. 01/15/2019-patient has history of end-stage renal disease outpatient schedule is Sunday she had dialysis this morning. Nephrology on board. 01/16/2019-patient has history of end-stage renal disease and she has dialysis y . Most likely she will go for dialysis tomorrow. 01/17/2019-patient has a history of ESRD on hemodialysis she successfully completed dialysis today. 01/18/2019-patient has end-stage renal disease secondary to the combination of diabetes mellitus hypertension she had dialysis yesterday. 01/19/2019-patient has history of ESRD on hemodialysis received dialysis on Sunday and next dialysis is scheduled for tomorrow. (4) Hypertension Is this a current diagnosis for this admission?: Yes Plan: We will continue clonidine and hydralazine and placed patient on as needed IV hydralazine 01/14/2019-patient blood pressure today is 126/62. With pulse rate of 72. Plan is to continue the present medications. 01/15/2019-patient blood pressure today is 162/97. With the dialysis and fluid removal hopefully blood pressure will come back to normal range. 01/16/2019-patient blood pressure today is 130/90 stable. Plan is to continue the present management. 01/17/2019-patient blood pressure today is 160/60. She is going for dialysis today. Hopefully with the dialysis blood pressure will improve. 01/18/2019-patient blood pressure today is 144/64. Plan is to continue the present management. 01/19/2019-patient blood pressure this morning is 147/71. Stable. Plan is to continue the present management. (5) Type 2 diabetes mellitus Qualifiers: Diabetes mellitus intermediate teacher insulin use: with fpc use Diabetes mellitus complication status: with kidney complications Diabetes mellitus complication detail: with nephropathy Qualified Code(s): E11.21 - Type 2 diabetes mellitus with diabetic nephropathy; Z79.4 - watermelon inspector (current) use of insulin; Z79.4 - watermelon inspector (current) use of insulin; Z79.4 - watermelon inspector (current) use of insulin; Z79.4 - watermelon inspector (current) use of insulin Is this a current diagnosis for this admission?: Yes Plan: 01/14/2019-patient has history of type 2 diabetes mellitus on insulin sliding every 6 hours. Patient is n.p.o. Latest blood sugar is 181. Plan is to continue the present management. 01/15/2019-patient has history of type 2 diabetes mellitus on insulin sliding scale plan to switch the sliding scale to before meals and at bedtime. Latest blood sugar is 152 stable. 01/16/2019-patient has history of type 2 diabetes mellitus on insulin sliding scale latest blood sugar is an 181. on Insulin sliding scale. Plan is to continue the present management. 01/17/2019-blood sugar is 146. plan is to continue the present management. 01/18/2019-patient latest blood sugar is 213. Patient is on insulin sliding scale before meals and at bedtime. Plan is to continue the present management. To check for hemoglobin A1c. 01/19/2019-latest blood sugar is 213. On insulin sliding scale before meals and at bedtime. Hemoglobin A1c is 6.3. Plan is to continue the present management. (6) Morbid obesity with BMI of 40.0-44.9, adult Is this a current diagnosis for this admission?: No - Time Time Spent with patient: 25-34 minutes Medications reviewed and adjusted accordingly: Yes Anticipated discharge: SNF
--- NOTE | 2019-01-19 15:52 | XCELERA REPORT ---
[address] [address] Lower Extremity Arterial Evaluation Name: BEA QUINONES Age: 63 yrs Gender: Female : 1955 Patient Status: Inpatient Patient Location: [address] [place] [address] Study Date: 01/17/2019 01:38 PM Procedure: A color flow and duplex scan of the lower extremity arteries was performed on the right with velocity and waveform anaylsis. Reason For Study: right lower extremity, ischemic foot. Ordering Physician: LILO WARE Performed By: Hector Freire Measurements and Calculations Right Left STORE WAREHOUSE ASSOCIATE PSV 126.4 cm/sec Prox PFA PSV 76.4 cm/sec Prox SFA PSV 146.7 cm/sec Mid SFA PSV -125.0 cm/sec Dist SFA PSV -82.9 cm/sec Prox Pop A PSV 72.5 cm/sec Dist MAMIE PSV 93.8 cm/sec Dist RANCH HAND LIVESTOCK PSV 96.5 cm/sec Vicente Pedis PSV 165.8 46.3 cm/sec Right Side Arterial Evaluation Normal velocity and triphasic waveforms noted from the Common Femoral artery to the popliteal artery. Biphasic with normal velocity, moderate spectral broadening in the infrageniculate arteries. Ankle Brachial index not done. Left Side Arterial Evaluation Biphasic signal with minimal broadening, low normal velocity. Interpretation Summary Mild hemodynamically significant lesions in the right lower extremity only, on duplex imaging, at rest. Diaplex imaging is close to normal to the Popliteal, relatively mild compromise distally. : LILO WARE > Emigdio Wan
[2019-01-19] MEDS: ATORVASTATIN CALCIUM 20 MG TABLET PO SCH (22:38)
[2019-01-20] MEDS: MORPHINE SULFATE 10 MG/ML INJ IV PRN (03:34)
[2019-01-20] MEDS: HYDRALAZINE HCL 50 MG TABLET PO SCH ×4 (06:22→21:37)
[2019-01-20] MEDS: CLONIDINE HCL 0.2 MG TABLET PO SCH ×4 (06:22→21:36)
[2019-01-20 07:05] LABS: HEMATOCRIT 28.3 % (36.0-47.0); HEMOGLOBIN 9.5 g/dL (12.0-15.5); MEAN CORPUSCULAR HEMOGLOBIN 32.6 pg (27.0-33.4); MEAN CORPUSCULAR HGB CONC 33.4 g/dL (32.0-36.0); MEAN CORPUSCULAR VOLUME 98 fl (80-97); PLATELET COUNT 417 10^3/uL (150-450); RED BLOOD COUNT 2.91 10^6/uL (3.72-5.28); RED CELL DISTRIBUTION WIDTH 14.6 % (11.5-14.0)
[2019-01-20 07:21] LABS: ANION GAP 17 (5-19); BLOOD UREA NITROGEN 43 mg/dL (7-20); CARBON DIOXIDE 24 mmol/L (22-30); CHLORIDE 94 mmol/L (98-107); GLUCOSE 147 mg/dL (75-110); POTASSIUM 4.4 mmol/L (3.6-5.0)
[2019-01-20] MEDS ORDERED: ACETAMINOPHEN 325 MG TABLET PO PRN (07:43)
[2019-01-20] MEDS ORDERED: ONDANSETRON HCL INJ/PF 4 MG/2 ML SDV IV PRN (08:00)
[2019-01-20] MEDS ORDERED: ONDANSETRON 4 MG TAB.RAPDIS PO PRN (08:00)
[2019-01-20] MEDS ORDERED: EPOETIN ALFA-EPBX 10,000 UNIT/ML VIAL (RENAL) IV PRN (10:14)
[2019-01-20] MEDS: CALCIUM ACETATE 667 MG CAPSULE PO SCH ×4 (10:19→17:46)
[2019-01-20] MEDS: INSULIN LISPRO 100 UNIT/ML 3 ML VIAL SUBCUT SCH ×5 (10:19→21:35)
[2019-01-20] MEDS: HEPARIN SOD (PORCINE) 5,000 UNIT/ML 1 ML VIAL SUBCUT SCH ×2 (10:20→21:36)
[2019-01-20] MEDS: CLOPIDOGREL BISULFATE 75 MG TABLET PO SCH (11:53)
[2019-01-20] MEDS: OXYCODONE-ACETAMINOPHEN 5-325 MG TABLET PO PRN ×2 (11:53→21:35)
[2019-01-20] MEDS: METOPROLOL TARTRATE 25 MG TABLET PO SCH ×2 (11:53→21:37)
[2019-01-20] MEDS: FUROSEMIDE 20 MG TABLET PO SCH ×4 (11:53→17:46)
--- NOTE | 2019-01-20 12:13 | PDOC PROGRESS REPORT ---
Subjective Progress Note for:: 01/20/19 Reason For Visit: Patient seen today undergoing dialysis. Patient is quite comfortable and undergoing dialysis without any issues. Vital signs are stable. Chart review was done. Discussions were done with the treating nurse. Patient looks quite comfortable at the moment. She states the pain of her right BKA is reasonable on her current medications. Labs and medications were reviewed with the patient. Physical Exam Vital Signs: Temp Pulse Resp BP Pulse Ox 99.5 F 92 20 124/52 L 92 01/20/19 07:24 01/20/19 07:24 01/20/19 07:24 01/20/19 07:24 01/20/19 07:24 Intake & Output 01/19/19 01/20/19 01/21/19 06:59 06:59 06:59 Intake Total 1020 240 Output Total 240 10 Balance 780 230 Weight 110 kg General appearance: PRESENT: no acute distress Respiratory exam: PRESENT: clear to auscultation adamaris. ABSENT: crackles Cardiovascular exam: PRESENT: +S1, +S2 GI/Abdominal exam: PRESENT: normal bowel sounds, soft. ABSENT: organomegaly, tenderness Extremities exam: ABSENT: pedal edema Neurological exam: PRESENT: alert, awake, oriented to person, oriented to place Psychiatric exam: PRESENT: appropriate affect Skin exam: ABSENT: cyanosis, mottled, rash Results Laboratory Results: 01/20/19 06:29 01/20/19 06:29 01/20/19 01/20/19 06:29 06:29 WBC 19.0 H RBC 2.91 L Hgb 9.5 L Hct 28.3 L MCV 98 H MCH 32.6 MCHC 33.4 RDW 14.6 H Plt Count 417 Sodium 135.4 L Potassium 4.4 Chloride 94 L Carbon Dioxide 24 Anion Gap 17 BUN 43 H Creatinine 9.61 H Est GFR ( Amer) 5 L Glucose 147 H Calcium 9.0 Impressions: Foot X-Ray 01/13/19 22:00 IMPRESSION: 1. Nonspecific diffuse soft tissue edema. No soft tissue air 2. Partial amputation of 4th toe. 3. No radiographic evidence for osteomyelitis. Chest X-Ray 01/14/19 03:21 IMPRESSION: Cardiomegaly. Lungs are clear copyright 2011 [employer]- All Rights Reserved Assessment & Plan - Diagnosis (1) Gangrene of toe of right foot Is this a current diagnosis for this admission?: Yes Plan: Currently status post right BKA. Doing well postop.Wound culture grew staph aureus and enterococcus and she is on vancomycin being dosed by pharmacy. (2) ESRD (end stage renal disease) Is this a current diagnosis for this admission?: Yes Plan: Patient currently on dialysis. Dialysis is being supervised to ensure safe and smooth procedure. Vital signs are stable. Plan to remove between 1 and 2 L as tolerated. Dialysis orders were reviewed with the treating dialysis nurse. (3) Hypertension Is this a current diagnosis for this admission?: Yes Plan: Currently controlled. Monitor. (4) Noncompliance Plan: Unfortunately she has not been so compliant with her diet and medications and control of her diabetes in the past. (6) Sleep apnea syndrome Qualifiers: Sleep apnea type: unspecified type Qualified Code(s): G47.30 - Sleep apnea, unspecified (7) Type 2 diabetes mellitus Qualifiers: Diabetes mellitus exterminator helper termite insulin use: with exterminator helper termite use Diabetes mellitus complication status: with kidney complications Diabetes mellitus complication detail: with nephropathy Qualified Code(s): E11.21 - Type 2 diabetes mellitus with diabetic nephropathy; Z79.4 - long-term (current) use of insulin; Z79.4 - intermodal truck driver (current) use of insulin; Z79.4 - intermodal truck driver (current) use of insulin; Z79.4 - intermodal truck driver (current) use of insulin Is this a current diagnosis for this admission?: Yes Plan: Advised tight control for obvious reasons. Avoid future issues similar to this on her other leg. (8) Anemia in chronic kidney disease (CKD) Is this a current diagnosis for this admission?: Yes Plan: Adjust erythropoietin.
--- NOTE | 2019-01-20 13:23 | PDOC PROGRESS REPORT ---
Subjective Progress Note for:: 01/20/19 Subjective:: 63 year old -Citizen Of [place] female who presented to the emergency room with acute onset of worsening right foot pain and swelling with blackened discoloration of her second and fourth toes. She denies any fever or chills, nausea or vomiting or abdominal pain. No chest pain with this investigations. No headache or dizziness or blurred vision. Upon presentation to the emergency room, blood pressure was elevated 161/87 with a pulse of 65 respiratory to 24 temperature 98.9 pulse 70% on room air. Labs revealed anemia with hemoglobin of 10.6 hematocrit 32.4 and chloride of 91 with -22 with BUN of 53 and creatinine 9.98 with end-stage renal disease on hemodialy sis. She was status post hemodialysis on Sunday. C-reactive protein was 586.6. She had for which x-ray showed no acute cardia pulmonary disease. Her right foot x-ray revealed non-specific diffuse soft tissue edema with no soft tissue air. It showed partial amputation of the right fourth toe with no radiographic evidence for osteomyelitis. The patient was given IV Zosyn and vancomycin as well as IV morphine sulfate and 2 p.o. Percocet. She will be admitted to a medically monitored bed for further evaluation and management. 01/14/[id number]-wvay-old female with history of end-stage renal disease, diabetes mellitus, hypertension admitted with right foot gangrene. She is going for surgery today. Presently on IV vancomycin and Zosyn and also receiving IV morphine and Percocets. Still complaining of pain. 01/15/2019-patient is admitted with right foot gangrene status post amputation of 2nd-5th toes and a forefoot amputation. I saw her in the dialysis unit this morning she is more comfortable happy smiling. denies Any pain. 01/16/[id number]-uuvt-old female with history of type 2 diabetes mellitus ESRD on hemodialysis admitted with right foot gangrene status post removal of the 2nd-5 th toes and partial amputation of the right foot she is going back for the debridement procedure again today. 01/17/[id number]-gyjq-old female admitted for right foot gangrenous changes status post surgery. She went for further debridement of the right foot. Patient may need a right BKA. 01/18/[id number]-gkfh-old female admitted with right foot gangrene she is going for right BKA today. No acute events in the last 24 hours. Afebrile. 01/19 [id number]-old female with multiple medical problems including ESRD on hemodialysis admitted with right foot gangrene she went for a right BKA yesterday. Plan is to continue IV antibiotic therapy and she has a surgical drain. She is complaining of extreme pain and receiving IV morphine alternating with Percocets. 01/20/[id number]-wesf-old female admitted with right foot gangrene ended up having a right BKA. Presently on Zosyn and vancomycin. Wound culture positive for enterococcus and staph aureus. Successfully completed her dialysis this morning. PT OT consult was requested rehab consult was requested. Reason For Visit: RIGHT FOOT DIABETIC CELLULITIS WITH SECOND AND Physical Exam Vital Signs: Temp Pulse Resp BP Pulse Ox 99.5 F 92 20 124/52 L 92 01/20/19 07:24 01/20/19 07:24 01/20/19 07:24 01/20/19 07:24 01/20/19 07:24 Intake & Output 01/19/19 01/20/19 01/21/19 06:59 06:59 06:59 Intake Total 1020 240 Output Total 075 53 2713 Balance 780 230 -2100 Weight 110 kg General appearance: PRESENT: no acute distress Head exam: PRESENT: atraumatic Eye exam: PRESENT: PERRLA Mouth exam: PRESENT: dry mucosa Teeth exam: PRESENT: poor dentation Neck exam: ABSENT: carotid bruit, JVD, lymphadenopathy, thyromegaly Respiratory exam: PRESENT: decreased breath sounds Cardiovascular exam: PRESENT: RRR. ABSENT: diastolic murmur, rubs, systolic murmur GI/Abdominal exam: PRESENT: normal bowel sounds, soft. ABSENT: distended, guarding, mass, organolmegaly, rebound, tenderness Rectal exam: PRESENT: deferred Extremities exam: PRESENT: full ROM, other - Right BKA with dressing present.. ABSENT: calf tenderness, clubbing, pedal edema Neurological exam: PRESENT: alert, awake, oriented to person, oriented to place, oriented to time, oriented to situation, CN II-XII grossly intact. ABSENT: motor sensory deficit Psychiatric exam: PRESENT: appropriate affect, normal mood. ABSENT: homicidal ideation, suicidal ideation Results Laboratory Results: 01/20/19 06:29 01/20/19 06:29 01/20/19 01/20/19 06:29 06:29 WBC 19.0 H RBC 2.91 L Hgb 9.5 L Hct 28.3 L MCV 98 H MCH 32.6 MCHC 33.4 RDW 14.6 H Plt Count 417 Sodium 135.4 L Potassium 4.4 Chloride 94 L Carbon Dioxide 24 Anion Gap 17 BUN 43 H Creatinine 9.61 H Est GFR ( Amer) 5 L Glucose 147 H Calcium 9.0 Impressions: Foot X-Ray 01/13/19 22:00 IMPRESSION: 1. Nonspecific diffuse soft tissue edema. No soft tissue air 2. Partial amputation of 4th toe. 3. No radiographic evidence for osteomyelitis. Chest X-Ray 01/14/19 03:21 IMPRESSION: Cardiomegaly. Lungs are clear copyright 2010 [employer]- All Rights Reserved Assessment and Plan - Diagnosis (1) Gangrene of toe of right foot Is this a current diagnosis for this admission?: Yes Plan: Patient will be admitted to a medical monitor bed. She was placed on IV vancomycin and Zosyn. Surgery consultation will be obtained by Dr. Bonilla. M RI of the right foot will be obtained. She will likely need a rotation of the second and fourth toes due to gangrene and sepsis. 01/14/2019-patient admitted with gangrene of the right foot. On IV vancomycin and Zosyn surgical consult was done patient is going for possible transmetatarsal amputation of the right foot. PT consult OT consult was requested. Patient is requesting to go to a rehab facility. 01/15/2019-status post surgery postop day 1. Amputation of right foot 2nd-5th toes and forefoot amputation. Patient is doing much better today. wBC count came down. aFebrile. 01/16 2019-patient has partial limitation of the right foot with removal of 2nd- 5th toes she is going back to surgery today for debridement. Presently on IV vancomycin and Zosyn plan is to continue the antibiotics. 01/17/2019-as per the surgical team patient may need a right BKA. Plan to involve social worker masters and development planner to make arrangements for the prosthesis. To continue IV Zosyn and vancomycin in the meantime. 01/18/2019-patient is going for right BKA today around 3 PM. PT consult rehab co nsult was requested. 01/19/[id number]-qrdg-old female admitted with right foot gangrene status post right BKA yesterday she is on vancomycin and Zosyn. PT consult rehab consult requested. She is going for dialysis tomorrow as per schedule. 01/20 [id number]-nvlp-old female admitted with right foot gangrene status post right BKA on vancomycin and Zosyn. Cultures are positive for staph aureus and entero coccus. Plan is to continue the present antibiotic therapy. Latest WBC count is 19,000 and T-max is 98.8. (2) Sepsis Qualifiers: Sepsis type: sepsis due to unspecified organism Sepsis acute organ dysfunction status: without acute organ dysfunction Qualified Code(s): A41.9 - Sepsis, unspecified organism Is this a current diagnosis for this admission?: Yes Plan: Blood cultures will be obtained in follow-up. We will follow her CBC. Antibiot ics will be continued with IV vancomycin and Zosyn. This likely secondary to her diabetic foot cellulitis and gangrene. 01/14/2019-patient admitted with sepsis source is right foot gangrene present and IV vancomycin and IV Zosyn. Cultures are pending. 01/15/2019-patient was admitted with sepsis source is the right foot gangrene status post surgery WBC is coming down patient is on vancomycin and Zosyn afebrile. Sepsis is resolving. 01/16/2019-patient admitted with sepsis most likely secondary to right foot gangrene. Cultures came back positive for staph aureus and gram-negative rods. 01/17/2019-wound cultures came back positive for staph aureus and enterococcus. On vancomycin and Zosyn. And is to continue the antibiotics at this moment. 01/18/2019-patient is on vancomycin and Zosyn Vanco trough levels are managed by pharmacy. Cultures are positive for staph aureus and enterococcus. Enterococcus. 01/19/2019-patient is presently on IV vancomycin and Zosyn she had a right BKA yesterday. Cultures are positive for staph aureus and enterococcus. Plan is to continue the antibiotics for at least another day. 01/20/2019-cultures are positive for staph aureus and enterococcus, blood cultures are negative. WBC count is 19,000. Afebrile. Plan is to continue the antibiotics for at least 1 more day. (3) ESRD (end stage renal disease) Is this a current diagnosis for this admission?: Yes Plan: Nephrology consultation will be obtained for follow-up on hemodialysis 01/14/2019-patient has end-stage renal disease goes for dialysis Sunday she missed her dialysis yesterday. Consultation with Dr. Stoll was done. 01/15/2019-patient has history of end-stage renal disease outpatient schedule is Sunday she had dialysis this morning. Nephrology on board. 01/16/2019-patient has history of end-stage renal disease and she has dialysis yesterday. Most likely she will go for dialysis tomorrow. 01/17/2019-patient has a history of ESRD on hemodialysis she successfully completed dialysis today. 01/18/2019-patient has end-stage renal disease secondary to the combination of diabetes mellitus hypertension she had dialysis yesterday. 01/19/2019-patient has history of ESRD on hemodialysis received dialysis on Sunday and next dialysis is scheduled for tomorrow. 01/20/2019-patient has history of ESRD on hemodialysis last dialysis is today. Next dialysis session is on Sunday. (4) Hypertension Is this a current diagnosis for this admission?: Yes Plan: We will continue clonidine and hydralazine and placed patient on as needed IV hydralazine 01/14/2019-patient blood pressure today is 126/62. With pulse rate of 72. Plan is to continue the present medications. 01/15/2019-patient blood pressure today is 162/97. With the dialysis and fluid removal hopefully blood pressure will come back to normal range. 01/16/2019-patient blood pressure today is 130/90 stable. Plan is to continue the present management. 01/17/2019-patient blood pressure today is 160/60. She is going for dialysis today. Hopefully with the dialysis blood pressure will improve. 01/18/2019-patient blood pressure today is 144/64. Plan is to continue the present management. 01/19/2019-patient blood pressure this morning is 147/71. Stable. Plan is to continue the present management. 01/20 2019-blood pressure today is 132/57 today. Stable. Plan is to continue the same management. (5) Type 2 diabetes mellitus Qualifiers: Diabetes mellitus mcc insulin use: with mcc use Diabetes mellitus complication status: with kidney complications Diabetes mellitus complication detail: with nephropathy Qualified Code(s): E11.21 - Type 2 diabetes mellitus with diabetic nephropathy; Z79.4 - buttermaker continuous churn (current) use of insulin; Z79.4 - FDC (current) use of insulin; Z79.4 - buttermaker continuous churn (current) use of insulin; Z79.4 - buttermaker continuous churn (current) use of insulin Is this a current diagnosis for this admission?: Yes Plan: 01/14/2019-patient has history of type 2 diabetes mellitus on insulin sliding every 6 hours. Patient is n.p.o. Latest blood sugar is 181. Plan is to continue the present management. 01/15/2019-patient has history of type 2 diabetes mellitus on insulin sliding scale plan to switch the sliding scale to before meals and at bedtime. Latest blood sugar is 152 stable. 01/16/2019-patient has history of type 2 diabetes mellitus on insulin sliding scale latest blood sugar is an 181. on Insulin sliding scale. Plan is to continue the present management. 01/17/2019-blood sugar is 146. plan is to continue the present management. 01/18/2019-patient latest blood sugar is 213. Patient is on insulin sliding scale before meals and at bedtime. Plan is to continue the present management. To check for hemoglobin A1c. 01/19/2019-latest blood sugar is 213. On insulin sliding scale before meals and at bedtime. Hemoglobin A1c is 6.3. Plan is to continue the present management. 01/20/2019-patient blood test blood sugar is 141. On insulin sliding scale, hemoglobin A1c 6.3 plan is to continue the present management. (6) Morbid obesity with BMI of 40.0-44.9, adult Is this a current diagnosis for this admission?: No - Time Time Spent with patient: 15-24 minutes Medications reviewed and adjusted accordingly: Yes Anticipated discharge: SNF
[2019-01-20] MEDS: VANCOMYCIN HCL 500 MG in DEXTROSE 5%-WATER 100 ML IV SCH (17:37)
--- NOTE | 2019-01-20 18:16 | PDOC PROGRESS REPORT ---
Subjective Progress Note for:: 01/20/19 Subjective:: Fatigued T, no complaints Reason For Visit: RIGHT FOOT DIABETIC CELLULITIS WITH SECOND AND Physical Exam Vital Signs: Temp Pulse Resp BP Pulse Ox 98.3 F 85 17 129/57 H 95 01/20/19 13:32 01/20/19 13:32 01/20/19 13:32 01/20/19 13:32 01/20/19 13:32 Intake & Output 01/19/19 01/20/19 01/21/19 06:59 06:59 06:59 Intake Total 1020 240 200 Output Total 417 76 9106 Balance 780 230 -1900 Weight 110 kg General appearance: PRESENT: no acute distress Musculoskeletal exam: PRESENT: other - Dressing dry, intact; serosanguineous drainage from the drain Results Laboratory Results: 01/20/19 06:29 01/20/19 06:29 01/20/19 01/20/19 06:29 06:29 WBC 19.0 H RBC 2.91 L Hgb 9.5 L Hct 28.3 L MCV 98 H MCH 32.6 MCHC 33.4 RDW 14.6 H Plt Count 417 Sodium 135.4 L Potassium 4.4 Chloride 94 L Carbon Dioxide 24 Anion Gap 17 BUN 43 H Creatinine 9.61 H Est GFR ( Amer) 5 L Glucose 147 H Calcium 9.0 Impressions: Foot X-Ray 01/13/19 22:00 IMPRESSION: 1. Nonspecific diffuse soft tissue edema. No soft tissue air 2. Partial amputation of 4th toe. 3. No radiographic evidence for osteomyelitis. Chest X-Ray 01/14/19 03:21 IMPRESSION: Cardiomegaly. Lungs are clear copyright 2011 [employer]- All Rights Reserved Assessment & Plan - Diagnosis (1) History of right above knee amputation Is this a current diagnosis for this admission?: Yes Plan: Impression: And is status post a right [id number] amputation 48 hours ago, hemodynamically stable; drain with moderate serosanguineous output, left knee Recommendations: 1. Anticipate dressing change tomorrow with removal. (2) Anemia in chronic kidney disease (CKD) Is this a current diagnosis for this admission?: Yes (3) Morbid obesity with BMI of 40.0-44.9, adult Is this a current diagnosis for this admission?: Yes (4) ESRD (end stage renal disease) Is this a current diagnosis for this admission?: Yes (5) Hypertension Is this a current diagnosis for this admission?: Yes
[2019-01-20] MEDS: ATORVASTATIN CALCIUM 20 MG TABLET PO SCH (21:45)
[2019-01-21] MEDS: HYDRALAZINE HCL 50 MG TABLET PO SCH ×3 (05:14→22:33)
[2019-01-21] MEDS: CLONIDINE HCL 0.2 MG TABLET PO SCH ×3 (05:14→22:13)
[2019-01-21] MEDS: MORPHINE SULFATE 10 MG/ML INJ IV PRN ×3 (05:15→18:38)
[2019-01-21] MEDS: INSULIN LISPRO 100 UNIT/ML 3 ML VIAL SUBCUT SCH ×4 (08:41→22:14)
[2019-01-21] MEDS: CALCIUM ACETATE 667 MG CAPSULE PO SCH ×3 (08:42→18:38)
[2019-01-21] MEDS: FUROSEMIDE 20 MG TABLET PO SCH ×3 (10:05→18:39)
[2019-01-21] MEDS: HEPARIN SOD (PORCINE) 5,000 UNIT/ML 1 ML VIAL SUBCUT SCH ×2 (10:05→22:14)
[2019-01-21] MEDS: METOPROLOL TARTRATE 25 MG TABLET PO SCH ×2 (10:05→22:13)
[2019-01-21] MEDS: CLOPIDOGREL BISULFATE 75 MG TABLET PO SCH (10:05)
--- NOTE | 2019-01-21 13:08 | PDOC PROGRESS REPORT ---
Subjective Progress Note for:: 01/21/19 Reason For Visit: RIGHT FOOT DIABETIC CELLULITIS WITH SECOND AND Physical Exam Vital Signs: Temp Pulse Resp BP Pulse Ox 98.7 F 84 20 142/62 H 93 01/21/19 11:18 01/21/19 11:18 01/21/19 11:18 01/21/19 11:18 01/21/19 11:18 Intake & Output 01/20/19 01/21/19 01/22/19 06:59 06:59 06:59 Intake Total 240 550 120 Output Total 10 2100 0 Balance 230 -1550 120 Weight 110 kg General appearance: PRESENT: no acute distress Head exam: PRESENT: normocephalic Eye exam: PRESENT: EOMI Mouth exam: PRESENT: moist Neck exam: PRESENT: full ROM Respiratory exam: PRESENT: clear to auscultation adamaris Cardiovascular exam: PRESENT: RRR Pulses: PRESENT: normal radial pulses, normal femoral pulses GI/Abdominal exam: PRESENT: soft Rectal exam: PRESENT: deferred Extremities exam: PRESENT: other - The right BKA stump is clean the ENEIDA drain has been removed tari are in place no evidence of any drainage or fluid chente ections Musculoskeletal exam: PRESENT: full ROM Neurological exam: PRESENT: alert, awake, oriented to person, oriented to place Psychiatric exam: PRESENT: anxious, appropriate affect Skin exam: PRESENT: dry Results Laboratory Results: 01/20/19 06:29 01/20/19 06:29 Impressions: Foot X-Ray 01/13/19 22:00 IMPRESSION: 1. Nonspecific diffuse soft tissue edema. No soft tissue air 2. Partial amputation of 4th toe. 3. No radiographic evidence for osteomyelitis. Chest X-Ray 01/14/19 03:21 IMPRESSION: Cardiomegaly. Lungs are clear copyright 2011 [employer]- All Rights Reserved Assessment & Plan - Diagnosis (1) Diabetic wet gangrene of the foot Is this a current diagnosis for this admission?: Yes - Plan Summary Plan Summary: Status post right BKA for infected diabetic foot He has been removed we will continue with dry dressings patient could be disch arged today or tomorrow from surgical standpoint
--- NOTE | 2019-01-21 17:28 | PDOC PROGRESS REPORT ---
Subjective Progress Note for:: 01/21/19 Subjective:: This is a 63 year old -[place] female with HTN, DM2, ESRD who presented right foot pain and swelling with blackened discoloration of her second and fourth toes. She was admitted for right foot gangrene which failed antibiotic therapy. Patient eventually required a AKA by surgery on 01/17/2019. Spleen She is doing well. She says she feels better today. No acute issues. Will initiate placement process for rehab. Reason For Visit: RIGHT FOOT DIABETIC CELLULITIS WITH SECOND AND Physical Exam Vital Signs: Temp Pulse Resp BP Pulse Ox 98.7 F 84 20 142/62 H 93 01/21/19 11:18 01/21/19 11:18 01/21/19 11:18 01/21/19 11:18 01/21/19 11:18 Intake & Output 01/20/19 01/21/19 01/22/19 06:59 06:59 06:59 Intake Total 240 550 120 Output Total 10 2100 0 Balance 230 -1550 120 Weight 242 lb 8.136 oz General appearance: PRESENT: no acute distress, well-developed, well-nourished Head exam: PRESENT: atraumatic, normocephalic Eye exam: PRESENT: conjunctiva pink, EOMI, PERRLA. ABSENT: scleral icterus Ear exam: PRESENT: normal external ear exam Mouth exam: PRESENT: moist, tongue midline Neck exam: ABSENT: carotid bruit, JVD, lymphadenopathy, thyromegaly Respiratory exam: PRESENT: clear to auscultation adamaris. ABSENT: rales, rhonchi, wheezes Cardiovascular exam: PRESENT: RRR. ABSENT: diastolic murmur, rubs, systolic murmur Pulses: PRESENT: normal dorsalis pedis pul GI/Abdominal exam: PRESENT: normal bowel sounds, soft. ABSENT: distended, guarding, mass, organolmegaly, rebound, tenderness Rectal exam: PRESENT: deferred Extremities exam: PRESENT: other - Right BKA, note of amputation stump on the left toes Neurological exam: PRESENT: alert, awake, oriented to person, oriented to place, oriented to time, oriented to situation, CN II-XII grossly intact. ABSENT: motor sensory deficit Results Laboratory Results: 01/20/19 06:29 01/20/19 06:29 Impressions: Foot X-Ray 01/13/19 22:00 IMPRESSION: 1. Nonspecific diffuse soft tissue edema. No soft tissue air 2. Partial amputation of 4th toe. 3. No radiographic evidence for osteomyelitis. Chest X-Ray 01/14/19 03:21 IMPRESSION: Cardiomegaly. Lungs are clear copyright 2011 [employer]- All Rights Reserved Assessment and Plan - Diagnosis (1) Diabetic wet gangrene of the foot Is this a current diagnosis for this admission?: Yes Plan: S/P Right AKA by surgery on 01/17. (2) ESRD (end stage renal disease) Is this a current diagnosis for this admission?: Yes Plan: Nephrology following. Getting dialysis. (3) Hypertension Is this a current diagnosis for this admission?: Yes Plan: Blood pressure is at goal. Continue clonidine, hydralazine and metoprolol. (4) Morbid obesity with BMI of 40.0-44.9, adult Is this a current diagnosis for this admission?: Yes (5) Type 2 diabetes mellitus Qualifiers: Diabetes mellitus long term care administrator insulin use: with intermediate use Diabetes mellitus complication status: with kidney complications Diabetes mellitus complication detail: with nephropathy Qualified Code(s): E11.21 - Type 2 diabetes mellitus with diabetic nephropathy; Z79.4 - correction (current) use of insulin; Z79.4 - termite control technician (current) use of insulin; Z79.4 - correction (current) use of insulin; Z79.4 - termite control technician (current) use of insulin Is this a current diagnosis for this admission?: Yes - Time Time Spent with patient: 15-24 minutes
[2019-01-21] MEDS: ATORVASTATIN CALCIUM 20 MG TABLET PO SCH (22:13)
[2019-01-22] MEDS: MORPHINE SULFATE 10 MG/ML INJ IV PRN ×2 (03:48→11:33)
[2019-01-22] MEDS ORDERED: EPOETIN ALFA INJ 20000 UNIT/1 ML VIAL (RENAL) IV PRN (05:00)
[2019-01-22] MEDS: HYDRALAZINE HCL 50 MG TABLET PO SCH ×2 (05:39→14:53)
[2019-01-22] MEDS: CLONIDINE HCL 0.2 MG TABLET PO SCH ×2 (05:40→14:54)
[2019-01-22 07:14] LABS: HEMATOCRIT 26.2 % (36.0-47.0); HEMOGLOBIN 8.6 g/dL (12.0-15.5); MEAN CORPUSCULAR HEMOGLOBIN 31.6 pg (27.0-33.4); MEAN CORPUSCULAR HGB CONC 32.8 g/dL (32.0-36.0); MEAN CORPUSCULAR VOLUME 96 fl (80-97); PLATELET COUNT 506 10^3/uL (150-450); RED BLOOD COUNT 2.72 10^6/uL (3.72-5.28); RED CELL DISTRIBUTION WIDTH 14.8 % (11.5-14.0); WHITE BLOOD COUNT 18.3 10^3/uL (4.0-10.5)
[2019-01-22] MEDS: INSULIN LISPRO 100 UNIT/ML 3 ML VIAL SUBCUT SCH ×2 (07:15→12:34)
[2019-01-22 07:34] LABS: VANCOMYCIN,TROUGH 22.5 ug/mL (5.0-20.0)
[2019-01-22 07:36] LABS: ANION GAP 16 (5-19); BLOOD UREA NITROGEN 39 mg/dL (7-20); CALCIUM 9.1 mg/dL (8.4-10.2); CARBON DIOXIDE 25 mmol/L (22-30); CHLORIDE 93 mmol/L (98-107); GLUCOSE 119 mg/dL (75-110); POTASSIUM 4.3 mmol/L (3.6-5.0)
[2019-01-22] MEDS: CALCIUM ACETATE 667 MG CAPSULE PO SCH ×2 (08:18→12:35)
[2019-01-22] MEDS ORDERED: EPOETIN ALFA-EPBX 10,000 UNIT/ML VIAL (RENAL) IV PRN (08:20)
[2019-01-22] MEDS ORDERED: CIPROFLOXACIN 400 MG/D5W RTU 400 MG/200 ML RTUPB IV SCH (10:30)
--- NOTE | 2019-01-22 11:31 | PDOC TRANSFER SUMMARY ---
General - Admit/Disc Date/PCP Admission Date/Primary Care Provider: 01/14/19 03:41 DEVAN DE LA CRUZ MD Discharge Date: 01/22/19 - Discharge Diagnosis (1) Diabetic wet gangrene of the foot Is this a current diagnosis for this admission?: Yes (2) ESRD (end stage renal disease) Is this a current diagnosis for this admission?: Yes (3) Hypertension Is this a current diagnosis for this admission?: Yes (4) Morbid obesity with BMI of 40.0-44.9, adult Is this a current diagnosis for this admission?: Yes (5) Type 2 diabetes mellitus Is this a current diagnosis for this admission?: Yes - Additional Information Resuscitation Status: Full Code Prescriptions: Amoxicillin/Potassium Clav [Augmentin 500-125 Tablet] 1 each PO DAILY 5 Days #5 tablet Oxycodone HCl/Acetaminophen [Percocet 2.5-325 Mg Tablet] 1 each PO Q12HP PRN #10 tablet PRN Reason: For Pain Home Medications: Atorvastatin Calcium [Lipitor 20 mg Tablet] 20 mg PO QHS 01/14/19 Calcium Acetate [Phoslo 667 mg Capsule] 2,001 mg PO MEALS 01/14/19 Clonidine HCl [Catapres 0.3 mg Tablet] 0.3 mg PO Q8 01/14/19 Clopidogrel Bisulfate [Plavix 75 mg Tablet] 75 mg PO DAILY 01/14/19 Furosemide [Lasix 20 mg Tablet] 20 mg PO TID 01/14/19 Hydralazine HCl [Apresoline 50 mg Tablet] 75 mg PO Q8 01/14/19 Insulin Glargine,Hum.rec.anlog [Lantus Insulin 100 Unit/1 ml 10 ml] 15 unit SUBCUT QHS 01/14/19 Insulin Lispro [Humalog Insulin (Lispro) 100 unit/mL] 6 unit SUBCUT PC 01/14/19 Lidocaine/Prilocaine [Emla Cream] 1 applic TP .DIALYSIS 01/14/19 Metoprolol Tartrate [Lopressor 25 mg Tablet] 25 mg PO Q12 01/14/19 Oxycodone HCl/Acetaminophen [Percocet 5-325 mg Tablet] 1 tab PO Q6HP PRN 01/14/19 Amoxicillin/Potassium Clav [Augmentin 500-125 Tablet] 1 each PO DAILY 5 Days #5 tablet 01/22/19 Oxycodone HCl/Acetaminophen [Percocet 2.5-325 Mg Tablet] 1 each PO Q12HP PRN #10 tablet 01/22/19 History of Present Illness Admission Date/PCP: 01/14/19 03:41 DEVAN DE LA CRUZ MD History of Present Illness: Admitting hospitalist's H&P: BEA QUINONES is a 63 year old -[place] female who presented to the emergency room with acute onset of worsening right foot pain and swelling with blackened discoloration of her second and fourth toes. She denies any fever or chills, nausea or vomiting or abdominal pain. No chest pain with this investigations. No headache or dizziness or blurred vision. Upon presentation to the emergency room, blood pressure was elevated 161/87 with a pulse of 65 respiratory to 24 temperature 98.9 pulse 70% on room air. Labs revealed anemia with hemoglobin of 10.6 hematocrit 32.4 and chloride of 91 with -22 with BUN of 53 and creatinine 9.98 with end-stage renal disease on hemodialysis. She was status post hemodialysis on Sunday. C-reactive protein was 586.6. She had for which x-ray showed no acute cardia pulmonary disease. Her right foot x-ray revealed non-specific diffuse soft tissue edema with no soft tissue air. It showed partial amputation of the right fourth toe with no radiographic evidence for osteomyelitis. Hospital Course Hospital Course: This is a 63 year old -[place] female with HTN, DM2, ESRD who presented right foot pain and swelling with blackened discoloration of her second and fourth toes. She was started on IV vancomycin and Zosyn. She was admitted for right foot gangrene but failed antibiotic therapy. Patient eventually required a AKA by surgery on 01/17/2019. She has been doing well. She did get dialysis during this hospital course. Wound cultures grew MSSA and E. cloacae sensitive to Augmentin to which she will be discharged on. She will closely follow up with surgery. Physical Exam Vital Signs: Temp Pulse Resp BP Pulse Ox 98.4 F 91 17 148/63 H 95 01/21/19 23:09 01/21/19 23:09 01/21/19 23:09 01/21/19 23:09 01/21/19 23:09 Intake & Output 01/21/19 01/22/19 01/23/19 06:59 06:59 06:59 Intake Total 550 680 Output Total 2100 0 Balance -1550 680 Weight 242 lb 8.136 oz 224 lb 13.944 oz General appearance: PRESENT: no acute distress, obese Head exam: PRESENT: atraumatic, normocephalic Eye exam: PRESENT: conjunctiva pink, EOMI, PERRLA. ABSENT: scleral icterus Ear exam: PRESENT: normal external ear exam Mouth exam: PRESENT: moist, tongue midline Neck exam: ABSENT: carotid bruit, JVD, lymphadenopathy, thyromegaly Respiratory exam: PRESENT: clear to auscultation adamaris. ABSENT: rales, rhonchi, wheezes Cardiovascular exam: PRESENT: RRR. ABSENT: diastolic murmur, rubs, systolic murmur Pulses: PRESENT: normal dorsalis pedis pul GI/Abdominal exam: PRESENT: normal bowel sounds, soft. ABSENT: distended, guarding, mass, organolmegaly, rebound, tenderness Rectal exam: PRESENT: deferred Musculoskeletal exam: PRESENT: other - right AKA Neurological exam: PRESENT: alert, awake, oriented to person, oriented to place, oriented to time, oriented to situation, CN II-XII grossly intact. ABSENT: motor sensory deficit Results Laboratory Results: 01/22/19 06:03 01/22/19 06:03 01/22/19 01/22/19 06:03 06:03 WBC 18.3 H RBC 2.72 L Hgb 8.6 L Hct 26.2 L MCV 96 MCH 31.6 MCHC 32.8 RDW 14.8 H Plt Count 506 H Sodium 134.2 L Potassium 4.3 Chloride 93 L Carbon Dioxide 25 Anion Gap 16 BUN 39 H Creatinine 9.20 H Est GFR ( Amer) 5 L Glucose 119 H Calcium 9.1 Impressions: Foot X-Ray 01/13/19 22:00 IMPRESSION: 1. Nonspecific diffuse soft tissue edema. No soft tissue air 2. Partial amputation of 4th toe. 3. No radiographic evidence for osteomyelitis. Chest X-Ray 01/14/19 03:21 IMPRESSION: Cardiomegaly. Lungs are clear copyright 2010 [employer]- All Rights Reserved Qualifiers - * PATIENT BEING DISCHARGED WITH ANY OF THE FOLLOWING DIAGNOSIS: No Acute Heart Failure - Is this a Heart Failure Patient?: No LVEF < 40%?: No- if no continue to question #3 3. Anticoagulant therapy for permanect/persistent/paraoxysmal Afib or Aflutter: N/A
[2019-01-22] MEDS: HEPARIN SOD (PORCINE) 5,000 UNIT/ML 1 ML VIAL SUBCUT SCH (11:50)
[2019-01-22] MEDS: CLOPIDOGREL BISULFATE 75 MG TABLET PO SCH (11:51)
[2019-01-22] MEDS: METOPROLOL TARTRATE 25 MG TABLET PO SCH (11:52)
[2019-01-22] MEDS: FUROSEMIDE 20 MG TABLET PO SCH ×2 (11:53→14:53)
[2019-01-22] MEDS ORDERED: METRONIDAZOLE 500 MG/NS RTU 500 MG/100 ML RTUPB IV SCH (12:00)
--- NOTE | 2019-01-22 12:36 | PDOC PROGRESS REPORT ---
Subjective Progress Note for:: 01/22/19 Reason For Visit: Patient seen on dialysis today. She is undergoing dialysis without any issues. She says pain of post amputation site is tolerable. No complaints of any fever or chills. Labs and medications were reviewed. Dialysis orders were reviewed with the treating dialysis nurse. Physical Exam Vital Signs: Temp Pulse Resp BP Pulse Ox 98.4 F 91 17 148/63 H 95 01/21/19 23:09 01/21/19 23:09 01/21/19 23:09 01/21/19 23:09 01/21/19 23:09 Intake & Output 01/21/19 01/22/19 01/23/19 06:59 06:59 06:59 Intake Total 550 680 Output Total 2100 0 Balance -1550 680 Weight 110 kg 102 kg General appearance: PRESENT: no acute distress Respiratory exam: PRESENT: clear to auscultation adamaris. ABSENT: crackles Cardiovascular exam: PRESENT: +S1, +S2 GI/Abdominal exam: PRESENT: normal bowel sounds, soft. ABSENT: organomegaly, tenderness Neurological exam: PRESENT: alert, awake, oriented to person, oriented to place Psychiatric exam: PRESENT: appropriate affect Results Laboratory Results: 01/22/19 06:03 01/22/19 06:03 01/22/19 01/22/19 06:03 06:03 WBC 18.3 H RBC 2.72 L Hgb 8.6 L Hct 26.2 L MCV 96 MCH 31.6 MCHC 32.8 RDW 14.8 H Plt Count 506 H Sodium 134.2 L Potassium 4.3 Chloride 93 L Carbon Dioxide 25 Anion Gap 16 BUN 39 H Creatinine 9.20 H Est GFR ( Amer) 5 L Glucose 119 H Calcium 9.1 Impressions: Foot X-Ray 01/13/19 22:00 IMPRESSION: 1. Nonspecific diffuse soft tissue edema. No soft tissue air 2. Partial amputation of 4th toe. 3. No radiographic evidence for osteomyelitis. Chest X-Ray 01/14/19 03:21 IMPRESSION: Cardiomegaly. Lungs are clear copyright 2011 [employer]- All Rights Reserved Assessment & Plan - Diagnosis (1) Gangrene of toe of right foot Is this a current diagnosis for this admission?: Yes Plan: Currently status post right BKA. Doing well postop.Wound culture grew staph aureus and enterococcus and she is on vancomycin being dosed by pharmacy. (2) ESRD (end stage renal disease) Is this a current diagnosis for this admission?: Yes Plan: Patient currently on dialysis. Dialysis is being supervised to ensure safe and smooth procedure. Vital signs are stable. Plan to remove between 1 and 2 L as tolerated. Dialysis orders were reviewed with the treating dialysis nurse. (3) Hypertension Is this a current diagnosis for this admission?: Yes Plan: Currently controlled. Monitor. (4) Noncompliance Plan: Unfortunately she has not been so compliant with her diet and medications and control of her diabetes in the past. (5) Renal osteodystrophy Plan: Advised compliance with dietary modifications. Monitor. (6) Sleep apnea syndrome Qualifiers: Sleep apnea type: unspecified type Qualified Code(s): G47.30 - Sleep apnea, unspecified Plan: Advised compliance with CPAP. 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 Avoid future issues similar to this on her other leg. (8) Anemia in chronic kidney disease (CKD) Is this a current diagnosis for this admission?: Yes Plan: Adjust erythropoietin.
[2019-01-22 12:47] VITALS: BP 119/56
--- NOTE | 2019-01-22 15:04 | PDOC PROGRESS REPORT ---
Subjective Progress Note for:: 01/22/19 Reason For Visit: RIGHT FOOT DIABETIC CELLULITIS WITH SECOND AND Physical Exam Vital Signs: Temp Pulse Resp BP Pulse Ox 98.5 F 92 18 119/56 L 98 01/22/19 11:52 01/22/19 11:52 01/22/19 11:52 01/22/19 11:52 01/22/19 11:52 Intake & Output 01/21/19 01/22/19 01/23/19 06:59 06:59 06:59 Intake Total 550 680 Output Total 2100 0 Balance -1550 680 Weight 110 kg 102 kg Results Laboratory Results: 01/22/19 06:03 01/22/19 06:03 01/22/19 01/22/19 06:03 06:03 WBC 18.3 H RBC 2.72 L Hgb 8.6 L Hct 26.2 L MCV 96 MCH 31.6 MCHC 32.8 RDW 14.8 H Plt Count 506 H Sodium 134.2 L Potassium 4.3 Chloride 93 L Carbon Dioxide 25 Anion Gap 16 BUN 39 H Creatinine 9.20 H Est GFR ( Amer) 5 L Glucose 119 H Calcium 9.1 Impressions: Foot X-Ray 01/13/19 22:00 IMPRESSION: 1. Nonspecific diffuse soft tissue edema. No soft tissue air 2. Partial amputation of 4th toe. 3. No radiographic evidence for osteomyelitis. Chest X-Ray 01/14/19 03:21 IMPRESSION: Cardiomegaly. Lungs are clear copyright 2011 [employer]- All Rights Reserved Assessment & Plan - Diagnosis (1) Diabetic wet gangrene of the foot Is this a current diagnosis for this admission?: Yes (2) Sepsis Qualifiers: Sepsis type: sepsis due to unspecified organism Sepsis acute organ dysfunction status: without acute organ dysfunction Qualified Code(s): A41.9 - Sepsis, unspecified organism Is this a current diagnosis for this admission?: Yes - Plan Summary Plan Summary: This is a 63-year-old female status post below-knee amputation for an unsalvageable right foot due to a severe diabetic foot infection. The patient reports that she is doing reasonably well. Her pain medication is working adequately. There is a mild amount of bruising at the amputation stump site, however she has no erythema, induration, or sign of infection. The patient reports that she "bruises easily". The [facility] I believe she is fit for this from a surgical standpoint. Currently she is afebrile, and her white blood cell count is trending downward. Follow-up with [facility] in 7 to 10 days for staple removal. Continue antibiotics. Please contact immediately with any new questions or concerns.
[2019-01-22] MEDS ORDERED: LACTOBACILLUS ACIDOPHILUS 250 MG TAB PO SCH (18:00)
== END 2019-01-22 16:45 | DRG 239 ==
LOC: ER 20:29 → EH 01-14 03:41 → 5 01-14 07:44
PROVIDERS: ADMIT Family Medicine; ATTEND Family Medicine
PROC: 0Y6R0Z3 Detachment at Right 2nd Toe, Low, Open Approach (ICD-10-PCS; 2019-01-14)
PROC: 0Y6X0Z3 Detachment at Right 5th Toe, Low, Open Approach (ICD-10-PCS; 2019-01-14)
PROC: 0Y6V0Z3 Detachment at Right 4th Toe, Low, Open Approach (ICD-10-PCS; 2019-01-14)
PROC: 0Y6T0Z3 Detachment at Right 3rd Toe, Low, Open Approach (ICD-10-PCS; 2019-01-14)
PROC: 0HBMXZZ Excision of Right Foot Skin, External Approach (ICD-10-PCS; 2019-01-14)
PROC: 0H9MXZZ Drainage of Right Foot Skin, External Approach (ICD-10-PCS; 2019-01-14)
PROC: 5A1D70Z Performance of Urinary Filtration, Intermittent, Less than 6 Hours Per Day (ICD-10-PCS; 2019-01-15)
PROC: 0HBMXZZ Excision of Right Foot Skin, External Approach (ICD-10-PCS; 2019-01-16)
PROC: 0Y6H0Z3 Detachment at Right Lower Leg, Low, Open Approach (ICD-10-PCS; principal; 2019-01-18 15:00)
DX: E11.52 Type 2 diabetes mellitus with diabetic peripheral angiopathy with gangrene (principal); A41.9 Sepsis, unspecified organism; N18.6 End stage renal disease; I96 Gangrene, not elsewhere classified; L03.115 Cellulitis of right lower limb; I13.2 Hypertensive heart and chronic kidney disease with heart failure and with stage 5 chronic kidney disease, or end stage renal disease; L02.611 Cutaneous abscess of right foot; Z68.41 Body mass index [BMI] 40.0-44.9, adult; B95.61 Methicillin susceptible Staphylococcus aureus infection as the cause of diseases classified elsewhere; I50.9 Heart failure, unspecified; B96.89 Other specified bacterial agents as the cause of diseases classified elsewhere; E11.22 Type 2 diabetes mellitus with diabetic chronic kidney disease; E83.39 Other disorders of phosphorus metabolism; D63.1 Anemia in chronic kidney disease; M79.671 Pain in right foot; G47.33 Obstructive sleep apnea (adult) (pediatric); E66.01 Morbid (severe) obesity due to excess calories; Z99.2 Dependence on renal dialysis; Z79.01 Long term (current) use of anticoagulants; Z79.4 Long term (current) use of insulin; Z79.899 Other long term (current) drug therapy; Z91.19 Patient's noncompliance with other medical treatment and regimen
CPT/HCPCS: 01470; 01482; 36415; 71045; 80048; 80053; 80202; 82962; 83036; 83605; 83735; 83970; 84100; 85025; 85027; 85610; 85652; 85730; 86140; 87040; 87070; 87077; 87186; 87205; 88305; 88307; 88311; 93005; 93010; 93926; 99285; J0330; J0360; J1170; J1644; J1815; J2001; J2250; J2270; J2405; J2543; J2704; J3010; J3370; J3490; J7030; J7060; Q5105

== ENCOUNTER 2019-03-05 15:30 | Emergency (ER) | payer BC, MEDICARE ==
--- NOTE | 2019-03-05 17:02 | ER Document Report ---
ED Medical Screen (RME) - General Chief Complaint: Wound Infection Stated Complaint: POST OP COMPLICATION Time Seen by Provider: 03/05/19 17:01 Primary Care Provider: DEVAN DE LA CRUZ MD [Primary Care Provider] - Follow up as needed Mode of Arrival: Wheelchair Information source: Patient Notes: 63-year-old female presented to ED for drainage foul-smelling pain in the right BKA site. She states the BKA was done about 6 weeks ago she states is been draining for about 2 weeks the foul smell has been since Sunday. She went to her dialysis today and they did not do the dialysis due to the infection in the leg. She does have a history of diabetes poor circulation high blood pressure and kidney failure. She is on a Sunday schedule. She does former smoker but no longer and lives with her grown sons. Patient is alert and oriented respirations regular and unlabored and speaking in full sentences. The leg does have an extremely foul smell. TRAVEL OUTSIDE OF THE [place] IN LAST 30 DAYS: No - Related Data Allergies/Adverse Reactions: gabapentin Allergy (Verified 10/29/18 18:58) Past Medical History - Past Medical History Cardiac Medical History: Reports: Hx Congestive Heart Failure, Hx Hypertension Denies: Hx Coronary Artery Disease, Hx Heart Attack Pulmonary Medical History: Denies: Hx Asthma, Hx Bronchitis, Hx COPD, Hx Pneumonia, Hx Tuberculosis Neurological Medical History: Denies: Hx Cerebrovascular Accident, Hx Seizures Endocrine Medical History: Reports: Hx Diabetes Mellitus Type 2 Renal/ Medical History: Reports: Hx End Stage Renal Disease. Denies: Hx Peritoneal Dialysis Musculoskeltal Medical History: Denies Hx Arthritis Psychiatric Medical History: Denies: Hx Depression Past Surgical History: Reports: Hx Section - X3, Hx Cholecystectomy, Hx Orthopedic Surgery - Ankle surgery; left big toe amputation. Denies: Hx Pacemaker - Immunizations Hx Diphtheria, Pertussis, Tetanus Vaccination: No Physical Exam - Vital signs Vitals: Temp Pulse Resp BP Pulse Ox 97.9 F 62 18 134/65 H 96 03/05/19 16:05 03/05/19 16:05 03/05/19 16:05 03/05/19 16:05 03/05/19 16:05 Course - Vital Signs Vital signs: Temp Pulse Resp BP Pulse Ox 97.9 F 62 18 134/65 H 96 03/05/19 16:05 03/05/19 16:05 03/05/19 16:05 03/05/19 16:05 03/05/19 16:05 Doctor's Discharge - Discharge Referrals: DEVAN DE LA CRUZ MD [Primary Care Provider] - Follow up as needed
--- NOTE | 2019-03-05 17:41 | RADIOLOGY REPORT (SQ) ---
EXAM DESCRIPTION: KNEE RIGHT 2 VIEWS COMPLETED DATE/TIME: 03/05/2019 5:30 pm REASON FOR STUDY: Infected right BKA COMPARISON: None. NUMBER OF VIEWS: Two views. TECHNIQUE: AP and lateral radiographic images acquired of the right knee. LIMITATIONS: None. FINDINGS: Views of the right knee show a BKA knee. There is some air in the soft tissues. There is no obvious bone destruction in the stumps. IMPRESSION: There is no evidence of osteomyelitis. TECHNICAL DOCUMENTATION: JOB ID: [id number] [employer]- All Rights Reserved Reading location - IP/workstation name: [email or web address]
[2019-03-05 18:06] LABS: ABSOLUTE EOSINOPHILS # (AUTO) 0.2 10^3/uL (0.0-0.6); ABSOLUTE LYMPHOCYTES (AUTO) 1.3 10^3/uL (0.5-4.7); ABSOLUTE MONOCYTES (AUTO) 0.8 10^3/uL (0.1-1.4); ABSOLUTE NEUT (AUTO) 9.7 10^3/uL (1.7-8.2); BASOPHILS % (AUTO) 0.2 % (0-2); EOSINOPHILS % (AUTO) 1.8 % (0-6); HEMATOCRIT 34.3 % (36.0-47.0); HEMOGLOBIN 10.8 g/dL (12.0-15.5); LYMPHOCYTES % (AUTO) 10.7 % (13-45); MEAN CORPUSCULAR HEMOGLOBIN 31.3 pg (27.0-33.4); MEAN CORPUSCULAR HGB CONC 31.4 g/dL (32.0-36.0); MEAN CORPUSCULAR VOLUME 100 fl (80-97); PLATELET COUNT 338 10^3/uL (150-450); RED BLOOD COUNT 3.43 10^6/uL (3.72-5.28); RED CELL DISTRIBUTION WIDTH 16.9 % (11.5-14.0); SEGMENTED NEUTROPHILS % (AUTO) 80.3 % (42-78); TOTAL CELLS COUNTED % (AUTO) 100 %; WHITE BLOOD COUNT 12.1 10^3/uL (4.0-10.5)
[2019-03-05 18:40] LABS: ALBUMIN 3.1 g/dL (3.5-5.0); ALKALINE PHOSPHATASE 117 U/L (38-126); ANION GAP 14 (5-19); ASPARTATE AMINO TRANSFERASE 21 U/L (14-36); BILIRUBIN,DIRECT 0.4 mg/dL (0.0-0.4); BILIRUBIN,TOTAL 0.4 mg/dL (0.2-1.3); BLOOD UREA NITROGEN 30 mg/dL (7-20); CARBON DIOXIDE 26 mmol/L (22-30); CHLORIDE 98 mmol/L (98-107); GLUCOSE 99 mg/dL (75-110); POTASSIUM 5.5 mmol/L (3.6-5.0); TOTAL PROTEIN 6.8 g/dL (6.3-8.2)
[2019-03-05 18:45] LABS: INTERNATIONAL RATION (INR) 1.11; PROTHROMBIN TIME 14.3 SEC (11.4-15.4)
[2019-03-05 18:46] LABS: PARTIAL THROMBOPLASTIN TIME 34.8 SEC (23.5-35.8)
--- NOTE | 2019-03-05 19:50 | ER Document Report ---
ED General - General Chief Complaint: Wound Infection Stated Complaint: POST OP COMPLICATION Time Seen by Provider: 03/05/19 19:50 Mode of Arrival: Wheelchair Information source: Patient, Relative Notes: HISTORY OF PRESENT ILLNESS: Patient is a 63-year-old female with a past medical history of chronic renal failure on dialysis and status post right below-knee amputation proximally 6 weeks ago who presents with possible wound infection. Patient reports that she has noticed odor and drainage from her postsurgical site that is been getting worse, she reports is been "opening up and draining" and is afraid is infected. Mechanism of injury: No injury known Location: Right leg Onset: Several weeks ago Provocation: Unknown Quality: Aching, draining, swollen Radiation: None Severity: Moderate Timing: Constant Numbness/Tingling: None REVIEW OF SYSTEMS: CONSTITUTIONAL : Denies fever or chills, no sweats. Denies recent illness. EENT: Denies eye, ear, throat, or mouth pain or symptoms. Denies nasal or sinus congestion. CARDIOVASCULAR: Denies chest pain. RESPIRATORY: Denies cough, cold, or chest congestion. Denies shortness of breath, difficulty breathing, or wheezing. GASTROINTESTINAL: Denies abdominal pain. Denies nausea, vomiting, or diarrhea. Denies constipation. GENITOURINARY: Denies difficulty urinating, painful urination, burning, frequency, or blood in urine. FEMALE GENITOURINARY: Denies vaginal bleeding, abnormal or irregular periods. Last menstrual period MUSCULOSKELETAL: Positive for right leg surgical wound infection. SKIN: Denies rash or skin lesions. HEMATOLOGIC : Denies easy bruising or bleeding. LYMPHATIC: Denies swollen, enlarged glands. NEUROLOGICAL: Denies weakness or paralysis or loss of use of either side. Denies problems with gait or speech. Denies sensory or motor loss. PSYCHIATRIC: Denies anxiety or stress or depression. All other systems reviewed and negative. PHYSICAL EXAMINATION: GENERAL: Well-appearing, well-nourished and in no acute distress. HEAD: Atraumatic, normocephalic. No scalp deformity, depression, or crepitance. EYES: Pupils are 3 mm and equal/round/reactive to light, extraocular movements intact, sclera anicteric, conjunctiva are normal. ENT: Nares patent bilaterally, oropharynx clear without exudates or palatal petechia. Moist mucous membranes. No tonsil hypertrophy. NECK: Normal range of motion, supple without lymphadenopathy. LUNGS: Breath sounds present, equal, and clear to auscultation bilaterally. No wheezes, rales, or rhonchi. HEART: Regular rate and rhythm without murmurs, rubs, or gallops. 2+ peripheral pulses. Normal capillary refill. ABDOMEN: Soft, nontender, nondistended. Normoactive bowel sounds. No guarding, no rebound. No masses appreciated. BACK: Normal contour, no midline tenderness. Rectal exam deferred. GENITAL/PELVC: Deferred. EXTREMITIES: Dehiscence of right lower extremity surgical site, approximate 3 cm gap with apparent nonviable tissue and copious purulent discharge. No pitting or edema. No cyanosis and normal capillary refill <2 seconds. NEUROLOGICAL: No focal neurological deficits. Moves all extremities spontaneously and on command. PSYCH: Normal mood, normal affect. No suicidal thoughts/ideations. No homicidal thoughts/ideations. No hallucinations. SKIN: Warm, dry, normal turgor, no rashes or lesions noted. ASSESSMENT AND PLAN: This patient is a 63-year-old female who presents with wound dehiscence and concern for osteomyelitis in the right [id number] hypertension site. 1. Will obtain labs, urine, blood cultures, start empiric antibiotics, and consult surgery. 2. Will give IV fluids and morphine for pain control. TRAVEL OUTSIDE OF THE [place] IN LAST 30 DAYS: No - HPI Onset: Other - 6 weeks ago Onset/Duration: Gradual Quality of pain: Achy Severity: Moderate Pain Level: 2 Associated symptoms: None Exacerbated by: Movement Relieved by: Denies Similar symptoms previously: Yes Recently seen / treated by doctor: Yes - Related Data Allergies/Adverse Reactions: gabapentin Allergy (Verified 10/29/18 18:58) Past Medical History - General Information source: Patient, Relative - Social History Smoking Status: Former Smoker Chew tobacco use (# tins/day): No Frequency of alcohol use: None Drug Abuse: None Lives with: Family Family History: Reviewed & Not Pertinent Patient has suicidal ideation: No Patient has homicidal ideation: No - Past Medical History Cardiac Medical History: Reports: Hx Congestive Heart Failure, Hx Hypertension Denies: Hx Coronary Artery Disease, Hx Heart Attack Pulmonary Medical History: Reports: None Denies: Hx Asthma, Hx Bronchitis, Hx COPD, Hx Pneumonia, Hx Tuberculosis EENT Medical History: Reports: None Neurological Medical History: Reports: None. Denies: Hx Cerebrovascular Accident, Hx Seizures Endocrine Medical History: Reports: Hx Diabetes Mellitus Type 2 Renal/ Medical History: Reports: Hx End Stage Renal Disease. Denies: Hx Peritoneal Dialysis Malignancy Medical History: Reports: None GI Medical History: Reports: None Musculoskeletal Medical History: Reports None, Denies Hx Arthritis Skin Medical History: Reports None Psychiatric Medical History: Reports: None Denies: Hx Depression Traumatic Medical History: Reports: None Infectious Medical History: Reports: None Past Surgical History: Reports: Hx Section - X3, Hx Cholecystectomy, Hx Orthopedic Surgery - Ankle surgery; left big toe amputation. Denies: Hx Pacemaker - Immunizations Hx Diphtheria, Pertussis, Tetanus Vaccination: No Review of Systems - Review of Systems Constitutional: No symptoms reported EENT: No symptoms reported Cardiovascular: No symptoms reported Respiratory: No symptoms reported Gastrointestinal: No symptoms reported Genitourinary: No symptoms reported Female Genitourinary: No symptoms reported Musculoskeletal: See HPI, Muscle pain Skin: No symptoms reported Hematologic/Lymphatic: No symptoms reported Neurological/Psychological: No symptoms reported -: Yes All other systems reviewed and negative Physical Exam - Vital signs Vitals: Temp Pulse Resp BP Pulse Ox 97.9 F 62 18 134/65 H 96 03/05/19 16:05 03/05/19 16:05 03/05/19 16:05 03/05/19 16:05 03/05/19 16:05 Interpretation: Normal Course - Re-evaluation Re-evalutation: 03/05/19 21:45 Labs show mild elevation of white cell count, x-ray is negative for acute osteomyelitis. Patient has been given empiric vancomycin and cefepime. She will be admitted to the hospital. 03/05/19 22:19 Apparently this facility does not have the capacity to dialyze the patient, therefore patient will have to be transferred to outside facility for appropriate care and likely surgical intervention. - Vital Signs Vital signs: Temp Pulse Resp BP Pulse Ox 98.8 F 82 22 H 137/104 H 98 03/05/19 23:26 03/05/19 23:26 03/05/19 23:26 03/06/19 01:01 03/06/19 01:01 - Laboratory Result Diagrams: 03/05/19 17:40 03/05/19 17:40 Laboratory results interpreted by me: 03/05/19 03/05/19 17:40 17:40 WBC 12.1 H RBC 3.43 L Hgb 10.8 L Hct 34.3 L MCV 100 H MCHC 31.4 L RDW 16.9 H Lymph % (Auto) 10.7 L Absolute Neuts (auto) 9.7 H Seg Neutrophils % 80.3 H Potassium 5.5 H BUN 30 H Creatinine 6.19 H Est GFR ( Amer) 8 L Est GFR (MDRD) Non-Af 7 L Albumin 3.1 L - Diagnostic Test Radiology reviewed: Image reviewed, Reports reviewed - Consults Dr. Bonilla Time consulted: 21:45 - will admit Reason for consultation: 03/05/19 20:29 Attempted to contact the surgeon international controller, also the same surgeon that performed the patient's [id number] amputation, for admission. He was not available, will try again soon. 03/05/19 21:45 Surgical list will admit the patient to the hospital. Consulted provider: will come to ER Dr. Sullivan ([facility]) Time consulted: 23:43 - will accept in transfer Discharge - Discharge Clinical Impression: Wound dehiscence, surgical Qualifiers: Encounter type: initial encounter Qualified Code(s): T81.31XA - Disruption of external operation (surgical) wound, not elsewhere classified, initial encounter Condition: Stable Disposition: [facility] Admitting Provider: Surgicalist Unit Admitted: Surgical Floor
[2019-03-05] MEDS ORDERED: VANCOMYCIN HCL INJ 1000 MG VIAL IV ONE (20:27)
[2019-03-05] MEDS ORDERED: NORMAL SALINE 1000 ML 1,000 ML IV ONE (20:27)
[2019-03-05] MEDS ORDERED: CEFEPIME 2 GM/D5W RTU 2 GM/50 ML RTUPB IV ONE (20:27)
[2019-03-05] MEDS ORDERED: MORPHINE SULFATE 10 MG/ML INJ IV ONE (23:45)
[2019-03-06 02:50] VITALS: BP 161/118
== END 2019-03-06 03:03 | disposition short-term general hospital (02) ==
LOC: ER 15:30 → EH 21:59 → UNDOADMIN 21:59 → ER 03-06 03:03 → UNDODISIN 03-06 03:03
DX: T81.31XA Disruption of external operation (surgical) wound, not elsewhere classified, initial encounter (principal); Z89.511 Acquired absence of right leg below knee; Z87.891 Personal history of nicotine dependence; I13.2 Hypertensive heart and chronic kidney disease with heart failure and with stage 5 chronic kidney disease, or end stage renal disease; E11.22 Type 2 diabetes mellitus with diabetic chronic kidney disease; N18.6 End stage renal disease; I50.9 Heart failure, unspecified; Z99.2 Dependence on renal dialysis
CPT/HCPCS: 99285; 96361; 96375; 96365; 36415; 87040; 85025; 85610; 85730; 87077; 80053; 87186; 83605; 73560; J2270; J7030; J3370; J0692